=== PATIENT | male | born 1955 | race Caucasian/White ===

== ENCOUNTER 2018-09-20 00:06 | Observation (INO) | payer MEDICARE, OTHER ==
--- OUTSIDE RECORDS SUMMARY | 2018-09-20 00:10 | XMS REPORT | Clinical Summary ---
:1955 Author Organization [facility] [employer] Address [address] [place] [address] Care Team Providers Name Role Phone Lilian Jackson MD Primary Care Provider Unavailable Allergies Active Allergy Reactions Severity Noted Date Comments Morphine Sulfate 01/13/2016 Medications Medication Sig Dispensed Refills Start End Date Status Date allopurinol (ZYLOPRIM) 1 tab po daily 30 tablet 11 Active 100 MG tablet 8 pravastatin Take 1 tablet 30 tablet 11 08/02/20 Active (PRAVACHOL) 40 MG (40 mg total) 8 19 tablet by mouth daily. sodium bicarbonate 650 Take 1 tablet 180 tablet 3 08/22/20 Active mg tablet (648 mg total) 8 19 by mouth 2 (two) times a day. furosemide (LASIX) 20 Take 1 tablet 180 tablet 3 08/22/20 Active mg tablet (20 mg total) 8 19 by mouth 2 (two) times a day. blood pressure monitor Monitor Blood 1 each 0 Active kit pressure daily 8 as advised losartan (COZAAR) 50 Take 1 tablet 30 tablet 11 09/07/20 Active MG tablet (50 mg total) 8 19 by mouth daily. albuterol (PROAIR HFA) Inhale 2 puffs 18 g 11 09/07/20 Active 90 mcg/actuation every 6 (six) 8 19 inhaler hours as needed for wheezing. sildenafil (VIAGRA) 50 Take 50 mg by 0 08/02/20 Discontinued MG tablet mouth. 2 18 colchicine 0.6 mg Take 1 tablet 30 tablet 3 07/02/20 Discontinued tabletIndications: (0.6 mg total) 6 18 Acute idiopathic gout, by mouth unspecified site daily. lisinopril Take 1 tablet 30 tablet 11 08/02/20 Discontinued (PRINIVIL,ZESTRIL) 10 (10 mg total) 6 18 MG tablet by mouth daily. allopurinol (ZYLOPRIM) 1 tab po daily 30 tablet 11 08/02/20 Discontinued 100 MG tablet 6 18 febuxostat (ULORIC) 80 Take 1 tablet 0 08/02/20 Discontinued mg tablet by mouth. 18 methylPREDNISolone follow package 21 tablet 0 07/07/20 (MEDROL, GARIMA,) 4 mg directions 8 18 tablet predniSONE (DELTASONE) 2 tabs po 10 tablet 0 07/21/20 20 mg tablet daily x5 days 8 18 lisinopril Take 1 tablet 30 tablet 11 09/07/20 Discontinued (PRINIVIL,ZESTRIL) 10 (10 mg total) 8 18 mg tablet by mouth daily. melatonin 1 mg tablet Take 1 mg by 0 09/07/20 Discontinued mouth nightly 18 as needed for sleep. predniSONE (DELTASONE) Take 2 tablets 10 tablet 0 09/04/20 20 mg tablet (40 mg total) 8 18 by mouth daily for 5 days. predniSONE (DELTASONE) 2 tabs po 10 tablet 0 09/10/20 20 mg tablet daily x5 days 8 18 predniSONE (DELTASONE) 1 tab daily as 20 tablet 0 09/11/20 20 mg tablet directed for 8 18 gout flares Active Problems Problem Noted Date Acute pain of left knee 01/13/2016 Chronic kidney disease, stage I 11/14/2015 Cough 11/14/2015 Essential hypertension 11/14/2015 Gout 11/14/2015 HLD (hyperlipidemia) 11/14/2015 Throat pain 11/14/2015 Proteinuria 11/14/2015 Encounters Date Type Specialty Care Team Description 09/07/2018 Office Visit Internal Medicine Ren[facility], Gout, unspecified cause, unspecified chronicity, unspecified site (Primary Dx); MD Lilian Stage 4 chronic kidney disease (HCC); Allergic rhinitis, unspecified seasonality, unspecified trigger; Hyperlipidemia, unspecified hyperlipidemia type; Essential hypertension; Cough 09/06/2018 Telephone Internal Medicine [facility]etta Gout, unspecified cause, MD Lilian unspecified chronicity, unspecified site (Primary Dx) 09/06/2018 Orders Only Nephrology Alisha Vargas MA 09/03/2018 Hospital Radiology [facility], Proteinuria, unspecified Encounter Neri Rendon MD type 08/31/2018 Hospital Rad[facility], Positive for Encounter Neri Rendon MD macroalbuminuria 08/31/2018 Hospital Radiology [facility], Positive for Encounter Neri Rendon MD macroalbuminuria 08/30/2018 Telephone Internal Medicine Teresa Parekh MA 08/30/2018 Telephone Nephrology Alisha Vargas MA 08/28/2018 Orders Only Nephrology Sam, Proteinuria, unspecified CHARLEY Brito type (Primary Dx) 08/22/2018 Office Visit Nephrology Nicole, Albuminuria (Primary Dx); Neri Rendon MD CKD (chronic kidney disease) stage 3, GFR 30-59 ml/min ( HCC); Renovascular hypertension 08/22/2018 Orders Only Nephrology Sam, Positive for CHARLEY Brito macroalbuminuria (Primary Dx) 08/20/2018 Orders Only Nephrology Sam, Chronic kidney disease, CHARLEY Brito unspecified CKD stage (Primary Dx) 08/02/2018 Office Visit Internal Medicine [facility], Encounter for general adult medical examination with abnormal findings (Primary Dx); MD Lilian Pneumococcal vaccination indicated; Influenza vaccine administered; Screening for malignant neoplasm of prostate; Hyperlipidemia, unspecified hyperlipidemia type; Gout, unspecified cause, unspecified chronicity, unspecified site; Chronic kidney disease, stage I; Proteinuria, unspecified type; Screening for cardiovascular condition 07/16/2018 Telephone Internal Medicine [facility], MD Lilian 07/05/2018 Orders Only Internal Medicine Ren[facility] CKD (chronic kidney MD Lilian disease) stage 3, GFR 30-59 ml/min (HCC) (Primary Dx) 07/02/2018 Office Visit Internal Medicine [facility] Gout, unspecified cause, unspecified chronicity, unspecified site (Primary Dx); MD Lilian Essential hypertension; Chronic kidney disease, stage I; Hyperlipidemia, unspecified hyperlipidemia type; Acute gout, unspecified cause, unspecified site 07/02/2018 Telephone Internal Medicine Lilian Jackson MD 10/11/2017 Refill Internal Medicine Lilian Jackson MD after 09/19/2017 Immunizations Name Dates Previously Given Next Due INFLUENZA QUAD PF 08/02/2018 Pneumococcal Conjugate 13-Valent 08/02/2018 Tdap 03/25/2011 Zoster 01/09/2015 Family History Medical History Relation Name Comments Breast cancer Mother Relation Name Status Comments Mother Social History Tobacco Use Types Packs/Day Years Used Date Never Smoker Smokeless Tobacco: Never Used Alcohol Use Drinks/Week oz/Week Comments Yes rarely Sex Assigned at Date Recorded Not on file Job Start Date Occupation Industry Not on file Not on file Not on file Travel History Travel Start Travel End No recent travel history available. Last Filed Vital Signs Vital Sign Reading Time Taken Blood Pressure 130/70 09/07/2018 8:22 [employer] Pulse 63 09/07/2018 8:22 [employer] Temperature 36.9 C (98.4 F) 09/07/2018 8:22 [employer] Respiratory Rate 14 09/07/2018 8:22 [employer] Oxygen Saturation 98% 09/07/2018 8:22 [employer] Inhaled Oxygen Concentration - - Weight 104 kg (230 lb) 09/07/2018 8:22 [employer] Height 182.9 cm (6') 09/07/2018 8:22 [employer] Body Mass Index 31.19 09/07/2018 8:22 [employer] Plan of Treatment Health Maintenance Due Date Last Done Comments COLON CANCER SCREENING 2003 SHINGLES VACCINES (1 of 2) 2003 PNEUMOCOCCAL POLYSACCHARIDE VACCINE AGE 65 AND OVER 2018 INFLUENZA VACCINE Completed 08/02/2018 PNEUMOCOCCAL-13 Completed 08/02/2018 Procedures Procedure Name Priority Date/Time Associated Diagnosis Comments BASIC METABOLIC PANEL Routine 09/07/2018 9:23 Gout, unspecified Results for [employer] cause, unspecified this procedure chronicity, unspecified are in the site results section. URIC ACID LEVEL Routine 09/07/2018 9:20 Gout, unspecified Results for [employer] cause, unspecified this procedure chronicity, unspecified are in the site results section. SURGICAL PATHOLOGY Routine 09/03/2018 10:10 Results for REQUEST [employer] this procedure are in the results section. US NEEDLE BIOPSY Routine 09/03/2018 9:55 Proteinuria, Results for [employer] unspecified type this procedure are in the results section. US RENAL Routine 08/31/2018 4:31 Positive for Results for [employer] macroalbuminuria this procedure are in the results section. US RENAL DOPPLER Routine 08/31/2018 4:30 Positive for Results for [employer] macroalbuminuria this procedure are in the results section. PROTEIN Routine 08/23/2018 8:32 Positive for Results for ELECTROPHORESIS WITH [employer] macroalbuminuria this procedure INTERPRETATION, SERUM are in the results section. URIC ACID LEVEL Routine 08/23/2018 8:32 Positive for Results for [employer] macroalbuminuria this procedure are in the results section. MICROALBUMIN, URINE, Routine 08/23/2018 8:32 Positive for Results for RANDOM [employer] macroalbuminuria this procedure are in the results section. URINE PROTEIN Routine 08/23/2018 8:32 Positive for Results for ELECTROPHORESIS, [employer] macroalbuminuria this procedure RANDOM are in the results section. VITAMIN D 25 HYDROXY Routine 08/23/2018 8:32 Positive for Results for LEVEL [employer] macroalbuminuria this procedure are in the results section. PTH, INTACT AND Routine 08/23/2018 8:32 Positive for Results for CALCIUM [employer] macroalbuminuria this procedure are in the results section. PROTHROMBIN TIME WITH Routine 08/23/2018 8:32 Positive for Results for INR [employer] macroalbuminuria this procedure are in the results section. PARTIAL THROMBOPLASTIN Routine 08/23/2018 8:32 Positive for Results for TIME (PTT) [employer] macroalbuminuria this procedure are in the results section. CBC WITH PLATELET AND Routine 08/23/2018 8:32 Positive for Results for DIFFERENTIAL [employer] macroalbuminuria this procedure are in the results section. PHOSPHORUS LEVEL Routine 08/23/2018 8:32 Positive for Results for [employer] macroalbuminuria this procedure are in the results section. MAGNESIUM LEVEL Routine 08/23/2018 8:32 Positive for Results for [employer] macroalbuminuria this procedure are in the results section. BASIC METABOLIC PANEL Routine 08/23/2018 8:32 Positive for Results for [employer] macroalbuminuria this procedure are in the results section. ANUJ, PE AND FLC, SERUM Routine 08/23/2018 8:32 Positive for Results for [employer] macroalbuminuria this procedure are in the results section. MICROSCOPIC Routine 08/20/2018 11:32 Results for EXAMINATION [employer] this procedure are in the results section. MICROALBUMIN, URINE, Routine 08/20/2018 11:32 Chronic kidney disease, Results for RANDOM [employer] unspecified CKD stage this procedure are in the results section. URINALYSIS, COMPLETE, Routine 08/20/2018 11:32 Chronic kidney disease, Results for WITH REFLEX TO CULTURE [employer] unspecified CKD stage this procedure are in the results section. PHOSPHORUS LEVEL Routine 08/20/2018 11:32 Chronic kidney disease, Results for [employer] unspecified CKD stage this procedure are in the results section. MAGNESIUM LEVEL Routine 08/20/2018 11:32 Chronic kidney disease, Results for [employer] unspecified CKD stage this procedure are in the results section. BASIC METABOLIC PANEL Routine 08/20/2018 11:32 Chronic kidney disease, Results for [employer] unspecified CKD stage this procedure are in the results section. ECG 12-LEAD Routine 08/02/2018 12:39 Encounter for general Results for [employer] adult medical this procedure examination with are in the abnormal findings results section. PARATHYROID HORMONE Routine 08/02/2018 11:59 Chronic kidney disease, Results for [employer] stage I this procedure are in the results section. BASIC METABOLIC PANEL Routine 08/02/2018 11:59 Chronic kidney disease, Results for [employer] stage I this procedure are in the results section. PROSTATE SPECIFIC Routine 08/02/2018 11:59 Screening for malignant Results for ANTIGEN [employer] neoplasm of prostate this procedure are in the results section. MICROSCOPIC Routine 07/02/2018 2:56 Results for EXAMINATION PM CDT this procedure are in the results section. URIC ACID LEVEL Routine 07/02/2018 2:56 Essential hypertension Results for PM CDT Gout, unspecified this procedure cause, unspecified are in the chronicity, unspecified results site section. Chronic kidney disease, stage I Hyperlipidemia, unspecified hyperlipidemia type MICROALBUMIN / Routine 07/02/2018 2:56 Essential hypertension Results for CREATININE URINE RATIO PM CDT Gout, unspecified this procedure cause, unspecified are in the chronicity, unspecified results site section. Chronic kidney disease, stage I Hyperlipidemia, unspecified hyperlipidemia type URINALYSIS, COMPLETE, Routine 07/02/2018 2:56 Essential hypertension Results for WITH REFLEX TO CULTURE PM CDT Gout, unspecified this procedure cause, unspecified are in the chronicity, unspecified results site section. Chronic kidney disease, stage I Hyperlipidemia, unspecified hyperlipidemia type THYROID STIMULATING Routine 07/02/2018 2:56 Essential hypertension Results for HORMONE PM CDT Gout, unspecified this procedure cause, unspecified are in the chronicity, unspecified results site section. Chronic kidney disease, stage I Hyperlipidemia, unspecified hyperlipidemia type LIPID PANEL Routine 07/02/2018 2:56 Essential hypertension Results for PM CDT Gout, unspecified this procedure cause, unspecified are in the chronicity, unspecified results site section. Chronic kidney disease, stage I Hyperlipidemia, unspecified hyperlipidemia type HEMOGLOBIN A1C Routine 07/02/2018 2:56 Essential hypertension Results for PM CDT Gout, unspecified this procedure cause, unspecified are in the chronicity, unspecified results site section. Chronic kidney disease, stage I Hyperlipidemia, unspecified hyperlipidemia type COMPREHENSIVE Routine 07/02/2018 2:56 Essential hypertension Results for METABOLIC PANEL PM CDT Gout, unspecified this procedure cause, unspecified are in the chronicity, unspecified results site section. Chronic kidney disease, stage I Hyperlipidemia, unspecified hyperlipidemia type CBC WITH PLATELET AND Routine 07/02/2018 2:56 Essential hypertension Results for DIFFERENTIAL PM CDT Gout, unspecified this procedure cause, unspecified are in the chronicity, unspecified results site section. Chronic kidney disease, stage I Hyperlipidemia, unspecified hyperlipidemia type after 09/19/2017 Results Basic metabolic panel (09/07/2018 9:23 [employer])Only the most recent of4 resultswithin the time period is included. Glucose 110 (H) 65 - 99 mg/dL [facility] BUN, whole blood 43 (H) 8 - 27 mg/dL [facility] Creatinine 1.96 (H) 0.76 - 1.27 mg/dL [facility] EGFR Non-Afr. [place] 35 (L) >59 mL/min/1.73 [facility] EGFR 40 (L) >59 mL/min/1.73 [facility] BUN/creatinine ratio 22 10 - 24 [facility] Sodium 141 134 - 144 mmol/L [facility] Potassium 5.0 3.5 - 5.2 mmol/L [facility] Chloride 108 (H) 96 - 106 mmol/L [facility] CO2 19 (L) 20 - 29 mmol/L [facility] Calcium 9.5 8.6 - 10.2 mg/dL [facility] Specimen Blood Narrative Performed At Performed at:01 - [facility] [address], [id number] Milling Operator: Laurent Guillaume MD, Phone:[phone] Performing Organization Address City/State/Zipcode Phone Number [facility] Uric acid level (09/07/2018 9:20 AM [employer])Only the most recent of3 resultswithin the time period is included. Uric acid 8.5Comment: Therapeutic target for 3.7 - 8.6 mg/dL [facility] gout patients: <6.0 Specimen Blood Narrative Performed At Performed at: [facility] [address], [id number] Milling Operator: Laurent Guillaume MD, Phone:[phone] Performing Organization Address City/State/Zipcode Phone Number [facility] Surgical pathology request (09/03/2018 10:10 AM [employer]) [facility] DEPARTMENT OF PATHOLOGY AND GENOMIC MEDICINE Surgical pathology report See link below for PDF [facility] DEPARTMENT OF Lab Report PATHOLOGY AND GENOMIC MEDICINE Result status This is Final Report [facility] DEPARTMENT OF for [id number] PATHOLOGY AND GENOMIC MEDICINE Performing Organization Address City/[facility] Phone Number [facility] DEPARTMENT OF PATHOLOGY AND [address] [place] [address] GENOMIC MEDICINE US Needle Biopsy (09/03/2018 9:55 AM [employer]) Narrative Performed At EXAMINATION:US NEEDLE BIOPSY [facility] CLINICAL HISTORY:R80.9 Proteinuria CONSENT: Risks, benefits, and alternatives discussed. Written informed consent obtained. SEDATION: Versed and fentanyl were administered intravenously for moderate sedation under physician supervision. Pulse oximetry, heart rate, and blood pressure were continuously monitored by an independently trained observer. INTRASERVICE [id number] TIME: 25 minutes ANESTHESIA: Lidocaine local. TECHNIQUE: Patient was placed in prone position. Skin was sterilely prepped and draped. Lidocaine was infiltrated into the soft tissues for local anesthesia. Ultrasound-guided 18-gauge core biopsy of the [place] left kidney was performed. Intraprocedural consultation with pathology deemed specimen adequate for interpretation. Patient tolerated the procedure well without immediate complication, left the room in good condition, and was escorted to observation for further monitoring. EBL: Less than 5 cc COMPLICATIONS: No immediate. ASSISTANTS: None. IMPRESSION: Technically successful ultrasound-guided biopsy of the [place] left kidney. [facility]-[id number] Procedure Note Hm Interface, Radiology Results Incoming - 09/03/2018 10:31 AM [employer] EXAMINATION: US NEEDLE BIOPSY CLINICAL HISTORY: R80.9 Proteinuria CONSENT: Risks, benefits, and alternatives discussed. Written informed consent obtained. SEDATION: Versed and fentanyl were administered intravenously for moderate sedation under physician supervision. Pulse oximetry, heart rate, and blood pressure were continuously monitored by an independently trained observer. INTRASERVICE [id number] SEDATION TIME: 25 minutes ANESTHESIA: Lidocaine local. TECHNIQUE: Patient was placed in prone position. Skin was sterilely prepped and draped. Lidocaine was infiltrated into the soft tissues for local anesthesia. Ultrasound-guided 18-gauge core biopsy of the [place] left kidney was performed. Intraprocedural consultation with pathology deemed specimen adequate for interpretation. Patient tolerated the procedure well without immediate complication, left the room in good condition, and was escorted to observation for further monitoring. EBL: Less than 5 cc COMPLICATIONS: No immediate. ASSISTANTS: None. IMPRESSION: Technically successful ultrasound-guided biopsy of the [place] left kidney. [facility]-[id number] Performing Organization Address City/State/Zipcode Phone Number [facility] [address] [place] [address] US Renal (08/31/2018 4:31 PM [employer]) Narrative Performed At EXAMINATION:US RENAL [facility] CLINICAL HISTORY:R80.9 Proteinuriaunspecified, Elevated Creatinine COMPARISON:None. FINDINGS: The kidneys are normal in size and echogenicity. There is no evidence of any solid renal mass,or hydronephrosis. The right kidney [id number] cm. The left kidney ongpifzs88.3X6.3 X 5.0 cm. There is a 0.4 cm nonobstructing stone seen within the left kidney. The urinary bladder is unremarkable. IMPRESSION: 1. The kidneys do not have any solid renal mass or hydronephrosis. 2. There is a 0.4 cm nonobstructing stone seen within the left kidney. 3. The bladder is unremarkable. [facility]-[id number] Procedure Note Interface, Radiology Results Incoming - 08/31/2018 4:45 PM [employer] EXAMINATION: US RENAL CLINICAL HISTORY: R80.9 Proteinuria unspecified, Elevated Creatinine COMPARISON: None. FINDINGS: The kidneys are normal in size and echogenicity. There is no evidence of any solid renal mass, or hydronephrosis. The right kidney measures 11.5 X 5.7 X 6.0 cm. The left kidney measures 11.3 X 6.3 X 5.0 cm. There is a 0.4 cm nonobstructing stone seen within the left kidney. The urinary bladder is unremarkable. IMPRESSION: 1. The kidneys do not have any solid renal mass or hydronephrosis. 2. There is a 0.4 cm nonobstructing stone seen within the left kidney. 3. The bladder is unremarkable. [id number] Performing Organization Address City/State/Zipcode Phone Number [facility] [address] [place] [address] US Renal Doppler (08/31/2018 4:30 PM [employer]) Narrative Performed At EXAMINATION:US RENAL DOPPLER [facility] CLINICAL HISTORY:R80.9 Proteinuriaunspecified, HTN TECHNIQUE: Examination includes a full duplex Doppler scan of the renal vessels (real-time B mode grayscale, Doppler spectral analysis, and Doppler color flow imaging). COMPARISON:None. FINDINGS: Right renal arterial waveforms demonstrate normal systolic upstrokes and good enddiastolic flow. The right renal vein is patent.The resistive index measures 0.73 in the superior portion, 0.75 in the midportion 0.80 inferiorly.. Left renal arterial waveforms demonstrate normal systolic upstrokes and good end diastolic flow. The left renal vein is patent.The resistive index measures 0.63 in the superior portion, 0.57 inferiorly and 0.70 in the inferior portion. The RENAL PEAK SYSTOLIC VELOCITY/AORTIC PEAK SYSTOLIC VELOCITY RATIOis 0.57 on the right ,and 0.41 on the left. This finding is within normal limits.. IMPRESSION: Normal renal Doppler ultrasound examination. [facility]-[id number] Procedure Note Interface, Radiology Results Incoming - 08/31/2018 4:49 PM [employer] EXAMINATION: US RENAL DOPPLER CLINICAL HISTORY: R80.9 Proteinuria unspecified, HTN TECHNIQUE: Examination includes a full duplex Doppler scan of the renal vessels (real-time B mode grayscale, Doppler spectral analysis, and Doppler color flow imaging). COMPARISON: None. FINDINGS: Right renal arterial waveforms demonstrate normal systolic upstrokes and good end diastolic flow. The right renal vein is patent. The resistive index measures 0.73 in the superior portion, 0.75 in the midportion 0.80 inferiorly.. Left renal arterial waveforms demonstrate normal systolic upstrokes and good end diastolic flow. The left renal vein is patent. The resistive index measures 0.63 in the superior portion, 0.57 inferiorly and 0.70 in the inferior portion. The RENAL PEAK SYSTOLIC VELOCITY/AORTIC PEAK SYSTOLIC VELOCITY RATIO is 0.57 on the right ,and 0.41 on the left. This finding is within normal limits.. IMPRESSION: Normal renal Doppler ultrasound examination. [facility]-[id number] Performing Organization Address City/State/Zipcode Phone Number [facility] [address] [place] [address] ANUJ, PE and FLC, Serum (08/23/2018 8:32 AM [employer]) IgG 641 (L) 700 - 1,600 mg/dL [facility] IgA 363 61 - 437 mg/dL [facility] IgM 140 20 - 172 mg/dL [facility] Protein 6.6 6.0 - 8.5 g/dL [facility] Albumin 3.6 2.9 - 4.4 g/dL [facility] 02 Soawy-[id number] 0.2 0.0 - 0.4 g/dL [facility] 02 Evzry-7-qfrycmvj 0.9 0.4 - 1.0 g/dL [facility] 02 Beta globulin 1.3 0.7 - 1.3 g/dL [facility] 02 Gamma globulin 0.7 0.4 - 1.8 g/dL [facility] 02 M-SPIKE Not Observed Not Observed g/dL [facility] 02 Globulin, total 3.0 2.2 - 3.9 g/dL [facility] A/G ratio 1.3 0.7 - 1.7 [facility] 02 Immunofixation, serum CommentComment: An apparent [facility] 02 normal immunofixation pattern. Please note Comment [facility] 02 Comment: Protein electrophoresis scan will follow via computer, mail, or outreach assistant delivery. Ig [place] Free Light 31.0 (H) 3.3 - 19.4 mg/L [facility] 02 Chain Lambda light chain 36.7 (H) 5.7 - 26.3 mg/L [facility] 02 [place] lambda ratio 0.84 0.26 - 1.65 [facility] 02 Specimen Blood Narrative Performed At Performed at: - [facility] [address], [id number] Milling Operator: Laurent Guillaume MD, Phone:[phone] Performed at: - [address], [place], [id number] Milling Operator: MICHAEL Hernandez MD, Phone:[phone] Performing Organization Address [facility] Phone Number [facility] Protein Electrophoresis With Interpretation, Serum (08/23/2018 8:32 AM MANAGER [employer]) Albumin, S 3.5 2.9 - 4.4 g/dL [facility] Kbfyk-6-pqsmlejk 0.2 0.0 - 0.4 g/dL [facility] Kukul-8-aalixpik 1.0 0.4 - 1.0 g/dL [facility] Beta globulin 1.2 0.7 - 1.3 g/dL [facility] Gamma globulin 0.7 0.4 - 1.8 g/dL [facility] M-Ernst, % Not Observed Not Observed g/dL [facility] Globulin, total 3.1 2.2 - 3.9 g/dL [facility] 02 Albumin/globulin ratio 1.1 0.7 - 1.7 [facility] Please note Comment [facility] Comment: Protein electrophoresis scan will follow via computer, mail, or outreach assistant delivery. Interpretation Comment [facility] Comment: The SPE pattern appears essentially unremarkable. Evidence of monoclonal protein is not apparent. Specimen Blood Narrative Performed At Performed at:01 - [facility] [address], [place], [id number] Milling Operator: MICHAEL Hernandez MD, Phone:[phone] Performed at:02 - Lab[id number] Milling Operator: Laurent Guillaume MD, Phone:[phone] Performing Organization Address [facility] Phone Number [facility] 02 Urine protein electrophoresis, random (08/23/2018 8:32 AM MANAGER [employer]) Protein, urine 159.4 Not Estab. mg/dL [facility] Albumin, urine 81.5 % [facility] 02 Jvdvg-5-eapdnkbx, urine 2.0 % [facility] 02 Jslux-0-ganzarkp, urine 4.4 % [facility] 02 Beta globulin, urine 7.9 % [facility] 02 Gamma globulin, urine 4.3 % [facility] 02 M-Ernst, % Not Observed Not Observed % [facility] 02 Please note Comment [facility] 02 Comment: Protein electrophoresis scan will follow via computer, mail, or outreach assistant delivery. Specimen Urine Narrative Performed At Performed at: - [id number] Milling Operator: Laurent Guillaume MD, Phone:[phone] Performed at: Lab[address], [place], [id number] Milling Operator: MICHAEL Hernandez MD, Phone:[phone] Performing Organization Address [facility] Phone Number [facility] 02 Microalbumin, urine, random (08/23/2018 8:32 AM MANAGER TE[employer] SALES)Only the most recent of2 resultswithin the time period is included. Microalbumin, urine 1,163.7 Not Estab. ug/mL [facility] Comment: Results confirmed on dilution. Specimen Urine Narrative Performed At Performed at: [facility] [address] [place], [place] [id number] Milling Operator: Laurent Guillaume MD, Phone:[phone] Performing Organization Address [facility] Phone Number [facility] PTH, intact and calcium (08/23/2018 8:32 AM MANAGER [employer]) PTH 28 15 - 65 pg/mL [facility] PTH Comment [facility] 02 Comment: Interpretation Intact PTHCalcium (pg/mL) (mg/dL) Jekkbl48 - 65 8.6 - 10.2 Primary Hyperparathyroidism >65>10.2 Secondary Hyperparathyroidism >65<10.2 Non-Parathyroid Hypercalcemia <65>10.2 Hypoparathyroidism<15 < 8.6 Non-Parathyroid Rivrwwawxezk40 - 65< 8.6 Specimen Blood Narrative Performed At Performed at: - [facility] [address] [place], [place] [id number] Milling Operator: Laurent Guillaume MD, Phone:[phone] Performed at: [id number] Milling Operator: Karen Florez MD, Phone:[phone] Performing Organization Address [facility] Phone Number [facility] 02 Vitamin D 25 hydroxy level (08/23/2018 8:32 AM MANAGER [employer]) Vitamin D, 25-hydroxy 24.1 (L) 30.0 - 100.0 ng/mL [facility] Comment: Vitamin D deficiency has been defined by the [place] of [employer] and an Endocrine Society practice guideline as a level of serum 25-OH vitamin D less than 20 ng/mL (1,2). The Endocrine Society went on to further define vitamin D insufficiency as a level between 21 and 29 ng/mL (2). 1. IOM ([place] of [employer]). 2010. Dietary reference intakes for calcium and D. [place]: The National Academies Press. 2. Watson MF, Boby MELGAR, Vaughn DICKSON, et al. Evaluation, treatment, and prevention of vitamin D deficiency: an Endocrine Society clinical practice guideline. JCEM. 2010; 96(0):1911-30. Specimen Blood Narrative Performed At Performed at:[address] [place], [place] [id number] Milling Operator: Laurent Guillaume MD, Phone:[phone] Performing Organization Address [facility] Phone Number [facility] Partial thromboplastin time, activated (08/23/2018 8:32 AM MANAGER [employer]) aPTT 29 24 - [address] [facility] Comment: This test has not been validated for monitoring unfractionated heparin therapy. aPTT-based therapeutic ranges for unfractionated heparin therapy have not been established. For general guidelines on Heparin monitoring, refer to the [facility] of Services. Specimen Blood Narrative Performed At Performed at:[address] [place], [place] [id number] Milling Operator: Laurent Guillaume MD, Phone:[phone] Performing Organization Address [facility] Phone Number [facility] Prothrombin time with INR (08/23/2018 8:32 AM MANAGER TE[employer] SAL[employer]) INR 0.9 0.8 - 1.[address] Comment: Reference interval is for non-anticoagulated patients. Suggested INR therapeutic range for Vitamin K antagonist therapy: Standard Dose (moderate intensity therapeutic range): 2.0 - 3.0 Higher intensity therapeutic range 2.5 - 3.5 Prothrombin time 9.6 9.1 - 12.[address] [facility] Specimen Blood Narrative Performed At Performed at:[address] [place], [place] [address], [place], [id number] Milling Operator: Laurent Guillaume MD, Phone:[phone] Performing Organization Address [facility] Phone Number [facility] CBC with platelet and differential (08/23/2018 8:32 AM MANAGER TECH[employer] SALES)Only the most recent of2 resultswithin the time period is included. WBC 8.2 3.4 - 10.8 x10E3/uL [facility] RBC 4.68 4.14 - 5.80 x10E6/uL [facility] HGB 14.5 13.0 - 17.7 g/dL [facility] HCT 42.0 37.5 - 51.0 % [facility] MCV 90 79 - 97 fL [facility] MCH 31.0 26.6 - 33.0 pg [facility] MCHC 34.5 31.5 - 35.7 g/dL [facility] RDW 13.9 12.3 - 15.4 % [facility] Platelet count 193 150 - 379 x10E3/uL [facility] Neutrophils 55 Not Estab. % [facility] Lymphocytes 35 Not Estab. % [facility] Monocytes 8 Not Estab. % [facility] Eosinophils 2 Not Estab. % [facility] Basophils 0 Not Estab. % [facility] Neutrophils, absolute 4.5 1.4 - 7.0 x10E3/uL [facility] Lymphocytes, absolute 2.8 0.7 - 3.1 x10E3/uL [facility] Monocytes, absolute 0.7 0.1 - 0.9 x10E3/uL [facility] Eosinophils, absolute 0.2 0.0 - 0.4 x10E3/uL [facility] Basophils, absolute 0.0 0.0 - 0.2 x10E3/uL [facility] Immature granulocytes 0 Not Estab. % [facility] Immature grans (abs) 0.0 0.0 - 0.1 x10E3/uL [facility] Specimen Blood Narrative Performed At Performed at:01 - [facility] [address], [id number] Milling Operator: Laurent Guillaume MD, Phone:[phone] Performing Organization Address [facility] Phone Number [facility] Phosphorus level (08/23/2018 8:32 AM MANAGER [employer]ES)Only the most recent of2 resultswithin the time period is included. Phosphorus 3.0 2.5 - 4.5 mg/dL [facility] Specimen Blood Narrative Performed At Performed at: [id number] Milling Operator: Laurent Guillaume MD, Phone:[phone] Performing Organization Address [facility] Phone Number [facility] Magnesium level (08/23/2018 8:32 AM MANAGER [employer])Only the most recent of2 resultswithin the time period is included. Magnesium 2.1 1.6 - 2.3 mg/dL [facility] Specimen Blood Narrative Performed At Performed at: [id number] Milling Operator: Laurent Guillaume MD, Phone:[phone] Performing Organization Address [facility] Phone Number [facility] URINALYSIS, COMPLETE, WITH REFLEX TO CULTURE (08/20/2018 11:32 AM MANAGER [employer]ES)Only the most recent of2 resultswithin the time period is included. Specific gravity, urine 1.016 1.005 - 1.030 [facility] pH, urine 5.5 5.0 - 7.5 [facility] Color, UA Yellow Yellow [facility] Appearance Clear Clear [facility] WBC esterase, urine Negative Negative [facility] Protein, UA 3+ (A) Negative/Trace [facility] Glucose, urine Negative Negative [facility] Ketones, UA Negative Negative [facility] Occult blood, urine Negative Negative [facility] Bilirubin, UA Negative Negative [facility] Urobilinogen, UA 0.2 0.2 - 1.0 mg/dL [facility] Nitrite, UA Negative Negative [facility] Microscopic examination See below:Comment: Microscopic [facility] was indicated and was performed. Urinalysis reflex CommentComment: This specimen [facility] will not reflex to a Urine Culture. Narrative Performed At Performed at: [id number] Milling Operator: Laurent Guillaume MD, Phone:[phone] Performing Organization Address [facility] Phone Number [facility] Microscopic Examination (08/20/2018 11:32 AM MANAGER TE[employer]ES)Only the most recent of2 resultswithin the time period is included. WBC, UA 0-5 0 - 5 /hpf [facility] RBC, UA 0-2 0 - 2 /hpf [facility] Epithelial cells (non renal) None seen 0 - 10 /hpf [facility] Mucus, UA Present Not Estab. [facility] Bacteria, UA None seen None seen/Few [facility] Narrative Performed At Performed at: [facility], [id number] Milling Operator: Laurent Guillaume MD, Phone:[phone] Performing Organization Address [facility] Phone Number [facility] ECG 12 lead (08/02/2018 12:39 PM MANAGER TE[employer] SALES) Ventricular rate 63 [facility] Atrial rate 63 [facility] OK interval 176 [facility] QRSD interval 92 [facility] QT interval 414 [facility] QTC interval 423 [facility] QRS axis 1 12 [facility] T wave axis 10 [facility] EKG impression Normal sinus rhythm-Normal ECG-No previous [facility] ECGs available- Narrative Performed At Performing Organization Address [facility] Phone Number [facility] [address] [place] [address] Prostate specific antigen (08/02/2018 11:59 AM MANAGER TECH[employer] SALES) PSA 0.8 0.0 - 4.0 ng/mL [facility] Comment: Effie ECLIA methodology. According to the [place] [employer], Serum PSA should decrease and remain at undetectable levels after radical prostatectomy. The AUA defines biochemical recurrence as an initial PSA value 0.2 ng/mL or greater followed by a subsequent confirmatory PSA value 0.2 ng/mL or greater. Values obtained with different assay methods or kits cannot be used interchangeably. Results cannot be interpreted as absolute evidence of the presence or absence of malignant disease. Specimen Blood Narrative Performed At Performed at: - [facility], [id number] Milling Operator: Laurent Guillaume MD, Phone:[phone] Performing Organization Address [facility] Phone Number [facility] Parathyroid hormone (08/02/2018 11:59 AM MANAGER TE[employer] SAL[employer]) PTH 48 15 - 65 pg/mL [facility] Specimen Blood Narrative Performed At Performed at:[address] [place], [place] [id number] Milling Operator: Laurent Guillaume MD, Phone:[phone] Performing Organization Address [facility] Phone Number [facility] Microalbumin / creatinine urine ratio (07/02/2018 2:56 PM CDT) Creatinine, urine, random 82.5 Not Estab. mg/dL [facility] Microalbumin, urine 1,933.5 Not Estab. ug/mL [facility] Comment: Results confirmed on dilution. Microalbumin/creatinine 2,343.6 (H) 0.0 - 30.0 mg/g creat [facility] ratio Comment: Normal: 0.0 -30.0 Albuminuria: 31.0 - 300.0 Clinical albuminuria: > 300.0 Specimen Urine Narrative Performed At Performed at:[address] [place], [place] [id number] Milling Operator: Laurent Guillaume MD, Phone:[phone] Performing Organization Address [facility] Phone Number [facility] Thyroid stimulating hormone (07/02/2018 2:56 PM CDT) TSH 2.870 0.450 - 4.500 uIU/mL [facility] Specimen Blood Narrative Performed At Performed at:[address] [place], [place] [id number] Milling Operator: Laurent Guillaume MD, Phone:[phone] Performing Organization Address [facility] Phone Number [facility] Hemoglobin A1c (07/02/2018 2:56 PM CDT) Hemoglobin A1C 5.5 4.8 - 5.6 % [facility] Comment: Prediabetes: 5.7 - 6.4 Diabetes: >6.4 Glycemic control for adults with diabetes: <7.0 Specimen Blood Narrative Performed At Performed at:[address] [place], [place] [id number] Milling Operator: Laurent Guillaume MD, Phone:[phone] Performing Organization Address [facility] Phone Number [facility] Lipid panel (07/02/2018 2:56 PM CDT) Cholesterol 284 (H) 100 - 199 mg/dL [facility] Triglycerides 349 (H) 0 - 149 mg/dL [facility] HDL cholesterol 56 >39 mg/dL [facility] VLDL cholesterol vani 70 (H) 5 - 40 mg/dL [facility] LDL cholesterol calculated 158 (H) 0 - 99 mg/dL [facility] Non-HDL cholesterol 228 (H) 0 - 129 mg/dL [facility] Comment Comment [facility] Comment: Possible Familial Hypercholesterolemia. FH should be suspected when fasting LDL cholesterol is above 189 mg/dL or non-HDL cholesterol is above 219 mg/dL. A family history of high cholesterol and heart disease in 1st degree relatives should be collected. J Clin Lipidol 2011;5:133-140 Specimen Blood Narrative Performed At Performed at:01 - [id number] Milling Operator: Laurent Guillaume MD, Phone:[phone] Performing Organization Address [facility] Phone Number [facility] Comprehensive metabolic panel (07/02/2018 2:56 PM CDT) Glucose 86 65 - 99 mg/dL [facility] BUN, whole blood 36 (H) 8 - 27 mg/dL [facility] Creatinine 2.09 (H) 0.76 - 1.27 mg/dL [facility] EGFR Non-Afr. [place] 32 (L) >59 mL/min/1.73 [facility] EGFR 37 (L) >59 mL/min/1.73 [facility] BUN/creatinine ratio 17 10 - 24 [facility] Sodium 140 134 - 144 mmol/L [facility] Potassium 4.8 3.5 - 5.2 mmol/L [facility] Chloride 101 96 - 106 mmol/L [facility] CO2 22 20 - 29 mmol/L [facility] Calcium 9.4 8.6 - 10.2 mg/dL [facility] Protein 6.9 6.0 - 8.5 g/dL [facility] Albumin, S 4.4 3.6 - 4.8 g/dL [facility] Globulin, total 2.5 1.5 - 4.5 g/dL [facility] Albumin/globulin ratio 1.8 1.2 - 2.2 [facility] Total bilirubin 0.3 0.0 - 1.2 mg/dL [facility] Alkaline phosphatase 81 39 - 117 IU/L [facility] AST 18 0 - 40 IU/L [facility] ALT 14 0 - 44 IU/L [facility] Specimen Blood Narrative Performed At Performed at: - [facility] [address] [place], [id number] Milling Operator: Laurent Guillaume MD, Phone:[phone] Performing Organization Address City/State/Zipcode Phone Number [facility] after 09/19/2017 Insurance Payer Benefit Plan / Group Subscriber ID Type Phone Address [facility] MEDICARE AARP MEDICARE COMPLETE MCR xxxxxxxxx HMO ([place]) [place] [address] Advance Directives Patient has advance care planning documents on file. For more information, please contact:[address] [place] [place] [address]
[2018-09-20 00:40] LABS: Absolute Monocytes 1.3 K/uL (0.1-1.3); Absolute Neutrophil 11.7 K/uL (1.8-8.0); Basophils % 0.5 % (0-1.3); Eosinophils % 0.4 % (0-4.4); Hematocrit 41.6 % (39.6-49.0); Lymphocytes % 23.4 % (15.3-44.8); MPV 9.2 fL (7.6-11.3); Monocytes % 7.6 % (3.3-12.3); RBC Red Blood Cell Count 4.52 M/uL (4.33-5.43)
[2018-09-20 00:44] LABS: Protime INR 0.9
[2018-09-20] MEDS ORDERED: ASPIRIN 81 MG CHEWABLE TABLET ONE (00:44)
[2018-09-20 00:56] LABS: ALT/SGPT 22 U/L (12-78); AST/SGOT 10 U/L (15-37); Albumin 3.5 g/dL (3.4-5.0); Alkaline Phosphatase 74 U/L (45-117); BUN Blood Urea Nitrogen 43 mg/dL (7-18); Bicarbonate 24 mmol/L (21-32); Bilirubin Direct 0.1 mg/dL (0-0.2); Bilirubin Total 0.4 mg/dL (0.2-1.0); Glucose Level 101 mg/dL (74-106); Magnesium 2.2 mg/dL (1.8-2.4); NT PRO-BNP 182 pg/mL (<125); Protein, Total 7.2 g/dL (6.4-8.2); Sodium Level 141 mmol/L (136-145); Troponin (Emerg Dept Use Only) < 0.02 ng/mL (0.0-0.045)
[2018-09-20] MEDS ORDERED: ENOXAPARIN 100 MG/ML SYR SQ ONE (02:33)
[2018-09-20 04:09] LABS: Arterial Blood Carboxyhemoglob 0.9 % (0-1.5); Blood Gas Oxyhemoglobin 92.8 % (94-97); Blood O2 Saturation 94.5 % (92-98.5)
--- NOTE | 2018-09-20 04:41 | EDPHYS ---
Physician Documentation [facility] Name: Urbano Plaza Age: 63 yrs Sex: Male : 1955 Arrival Date: 09/20/2018 Time: 00:08 Bed 14 Private MD: ED Physician Timo Guan HPI: 09/20 01:01 This 63 yrs old Male presents to ER via Ambulatory with complaints of Chest tw4 Pain, Shortness Of Breath. 01:01 The patient or guardian reports chest pain that is located primarily in the anterior tw4 chest wall, right. Onset: just prior to arrival, today. The pain does not radiate. Associated signs and symptoms: The patient has no apparent associated signs or symptoms. The chest pain is described as a pressure, sharp. Duration: The patient or guardian reports a single episode. Severity of pain: At its worst the pain was moderate in the emergency department the pain is unchanged. The patient has not experienced similar symptoms in the past. Historical: - Allergies: 00:22 No Known Allergies; fc - Home Meds: 00:22 losartan oral oral [Active]; fc - PMHx: 00:22 Hypertension; High Cholesterol; kidney disease stage 3; fc - PSHx: 00:22 back surg; kidney biopsy - left; fc - Immunization history:: Last tetanus immunization: up to date Pneumococcal vaccine is up to date, Flu vaccine is up to date. - Social history:: Smoking status: Patient/guardian denies using tobacco, Patient/guardian denies using alcohol. - Ebola Screening: : Patient negative for fever greater than or equal to 101.5 degrees Fahrenheit, and additional compatible Ebola Virus Disease symptoms Patient denies exposure to infectious person Patient denies travel to an Ebola-affected area in the 21 days before illness onset. ROS: 01:01 Constitutional: Negative for fever, chills, and weight loss, Abdomen/GI: Negative for tw4 abdominal pain, nausea, vomiting, diarrhea, and constipation, Back: Negative for injury and pain, MS/Extremity: Negative for injury and deformity, Skin: Negative for injury, rash, and discoloration, Psych: Negative for depression, anxiety, suicide ideation, homicidal ideation, and hallucinations. 01:01 Cardiovascular: Positive for chest pain, Negative for edema, orthopnea, palpitations, paroxysmal nocturnal dyspnea. 01:01 Respiratory: Positive for dyspnea on exertion, pleurisy, shortness of breath, on exertion. Negative for cough, hemoptysis, orthopnea. Exam: 01:01 Constitutional: This is a well developed, well nourished patient who is awake, alert, tw4 and in no acute distress. Head/Face: Normocephalic, atraumatic. Cardiovascular: Regular rate and rhythm with a normal S1 and S2. No gallops, murmurs, or rubs. Normal PMI, no JVD. No pulse deficits. Respiratory: Lungs have equal breath sounds bilaterally, clear to auscultation and percussion. No rales, rhonchi or wheezes noted. No increased work of breathing, no retractions or nasal flaring. Abdomen/GI: Soft, non-tender, with normal bowel sounds. No distension or tympany. No guarding or rebound. No evidence of tenderness throughout. Back: No spinal tenderness. No costovertebral tenderness. Full range of motion. 01:01 MS/ Extremity: Pulses equal, no cyanosis. Neurovascular intact. Full, normal range of motion. Neuro: Awake and alert, GCS 15, oriented to person, place, time, and situation. Cranial nerves II-XII grossly intact. Motor strength 5/5 in all extremities. Sensory grossly intact. Cerebellar exam normal. Normal gait. 01:01 Chest/axilla: Inspection: normal, Palpation: tenderness, that is mild, of the right lateral anterior chest. Vital Signs: 00:06 BP 154 / 91; Pulse 85; Resp 22; Temp 97.7(O); Pulse Ox 96% on R/A; Weight 101.6 kg (R); fc Height 6 ft. 0 in. (182.88 cm) (R); Pain 10/10; 01:00 BP 144 / 77; Pulse 75; Resp 21; Pulse Ox 96% on R/A; lp1 01:20 BP 122 / 67; Pulse 77; Resp 22; Pulse Ox 96% on R/A; lp1 01:40 BP 132 / 73; Pulse 71; Resp 24; Pulse Ox 96% on R/A; lp1 02:00 BP 133 / 65; Pulse 72; Resp 21; Pulse Ox 96% on R/A; lp1 02:30 BP 148 / 77; Pulse 68; Resp 22; Pulse Ox 96% on R/A; lp1 03:00 BP 143 / 74; Pulse 64; Resp 20; Pulse Ox 95% on R/A; lp1 03:30 BP 126 / 61; Pulse 64; Resp 24; Pulse Ox 96% on R/A; lp1 04:30 BP 143 / 74; Pulse 64; Resp 20; Pulse Ox 96% on R/A; lp1 06:01 BP 110 / 77; Pulse 65; Resp 21; Temp 98.7(O); Pulse Ox 98% on R/A; lp1 00:06 Body Mass Index 30.38 (101.60 kg, 182.88 cm) fc MDM: 00:18 Patient medically screened. tw4 01:01 The patient's pulmonary embolism risk score was calculated as follows: suspected deep tw4 vein thrombosis (3 Pts) Total Score: 3-6 points. This patient was found to be at moderate risk for a pulmonary embolism by using the Well's assessment criteria. Data reviewed: vital signs, nurses notes. 05:36 Differential diagnosis: pancreatitis, pericarditis, pleurisy, pneumonia, pneumothorax, tw4 pulmonary embolus, stable angina, thoracic aortic disection. Counseling: I had a detailed discussion with the patient and/or guardian regarding: the historical points, exam findings, and any diagnostic results supporting the discharge/admit diagnosis, lab results, radiology results. Medication response: morphine markedly relieved the patient's pain. Symptoms have improved. Response to treatment: the patient's symptoms have markedly improved after treatment, and as a result, I will discharge patient. Physician consultation: Sheree Fraser MD regarding admission, to the telemetry unit. patient's condition, need to come to ED to see patient. 09/20 00:19 Order name: Basic Metabolic Panel; Complete Time: 04:00 09/20 04:00 Interpretation: Normal except: BUN 43; GFR 29; CRE 2.31. 09/20 00:19 Order name: CBC with Diff; Complete Time: 04:00 lp09/20 04:01 Interpretation: Normal except: WBC 17.1. 09/20 00:19 Order name: LFT's; Complete Time: 04:00 09/20 04:01 Interpretation: Normal except: AST 10; GLOB 3.7; A/G 0.9. 09/20 00:19 Order name: Magnesium; Complete Time: 04:00 lp1 09/20 04:01 Interpretation: Within normal limits: MG 2.2. tw4 09/20 00:19 Order name: NT PRO-BNP; Complete Time: 04:00 lp1 09/20 04:01 Interpretation: Normal except: NT PRO-BNP 182. tw4 09/20 00:19 Order name: PT-INR; Complete Time: 04:00 lp1 09/20 00:19 Order name: Troponin (emerg Dept Use Only); Complete Time: 04:00 lp1 09/20 00:39 Order name: D-Dimer; Complete Time: 04:00 EDMS 09/20 04:01 Interpretation: Normal except: D-DIMER 3874. tw4 09/20 04:00 Order name: ABG tw4 09/20 04:22 Order name: Flu tw4 09/20 04:22 Order name: Lactate tw4 09/20 04:22 Order name: Blood Culture* tw4 09/20 05:29 Order name: Lactate EDMS 09/20 00:19 Order name: XRAY Chest (1 view) lp1 09/20 00:19 Order name: EKG; Complete Time: 00:21 lp1 09/20 00:19 Order name: Cardiac monitoring; Complete Time: 00:19 lp1 09/20 00:19 Order name: EKG - Nurse/Tech; Complete Time: 00:19 lp1 09/20 00:19 Order name: IV Saline Lock; Complete Time: 00:30 lp1 09/20 00:19 Order name: Labs collected and sent; Complete Time: 00:30 lp1 09/20 00:19 Order name: O2 Per Protocol; Complete Time: 00:20 lp1 09/20 00:19 Order name: O2 Sat Monitoring; Complete Time: 00:19 lp1 09/20 01:28 Order name: Thorax Wo Con EDMS 09/20 05:29 Order name: Procalcitonin EDMS Administered Medications: 00:36 Drug: Aspirin Chewable Tablet 324 mg Route: PO; lp1 01:30 Follow up: Response: No adverse reaction lp1 05:00 Drug: Rocephin - (cefTRIAXone) 1 grams Route: IVPB; Infused Over: 30 mins; Site: left lp1 antecubital; 05:25 Follow up: Response: No adverse reaction; IV Status: Completed infusion; IV Intake: [id number] 05:04 Drug: LevaQUIN 500 mg Volume: 100 ml; Route: IVPB; Infused Over: 60 mins; Site: left lp1 antecubital; 06:00 Follow up: IV Status: Completed infusion; IV Intake: 100ml lp1 05:05 Not Given (Physician Discretion): Lovenox 100 mg Sub-Q once lp1 Disposition: 05:36 Critical Care:. tw4 Disposition: 09/20/18 04:40 Hospitalization ordered by Sheree Fraser for Inpatient Admission. Preliminary diagnosis are Pneumonia due to other specified infectious organisms, Hypoxemia. - Bed requested for Telemetry/MedSurg (Inpatient). - Status is Inpatient Admission. lp1 - Condition is Stable. - Problem is new. - Symptoms have improved. UTI on Admission? No Critical care time excluding procedures: 05:36 Critical care time: Bedside Care: 30 minutes, Consultation: 5 minutes. Total time: 35 tw4 minutes Signatures: Dispatcher [employer] [facility] Chelsea Degroot RN RN Shanti Crisostomo RN RN Chiqui Wick RN RN [facility] Timo Guan MD MD tw4 Corrections: (The following items were deleted from the chart) 00:39 00:37 D-DIMER+COAG.LAB.BRZ ordered. [facility] EDMS 01:28 00:40 Chest For PE Angio+CT.RAD.BRZ ordered. [facility] 05:20 04:40 Hospitalization Ordered by Sheree Fraser MD for Inpatient Admission. Preliminary diagnosis is Pneumonia due to other specified infectious organisms; Hypoxemia. Bed requested for Telemetry/MedSurg (Inpatient). Status is Inpatient Admission. Condition is Stable. Problem is new. Symptoms have improved. UTI on Admission? No. tw4 06:08 05:20 09/20/2018 04:40 Hospitalization Ordered by Sheree Fraser MD for Inpatient lp1 Admission. Preliminary diagnosis is Pneumonia due to other specified infectious organisms; Hypoxemia. Bed requested for Telemetry/MedSurg (Inpatient). Status is Inpatient Admission. Condition is Stable. Problem is new. Symptoms have improved. UTI on Admission? No. mw
--- NOTE | 2018-09-20 04:41 | ER ---
Nurse's Notes [facility] Name: Urbano Plaza Age: 63 yrs Sex: Male : 1955 Arrival Date: 09/20/2018 Time: 00:08 Bed 14 Private MD: Diagnosis: Pneumonia due to other specified infectious organisms;Hypoxemia Presentation: 09/20 00:06 Presenting complaint: Patient states: that he is having right sided chest pain that fc radiates up and down his right side. Also having shortness of breath but denies any nausea or vomiting. Pt has left kidney biopsy 10 days ago. Transition of care: patient was not received from another setting of care. Onset of symptoms was September 19, 2018 at 23:00. Risk Assessment: Do you want to hurt yourself or someone else? Patient reports no desire to harm self or others. Initial Sepsis Screen: Does the patient meet any 2 criteria? No. Patient's initial sepsis screen is negative. Does the patient have a suspected source of infection? No. Patient's initial sepsis screen is negative. Care prior to arrival: None. 00:06 Method Of Arrival: Ambulatory fc 00:06 Acuity: LOIS 3 fc Historical: - Allergies: 00:22 No Known Allergies; fc - Home Meds: 00:22 losartan oral oral [Active]; fc - PMHx: 00:22 Hypertension; High Cholesterol; kidney disease stage 3; fc - PSHx: 00:22 back surg; kidney biopsy - left; fc - Immunization history:: Last tetanus immunization: up to date Pneumococcal vaccine is up to date, Flu vaccine is up to date. - Social history:: Smoking status: Patient/guardian denies using tobacco, Patient/guardian denies using alcohol. - Ebola Screening: : Patient negative for fever greater than or equal to 101.5 degrees Fahrenheit, and additional compatible Ebola Virus Disease symptoms Patient denies exposure to infectious person Patient denies travel to an Ebola-affected area in the 21 days before illness onset. Screenin:06 Abuse screen: Denies threats or abuse. Nutritional screening: No deficits noted. fc Tuberculosis screening: No symptoms or risk factors identified. Fall Risk None identified. Assessment: 00:20 General: Appears uncomfortable, Behavior is anxious, restless. Pain: Complains of pain lp1 in chest Pain radiates to right lateral anterior chest and right lateral posterior chest Pain currently is 9 out of 10 on a pain scale. Quality of pain is described as sharp, Pain began suddenly, Also complains of shortness of breath. Neuro: Level of Consciousness is awake, alert, obeys commands, Oriented to person, place, time, situation. Cardiovascular: Patient's skin is warm and dry. Rhythm is sinus rhythm. Respiratory: Reports shortness of breath pain with respiration Respiratory effort is even, Respiratory pattern is regular, Breath sounds are clear bilaterally. GI: Abdomen is non-distended. : No signs and/or symptoms were reported regarding the genitourinary system. EENT: No signs and/or symptoms were reported regarding the EENT system. Derm: Skin is intact, Skin is dry, Skin is flushed. 01:45 Reassessment: Patient aware of waiting for CT results; at bedside; States pain lp1 comfortable when not moving. 02:45 Reassessment: Patient appears in no apparent distress at this time. No changes from lp1 previously documented assessment. 03:45 Reassessment: Patient appears in no apparent distress at this time. Patient and lp1 aware of waiting on CT results. 04:30 Reassessment: Patient appears in no apparent distress at this time. Patient and/or lp1 family updated on plan of care and expected duration. Pain level reassessed. Patient aware of pending admission; Dr. Guan at bedside to discuss results. 05:33 Reassessment: Dr. Bustos at bedside. lp1 Vital Signs: 00:06 BP 154 / 91; Pulse 85; Resp 22; Temp 97.7(O); Pulse Ox 96% on R/A; Weight 101.6 kg (R); fc Height 6 ft. 0 in. (182.88 cm) (R); Pain 10/10; 01:00 BP 144 / 77; Pulse 75; Resp 21; Pulse Ox 96% on R/A; lp1 01:20 BP 122 / 67; Pulse 77; Resp 22; Pulse Ox 96% on R/A; lp1 01:40 BP 132 / 73; Pulse 71; Resp 24; Pulse Ox 96% on R/A; lp1 02:00 BP 133 / 65; Pulse 72; Resp 21; Pulse Ox 96% on R/A; lp1 02:30 BP 148 / 77; Pulse 68; Resp 22; Pulse Ox 96% on R/A; lp1 03:00 BP 143 / 74; Pulse 64; Resp 20; Pulse Ox 95% on R/A; lp1 03:30 BP 126 / 61; Pulse 64; Resp 24; Pulse Ox 96% on R/A; lp1 04:30 BP 143 / 74; Pulse 64; Resp 20; Pulse Ox 96% on R/A; lp1 06:01 BP 110 / 77; Pulse 65; Resp 21; Temp 98.7(O); Pulse Ox 98% on R/A; lp1 00:06 Body Mass Index 30.38 (101.60 kg, 182.88 cm) fc ED Course: 00:06 Arm band placed on Patient placed in an exam room, on a stretcher. fc 00:06 Patient has correct armband on for positive identification. Placed in gown. Bed in low fc position. Call light in reach. mechanical drafter on. Pulse ox on. NIBP on. 00:08 Patient arrived in ED. tl2 00:10 EKG done, by ED staff, reviewed by Timo Guan MD. fc 00:18 Timo Guan MD is Attending Physician. tw4 00:18 Chiqui Wick, KALA is Primary Nurse. lp1 00:19 Triage completed. fc 00:23 Patient maintains SpO2 saturation greater than 95% on room air. lp1 00:29 Inserted saline lock: 20 gauge in left antecubital area, using aseptic technique. Blood lp1 collected. By leeann Roblero. 00:35 XRAY Chest (1 view) In Process Unspecified. EDMS 00:52 Notified ED physician of a critical lab result(s). d dimer of 3874. fc 01:25 CT completed. Patient tolerated procedure well. Patient moved to CT via stretcher. Patient moved back from CT. 01:28 Thorax Wo Con In Process Unspecified. EDMS 04:39 Sheree Fraser MD is Hospitalizing Provider. tw4 05:32 No provider procedures requiring assistance completed. Patient admitted, IV remains in lp1 place. Administered Medications: 00:36 Drug: Aspirin Chewable Tablet 324 mg Route: PO; lp1 01:30 Follow up: Response: No adverse reaction lp1 05:00 Drug: Rocephin - (cefTRIAXone) 1 grams Route: IVPB; Infused Over: 30 mins; Site: left lp1 antecubital; 05:25 Follow up: Response: No adverse reaction; IV Status: Completed infusion; IV Intake: [id number] 05:04 Drug: LevaQUIN 500 mg Volume: 100 ml; Route: IVPB; Infused Over: 60 mins; Site: left lp1 antecubital; 06:00 Follow up: IV Status: Completed infusion; IV Intake: 100ml lp1 05:05 Not Given (Physician Discretion): Lovenox 100 mg Sub-Q once lp1 Intake: 05:25 IV: 10ml; Total: 10ml. lp1 06:00 IV: 100ml; Total: 110ml. lp1 Outcome: 04:40 Decision to Hospitalize by Provider. tw4 05:32 Condition: stable lp1 05:32 Instructed on the need for admit. 06:01 Admitted to Med/surg room 230, with chart, Report called to KALA Thompson lp1 06:08 Patient left the ED. lp1 Signatures: Dispatcher [employer] EDMS Steffen Simon Felicia, KALA RN fc Chiqui Wick RN RN lp1 Lisa Rainey RN RN tl2 Timo Guan MD MD tw4 Corrections: (The following items were deleted from the chart) 00:22 00:06 Presenting complaint: Patient states: that he is having right sided chest pain fc that radiates up and down his right side. Also having shortness of breath but denies any nausea or vomiting. fc
[2018-09-20] MEDS ORDERED: Levofloxacin500mg IV 500 MG/100 ML BAG IV ONE (05:04)
[2018-09-20] MEDS ORDERED: CEFTRIAXONE/SWI 1gm 1 GM/10 ML SYR ONE (05:04)
--- NOTE | 2018-09-20 05:53 | P.HP ---
Certification for Inpatient Patient admitted to: Inpatient With expected LOS: >2 Midnights Practitioner: I am a practitioner with admitting privileges, knowledge of patient current condition, hospital course, and medical plan of care. Services: Services provided to patient in accordance with Admission requirements found in Title 42 Section 412.3 of the Code of Federal Regulations Patient History Date of Service: 09/20/18 Reason for admission: pneumonia History of Present Illness: Mr Plaza is a 63 yeras old male with history of HTN, CKD stage III, who had a left kidney biopsy about 10 days ago, came to ED complaining of right side chest pain. The pain started a couple of days ago, but last night was worse. Intensity was 10/10, worse with deep breath. He denied nausea, vomiting or diaphoresis episode, but has had SOB. No fever or chills. He states that since a couple of weeks he has had dry cough, no secretions, his PCP prescribed to him inhaler, but did not improve it. Lab work shows leukocytosis 17.1K, lactate and procalcitonin are pending. Creatinine is elevated, D-dimer elevated as well (biopsy recently). CT chest shows right base atelectasis and superimpose infiltrate concerning for atypical pneumonia. In ED he was afebrile, hemodynamically stable. Allergies No Known Allergies Allergy (Unverified 09/20/18 05:24) Home medications list reviewed: Yes - Past Medical/Surgical History -: HTN -: CKD -: kidney biopsy (10 days ago) - Family History Family History: Reviewed- Non-Contributory - Social History Smoking Status: Never smoker Alcohol use: Yes CD- Drugs: No Place of Residence: Home Review of Systems 10-point ROS is otherwise unremarkable Physical Examination - Physical Exam General: Alert, In no apparent distress HEENT: Atraumatic, PERRLA, Mucous membr. moist/pink, EOMI, Sclerae nonicteric Neck: Supple, 2+ carotid pulse no bruit, No LAD, Without JVD or thyroid abnormality Respiratory: Normal air movement, Crackles/rales (right base crackles) Cardiovascular: Regular rate/rhythm, Normal S1 S2 Gastrointestinal: Normal bowel sounds, No tenderness Musculoskeletal: No tenderness Integumentary: No rashes Neurological: Normal speech, Normal strength at 5/5 x4 extr, Normal tone, Normal affect Lymphatics: No axilla or inguinal lymphadenopathy - Studies Laboratory Data (last 24 hrs) 09/20/18 00:25: PT 10.6, INR 0.90 09/20/18 00:25: WBC 17.1 H, Hgb 13.8, Hct 41.6, Plt Count 206 09/20/18 00:25: Sodium 141, Potassium 4.0, BUN 43 H, Creatinine 2.31 H, Glucose 101, Magnesium 2.2, Total Bilirubin 0.4, AST 10 L, ALT 22, Alkaline Phosphatase 74 Microbiology Data (last 24 hrs): 09/20/18 04:30 Nasopharnyx Influenza Type A Antigen Screen - Final 09/20/18 04:30 Nasopharnyx Influenza Type B Antigen Screen - Final Assessment and Plan - Problems (Diagnosis) (1) Pneumonia Current Visit: Yes Status: Acute Qualifiers: Pneumonia type: due to unspecified organism Laterality: right Lung location: lower lobe of lung Qualified Code(s): J18.1 - Lobar pneumonia, unspecified organism (2) HTN (hypertension) Current Visit: Yes Status: Acute Qualifiers: Hypertension type: essential hypertension Qualified Code(s): I10 - Essential (primary) hypertension (3) CKD (chronic kidney disease) stage 3, GFR 30-59 ml/min Current Visit: Yes Status: Acute - Plan The patient will be admitted to the hospital due to right base pneumonia, radiology report of CT chest reflex concern for atypical pneumonia. Will order empiric treatment with Rocephin and Azithromycin. Will consult Dr Valdes for evaluation and recommendations. D-dimer is elevated, likely due to recent biopsy , however will order lower extremity doppler US, and eventually VQ scan. - Advance Directives Does patient have a Living Will: No Does patient have a Durable POA for Healthcare: No - Code Status/Comfort Care Code Status Assessed: Yes Code Status: Full Code
[2018-09-20] MEDS ORDERED: IPRATROPIUM BROM 0.5MG/2.5ML NEB PRN (06:03)
[2018-09-20] MEDS ORDERED: NA CHLORIDE 0.9% 1,000 ML IV SCH (06:03)
[2018-09-20] MEDS ORDERED: ACETAMINOPHEN 500 MG TAB PO PRN (06:03)
[2018-09-20] MEDS ORDERED: MORPHINE 2 MG/ML SYR IV PRN (06:03)
[2018-09-20] MEDS ORDERED: ONDANSETRON 4 MG/2 ML VIAL IV PRN (06:03)
[2018-09-20] MEDS ORDERED: ALBUTEROL 2.5 MG/3 ML NEB SOL NEB PRN (06:03)
--- NOTE | 2018-09-20 07:35 | EKG ---
Test Date: 2018-09-20 Test Time: 00:10:33 Basic Sciences Professor: MANUEL MEASUREMENT RESULTS: Intervals: Rate: 81 MN: 190 QRSD: 94 QT: 384 QTc: 446 [place]: P: 35 MN: 190 QRS: -14 T: 37 INTERPRETIVE STATEMENTS: Normal sinus rhythm Nonspecific T wave abnormality Abnormal ECG No previous ECG available for comparison Electronically Signed On 09-20-18 07:34:23 MANAGER REPORT by Mychal Morris
--- NOTE | 2018-09-20 07:48 | RAD REPORT ---
EXAM DESCRIPTION: CT - Thorax Wo Con - 09/20/2018 6:03 am CLINICAL HISTORY: Chest pain, stage III renal disease/ renal failure, renal biopsy of the left kidne y 10 days earlier A preliminary report was provided at the time of the study and reviewed prior to final report. COMPARISON: Chest films same date TECHNIQUE: Axial 5 mm thick images of the chest were obtained without IV contrast. All CT scans are performed using dose optimization technique as appropriate and may include automated exposure control or mA/KV adjustment according to patient size. FINDINGS: No suspicious mass and no dense area of consolidation identified. There is a minimal amoun t of atelectasis in the posterior gutter on the right. There is additional interstitial and patchy al veolar opacification in the inferior aspect right lower lobe. Findings are accentuated by motion. Mid and upper lung chisholm show no acute findings. No pleural thickening or pleural effusion. No pneumoth orax. No abnormal mediastinal or hilar masses or lymphadenopathy seen. No gross aortic or pulmonary artery finding suspected. Assessment is limited in the absence of IV contrast. No chest wall mass or abnormal axillary lymphadenopathy. IMPRESSION: Mild or early right lower lobe pneumonia.
--- NOTE | 2018-09-20 08:05 | P.CNS ---
Date of Consult: 09/20/18 Chief Complaint: pneumonia History of Present Illness: Patient is 63 years of age history of chronic renal disease admitted with sudden onset of right-sided chest pain this started abruptly at 10:00 p.m. last night pain became progressively worse denies any fever or chills. 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 patient had a kidney biopsy done 10 days ago Allergies No Known Allergies Allergy (Verified 09/20/18 06:23) - Past Medical/Surgical History Diabetic: No -: HTN -: CKD -: high cholesterol -: kidney biopsy (10 days ago) -: back surgery - Family History Mother Medical History: Cancer - Social History Alcohol use: No CD- Drugs: No Caffeine use: No Place of Residence: Home Review of Systems 10-point ROS is otherwise unremarkable Physical Examination Temp Pulse Resp BP Pulse Ox 98.7 F 65 21 H 110/77 09/20/18 06:01 09/20/18 06:01 09/20/18 06:01 09/20/18 06:01 General: Alert, Oriented x3, Acute distress HEENT: Atraumatic Neck: Supple Respiratory: Other (Bronchial breathing on the right side) Cardiovascular: No edema, Normal pulses, Regular rate/rhythm Gastrointestinal: Normal bowel sounds, Soft and benign Musculoskeletal: No clubbing, No swelling Laboratory Data (last 24 hrs) 09/20/18 00:25: PT 10.6, INR 0.90 09/20/18 00:25: WBC 17.1 H, Hgb 13.8, Hct 41.6, Plt Count 206 09/20/18 00:25: Sodium 141, Potassium 4.0, BUN 43 H, Creatinine 2.31 H, Glucose 101, Magnesium 2.2, Total Bilirubin 0.4, AST 10 L, ALT 22, Alkaline Phosphatase 74 - Problems (1) Pneumonia Current Visit: Yes Status: Acute Plan: Patient is 63 years of age admitted with sudden onset of right-sided chest pain elevated white count CT scan chest x-ray possible early pneumonia on the right side still having some discomfort patient has chronic renal disease doubt thromboembolism continue with Rocephin had change to p.o. Zithromax Dc IV fluid to prevent volume overload vital signs stable room-air oxygenation satisfactory continue to monitor possible discharge home on cefuroxime and Zithromax tomorrow Qualifiers: Pneumonia type: due to unspecified organism Laterality: right Lung location: lower lobe of lung Qualified Code(s): J18.1 - Lobar pneumonia, unspecified organism
[2018-09-20] MEDS: ENOXAPARIN 30 MG/0.3 ML SQ SCH (08:17)
[2018-09-20] MEDS: MORPHINE 4 MG/ML SYR IV PRN ×3 (08:20→17:07)
[2018-09-20] MEDS: AZITHROMYCIN 250 MG TAB PO SCH (08:21)
[2018-09-20] MEDS ORDERED: CEFTRIAXONE 1 GM/NS 50 ML 1 GM/50 ML BAG IV SCH (09:00)
[2018-09-20] MEDS ORDERED: CEFTRIAXONE/SWI 1gm 1 GM/10 ML SYR IV SCH (09:00)
[2018-09-20] MEDS ORDERED: ENOXAPARIN 40 MG/0.4 ML SQ SCH (09:00)
[2018-09-20] MEDS ORDERED: AZITHROMYCIN IV 500 MG in NA CHLORIDE 0.9% 250 ML IVPB SCH (09:00)
--- NOTE | 2018-09-20 09:19 | RAD REPORT ---
EXAM DESCRIPTION: RAD - Chest Single View - 09/20/2018 12:35 am CLINICAL HISTORY: Chest pain, shortness of breath COMPARISON: None. TECHNIQUE: AP portable chest image was obtained 0031 hours . FINDINGS: Lung volumes are low. Bilateral lung base opacification present and could be infiltrate, a telectasis or a combination. Heart size and vascular are accentuated by shallow inspiration portable technique. Significant failure or volume overload are doubtful. No measurable pleural effusion and no pneumothorax. No acute bony abnormality seen. No acute aortic findings suspected. IMPRESSION: Shallow inspiration film without acute cardiopulmonary finding. Due to shallow inspiration, minimal lung base infiltrate or atelectasis could be obscured.
--- NOTE | 2018-09-20 09:35 | RAD REPORT ---
EXAM DESCRIPTION: US - Extrem Venous W Compress Gagan - 09/20/2018 9:24 am CLINICAL HISTORY: Leg pain and swelling, elevated D-dimer COMPARISON: None. TECHNIQUE: Real-time sonographic evaluation of the bilateral lower extremity common femoral, superfi cial femoral, popliteal and posterior tibial veins was performed. FINDINGS: Normal compressibility, flow augmentation, phasic flow and spontaneous flow are identified in the left and right lower extremity common femoral, superficial femoral, popliteal and posterior t ibial veins. No intraluminal filling defects seen. IMPRESSION: No DVT in either lower extremity.
[2018-09-20 14:03] LABS: Absolute Monocytes 1.1 K/uL (0.1-1.3); Basophils % 0.6 % (0-1.3); Eosinophils % 0.8 % (0-4.4); Hematocrit 36.9 % (39.6-49.0); Lymphocytes % 17.9 % (15.3-44.8); MPV 8.9 fL (7.6-11.3); Monocytes % 9.8 % (3.3-12.3); RBC Red Blood Cell Count 4.03 M/uL (4.33-5.43)
--- NOTE | 2018-09-20 19:46 | RAD REPORT ---
EXAM DESCRIPTION: CT - Abdomen Pelvis Wo Contrast - 09/20/2018 6:47 pm CLINICAL HISTORY: Abdominal pain right-sided abdominal pain TECHNIQUE: Computed axial tomography of the abdomen and pelvis was obtained. IV was not requested. O ral contrast was given. Coronal reconstructions performed. All CT scans are performed using dose optimization technique as appropriate and may include automated exposure control or mA/KV adjustment according to patient size. FINDINGS: The evaluation of solid organs and vessels is limited secondary to the lack of contrast a dministration. The liver, spleen, pancreas, adrenals and kidneys appear grossly normal. There is no evidence of diverticulitis. Bilateral inguinal hernias contain fat Right lower lobe consolidation with minimal pleural effusion IMPRESSION: Right lower lobe consolidation consistent with pneumonia.
--- NOTE | 2018-09-20 19:48 | RAD REPORT ---
EXAM DESCRIPTION: Kj Crow (2 Views)09/20/2018 6:44 pm CLINICAL HISTORY: Cough COMPARISON: September 20 2017 FINDINGS: Right lower lobe consolidation. Left lung appears clear. The heart is borderline enlarged IMPRESSION: Right lower lobe pneumonia. This should be followed until it has cleared to help exclud e a post obstructive process/underlying mass
[2018-09-20] MEDS: HYDROMORPHONE HCL 1 MG/ML INJ IV PRN (20:56)
[2018-09-21] MEDS: HYDROMORPHONE HCL 1 MG/ML INJ IV PRN ×2 (02:33→06:28)
[2018-09-21 05:16] LABS: Absolute Lymphocytes (CBC) 1.8 K/uL (0.7-4.9); Absolute Monocytes 1.3 K/uL (0.1-1.3); Absolute Neutrophil 9.5 K/uL (1.8-8.0); Basophils % 0.4 % (0-1.3); Hematocrit 36.1 % (39.6-49.0); MPV 9.2 fL (7.6-11.3); Monocytes % 10.4 % (3.3-12.3); RBC Red Blood Cell Count 3.96 M/uL (4.33-5.43)
[2018-09-21 05:35] LABS: Potassium 4.2 mmol/L (3.5-5.1)
[2018-09-21] MEDS ORDERED: CEFTRIAXONE/SWI 1gm 1 GM/10 ML SYR IV SCH (06:00)
[2018-09-21] MEDS: ENOXAPARIN 30 MG/0.3 ML SQ SCH (07:54)
[2018-09-21] MEDS: AZITHROMYCIN 250 MG TAB PO SCH (07:55)
[2018-09-21] MEDS ORDERED: TRAMADOL HCL 50 MG TAB PO PRN (08:55)
[2018-09-21] MEDS ORDERED: CEFUROXIME 250 MG TAB PO SCH (09:00)
--- NOTE | 2018-09-21 09:14 | P.PN ---
Subjective Date of Service: 09/21/18 Chief Complaint: pneumonia Subjective: Improving (Patient is doing better he still has some discomfort on the right side hemodynamically stable) Review of Systems General: Weakness Cardiovascular: Chest Pain Physical Examination - Vital Signs Temperature: 99.0 F Blood Pressure: 127/60 Pulse: 80 Respirations: 20 Pulse Ox (%): 91 - Physical Exam General: Alert, Oriented x3 HEENT: Atraumatic Neck: Supple Respiratory: Crackles/rales (Minimal crackles on the right side) Cardiovascular: No edema, Normal S1 S2 - Studies Microbiology Data (last 24 hrs): 09/20/18 05:00 Blood - Blood Anaerobic Blood Culture - Final 09/20/18 04:54 Blood - Blood Anaerobic Blood Culture - Final 09/20/18 04:30 Nasopharnyx Influenza Type A Antigen Screen - Final 09/20/18 04:30 Nasopharnyx Influenza Type B Antigen Screen - Final Assessment & Plan - Problems (Diagnosis) (1) Pneumonia Current Visit: Yes Status: Acute Plan: Patient is 63 years of age with a history of renal failure admitted with right- sided discomfort lateral x-ray shows a possible pneumonia on the right side cultures are so far all negative white count has declined kidney function as also improved patient can be discharged home on cefuroxime and Zithromax follow up with me in 2 weeks Qualifiers: Pneumonia type: due to unspecified organism Laterality: right Lung location: lower lobe of lung Qualified Code(s): J18.1 - Lobar pneumonia, unspecified organism
[2018-09-21] MEDS ORDERED: predniSONE 20 MG TAB PO PRN (09:57)
--- NOTE | 2018-09-21 10:58 | P.DS ---
Admission Date: 09/20/18 Discharge Date: 09/21/18 Disposition: ROUTINE DISCHARGE Discharge Condition: GOOD Reason for Admission: pneumonia Consultations: Pulmonology - Problems (1) Pneumonia Current Visit: Yes Status: Acute Qualifiers: Pneumonia type: due to unspecified organism Laterality: right Lung location: lower lobe of lung Qualified Code(s): J18.1 - Lobar pneumonia, unspecified organism (2) CKD (chronic kidney disease) stage 3, GFR 30-59 ml/min Current Visit: Yes Status: Acute (3) HTN (hypertension) Current Visit: Yes Status: Acute Qualifiers: Hypertension type: essential hypertension Qualified Code(s): I10 - Essential (primary) hypertension Brief History of Present Illness: Mr Plaza is a 63 yeras old male with history of HTN, CKD stage III, who had a left kidney biopsy about 10 days ago, came to ED complaining of right side chest pain. The pain started a couple of days ago, but last night was worse. Intensity was 10/10, worse with deep breath. He denied nausea, vomiting or diaphoresis episode, but has had SOB. No fever or chills. He states that since a couple of weeks he has had dry cough, no secretions, his PCP prescribed to him inhaler, but did not improve it. Lab work shows leukocytosis 17.1K, lactate and procalcitonin are pending. Creatinine is elevated, D-dimer elevated as well (biopsy recently). CT chest shows right base atelectasis and superimpose infiltrate concerning for atypical pneumonia. In ED he was afebrile, hemodynamically stable. Hospital Course: Overall during the hospital stay patient remained stable Patient was initially admitted to the hospital for shortness of breath and tachypnea and was admitted to the hospital for pneumonia. For patient's shortness of breath and tachypnea patient had extensive workup done in the ER with CT a to rule out PE. CT was negative for PE however is consistent with a right lower lobe pneumonia. Patient was started initially on IV ceftriaxone along with Zithromax. Pulmonology was consulted who agreed with the antibiotics and place patient on neb treatments. Patient had marked improvement in his symptoms and was switched over to oral cefuroxime being and Zithromax. Patient continued to recover well while here in the hospital. On the chest x-ray repeat on the day of discharge patient had improvement in his right lower lobe pneumonia and also had some improvement in his purulent effusion that was noted initially on the CT scan of the abdomen. Patient was asked to continue taking the antibiotics and use incentive spirometer at least 4 to 5 times a day for 10 times in an hr. 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 While here in the hospital patient also was found to have acute kidney injury on chronic kidney disease. Patient had a kidney biopsy done with his design studio consultant about 2 weeks ago with the results currently pending. Patient remained stable from the acute kidney injury aspect no complications were noted as well. Vital Signs/Physical Exam: Temp Pulse Resp BP Pulse Ox 99.0 F 80 20 127/60 91 09/21/18 09:14 09/21/18 09:14 09/21/18 09:14 09/21/18 09:14 09/21/18 09:14 General: Alert, In no apparent distress HEENT: Atraumatic, PERRLA, EOMI Neck: Supple, JVD not distended Respiratory: Clear to auscultation bilaterally, Normal air movement Cardiovascular: Regular rate/rhythm, Normal S1 S2 Gastrointestinal: Normal bowel sounds, No tenderness Musculoskeletal: No tenderness Integumentary: No rashes Neurological: Normal speech, Normal tone, Normal affect Lymphatics: No axilla or inguinal lymphadenopathy Laboratory Data at Discharge: WBC 12.8 K/uL (4.3-10.9) H 09/21/18 04:38 Hgb 12.3 g/dL (13.6-17.9) L 09/21/18 04:38 Hct 36.1 % (39.6-49.0) L 09/21/18 04:38 Plt Count 182 K/uL (152-406) 09/21/18 04:38 PT 10.6 SECONDS (9.5-12.5) 09/20/18 00:25 INR 0.90 09/20/18 00:25 Sodium 140 mmol/L (136-145) 09/21/18 04:38 Potassium 4.2 mmol/L (3.5-5.1) 09/21/18 04:38 BUN 35 mg/dL (7-18) H 09/21/18 04:38 Creatinine 2.18 mg/dL (0.55-1.3) H 09/21/18 04:38 Glucose 122 mg/dL (74-106) H 09/21/18 04:38 Magnesium 2.2 mg/dL (1.8-2.4) 09/20/18 00:25 Total Bilirubin 0.4 mg/dL (0.2-1.0) 09/20/18 00:25 AST 10 U/L (15-37) L 09/20/18 00:25 ALT 22 U/L (12-78) 09/20/18 00:25 Alkaline Phosphatase 74 U/L (45-117) 09/20/18 00:25 Home Medications: Albuterol Sulfate [Proair Hfa] 1 puff IH Q6H 09/21/18 Allopurinol 100 mg PO DAILY 09/21/18 Azithromycin Tab [Zithromax*] 500 mg PO DAILY #14 tab 09/21/18 Cefuroxime [Ceftin*] 500 mg PO BID #56 tab 09/21/18 Furosemide 20 mg PO DAILY 09/21/18 Losartan Potassium [Cozaar*] 50 mg PO DAILY 09/21/18 Na Bicarb Tab [Sodium Bicarb 325 MG Tab*] 650 mg PO BID 09/21/18 Pravastatin Sodium 40 mg PO DAILY 09/21/18 predniSONE [Prednisone] 20 mg PO DAILY PRN 09/21/18 traMADol HCL [Ultram*] 50 mg PO Q6H PRN #30 tab 09/21/18 New Medications: Azithromycin Tab [Zithromax*] 500 mg PO DAILY #14 tab Cefuroxime [Ceftin*] 500 mg PO BID #56 tab traMADol HCL [Ultram*] 50 mg PO Q6H PRN #30 tab PRN Reason: Pain Patient Discharge Instructions: Please f.u with PCP and Pulmonology in 1 to 2 week post discharge. New medication. Zithromax 500mg Daily for 14 days. Ceftin 500mg BID for 14 days Diet: Regular Activity: Ad jill Followup: Ron Valdes MD [ACTIVE - CAN ADMIT] - 1-2 Weeks
--- NOTE | 2018-09-21 11:13 | RAD REPORT ---
EXAM DESCRIPTION: RAD - Chest Pa And Lat (2 Views) - 09/21/2018 10:18 am CLINICAL HISTORY: f/u pneumonia Chest pain. COMPARISON: Chest Pa And Lat (2 Views) dated 09/20/2018; Chest Single View dated 09/20/2018 FINDINGS: Bibasilar lung opacities are again noted, mildly improved since the comparative study. The lungs are otherwise clear the heart is mildly prominent size. No displaced fractures. Cervical hardw are plate is identified. IMPRESSION: Mild improvement in bibasilar lung opacities since comparative study.
[2018-09-21] MEDS ORDERED: ATORVASTATIN 10 MG TAB PO SCH (21:00)
[2018-09-21] MEDS ORDERED: SODIUM BICARB 325 MG TAB PO SCH (21:00)
[2018-09-22] MEDS ORDERED: FUROSEMIDE 20 MG/ 2ML VIAL IV SCH (09:00)
[2018-09-22] MEDS ORDERED: ALLOPURINOL 100 MG TAB PO SCH (09:00)
== END 2018-09-21 17:05 | disposition home or self-care (01) ==
LOC: ER 00:06 → ERHOLD 05:37 → INTOOBSV 05:37 → 2ND 06:01
PROVIDERS: ADMIT Internal Medicine; ATTEND Internal Medicine
DX: J18.9 Pneumonia, unspecified organism (principal); I12.9 Hypertensive chronic kidney disease with stage 1 through stage 4 chronic kidney disease, or unspecified chronic kidney disease; N18.3 Chronic kidney disease, stage 3 (moderate); N17.9 Acute kidney failure, unspecified
CPT/HCPCS: 36415 ×2; 71045; 71046 ×2; 71250; 74176; 80048 ×2; 80076; 82805; 83605 ×2; 83735; 83880; 84145; 84484; 85025 ×3; 85379; 85610; 87040 ×2; 87804 ×2; 93005; 93970; 94640; 94760 ×3; 96365; 99285; G0378 ×2; J0696 ×2; J1170 ×3; J1650 ×2; J7030; J0456

== ENCOUNTER 2018-11-08 11:10 | Emergency (ER) | payer MEDICARE, OTHER ==
--- OUTSIDE RECORDS SUMMARY | 2018-11-08 11:13 | XMS REPORT | Clinical Summary ---
:1955 Author Organization [employer] Address [address] [place] [address] Care Team Providers Name Role Phone Lilian Jackson MD Primary Care Provider Unavailable Allergies Active Allergy Reactions Severity Noted Date Comments Morphine Sulfate 01/13/2016 Medications Medication Sig Dispensed Refills Start End Status Date Date allopurinol (ZYLOPRIM) 1 tab po daily 30 tablet 11 08/02/20 Active 100 MG tablet 18 pravastatin Take 1 tablet 30 tablet 11 08/02/20 Active (PRAVACHOL) 40 MG (40 mg total) by 18 019 tablet mouth daily. sodium bicarbonate 650 Take 1 tablet 180 tablet 3 08/22/20 Active mg tablet (648 mg total) 18 019 by mouth 2 (two) times a day. losartan (COZAAR) 50 Take 1 tablet 30 tablet 11 09/07/20 Active MG tablet (50 mg total) by 18 019 mouth daily. traMADol (ULTRAM) 50 Take 50 mg by 0 Active mg tablet mouth every 6 (six) hours as needed for moderate pain. sildenafil (VIAGRA) 50 Take 50 mg by 0 10/21/19 Discontinued MG tablet mouth. 12 018 colchicine 0.6 mg Take 1 tablet 30 tablet 3 01/13/20 Discontinued tabletIndications: (0.6 mg total) 16 018 Acute idiopathic gout, by mouth daily. unspecified site lisinopril Take 1 tablet 30 tablet 11 01/13/20 Discontinued (PRINIVIL,ZESTRIL) 10 (10 mg total) by 16 018 MG tablet mouth daily. allopurinol (ZYLOPRIM) 1 tab po daily 30 tablet 11 08/29/20 Discontinued 100 MG tablet 16 018 febuxostat (ULORIC) 80 Take 1 tablet by 0 Discontinued mg tablet mouth. 018 methylPREDNISolone follow package 21 tablet 0 07/02/20 (MEDROL, GARIMA,) 4 mg directions tablet predniSONE (DELTASONE) 2 tabs po daily 10 tablet 0 07/17/20 20 mg tablet x5 days 18 lisinopril Take 1 tablet 30 tablet 11 08/02/20 Discontinued (PRINIVIL,ZESTRIL) 10 (10 mg total) by 18 018 mg tablet mouth daily. melatonin 1 mg tablet Take 1 mg by 0 Discontinued mouth nightly as 018 needed for sleep. furosemide (LASIX) 20 Take 1 tablet 180 tablet 3 08/22/20 Discontinued mg tablet (20 mg total) by 019 mouth 2 (two) times a day. predniSONE (DELTASONE) Take 2 tablets 10 tablet 0 08/30/20 20 mg tablet (40 mg total) by 18 018 mouth daily for 5 days. blood pressure monitor Monitor Blood 1 each 0 09/06/20 Discontinued kit pressure daily as advised predniSONE (DELTASONE) 2 tabs po daily 10 tablet 0 09/06/20 20 mg tablet x5 days predniSONE (DELTASONE) 1 tab daily as 20 tablet 0 09/07/20 20 mg tablet directed for gout flares albuterol (PROAIR HFA) Inhale 2 puffs 18 g 11 09/07/20 Discontinued 90 mcg/actuation every 6 (six) 019 inhaler hours as needed for wheezing. azithromycin Take 500 mg by 0 Discontinued (ZITHROMAX) 500 MG mouth daily. 019 tablet cefuroxime (CEFTIN) Take 500 mg by 0 Discontinued 500 MG tablet mouth 2 (two) 019 times a day. albuterol (ACCUNEB) Take 3 mL (2.5 75 mL 12 09/27/19 Discontinued 2.5 mg /3 mL (0.083 %) mg total) by nebulizer solution nebulization every 4 (four) hours as needed for wheezing. nebulizer and Pl dispense 1 each 0 09/27/19 Discontinued compressor device 19 019 nebulizer accessories Use albuterol 1 kit 1 09/27/19 Discontinued kit nebulizer q 4-6 19 019 hrs prn for cough/wheezing Hospital, Clinic, or Other Ordered Dose Route Frequency Start Date End Date Status Facility Administered Medication albuterol (ACCUNEB) 2.5 mg nebu once 09/27/2018 09/27/2018 Ended nebulizer solution 2.5 mgIndications: Cough Active Problems Problem Noted Date Acute pain of left knee 01/13/2016 Chronic kidney disease, stage I 11/14/2015 Cough 11/14/2015 Essential hypertension 11/14/2015 Gout 11/14/2015 HLD (hyperlipidemia) 11/14/2015 Throat pain 11/14/2015 Proteinuria 11/14/2015 Encounters Date Type Specialty Care Team Description 11/02/2018 Orders Only Nephrology Sam Chronic kidney diseaseAlisha MA stage III (moderate) (HCC) 10/26/2018 Orders Only Nephrology Sam Chronic kidney diseaseAlisha MA stage III (moderate) (HCC) 10/25/2018 Office Visit Internal Medicine Renetta Essential hypertension (Primary Dx); MD Lilian Community acquired pneumonia of right lower lobe of lung ( HCC); Gout, unspecified cause, unspecified chronicity, unspecified site 10/19/2018 Orders Only Nephrology Sam Chronic kidney diseaseAlisha MA stage III (moderate) (HCC) 10/12/2018 Orders Only Nephrology Sam Chronic kidney diseaseAlisha MA stage III (moderate) (HCC) 10/10/2018 Orders Only Internal Medicine Gracie Chronic kidney diseaseWin MA stage III (moderate) (HCC) (Primary Dx) 10/04/2018 Orders Only Nephrology Sam Chronic kidney diseaseAlisha MA stage III (moderate) (HCC) (Primary Dx) 10/03/2018 Orders Only Nephrology Sam Chronic kidney diseaseAlisha MA stage III (moderate) (HCC) (Primary Dx) 10/01/2018 Telephone Internal Medicine Lilian Jackson MD 09/27/2018 Office Visit Nephrology [place]rog[place], CKD (chronic kidney disease) stage 3, GFR 30-59 ml/min (HCC) (Primary Dx); Neri Rendon MD Essential hypertension 09/27/2018 Office Visit Internal Medicine Renetta, Community acquired pneumonia of right lower lobe of lung (HCC) (Primary Dx); MD Lilian Hospital discharge follow-up; Cough; Gout, unspecified cause, unspecified chronicity, unspecified site 09/27/2018 Orders Only Nephrology Sam, Stage 3 chronic kidney CHARLEY Brito disease (HCC) (Primary Dx) 09/24/2018 Telephone Internal Medicine Lilian Jackson MD 09/24/2018 Orders Only Nephrology Sam, Stage 3 chronic kidney Alisha, CHARLEY disease (HCC) (Primary Dx) 09/21/2018 Telephone Internal Medicine Lilian Jackson MD 09/07/2018 Office Visit Internal Medicine Renetta, Gout, unspecified cause, unspecified chronicity, unspecified site (Primary Dx); MD Lilian Stage 4 chronic kidney disease (HCC); Allergic rhinitis, unspecified seasonality, unspecified trigger; Hyperlipidemia, unspecified hyperlipidemia type; Essential hypertension; Cough 09/06/2018 Telephone Internal Medicine Renetta, Gout, unspecified cause, MD Lilian unspecified chronicity, unspecified site (Primary Dx) 09/06/2018 Orders Only Nephrology Alisha Vargas MA 09/03/2018 Hospital Radiology [place], Proteinuria, unspecified Encounter Neri Rendon MD type 08/31/2018 Hospital Radiology [place], Positive for Encounter Neri Rendon MD macroalbuminuria 08/31/2018 Hospital Radiology [place], Positive for Encounter Neri Rendon MD macroalbuminuria 08/30/2018 Telephone Internal Medicine Teresa Parekh MA 08/30/2018 Telephone NephAlisha Zeng MA 08/28/2018 Orders Only Nephrology Sam, Proteinuria, unspecified CHARLEY Brito type (Primary Dx) 08/22/2018 Office Visit Nephrology Adrogolga, Albuminuria (Primary Dx); Neri Rendon MD CKD (chronic kidney disease) stage 3, GFR 30-59 ml/min ( HCC); Renovascular hypertension 08/22/2018 Orders Only Nephhui Vargas, Positive for CHARLEY Brito macroalbuminuria (Primary Dx) [...] for cardiovascular condition 07/16/2018 Telephone Internal Medicine Lilian Jackson MD 07/05/2018 Orders Only Internal Medicine Renetta, CKD (chronic kidney MD Lilian disease) stage 3, GFR 30-59 ml/min (HCC) (Primary Dx) 07/02/2018 Office Visit Internal Medicine Renetta Gout, unspecified cause, unspecified chronicity, unspecified site (Primary Dx); MD Lilian Essential hypertension; Chronic kidney disease, stage I; Hyperlipidemia, unspecified hyperlipidemia type; Acute gout, unspecified cause, unspecified site 07/02/2018 Telephone Internal Medicine Lilina Jackson MD after 11/07/2017 Immunizations Name Dates Previously Given Next Due [...] Vital Sign Reading Time Taken Blood Pressure 122/76 10/25/2018 10:42 AM CRISIS NURSE Pulse 54 10/25/2018 10:24 AM CRISIS NURSE Temperature 36.4 C (97.5 F) 10/25/2018 10:24 AM CRISIS NURSE Respiratory Rate 14 10/25/2018 10:24 AM CRISIS NURSE Oxygen Saturation 100% 10/25/2018 10:24 AM CRISIS NURSE Inhaled Oxygen Concentration - - Weight 98.4 kg (217 lb) 10/25/2018 10:24 AM CRISIS NURSE Height 182.9 cm (6') 10/25/2018 10:24 AM CRISIS NURSE Body Mass Index 29.43 10/25/2018 10:24 AM CRISIS NURSE Plan of Treatment Date Type Specialty Care Team Description 12/19/2018 [place] [address] [address] [place] [address] [phone] Health Maintenance Due Date Last Done Comments COLON CANCER SCREENING 2003 SHINGLES VACCINES (#1) 2003 PNEUMOCOCCAL POLYSACCHARIDE VACCINE AGE 65 AND OVER 2018 65+ PNEUMOCOCCAL VACCINE (2 of 2 - PPSV23) 08/02/2019 08/02/2018 INFLUENZA VACCINE Completed 08/02/2018 Procedures Procedure Name Priority Date/Time Associated Diagnosis Comments PHOSPHORUS LEVEL Routine 10/03/2018 2:46 Chronic kidney disease, Results for PM CRISIS NURSE stage III (moderate) this procedure (HCC) are in the results section. CBC WITH PLATELET AND Routine 10/03/2018 2:46 Chronic kidney disease, Results for DIFFERENTIAL PM CRISIS NURSE stage III (moderate) this procedure ([facility]) are in the results section. COMPREHENSIVE Routine 10/03/2018 2:46 Chronic kidney disease, Results for METABOLIC PANEL PM CRISIS NURSE stage III (moderate) this procedure (HCC) are in the results section. CBC WITH PLATELET AND Routine 09/27/2018 11:40 Community acquired Results for DIFFERENTIAL AM CRISIS NURSE pneumonia of right this procedure lower lobe of lung are in the ([facility]) results Cough section. MICROSCOPIC Routine 09/26/2018 8:19 Results for EXAMINATION AM CRISIS NURSE this procedure are in the results section. URINALYSIS, COMPLETE, Routine 09/26/2018 8:19 Stage 3 chronic kidney Results for WITH REFLEX TO CULTURE AM CRISIS NURSE disease (HCC) this procedure are in the results section. MICROALBUMIN, URINE, Routine 09/26/2018 8:19 Stage 3 chronic kidney Results for RANDOM AM CRISIS NURSE disease (HCC) this procedure are in the results section. PHOSPHORUS LEVEL Routine 09/26/2018 8:19 Stage 3 chronic kidney Results for AM CRISIS NURSE disease (HCC) this procedure are in the results section. MAGNESIUM LEVEL Routine 09/26/2018 8:19 Stage 3 chronic kidney Results for AM CRISIS NURSE disease (HCC) this procedure are in the results section. BASIC METABOLIC PANEL Routine 09/26/2018 8:19 Stage 3 chronic kidney Results for AM CRISIS NURSE disease (HCC) this procedure are in the results section. BASIC METABOLIC PANEL Routine 09/07/2018 9:23 Gout, unspecified Results for AM CRISIS NURSE cause, unspecified this procedure chronicity, unspecified are in the site results section. URIC ACID LEVEL Routine 09/07/2018 9:20 Gout, unspecified Results for AM CRISIS NURSE cause, unspecified this procedure chronicity, unspecified are in the site results section. SURGICAL PATHOLOGY Routine 09/03/2018 10:10 Results for REQUEST AM CRISIS NURSE this procedure are in the results section. US NEEDLE BIOPSY Routine 09/03/2018 9:55 Proteinuria, Results for AM CRISIS NURSE unspecified type this procedure are in the results section. US RENAL Routine 08/31/2018 4:31 Positive for Results for PM CRISIS NURSE macroalbuminuria this procedure are in the results section. US RENAL DOPPLER Routine 08/31/2018 4:30 Positive for Results for PM CRISIS NURSE macroalbuminuria this procedure are in the results section. PROTEIN Routine 08/23/2018 8:32 Positive for Results for ELECTROPHORESIS WITH AM CRISIS NURSE macroalbuminuria this procedure INTERPRETATION, SERUM are in the results section. URIC ACID LEVEL Routine 08/23/2018 8:32 Positive for Results for AM CRISIS NURSE macroalbuminuria this procedure are in the results section. MICROALBUMIN, URINE, Routine 08/23/2018 8:32 Positive for Results for RANDOM AM CRISIS NURSE macroalbuminuria this procedure are in the results section. URINE PROTEIN Routine 08/23/2018 8:32 Positive for Results for ELECTROPHORESIS, AM CRISIS NURSE macroalbuminuria this procedure RANDOM are in the results section. VITAMIN D 25 HYDROXY Routine 08/23/2018 8:32 Positive for Results for LEVEL AM CRISIS NURSE macroalbuminuria this procedure are in the results section. PTH, INTACT AND Routine 08/23/2018 8:32 Positive for Results for CALCIUM AM CRISIS NURSE macroalbuminuria this procedure are in the results section. PROTHROMBIN TIME WITH Routine 08/23/2018 8:32 Positive for Results for INR AM CRISIS NURSE macroalbuminuria this procedure are in the results section. PARTIAL THROMBOPLASTIN Routine 08/23/2018 8:32 Positive for Results for TIME (PTT) AM CRISIS NURSE macroalbuminuria this procedure are in the results section. CBC WITH PLATELET AND Routine 08/23/2018 8:32 Positive for Results for DIFFERENTIAL AM CRISIS NURSE macroalbuminuria this procedure are in the results section. PHOSPHORUS LEVEL Routine 08/23/2018 8:32 Positive for Results for AM CRISIS NURSE macroalbuminuria this procedure are in the results section. MAGNESIUM LEVEL Routine 08/23/2018 8:32 Positive for Results for AM CRISIS NURSE macroalbuminuria this procedure are in the results section. BASIC METABOLIC PANEL Routine 08/23/2018 8:32 Positive for Results for AM CRISIS NURSE macroalbuminuria this procedure are in the results section. ANUJ, PE AND FLC, SERUM Routine 08/23/2018 8:32 Positive for Results for AM CRISIS NURSE macroalbuminuria this procedure are in the results section. MICROSCOPIC Routine 08/20/2018 11:32 Results for EXAMINATION AM CRISIS NURSE this procedure are in the results section. MICROALBUMIN, URINE, Routine 08/20/2018 11:32 Chronic kidney disease, Results for RANDOM AM CRISIS NURSE unspecified CKD stage this procedure are in the results section. URINALYSIS, COMPLETE, Routine 08/20/2018 11:32 Chronic kidney disease, Results for WITH REFLEX TO CULTURE AM CRISIS NURSE unspecified CKD stage this procedure are in the results section. PHOSPHORUS LEVEL Routine 08/20/2018 11:32 Chronic kidney disease, Results for AM CRISIS NURSE unspecified CKD stage this procedure are in the results section. MAGNESIUM LEVEL Routine 08/20/2018 11:32 Chronic kidney disease, Results for AM CRISIS NURSE unspecified CKD stage this procedure are in the results section. BASIC METABOLIC PANEL Routine 08/20/2018 11:32 Chronic kidney disease, Results for AM CRISIS NURSE unspecified CKD stage this procedure are in the results section. ECG 12-LEAD Routine 08/02/2018 12:39 Encounter for general Results for PM CRISIS NURSE adult medical this procedure examination with are in the abnormal findings results section. PARATHYROID HORMONE Routine 08/02/2018 11:59 Chronic kidney disease, Results for AM CRISIS NURSE stage I this procedure are in the results section. BASIC METABOLIC PANEL Routine 08/02/2018 11:59 Chronic kidney disease, Results for AM CRISIS NURSE stage I this procedure are in the results section. PROSTATE SPECIFIC Routine 08/02/2018 11:59 Screening for malignant Results for ANTIGEN AM CRISIS NURSE neoplasm of prostate this procedure are in [...] stage I Hyperlipidemia, unspecified hyperlipidemia type after 11/07/2017 Results CBC with platelet and differential (10/03/2018 2:46 PM CRISIS NURSE)Only the most recent of4 resultswithin the time period is included. WBC 8.9 3.4 - 10.8 x10E3/uL [facility] RBC 4.42 4.14 - 5.80 x10E6/uL [facility] HGB 13.0 13.0 - 17.7 g/dL [facility] HCT 39.0 37.5 - 51.0 % [facility] MCV 88 79 - 97 fL [facility] MCH 29.4 26.6 - 33.0 pg [facility] MCHC 33.3 31.5 - 35.7 g/dL [facility] RDW 13.4 12.3 - 15.4 % [facility] Platelet count 372 150 - 379 x10E3/uL [facility] Neutrophils 58 Not Estab. % [facility] Lymphocytes 33 Not Estab. % [facility] Monocytes 6 Not Estab. % [facility] Eosinophils 2 Not Estab. % [facility] Basophils 0 Not Estab. % [facility] Neutrophils, absolute 5.2 1.4 - 7.0 x10E3/uL [facility] Lymphocytes, absolute 2.9 0.7 - 3.1 x10E3/uL [facility] Monocytes, absolute 0.5 0.1 - 0.9 x10E3/uL [facility] Eosinophils, absolute 0.2 0.0 - 0.4 x10E3/uL [facility] Basophils, absolute 0.0 0.0 - 0.2 x10E3/uL [facility] Immature granulocytes 1 Not Estab. % [facility] Immature grans (abs) 0.1 0.0 - 0.1 x10E3/uL [facility] Specimen Blood Narrative Performed At Performed at:[address] [place], [place] [id number] Cdl Instructor: Laurent Guillaume MD, Phone:[phone] Performing Organization Address [facility] Phone Number [facility] Phosphorus level (10/03/2018 2:46 PM CRISIS NURSE)Only the most recent of4 resultswithin the time period is included. Phosphorus 3.0 2.5 - 4.5 mg/dL [facility] Specimen Blood Narrative Performed At Performed at:[address] [place] [address] [facility] [address] [place], [place] [id number] Cdl Instructor: Laurent Guillaume MD, Phone:[phone] Performing Organization Address [facility] Phone Number [facility] Comprehensive metabolic panel (10/03/2018 2:46 PM CRISIS NURSE)Only the most recent of2 resultswithin the time period is included. Glucose 127 (H) 65 - 99 mg/dL [facility] BUN, whole blood 29 (H) 8 - 27 mg/dL [facility] Creatinine 2.30 (H) 0.76 - 1.27 mg/dL [facility] EGFR Non-Afr. Ethiopian 29 (L) >59 mL/min/1.73 [facility] EGFR 33 (L) >59 mL/min/1.73 [facility] BUN/creatinine ratio 13 10 - 24 [facility] Sodium 142 134 - 144 mmol/L [facility] Potassium 4.4 3.5 - 5.2 mmol/L [facility] Chloride 100 96 - 106 mmol/L [facility] CO2 24 20 - 29 mmol/L [facility] Calcium 9.0 8.6 - 10.2 mg/dL [facility] Protein 6.4 6.0 - 8.5 g/dL [facility] Albumin, S 3.8 3.6 - 4.8 g/dL [facility] Globulin, total 2.6 1.5 - 4.5 g/dL [facility] Albumin/globulin ratio 1.5 1.2 - 2.2 [facility] Total bilirubin <0.2 0.0 - 1.2 mg/dL [facility] Alkaline phosphatase 84 39 - 117 IU/L [facility] AST 18 0 - 40 IU/L [facility] ALT 21 0 - 44 IU/L [facility] Specimen Blood Narrative Performed At Performed at: - [facility] [address] [place], [place] [id number] Cdl Instructor: Laurent Guillaume MD, Phone:[phone] Performing Organization Address City/State/[facility] Phone Number [facility] URINALYSIS, COMPLETE, WITH REFLEX TO CULTURE (09/26/2018 8:19 AM CRISIS NURSE)Only the most recent of3 resultswithin the time period is included. Specific gravity, urine 1.018 1.005 - 1.030 [facility] pH, urine 5.5 5.0 - 7.5 [facility] Color, UA Yellow Yellow [facility] Appearance Clear Clear [facility] WBC esterase, urine Negative Negative [facility] Protein, UA 2+ (A) Negative/Trace [facility] Glucose, urine Negative Negative [...] a Urine Culture. Narrative Performed At Performed at:[address] [place], [place] [id number] Cdl Instructor: Laurent Guillaume MD, Phone:[phone] Performing Organization Address [facility] Phone Number [facility] Microscopic Examination (09/26/2018 8:19 AM CRISIS NURSE)Only the most recent of3 resultswithin the time period is included. WBC, UA 0-5 0 - 5 /hpf [facility] RBC, UA 0-2 0 - 2 /hpf [facility] Epithelial cells (non renal) 0-10 0 - 10 /hpf [facility] Mucus, UA Present Not Estab. [facility] Bacteria, UA None seen None seen/Few [facility] Narrative Performed At Performed at:[address] [place], [place] [id number] Cdl Instructor: Laurent Guillaume MD, Phone:[phone] Performing Organization [facility] Phone Number [facility] Microalbumin, urine, random (09/26/2018 8:19 AM CRISIS NURSE)Only the most recent of3 resultswithin the time period is included. Microalbumin, urine 1,095.3 Not Estab. ug/mL [facility] Comment: Results confirmed on dilution. Specimen Urine Narrative Performed At Performed at:[address] [place], [place] [id number] Cdl Instructor: Laurent Guillauem MD, Phone:[phone] Performing Organization Address [facility] Phone Number [facility] Magnesium level (09/26/2018 8:19 AM CRISIS NURSE)Only the most recent of3 resultswithin the time period is included. Magnesium 2.2 1.6 - 2.3 mg/dL [facility] Specimen Blood Narrative Performed At Performed at:[address] [place], [place] [id number] Cdl Instructor: Laurent Guillaume MD, Phone:[phone] Performing Organization Address [facility] Phone Number [facility] Basic metabolic panel (09/26/2018 8:19 AM CRISIS NURSE)Only the most recent of5 resultswithin the time period is included. Glucose 99 65 - 99 mg/dL [facility] BUN, whole blood 34 (H) 8 - 27 mg/dL [facility] Creatinine 2.14 (H) 0.76 - 1.27 mg/dL [facility] EGFR Non-Afr. Ethiopian 31 (L) >59 mL/min/1.73 [facility] EGFR 36 (L) >59 mL/min/1.73 [facility] BUN/creatinine ratio 16 10 - 24 [facility] Sodium 138 134 - 144 mmol/L [facility] Potassium 4.1 3.5 - 5.2 mmol/L [facility] Chloride 98 96 - 106 mmol/L [facility] CO2 21 20 - 29 mmol/L [facility] Calcium 9.1 8.6 - 10.2 mg/dL [facility] Specimen Blood Narrative Performed At Performed at: [id number] Cdl Instructor: Laurent Guillaume MD, Phone:[phone] Performing Organization Address City/[facility] Phone Number [facility] Uric acid level (09/07/2018 9:20 AM CRISIS NURSE)Only the most recent of3 resultswithin the time period is included. Uric acid 8.5Comment: Therapeutic target for 3.7 - 8.6 mg/dL [facility] gout patients: <6.0 Specimen Blood Narrative Performed At Performed at: [facility] [place], [id number] Cdl Instructor: Laurent Guillaume MD, Phone:[phone] Performing Organization Address City/[facility] Phone Number [facility] Surgical pathology request (09/03/2018 10:10 AM CRISIS NURSE) [facility] DEPARTMENT OF PATHOLOGY AND GENOMIC MEDICINE Surgical pathology report See link below for PDF [facility] DEPARTMENT OF Lab Report PATHOLOGY AND GENOMIC MEDICINE Result status This is Final Report [facility] DEPARTMENT OF for [id number] PATHOLOGY AND GENOMIC MEDICINE Performing Organization Address City/State/Zipcode Phone Number [facility] DEPARTMENT OF PATHOLOGY AND [address] [place] [id number] GENOMIC MEDICINE US Needle Biopsy (09/03/2018 9:55 AM CRISIS NURSE) Narrative Performed At EXAMIN[facility]:R80.9 Proteinuria CONSENT: Risks, benefits, and alternatives discussed. Written informed consent obtained. SEDATION: Versed and fentanyl were administered intravenously for moderate sedation under physician supervision. Pulse oximetry, heart rate, and blood pressure were continuously monitored by an independently trained observer. INTRASERVICE [id number] TIME: 25 minutes ANESTHESIA: Lidocaine local. TECHNIQUE: Patient was placed in prone position. Skin was sterilely prepped and draped. Lidocaine was infiltrated into the soft tissues for local anesthesia. Ultrasound-guided 18-gauge core biopsy of the [place] left kidney was performed. Intraprocedural consultation with pathology deemed specimen adequate for interpretation. Patient tolerated the procedure well without immediate complication, left the room in good condition, and was escorted to observation for further monitoring. EBL: Less than 5 cc COMPLICATIONS: No immediate. ASSISTANTS: None. IMPRESSION: Technically successful ultrasound-guided biopsy of the [place] left kidney. [facility]-[id number] Procedure Note Interface, Radiology Results Incoming - 09/03/2018 10:31 AM CRISIS NURSE EXAMINATION: US NEEDLE BIOPSY CLINICAL HISTORY: R80.9 Proteinuria CONSENT: Risks, benefits, and alternatives discussed. Written informed consent obtained. SEDATION: Versed and fentanyl were administered intravenously for moderate sedation under physician supervision. Pulse oximetry, heart rate, and blood pressure were continuously monitored by an independently trained observer. INTRASERVICE [id number] SEDATION TIME: 25 minutes ANESTHESIA: Lidocaine local. TECHNIQUE: Patient was placed in prone position. Skin was sterilely prepped and draped. Lidocaine was infiltrated into the soft tissues for local anesthesia. Ultrasound-guided 18-gauge core biopsy of the [place] left kidney was performed. Intraprocedural consultation with pathology deemed specimen adequate for interpretation. Patient tolerated the procedure well without immediate complication, left the room in good condition, and was escorted to observation for further monitoring. EBL: Less than 5 cc COMPLICATIONS: No immediate. ASSISTANTS: None. IMPRESSION: Technically successful ultrasound-guided biopsy of the [place] left kidney. [facility]-[id number] Performing Organization Address City/State/Zipcode Phone Number [facility] [address] [place] [address] US Renal (08/31/2018 4:31 PM CRISIS NURSE) Narrative Performed At EXAMINATION:[facility] CLINICAL HISTORY:R80.9 Proteinuriaunspecified, Elevated Creatinine COMPARISON:None. FINDINGS: The kidneys are normal in size and echogenicity. There is no evidence of any solid renal mass,or hydronephrosis. The right kidney pxqzptav33.5X5.7X6.0 cm. The left kidney .3X6.3 X 5.0 cm. There is a 0.4 cm nonobstructing stone seen within the left kidney. The urinary bladder is unremarkable. IMPRESSION: 1. The kidneys do not have any solid renal mass or hydronephrosis. 2. There is a 0.4 cm nonobstructing stone seen within the left kidney. 3. The bladder is unremarkable. [facility]-[id number] Procedure Note Hm Interface, Radiology Results Incoming - 08/31/2018 4:45 PM CRISIS NURSE EXAMINATION: US RENAL CLINICAL HISTORY: R80.9 Proteinuria [...] left kidney. 3. The bladder is unremarkable. [facility]-[id number] Performing Organization Address City/State/Zipcode Phone Number [facility] [address] [place] [address] US Renal Doppler (08/31/2018 4:30 PM CRISIS NURSE) Narrative Performed At EXAMINATION:US RENAL DOPPLER [facility] CLINICAL HISTORY:R80.9 Proteinuriaunspecified, HTN TECHNIQUE: Examination [...] limits.. IMPRESSION: Normal renal Doppler ultrasound examination. [facility]-[id number] Procedure Note Hm Interface, Radiology Results Incoming - 08/31/2018 4:49 PM CRISIS NURSE EXAMINATION: US RENAL DOPPLER CLINICAL HISTORY: R80.9 [...] limits.. IMPRESSION: Normal renal Doppler ultrasound examination. [facility]-[id number] Performing Organization Address City/State/Zipcode Phone Number [facility] [address] [place] [address] ANUJ, PE and FLC, Serum (08/23/2018 8:32 AM CRISIS NURSE) IgG 641 (L) 700 - 1,600 mg/dL [facility] IgA 363 61 - 437 mg/dL [facility] IgM 140 20 - 172 mg/dL [facility] Protein 6.6 6.0 - 8.5 g/dL [facility] Albumin 3.6 2.9 - 4.4 g/dL [facility] 02 Peoce-7-qrwfexpp 0.2 0.0 - 0.4 g/dL [facility] 02 Dwssy-5-whcepypp 0.9 0.4 - 1.0 g/dL [facility] 02 [...] scan will follow via computer, mail, or incident engineer delivery. Ig [place] Free Light 31.0 (H) 3.3 - 19.4 mg/L [facility] 02 Chain Lambda light chain 36.7 (H) 5.7 - 26.3 mg/L [facility] 02 [place] lambda ratio 0.84 0.26 - 1.65 [facility] 02 Specimen Blood Narrative Performed At Performed at:01 - [id number] Cdl Instructor: Laurent Guillaume MD, Phone:[phone] Performed at:02 - Lab[address], [place], [id number] Cdl Instructor: MICHAEL Hernandez MD, Phone:[phone] Performing Organization Address City/State/[facility] Phone Number [facility] 02 Protein Electrophoresis With Interpretation, Serum (08/23/2018 8:32 AM CRISIS NURSE) Albumin, S 3.5 2.9 - 4.4 g/dL [facility] Nfbpu-1-twkhqumk 0.2 0.0 - 0.4 g/dL [facility] Irawg-6-akhzjrst 1.0 0.4 - 1.0 g/dL [facility] Beta globulin 1.2 0.7 - 1.3 g/dL [facility] Gamma globulin 0.7 0.4 - 1.8 g/dL [facility] M-[place], % Not Observed Not Observed g/dL [facility] Globulin, total 3.1 2.2 - 3.9 g/dL [facility] 02 Albumin/globulin ratio 1.1 0.7 - 1.7 [facility] Please note Comment [facility] Comment: Protein electrophoresis scan will follow via computer, mail, or incident engineer delivery. Interpretation Comment [facility] Comment: The SPE pattern appears essentially unremarkable. Evidence of monoclonal protein is not apparent. Specimen Blood Narrative Performed At Performed at: - [address], [id number] Cdl Instructor: MICHAEL Hernandez MD, Phone:[phone] Performed at: [id number] Cdl Instructor: Laurent Guillaume MD, Phone:[phone] Performing Organization Address [facility] Phone Number [facility] 02 Urine protein electrophoresis, random (08/23/2018 8:32 AM CRISIS NURSE) Protein, urine 159.4 Not Estab. mg/dL [facility] Albumin, urine 81.5 % [facility] 02 Ofjvs-0-xkwvmlik, urine 2.0 % [facility] 02 Rscjd-7-eqtnndlc, urine 4.4 % [facility] 02 Beta globulin, urine 7.9 % [facility] 02 Gamma globulin, urine 4.3 % [facility] 02 M-[place], % Not Observed Not Observed % [facility] 02 Please note Comment [facility] 02 Comment: Protein electrophoresis scan will follow via computer, mail, or incident engineer delivery. Specimen Urine Narrative Performed At Performed at: [id number] Cdl Instructor: Laurent Guillaume MD, Phone:[phone] Performed at: [address], [id number] Cdl Instructor: MICHAEL Hernandez MD, Phone:[phone] Performing Organization Address [facility] Phone Number [facility] 02 PTH, intact and calcium (08/23/2018 8:32 AM CRISIS NURSE) PTH 28 15 - 65 pg/mL [facility] PTH Comment [facility] 02 Comment: Interpretation Intact PTHCalcium (pg/mL) (mg/dL) Vybqgt84 - 65 8.6 - 10.2 Primary Hyperparathyroidism >65>10.2 Secondary Hyperparathyroidism >65<10.2 Non-Parathyroid Hypercalcemia <65>10.2 Hypoparathyroidism<15 < 8.6 Non-Parathyroid Zkfjixpmniwd42 - 65< 8.6 Specimen Blood Narrative Performed At Performed at: [place] [address] [place], [id number] Cdl Instructor: Laurent Guillaume MD, Phone:[phone] Performed at: [id number] Cdl Instructor: Karen Florez MD, Phone:[phone] Performing Organization Address [facility] Phone Number [facility] 02 Vitamin D 25 hydroxy level (08/23/2018 8:32 AM CRISIS NURSE) Vitamin D, 25-hydroxy 24.1 (L) 30.0 - 100.0 ng/mL [facility] Comment: Vitamin D deficiency has been defined by the [place] of Medicine and an Endocrine Society practice guideline as a level of serum 25-OH vitamin D less than 20 ng/mL (1,2). The Endocrine Society went on to further define vitamin D insufficiency as a level between 21 and 29 ng/mL (2). 1. IOM ([place] of Medicine). 2010. Dietary reference intakes for calcium and D. [place]: The National Academies Press. 2. Watson MF, Boby MELGAR, Vaughn DICKSON, et al. Evaluation, treatment, and prevention of vitamin D deficiency: an Endocrine Society clinical practice guideline. JCEM. 2010; 96(7):1911-30. Specimen Blood Narrative Performed At Performed at: [id number] Cdl Instructor: Laurent Guillaume MD, Phone:[phone] Performing Organization Address [facility] Phone Number [facility] Partial thromboplastin time, activated (08/23/2018 8:32 AM CRISIS NURSE) aPTT 29 24 - 33 sec [facility] Comment: This test has not been validated for monitoring unfractionated heparin therapy. aPTT-based therapeutic ranges for unfractionated heparin therapy have not been established. For general guidelines on Heparin monitoring, refer to the [facility] Directory of Services. Specimen Blood Narrative Performed At Performed at: [id number] [place], [id number] Cdl Instructor: Laurent Guillaume MD, Phone:[phone] Performing Organization Address [facility] Phone Number [facility] Prothrombin time with INR (08/23/2018 8:32 AM CRISIS NURSE) INR 0.9 0.8 - 1.2 [facility] Comment: Reference interval is for non-anticoagulated patients. Suggested INR therapeutic range for Vitamin K antagonist therapy: Standard Dose (moderate intensity therapeutic range): 2.0 - 3.0 Higher intensity therapeutic range 2.5 - 3.5 Prothrombin time 9.6 9.1 - 12.0 sec [facility] Specimen Blood Narrative Performed At Performed at: - [facility] [place], [id number] Cdl Instructor: Laurent Guillaume MD, Phone:[phone] Performing Organization Address [facility] Phone Number [facility] ECG 12 lead (08/02/2018 12:39 PM CRISIS NURSE) Ventricular rate 63 [facility] Atrial rate 63 [facility] WI interval 176 [facility] QRSD interval 92 [facility] QT interval 414 [facility] QTC interval 423 [facility] QRS axis 1 12 [facility] T wave axis 10 [facility] EKG impression Normal sinus rhythm-Normal ECG-No previous [facility] MUSE ECGs available- Narrative Performed At Performing Organization Address [facility] Phone Number [facility] MUSE [address] [place] [address] Prostate specific antigen (08/02/2018 11:59 AM CRISIS NURSE) PSA 0.8 0.0 - 4.0 ng/mL [facility] Comment: Effie ECLIA methodology. According to the [place] [employer], Serum PSA should decrease and [...] Blood Narrative Performed At Performed at: - [facility] [place], [id number] Cdl Instructor: Laurent Guillaume MD, Phone:[phone] Performing Organization Address [facility] Phone Number [facility] Parathyroid hormone (08/02/2018 11:59 AM CRISIS NURSE) PTH 48 15 - 65 pg/mL [facility] Specimen Blood Narrative Performed At Performed at: [id number] Cdl Instructor: Laurent Guillaume MD, Phone:[phone] Performing Organization Address [facility] Phone Number [facility] Microalbumin / creatinine urine ratio (07/02/2018 2:56 PM CDT) Creatinine, urine, random 82.5 Not Estab. mg/dL [facility] Microalbumin, urine 1,933.5 Not Estab. ug/mL [facility] Comment: Results confirmed on dilution. Microalbumin/creatinine 2,343.6 (H) 0.0 - 30.0 mg/g creat [facility] ratio Comment: Normal: 0.0 -30.0 Albuminuria: 31.0 - 300.0 Clinical albuminuria: > 300.0 Specimen Urine Narrative Performed At Performed at: [id number] Cdl Instructor: Laurent Guillaume MD, Phone:[phone] Performing Organization Address [facility] Phone Number [facility] Thyroid stimulating hormone (07/02/2018 2:56 PM CDT) TSH 2.870 0.450 - 4.500 uIU/mL [facility] Specimen Blood Narrative Performed At [facility]: [id number] Cdl Instructor: Laurent Guillaume MD, Phone:[phone] Performing Organization Address [facility] Phone Number [facility] Hemoglobin A1c (07/02/2018 2:56 PM CDT) Hemoglobin A1C 5.5 4.8 - 5.6 % [facility] Comment: Prediabetes: 5.7 - 6.4 Diabetes: >6.4 Glycemic control for adults with diabetes: <7.0 Specimen Blood Narrative Performed At Performed at:[address] [place], [place] [id number] Cdl Instructor: Lauretn Guillaume MD, Phone:[phone] Performing Organization Address [facility] Phone Number [facility] Lipid panel (07/02/2018 2:56 PM CDT) Cholesterol [...] Narrative Performed At Performed at:01 - [facility] [address] [place], [id number] Cdl Instructor: Laurent Guillaume MD, Phone:[phone] Performing Organization Address [facility] Phone Number [facility] after 11/07/2017 Insurance Payer Benefit Plan / Group Subscriber ID Type Phone Address [facility] MEDICARE AARP MEDICARE COMPLETE [facility] xxxxxxxxx HMO ([place]) [place] [address] Advance Directives Patient has advance care planning documents on file. For more information, please contact:[address] [place] [address]
--- NOTE | 2018-11-08 12:30 | RAD REPORT ---
EXAM DESCRIPTION: CT - CTHCSPWOC - 11/08/2018 12:16 pm CLINICAL HISTORY: Trauma, head and neck injury. fall, hit head COMPARISON: No comparisons TECHNIQUE: Axial 5 mm thick images of the head were obtained. Axial 2 mm thick images of the cervical spine were obtained with sagittal and coronal reconstruction images generated and reviewed. All CT scans are performed using dose optimization technique as appropriate and may include automated exposure control or mA/KV adjustment according to patient size. FINDINGS: CT HEAD WITHOUT CONTRAST: No acute hemorrhage, hydrocephalus or extra-axial collection is identified.Mild generalized brain atr ophy is present with mild periventricular and deep white matter chronic microvascular ischemic change s.No areas of brain edema or midline shift. The paranasal sinuses and mastoids are clear.The calvarium is intact. CT CERVICAL SPINE WITHOUT CONTRAST: No fracture or subluxation.Fusion with hardware in place noted at C6-7. Mild cervical spondylosis is present.No prevertebral soft tissues swelling is identified. IMPRESSION: No acute intracranial or cervical spine findings.
--- NOTE | 2018-11-08 12:35 | RAD REPORT ---
EXAM DESCRIPTION: CT - Chest Abd Pelvis Wo Con - 11/08/2018 12:16 pm CLINICAL HISTORY: Chest and abdomen pain. left rib and LUQ pain s/p fall CKD. COMPARISON: Thorax Wo Con dated 09/20/2018 TECHNIQUE: A limited noncontrast study was performed. All CT scans are performed using dose optimization technique as appropriate and may include automated exposure control or mA/KV adjustment according to patient size. FINDINGS: Mild linear subsegmental atelectasis is present in both lung bases. The lungs otherwise cl ear.Trace bilateral pleural effusions are present.No intrathoracic adenopathy. Noncontrast assessment of liver, spleen, pancreas, adrenal glands and kidneys show no acute process. No bowel obstruction, free air, free fluid or abscess. Small bilateral fat containing inguinal hernia s, larger on the right. No pathologic lymphadenopathy in the abdomen or pelvis. Minimally displaced fracture left seventh and eighth lateral ribs. IMPRESSION: Minimally displaced left lateral seventh and eighth rib fractures. Trace bilateral pleural fluid.
--- NOTE | 2018-11-08 13:58 | ER ---
Nurse's Notes [facility] Name: [address] Age: 63 yrs Sex: Male : 1955 Arrival Date: 11/08/2018 Time: 11:11 Bed 11 Private MD: Unknown, Unknown Diagnosis: Multiple fractures of ribs, left side Presentation: 11/08 11:16 Presenting complaint: Patient states: "I fell on Monday and I broke my fall with my aa5 left arm but I landed on a step". Pt c/o pain to anterior left lower rib cage. Pt denies LOC. Transition of care: patient was not received from another setting of care. Onset of symptoms was October 2018. Risk Assessment: Do you want to hurt yourself or someone else? Patient reports no desire to harm self or others. Initial Sepsis Screen: Does the patient meet any 2 criteria? No. Patient's initial sepsis screen is negative. Does the patient have a suspected source of infection? No. Patient's initial sepsis screen is negative. Care prior to arrival: None. 11:16 Method Of Arrival: Ambulatory aa5 11:16 Acuity: LOIS 4 aa5 11:16 Mechanism of Injury: Fall from standing position. Trauma event details: Injury occurred aa5 in the [facility], Injury occurred: at home. Trauma Activation: Not Applicable Physician: ED Physician; Name: ; Notified At: ; Arrived At: Physician: General Surgeon; Name: ; Notified At: ; Arrived At: Physician: Radiology; Name: ; Notified At: ; Arrived At: Physician: Respiratory; Name: ; Notified At: ; Arrived At: Physician: Lab; Name: ; Notified At: ; Arrived At: Historical: - Allergies: 11:18 No Known Allergies; aa5 - PMHx: 11:18 High Cholesterol; Hypertension; KIDNEY DISEASE STAGE 3; aa5 - PSHx: 11:18 back surg; kidney biopsy - left; aa5 - Immunization history:: Flu vaccine is up to date. - Social history:: Smoking status: Patient/guardian denies using tobacco. - Ebola Screening: : No symptoms or risks identified at this time. Screenin:20 Abuse screen: Denies threats or abuse. Nutritional screening: No deficits noted. aa5 Tuberculosis screening: No symptoms or risk factors identified. Fall Risk Fall in past 12 months (25 points). Total [place] Fall Scale indicates Low Risk Score (25-44 pts). Fall prevention measures have been instituted. Primary Survey: 11:16 NO uncontrolled hemorrhage observed. A: The patient is alert. Airway: patent. aa5 Breathing/Chest: Chest inspection: symmetrical rise and fall of the chest. Circulation: Skin color: pink. Disability Alert. Exposure/Environment: There is no evidence of uncontrolled external bleeding. 11:30 Reassessment Airway Airway Patent Breathing/Chest Respiratory pattern Regular aa5 Respiratory effort Spontaneous Unlabored Chest inspection Symmetrical Circulation Color [place] Disability Alert. Assessment: 11:20 General: Appears uncomfortable, Behavior is calm, cooperative. Pain: Complains of pain aa5 in left lateral anterior chest Pain does not radiate. Quality of pain is described as sharp, Is continuous, Aggravated by increased activity, repositioning, Noted to be resistant to movement. Neuro: Level of Consciousness is awake, alert, obeys commands, Oriented to person, place, time, situation. EENT: No signs and/or symptoms were reported regarding the EENT system. Cardiovascular: Heart tones S1 S2 present Rhythm is regular. Respiratory: Airway is patent Respiratory effort is even, unlabored, Respiratory pattern is regular, symmetrical. GI: No signs and/or symptoms were reported involving the gastrointestinal system. : No signs and/or symptoms were reported regarding the genitourinary system. Derm: No signs and/or symptoms reported regarding the dermatologic system. Musculoskeletal: Range of motion: intact in all extremities. Injury Description: fall. Dark purple bruise noted to top of left hand. 14:05 Reassessment: Patient is alert, oriented x 3, equal unlabored respirations, skin aa5 warm/dry/pink. Vital Signs: 11:18 BP 134 / 78; Pulse 60; Resp 16 S; Temp 98.4(TE); Pulse Ox 97% on R/A; Weight 97.07 kg aa5 (R); Height 6 ft. 0 in. (182.88 cm) (R); Pain 10/10; 11:18 Body Mass Index 29.02 (97.07 kg, 182.88 cm) aa5 Jack Coma Score: 11:18 Eye Response: spontaneous(4). Verbal Response: oriented(5). Motor Response: obeys aa5 commands(6). Total: 15. Trauma Score (Adult): 11:18 Eye Response: spontaneous(1); Verbal Response: oriented(1); Motor Response: obeys aa5 commands(2); Systolic BP: > 89 mm Hg(4); Respiratory Rate: 10 to 29 per min(4); [place] Score: 15; Trauma Score: 12 ED Course: 11:11 Patient arrived in ED. ag5 11:12 Dominic Bowden MD is Attending Physician. ps1 11:12 Unknown, Unknown is Private Physician. ag5 11:16 Arm band placed on. aa5 11:16 Patient has correct armband on for positive identification. aa5 11:17 Triage completed. aa5 11:30 Patient maintains SpO2 saturation greater than 95% on room air. aa5 11:30 Thermoregulation: Pt refused warm blanket. aa5 11:36 Lorrie Alexander, RN is Primary Nurse. aa5 12:28 CT Chest Abdomen Pelvis W/O Contrast In Process Unspecified. EDMS 12:28 CT Head C Spine In Process Unspecified. EDMS 14:05 No provider procedures requiring assistance completed. Patient did not have IV access aa5 during this emergency room visit. Administered Medications: 11:21 CANCELLED (Physician Discretion): fentaNYL (PF) 50 mcg IVP once iw Intake: 14:05 PO: 0ml; Total: 0ml. aa5 Outcome: 13:57 Discharge ordered by . ps1 14:05 Discharged to home ambulatory. aa5 14:05 Condition: stable 14:05 Discharge instructions given to patient, Instructed on discharge instructions, follow up and referral plans. medication usage, Demonstrated understanding of instructions, follow-up care, medications, Prescriptions given X 2, Pt also instructed to use incentive spirometer at home to prevent Pneumonia (pt reported he has an incentive spirometer at home). 14:05 Patient's length of stay in the Emergency Department was greater than 2 hours. Due to aa5 MD busy with critical patient. Patient's length of stay extended due to 14:06 Patient left the ED. aa5 Signatures: Dispatcher [employer] EDLorrie Dennis, RN RN aa5 Dominic Bowden MD MD ps1 Deepak Menjivar ag5 Emmy Clemente RN iw
--- NOTE | 2018-11-08 13:58 | EDPHYS ---
Physician Documentation [facility] Name: Urbano Plaza Age: 63 yrs Sex: Male : 1955 Arrival Date: 11/08/2018 Time: 11:11 Bed 11 Private MD: Unknown, Unknown ED Physician Dominic Bowden HPI: 11/08 13:51 This 63 yrs old Male presents to ER via Ambulatory with complaints of Fall ps1 Injury. 13:51 pain localized to left rib, fell, hit head while going up stairs. No LOC. Hard to take ps1 deep breaths. Pain rated as moderate. Worse with inspiration. Thinks he broke a rib. Hx of CKD. . Historical: - Allergies: 11:18 No Known Allergies; aa5 - PMHx: 11:18 High Cholesterol; Hypertension; KIDNEY DISEASE STAGE 3; aa5 - PSHx: 11:18 back surg; kidney biopsy - left; aa5 - Immunization history:: Flu vaccine is up to date. - Social history:: Smoking status: Patient/guardian denies using tobacco. - Ebola Screening: : No symptoms or risks identified at this time. ROS: 13:51 Constitutional: Negative for fever, chills, and weight loss, Eyes: Negative for injury, ps1 pain, redness, and discharge, Cardiovascular: Negative for chest pain, palpitations, and edema, Respiratory: Negative for shortness of breath, cough, wheezing, and pleuritic chest pain, Abdomen/GI: Negative for abdominal pain, nausea, vomiting, diarrhea, and constipation, Skin: Negative for injury, rash, and discoloration, Neuro: Negative for headache, weakness, numbness, tingling, and seizure, Psych: Negative for depression, anxiety, suicide ideation, homicidal ideation, and hallucinations. 13:51 MS/extremity: Positive for pain, tenderness, of the left lateral anterior chest. Exam: 13:51 Constitutional: This is a well developed, well nourished patient who is awake, alert, ps1 and in no acute distress. Head/Face: Normocephalic, atraumatic. Eyes: Pupils equal round and reactive to light, extra-ocular motions intact. Lids and lashes normal. Conjunctiva and sclera are non-icteric and not injected. Cardiovascular: Regular rate and rhythm. No gallops, murmurs, or rubs. Normal PMI, no JVD. No pulse deficits. Respiratory: Lungs have equal breath sounds bilaterally, clear to auscultation and percussion. No rales, rhonchi or wheezes noted. No increased work of breathing, no retractions or nasal flaring. Abdomen/GI: Soft, non-tender, with normal bowel sounds. No distension or tympany. No guarding or rebound. No evidence of tenderness throughout. Skin: Warm, dry with normal turgor. Normal color with no rashes, no lesions, and no evidence of cellulitis. MS/ Extremity: Pulses equal, no cyanosis. Neurovascular intact. Full, normal range of motion. Neuro: Awake and alert, GCS 15, oriented to person, place, time, and situation. Cranial nerves II-XII grossly intact. Sensory grossly intact. Psych: Awake, alert, with orientation to person, place and time. Behavior, mood, and affect are within normal limits. 13:51 Chest/axilla: Inspection: normal, Palpation: tenderness, that is moderate, of the left lateral anterior chest, that totally reproduces the patient's complaints. Vital Signs: 11:18 BP 134 / 78; Pulse 60; Resp 16 S; Temp 98.4(TE); Pulse Ox 97% on R/A; Weight 97.07 kg aa5 (R); Height 6 ft. 0 in. (182.88 cm) (R); Pain 10/10; 11:18 Body Mass Index 29.02 (97.07 kg, 182.88 cm) aa5 Jack Coma Score: 11:18 Eye Response: spontaneous(4). Verbal Response: oriented(5). Motor Response: obeys aa5 commands(6). Total: 15. Trauma Score (Adult): 11:18 Eye Response: spontaneous(1); Verbal Response: oriented(1); Motor Response: obeys aa5 commands(2); Systolic BP: > 89 mm Hg(4); Respiratory Rate: 10 to 29 per min(4); [place] Score: 15; Trauma Score: 12 MDM: 11:59 Patient medically screened. ps1 13:51 Data reviewed: vital signs, nurses notes, radiologic studies, and as a result, I will ps1 discharge patient. ED course: has multiple rib fx on left. Has IS at home. Instructed to use. Home with T3. . 11/08 11:59 Order name: CT Chest Abdomen Pelvis W/O Contrast; Complete Time: 12:49 ps1 11/08 11:59 Order name: CT Head C Spine; Complete Time: 12:49 ps1 Administered Medications: 11:21 CANCELLED (Physician Discretion): fentaNYL (PF) 50 mcg IVP once iw Disposition: 11/08/18 13:57 Discharged to Home. Impression: Multiple fractures of ribs, left side. - Condition is Stable. - Discharge Instructions: Rib Fracture. - Prescriptions for Tylenol- Codeine #3 300-30 mg Oral Tablet - take 2 tablet by ORAL route every 6 hours As needed; 30 tablet. Zofran 4 mg Oral Tablet - take 1 tablet by ORAL route every 12 hours As needed; 20 tablet. - Medication Reconciliation Form, Thank You Letter, Antibiotic Education, Prescription Opioid Use form. - Follow up: Private Physician; When: As needed; Reason: Recheck today's complaints, Continuance of care, Re-evaluation by your physician. Follow up: Emergency Department; When: As needed; Reason: Trouble breathing, Worsening of condition. - Problem is new. - Symptoms are unchanged. Signatures: Dispatcher [employer] EDNJ Lorrie Alexander RN RN aa5 Dominic Bowden MD MD ps1 Emmy Clemente RN iw Corrections: (The following items were deleted from the chart) 11:18 Labs collected and sent ordered. [facility] 11 11:18 fentaNYL (PF) 50 mcg IVP once ordered. [facility] 11 11:18 Urine Dipstick-Ancillary ordered. [facility] 11:19 Head C Spine CAP W Con+CT.RAD.BRZ ordered. EDNJ EDNJ 11:19 BASIC METABOLIC PANEL+C.LAB.BRZ ordered. EDNJ EDNJ 11:19 CBC+H.LAB.BRZ ordered. EDNJ EDNJ : 11:19 Creatinine for Radiology+C.LAB.BRZ ordered. EDNJ EDNJ 11:20 TYPE AND SCREEN+BB.LAB.BRZ ordered. EDNJ EDNJ 11: 11:20 Tib Fib Right+RAD.RAD.BRZ ordered. [facility] EDNJ 14:06 13:57 11/08/2018 13:57 Discharged to Home. Impression: Multiple fractures of ribs, left aa5 side. Condition is Stable. Forms are Medication Reconciliation Form, Thank You Letter, Antibiotic Education, Prescription Opioid Use. Follow up: Private Physician; When: As needed; Reason: Recheck today's complaints, Continuance of care, Re-evaluation by your physician. Follow up: Emergency Department; When: As needed; Reason: Trouble breathing, Worsening of condition. Problem is new. Symptoms are unchanged. ps1
== END 2018-11-08 14:06 | disposition home or self-care (01) ==
LOC: ER 11:10
DX: S22.42XA Multiple fractures of ribs, left side, initial encounter for closed fracture (principal); W10.9XXA Fall (on) (from) unspecified stairs and steps, initial encounter; Y93.01 Activity, walking, marching and hiking; Y92.9 Unspecified place or not applicable; I12.9 Hypertensive chronic kidney disease with stage 1 through stage 4 chronic kidney disease, or unspecified chronic kidney disease; N18.3 Chronic kidney disease, stage 3 (moderate)
CPT/HCPCS: 70450; 71250; 72125; 74176; 99284

== ENCOUNTER 2019-03-07 16:55 | Inpatient (IN) | payer MEDICARE, OTHER ==
--- NOTE | 2019-03-08 09:24 | R.PREADM ---
SCREENING DATE AND TIME 03/07/2019 17:01 (CDT) ANTICIPATED REHAB ADMISSION DATE 03/09/2019 REFERRING FACILITY [facility] REFERRAL DATE AND TIME 03/07/2019 17:01 (CDT) ACUTE ADMIT DATE 02/25/2019 Previous Rehabilitation(s): No. 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 Reji Kraus M.D. [id number] [id number] NAME URBANO KASPER AD[address]ESS [id number] [place] [address] DATE OF 1955 AGE 63 SSN# [id number] GENDER male MARITAL STATUS RACE white ADMIT FROM 02 - [facility] PRE-HOSPITAL LIVING SETTING 01 - Home (private home/apt. board/care, assisted living, senior living, transitional living) HOME TYPE AND DETAILS Type of home: two rhea # of steps within the residence:12 # of levels in the residence: 2 # of steps to enter the residence: 0 PRE-HOSPITAL LIVING WITH Family/Relatives FAMILY SUPPORT Yes PRIMARY FAMILY CONTACT NAME Deena Clement PRIMARY FAMILY CONTACT PHONE PRIMARY FAMILY CONTACT RELATIONSHIP PHONE PRIMARY FAMILY CONTACT ON ADM.? no IS PRIMARY FAMILY CONTACT AUTH. REP.? no 1ST EMERGENCY CONTACT Deena Clement 1ST CONTACT PHONE 1ST CONTACT RELATIONSHIP PHONE 1ST CONTACT ON ADM. no IS 1ST CONTACT AUTH. REP.? no PHONE 2ND CONTACT ON ADM.? no PATIENT EMPLOYMENT STATUS Retired (for age) PATIENT EMPLOYER No Employer PAYOR INFORMATION: 1ST PAYOR NAME [facility] 1ST PAYOR INJURY/ILLNESS DUE TO ACCIDENT? No ANOTHER CONSTITUTION PARTY RESPONSIBLE? Yes PRIMARY REHAB/ACUTE DIAGNOSIS: Closed Burst Fracture of T 11 ONSET DATE 02/25/2019 REHAB IMPAIRMENT CATEGORY (SILVINA): 04 Traumatic spinal cord injury (TSCI) MEETS 60% rule PRIMARY DIAGNOSIS-RELATED SURGERIES: Posterior Lumbar Interbody Spinal Fusion - by Dr. Pacheco Dickerson on 02/26/2019 COMORBID REHAB/ACUTE DIAGNOSES: - N/A CKD HTN Hypercholesterolemia SUMMARY OF ACUTE HOSPITALIZATION: Pt. is a 63 yo Right-handed white male. On 02/25/2019 he was admitted to [facility] with diagnosis Closed Burst Fracture of T 11. 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 230). Pre-morbidly, Pt. was independent/mod-I in Self-Care, Sphincter Control, Transfers Control, Locomotio n, Communication, and Social Cognition; and he had good Sphincter Control. Currently, he has deficits of Self-Care, Transfers Control, Locomotion, Endurance, Balance, and Safet y Awareness. Pt. is now referred to [facility] for acute in-patient rehabilitation in order to maximize patient's functional independence in activities of daily living, strength, ROM, and mobi lity. Patient has realistic goal of being discharged at assistance level 6-Juan Manuel to reside at Home with Fam rene/Relatives. Urbano Kasper is a 63 old male that lives in a two rhea home. He was independent with ADLs without assistive device. On 02/25/2019, he had an accidental fall into a 14 ft hole containing sewage and was admitted to [facility] and treated. He is now medically stable but in need of 24-hour nursing, doctor supervision and oversite while receiving active and The patient is reasonably expected to participate in 3hours of therapy a day/15 hours per week and receive care with an intensive interdisciplinary approach. PAST MEDICAL HISTORY CKD HTN Hypercholesterolemia PAST SURGICAL HISTORY: BACK SURGERY MEDICATION ALLERGIES: No Known Drug Allergies (NKDA) ENVIRONMENTAL ALLERGIES: None Known - Substance Allergies None Known - Other Allergies None Known CODE STATUS: Full code WEIGHT/HEIGHT/BMI: WEIGHT 214 lbs HEIGHT 6' 0" BMI 29 DIET: - Diet Type Regular - Diet - Solid Texture Regular - Diet - Liquid Texture Regular - Tube Feed N/A SKIN DIAGRAM: Incision on Back; extent - small; stage - NS(Not Stageable). Treatment - Per Physician's Orders. REVIEW OF SYSTEMS: - Gen Alert and awake Lying in bed No apparent distress Oriented to: person, time, and place - Vital Signs Temperature: 97.2 F SBP/DBP: 149/82 Pulse: 64 Resp: 18 Vital signs stable, afebrile - CVS RRR VITAL SIGNS Temperature: 97.2 F SBP/DBP: 149/82 Pulse: 64 Resp: 18 Vital signs stable, afebrile MEDICATIONS/TREATMENT: Other- See attached MAR (Medication Administration Record) Urbano Kasper.pdf. CURRENT SPHINCTER CONTROL: Pre-hospital bladder status: continent # of bladder accidents in the last 7 days prior to screenin Pre-hospital bowel status: continent # of bowel accidents in the last 7 days prior to screenin Last Bowel Movement Date: DETAILED CURRENT FUNCTIONAL STATUS: - Bladder accident frequency: Ind - No accidents in the past 7 days - Bowel accident frequency: Ind - No accidents in the past 7 days - Walking score based on distance walked: 3(>=150ft) - Wheelchair score based on distance traveled: 0(N/A) FUNCTIONAL STATUS: - Self-Care A. Eating Ind sup B. Grooming Ind sup C. Bathing Ind ADNO D. Dressing - Upper Ind maxA E. Dressing - Lower Ind maxA F. Toileting Ind maxA - Sphincter Control G: Bladder control Ind Ind H: Bowel control Ind Ind - Transfers Control I. Bed/Chair/Wheelchair Ind [place]ck[place]ley J. Toilet Ind [place] K. Tub/Shower Ind ADNO - Locomotion L. Walk/Wheelchair (C) Ind [place]ck[place]ley L. Walk/Wheelchair (W) Ind Mckinley M. Stairs Ind ADNO - Communication N. Comprehension (B) Ind Ind O. Expression (B) Ind Ind - Social Cognition P. Social Interaction Ind Ind Q. Problem Solving Ind Ind R. Memory Ind Ind - Endurance Fair - Balance Fair - Safety Awareness Fair CURRENT FUNC. DEFICITS: Self-Care, Transfers Control, Locomotion, Endurance, Balance, and Safety Awareness THERAPY NOTES FROM ACUTE CARE: Attached. SPECIAL NEEDS: - Safety Concerns Skin breakdown precautions needed due to skin breakdown risk PATIENT NEEDS ACTIVE AND ONGOING THERAPEUTIC INTERVENTION OF MULTIPLE THERAPY DISCIPLINES, INCLUDING: - Orthotics/Prosthetics Orthotic Evaluation. Splinting/Casting. - Dietary and Nutrition Adequate Nutrition. Nutritional Education. Nutritional Supplements. PATIENT NEEDS CLOSE MEDICAL SUPERVISION BY A REHABILITATION PHYSICIAN FOR: Bowel and Bladder Management Coordination of Treatment Team Medical and Co-Morbidity Management Wound Care DVT Management Pain Management PATIENT REQUIRES 24X7 REHAB NURSING FOR MEDICAL AND FUNCTIONAL MGT. OF THE FOLLOWING DEFICITS: ADL's Ambulation Bowel and Bladder Management Communication Disease Management Medication Management Patient/Family Education Providing Safe Environment Skin Integrity Transfers DVT Management Pain Management PATIENT REQUIRES INTENSIVE, COORDINATED INTERDISCIPLINARY APPROACH TO REHAB: Arranging Home Equipment/Services Discharge Planning Family Intervention/Training Tub Wash Operator/Case Management PATIENT REHAB POTENTIAL: Expected level of measurable improvement will be of a practical value to patient's functional capacit y or adaptations to impairments Has a viable Discharge Plan Medically appropriate; condition is sufficiently stable to participate in intensive rehab program Patient is able and expected to receive 3 hours of individualized therapy daily on at least 5 of ever y 7 days Patient's prognosis for significant practical improvement within a reasonable period of time appears Good DISCHARGE PLAN: - Estimated Length of Stay (days) 27. - Consensus on plan Discharge plan has been discussed with primary caregiver. Patient/Family is in agreement with the javan n. Primary caregiver is in agreement with the plan. - Patient/Family Goals Return home with assistance. - Planned Living Setting Upon Discharge Home, to live with Family/Relatives. Transitional Living. RECOMMENDED CARE LEVEL: IRF RECOMMENDATION DETAILS: Recommended Admission to Comprehensive Rehabilitation Program to Increase Functional [place] SCREENER'S COMPLETENESS CONFIRMATION: - Screening Confirmation The patient data collection on this preadmission screening form is finished PHYSICIANS REVIEW AND ADMISSION DETERMINATION Admit - Based on my review of the Pre-Admission Screening results, in my medical judgment and experie nce, I concur with the findings and recommend admission to [facility], as this patient requires an IRF level of care. SIGNATURE PANEL: Clinical Liaison - [electronically] signed by Pat Cardenas on 03/07/2019 at 17:39 (CDT) Physician Reviewer - [electronically] signed by Dr. Reji Kraus M.D. on 03/08/2019 at 09:23 (CDT )
--- OUTSIDE RECORDS SUMMARY | 2019-03-08 14:04 | XMS REPORT | Clinical Summary ---
:1955 Author Organization [facility] Address [address] [place] [address] Care Team Providers Name Role Phone Lilian Jackson MD Primary Care Provider Allergies Active Allergy Reactions Severity Noted Date [...] by mouth 2 (two) times a day. traMADol (ULTRAM) 50 Take 50 mg by 0 Active mg tablet mouth every 6 (six) hours as needed for moderate pain. candesartan (ATACAND) Take 1 tablet (8 30 tablet 3 12/20/19 Active 8 MG tablet mg total) by 19 020 mouth daily. sildenafil (VIAGRA) 50 Take 50 mg by [...] 0 07/02/20 (MEDROL, GARIMA,) 4 mg directions 18 018 tablet predniSONE (DELTASONE) 2 tabs po daily 10 tablet 0 07/17/20 20 mg tablet x5 days 018 lisinopril Take 1 tablet 30 tablet 11 08/02/20 Discontinued (PRINIVIL,ZESTRIL) 10 (10 mg total) by 18 018 mg tablet mouth daily. melatonin 1 mg tablet Take 1 mg by 0 Discontinued mouth nightly as 018 needed for sleep. furosemide (LASIX) 20 Take 1 tablet 180 tablet 3 08/22/20 Discontinued mg tablet (20 mg total) by 18 019 mouth 2 (two) times a day. predniSONE (DELTASONE) Take 2 tablets 10 tablet 0 08/30/20 20 mg tablet (40 mg total) by 18 018 mouth daily for 5 days. blood pressure monitor Monitor Blood 1 each 0 09/06/20 Discontinued kit pressure daily 019 as advised predniSONE (DELTASONE) 2 tabs po daily 10 tablet 0 09/06/20 20 mg tablet x5 days losartan (COZAAR) 50 Take 1 tablet 30 tablet 11 09/07/20 Discontinued MG tablet (50 mg total) by 18 019 mouth daily. predniSONE (DELTASONE) 1 tab daily as 20 tablet 0 09/07/20 Discontinued 20 mg tablet directed for 019 gout flares albuterol (PROAIR HFA) Inhale 2 puffs 18 g 11 09/07/20 Discontinued 90 mcg/actuation every 6 (six) 18 019 inhaler hours as needed for wheezing. azithromycin Take 500 mg by 0 Discontinued (ZITHROMAX) 500 MG mouth daily. 019 tablet cefuroxime (CEFTIN) Take 500 mg by 0 Discontinued 500 MG tablet mouth 2 (two) 019 times a day. albuterol (ACCUNEB) Take 3 mL (2.5 75 mL 12 09/27/19 Discontinued 2.5 mg /3 mL (0.083 %) mg total) by 019 nebulizer solution nebulization every 4 (four) hours as needed for wheezing. nebulizer and Pl dispense 1 each 0 09/27/19 Discontinued compressor device 019 nebulizer accessories Use albuterol 1 kit 1 09/27/19 Discontinued kit nebulizer q 4-6 019 hrs prn for cough/wheezing predniSONE (DELTASONE) TAKE 1 TABLET BY 20 tablet 0 11/17/19 Discontinued 20 mg tablet MOUTH DAILY DIRECTED FOR GOUT FLARES predniSONE (DELTASONE) TAKE 1 TABLET BY 20 tablet 0 01/02/20 20 mg tablet MOUTH DAILY DIRECTED FOR GOUT FLARES Hospital, Clinic, or Other Ordered Dose Route [...] Encounters Date Type Specialty Care Team Description 02/25/2019 Intake Access N/A 02/25/2019 Intake Access N/A 02/25/2019 Telephone Family Medicine Lilian Jackson MD 12/31/2018 Refill Internal Medicine Lliian Jackson MD 12/19/2018 Orders Only Internal Medicine Win Bowman MA 12/05/2018 Orders Only Internal Medicine Gracie, Gout, unspecified cause, CHARLEY Walden unspecified chronicity, unspecified site (Primary Dx) 12/05/2018 Telephone Internal Medicine Lilian Jackson MD 12/03/2018 Telephone Internal Medicine Lilian Jackson MD 11/16/2018 Refill Internal Medicine Lilian Jackson MD 11/16/2018 Orders Only Nephrology Sam, Chronic kidney disease, Alisha, MA stage III (moderate) (HCC) 11/09/2018 Orders Only Nephrology Sam, Chronic kidney disease, Alisha, MA stage III (moderate) (HCC) 11/02/2018 Orders Only Nephrology Sam, Chronic kidney disease, Alisha, MA stage III (moderate) (HCC) 10/26/2018 Orders Only Nephrology Sam, Chronic kidney disease, Alisha, MA stage III (moderate) (HCC) 10/25/2018 Office Visit Internal Medicine Renetta, Essential hypertension (Primary Dx); MD Lilian Community acquired pneumonia of right lower lobe of lung ( HCC); Gout, unspecified cause, unspecified chronicity, unspecified site 10/19/2018 Orders Only Nephrology Sam, Chronic kidney disease, Alisha, MA stage III (moderate) (HCC) 10/12/2018 Orders Only Nephrology Sam, Chronic kidney disease, Alisha, MA stage III (moderate) (HCC) 10/10/2018 Orders Only Internal Medicine Gracie, Chronic kidney disease, [place], [place] stage III (moderate) (HCC) (Primary Dx) 10/04/2018 Orders Only Nephrology Sam, Chronic kidney disease, Alisha, MA stage III (moderate) (HCC) (Primary Dx) 10/03/2018 Orders Only Nephrology Sam, Chronic kidney disease, Alisha, MA stage III (moderate) (HCC) (Primary Dx) 10/01/2018 Telephone Internal Medicine Lilian Jackson MD 09/27/2018 Office Visit Nephrology Nicole, CKD (chronic kidney disease) stage 3, GFR 30-59 ml/min (HCC) (Primary Dx); Neri Rendon MD Essential hypertension 09/27/2018 Office Visit Internal Medicine Renetta, Community acquired pneumonia of right lower lobe of lung (HCC) (Primary Dx); MD Lilian Hospital discharge follow-up; Cough; Gout, unspecified cause, unspecified chronicity, unspecified site 09/27/2018 Orders Only Nephrology Sam, Stage 3 chronic kidney Alisha, MA disease (HCC) (Primary Dx) 09/24/2018 Telephone Internal Medicine Lilian Jackson MD 09/24/2018 Orders Only Nephrology Sam, Stage 3 chronic kidney Alisha, MA disease (HCC) (Primary Dx) 09/21/2018 Telephone Internal [...] unspecified Encounter Neri Rendon MD type 08/31/2018 [facility] Radiology [place]rog[place], Positive for Encounter eNri Rendon MD macroalbuminuria 08/31/2018 [facility] Radiology [place], Positive for Encounter Neri Rendon MD macroalbuminuria 08/30/2018 Telephone Internal Medicine Teresa Parekh MA 08/30/2018 Telephone Nephrology Alisha Vargas MA 08/28/2018 Orders Only Nephrology Sam, Proteinuria, unspecified CHARLEY Brito type (Primary Dx) 08/22/2018 Office Visit Nephrology Genesisogolga, Albuminuria (Primary Dx); Neri Rendon MD CKD [...] 07/02/2018 Telephone Internal Medicine Lilian Jackson MD after 03/07/2018 Immunizations Name Dates Previously Given Next Due [...] Taken Blood Pressure 122/76 10/25/2018 10:42 AM CLIENT SOLUTIONS MANAGER Pulse 54 10/25/2018 10:24 AM CLIENT SOLUTIONS MANAGER Temperature 36.4 C (97.5 F) 10/25/2018 10:24 AM CLIENT SOLUTIONS MANAGER Respiratory Rate 14 10/25/2018 10:24 AM CLIENT SOLUTIONS MANAGER Oxygen Saturation 100% 10/25/2018 10:24 AM CLIENT SOLUTIONS MANAGER Inhaled Oxygen Concentration - - Weight 98.4 kg (217 lb) 10/25/2018 10:24 AM CLIENT SOLUTIONS MANAGER Height 182.9 cm (6') 10/25/2018 10:24 AM CLIENT SOLUTIONS MANAGER Body Mass Index 29.43 10/25/2018 10:24 AM CLIENT SOLUTIONS MANAGER Plan of Treatment Health Maintenance Due Date Last Done Comments COLONOSCOPY SCREENING 2003 SHINGLES VACCINES (#1) 2003 INFLUENZA VACCINE 04/18/2019 08/02/2018 65+ PNEUMOCOCCAL VACCINE (2 of 2 - PPSV23) 08/02/2019 08/02/2018 Procedures Procedure Name Priority Date/Time Associated Diagnosis Comments PHOSPHORUS LEVEL Routine 10/03/2018 2:46 Chronic kidney disease, Results for PM CLIENT SOLUTIONS MANAGER stage III (moderate) this procedure (HCC) are in the results section. CBC WITH PLATELET AND Routine 10/03/2018 2:46 Chronic kidney disease, Results for DIFFERENTIAL PM CLIENT SOLUTIONS MANAGER stage III (moderate) this procedure (HCC) are in the results section. COMPREHENSIVE Routine 10/03/2018 2:46 Chronic kidney disease, Results for METABOLIC PANEL PM CLIENT SOLUTIONS MANAGER stage III (moderate) this procedure (HCC) are in the results section. CBC WITH PLATELET AND Routine 09/27/2018 11:40 Community acquired Results for DIFFERENTIAL AM CLIENT SOLUTIONS MANAGER pneumonia of right this procedure lower lobe of lung are in the (HCC) results Cough section. MICROSCOPIC Routine 09/26/2018 8:19 Results for EXAMINATION AM CLIENT SOLUTIONS MANAGER this procedure are in the results section. URINALYSIS, COMPLETE, Routine 09/26/2018 8:19 Stage 3 chronic kidney Results for WITH REFLEX TO CULTURE AM CLIENT SOLUTIONS MANAGER disease (HCC) this procedure are in the results section. MICROALBUMIN, URINE, Routine 09/26/2018 8:19 Stage 3 chronic kidney Results for RANDOM AM CLIENT SOLUTIONS MANAGER disease (HCC) this procedure are in the results section. PHOSPHORUS LEVEL Routine 09/26/2018 8:19 Stage 3 chronic kidney Results for AM CLIENT SOLUTIONS MANAGER disease (HCC) this procedure are in the results section. MAGNESIUM LEVEL Routine 09/26/2018 8:19 Stage 3 chronic kidney Results for AM CLIENT SOLUTIONS MANAGER disease (HCC) this procedure are in the results section. BASIC METABOLIC PANEL Routine 09/26/2018 8:19 Stage 3 chronic kidney Results for AM CLIENT SOLUTIONS MANAGER disease (HCC) this procedure are in the results section. BASIC METABOLIC PANEL Routine 09/07/2018 9:23 Gout, unspecified Results for AM CLIENT SOLUTIONS MANAGER cause, unspecified this procedure chronicity, unspecified are in the site results section. URIC ACID LEVEL Routine 09/07/2018 9:20 Gout, unspecified Results for AM CLIENT SOLUTIONS MANAGER cause, unspecified this procedure chronicity, unspecified are in the site results section. SURGICAL PATHOLOGY Routine 09/03/2018 10:10 Results for REQUEST AM CLIENT SOLUTIONS MANAGER this procedure are in the results section. US NEEDLE BIOPSY Routine 09/03/2018 9:55 Proteinuria, Results for AM CLIENT SOLUTIONS MANAGER unspecified type this procedure are in the results section. US RENAL Routine 08/31/2018 4:31 Positive for Results for PM CLIENT SOLUTIONS MANAGER macroalbuminuria this procedure are in the results section. US RENAL DOPPLER Routine 08/31/2018 4:30 Positive for Results for PM CLIENT SOLUTIONS MANAGER macroalbuminuria this procedure are in the results section. PROTEIN Routine 08/23/2018 8:32 Positive for Results for ELECTROPHORESIS WITH AM CLIENT SOLUTIONS MANAGER macroalbuminuria this procedure INTERPRETATION, SERUM are in the results section. URIC ACID LEVEL Routine 08/23/2018 8:32 Positive for Results for AM CLIENT SOLUTIONS MANAGER macroalbuminuria this procedure are in the results section. MICROALBUMIN, URINE, Routine 08/23/2018 8:32 Positive for Results for RANDOM AM CLIENT SOLUTIONS MANAGER macroalbuminuria this procedure are in the results section. URINE PROTEIN Routine 08/23/2018 8:32 Positive for Results for ELECTROPHORESIS, AM CLIENT SOLUTIONS MANAGER macroalbuminuria this procedure RANDOM are in the results section. VITAMIN D 25 HYDROXY Routine 08/23/2018 8:32 Positive for Results for LEVEL AM CLIENT SOLUTIONS MANAGER macroalbuminuria this procedure are in the results section. PTH, INTACT AND Routine 08/23/2018 8:32 Positive for Results for CALCIUM AM CLIENT SOLUTIONS MANAGER macroalbuminuria this procedure are in the results section. PROTHROMBIN TIME WITH Routine 08/23/2018 8:32 Positive for Results for INR AM CLIENT SOLUTIONS MANAGER macroalbuminuria this procedure are in the results section. PARTIAL THROMBOPLASTIN Routine 08/23/2018 8:32 Positive for Results for TIME (PTT) AM CLIENT SOLUTIONS MANAGER macroalbuminuria this procedure are in the results section. CBC WITH PLATELET AND Routine 08/23/2018 8:32 Positive for Results for DIFFERENTIAL AM CLIENT SOLUTIONS MANAGER macroalbuminuria this procedure are in the results section. PHOSPHORUS LEVEL Routine 08/23/2018 8:32 Positive for Results for AM CLIENT SOLUTIONS MANAGER macroalbuminuria this procedure are in the results section. MAGNESIUM LEVEL Routine 08/23/2018 8:32 Positive for Results for AM CLIENT SOLUTIONS MANAGER macroalbuminuria this procedure are in the results section. BASIC METABOLIC PANEL Routine 08/23/2018 8:32 Positive for Results for AM CLIENT SOLUTIONS MANAGER macroalbuminuria this procedure are in the results section. ANUJ, PE AND FLC, SERUM Routine 08/23/2018 8:32 Positive for Results for AM CLIENT SOLUTIONS MANAGER macroalbuminuria this procedure are in the results section. MICROSCOPIC Routine 08/20/2018 11:32 Results for EXAMINATION AM CLIENT SOLUTIONS MANAGER this procedure are in the results section. MICROALBUMIN, URINE, Routine 08/20/2018 11:32 Chronic kidney disease, Results for RANDOM AM CLIENT SOLUTIONS MANAGER unspecified CKD stage this procedure are in the results section. URINALYSIS, COMPLETE, Routine 08/20/2018 11:32 Chronic kidney disease, Results for WITH REFLEX TO CULTURE AM CLIENT SOLUTIONS MANAGER unspecified CKD stage this procedure are in the results section. PHOSPHORUS LEVEL Routine 08/20/2018 11:32 Chronic kidney disease, Results for AM CLIENT SOLUTIONS MANAGER unspecified CKD stage this procedure are in the results section. MAGNESIUM LEVEL Routine 08/20/2018 11:32 Chronic kidney disease, Results for AM CLIENT SOLUTIONS MANAGER unspecified CKD stage this procedure are in the results section. BASIC METABOLIC PANEL Routine 08/20/2018 11:32 Chronic kidney disease, Results for AM CLIENT SOLUTIONS MANAGER unspecified CKD stage this procedure are in the results section. ECG 12-LEAD Routine 08/02/2018 12:39 Encounter for general Results for PM CLIENT SOLUTIONS MANAGER adult medical this procedure examination with are in the abnormal findings results section. PARATHYROID HORMONE Routine 08/02/2018 11:59 Chronic kidney disease, Results for AM CLIENT SOLUTIONS MANAGER stage I this procedure are in the results section. BASIC METABOLIC PANEL Routine 08/02/2018 11:59 Chronic kidney disease, Results for AM CLIENT SOLUTIONS MANAGER stage I this procedure are in the results section. PROSTATE SPECIFIC Routine 08/02/2018 11:59 Screening for malignant Results for ANTIGEN AM CLIENT SOLUTIONS MANAGER neoplasm of prostate this procedure are in [...] stage I Hyperlipidemia, unspecified hyperlipidemia type after 03/07/2018 Results CBC with platelet and differential (10/03/2018 2:46 PM CLIENT SOLUTIONS MANAGER)Only the most recent of4 resultswithin the time [...] Specimen Blood Narrative Performed At Performed at: [facility] [address] [place], [id number] Can Vacuum Tester: Laurent Guillaume MD, Phone:[phone] Performing Organization Address [facility] Phone Number [facility] Phosphorus level (10/03/2018 2:46 PM CLIENT SOLUTIONS MANAGER)Only the most recent of4 resultswithin the time period is included. Phosphorus 3.0 2.5 - 4.5 mg/dL [facility] Specimen Blood Narrative Performed At Performed at: - [facility] [address] [place], [place] [id number] Can Vacuum Tester: Laurent Guillaume MD, Phone:[phone] Performing Organization Address [facility] Phone Number [facility] Comprehensive metabolic panel (10/03/2018 2:46 PM CLIENT SOLUTIONS MANAGER)Only the most recent of2 resultswithin the time period is included. Glucose 127 (H) 65 - 99 mg/dL [facility] BUN, whole blood 29 (H) 8 - 27 mg/dL [facility] Creatinine 2.30 (H) 0.76 - 1.27 mg/dL [facility] EGFR Non-Afr. [place] 29 (L) >59 mL/min/1.73 [facility] EGFR 33 [...] [facility] Specimen Blood Narrative Performed At Performed at:[address] [place], [place] [id number] Can Vacuum Tester: Laurent Guillaume MD, Phone:[phone] Performing Organization Address [facility] Phone Number [facility] URINALYSIS, COMPLETE, WITH REFLEX TO CULTURE (09/26/2018 8:19 AM CLIENT SOLUTIONS MANAGER)Only the most recent of3 resultswithin the time period is included. Specific gravity, 1.018 1.005 - 1.030 [facility] urine pH, urine 5.5 5.0 - 7.5 [facility] Color, UA Yellow Yellow [facility] Appearance Clear Clear [facility] WBC esterase, urine Negative Negative [facility] Protein, UA 2+ (A) Negative/Trace [facility] Glucose, urine Negative Negative [facility] Ketones, UA Negative Negative [facility] Occult blood, urine Negative Negative [facility] Bilirubin, UA Negative Negative [facility] Urobilinogen, UA 0.2 0.2 - 1.0 mg/dL [facility] Nitrite, UA Negative Negative [facility] Microscopic See below:Comment: [facility] examination Microscopic was indicated and was performed. Urinalysis reflex CommentComment: [facility] This specimen will not reflex to a Urine Culture. Specimen Narrative Performed At Performed at:[address] [place], [place] [id number] Can Vacuum Tester: Laurent Guillaume MD, Phone:[phone] Performing Organization Address [facility] Phone Number [facility] Microscopic Examination (09/26/2018 8:19 AM CLIENT SOLUTIONS MANAGER)Only the most recent of3 resultswithin the time period is included. WBC, UA 0-5 0 - 5 /hpf [facility] RBC, UA 0-2 0 - 2 /hpf [facility] Epithelial cells (non 0-10 0 - 10 /hpf [facility] renal) Mucus, UA Present Not Estab. [facility] Bacteria, UA None seen None seen/Few [facility] Specimen Narrative Performed At Performed at:[address] [place], [place] [id number] Can Vacuum Tester: Laurent Guillaume MD, Phone:[phone] Performing Organization Address [facility] Phone Number [facility] Microalbumin, urine, random (09/26/2018 8:19 AM CLIENT SOLUTIONS MANAGER)Only the most recent of3 resultswithin the time period is included. Microalbumin, urine 1,095.3 Not Estab. [facility] Comment: ug/mL Results confirmed on dilution. Specimen Urine Narrative Performed At Performed at: [id number] Can Vacuum Tester: Laurent Guillaume MD, Phone:[phone] Performing Organization Address [facility] Phone Number [facility] Magnesium level (09/26/2018 8:19 AM CLIENT SOLUTIONS MANAGER)Only the most recent of3 resultswithin the time period is included. Magnesium 2.2 1.6 - 2.3 mg/dL [facility] Specimen Blood Narrative Performed At Performed at: [id number] Can Vacuum Tester: Laurent Guillaume MD, Phone:[phone] Performing Organization Address [facility] Phone Number [facility] Basic metabolic panel (09/26/2018 8:19 AM CLIENT SOLUTIONS MANAGER)Only the most recent of5 resultswithin the time period is included. Glucose 99 65 - 99 mg/dL [facility] BUN, whole blood 34 (H) 8 - 27 mg/dL [facility] Creatinine 2.14 (H) 0.76 - 1.27 mg/dL [facility] EGFR Non-Afr. [place] 31 (L) >59 mL/min/1.73 [facility] EGFR 36 (L) >59 mL/min/1.73 [facility] BUN/creatinine ratio 16 10 - 24 [facility] Sodium 138 134 - 144 mmol/L [facility] Potassium 4.1 3.5 - 5.2 mmol/L [facility] Chloride 98 96 - 106 mmol/L [facility] CO2 21 20 - 29 mmol/L [facility] Calcium 9.1 8.6 - 10.2 mg/dL [facility] Specimen Blood Narrative Performed At Performed at: [id number] Can Vacuum Tester: Laurent Guillaume MD, Phone:[phone] Performing Organization Address City/State/Zipcode Phone Number [facility] Uric acid level (09/07/2018 9:20 AM CLIENT SOLUTIONS MANAGER)Only the most recent of3 resultswithin the time period is included. Uric acid 8.5Comment: 3.7 - 8.6 mg/dL [facility] Therapeutic target for gout patients: <6.0 Specimen Blood Narrative Performed At [facility]formed at: [facility] [address], [id number] Can Vacuum Tester: Laurent Guillaume MD, Phone:[phone] Performing Organization Address [facility]/Zipcode Phone Number [facility] Surgical pathology request (09/03/2018 10:10 AM CLIENT SOLUTIONS MANAGER) [facility] DEPARTMENT OF PATHOLOGY AND GENOMIC MEDICINE Surgical pathology See link below [facility] DEPARTMENT OF report for PDF Lab PATHOLOGY AND Report GENOMIC MEDICINE Result status This is Final [facility] DEPARTMENT OF Report for PATHOLOGY AND [id number] GENOMIC MEDICINE Specimen Performing Organization Address City/[facility] Phone Number [facility] DEPARTMENT OF PATHOLOGY AND [address] [place] [address] GENOMIC MEDICINE US Needle Biopsy (09/03/2018 9:55 AM CLIENT SOLUTIONS MANAGER) Specimen Narrative Performed At EXAMINATION:US NEEDLE BIOPSY [facility] CLINICAL HISTORY:R80.9 Proteinuria CONSENT: Risks, benefits, and alternatives discussed. Written informed consent obtained. SEDATION: Versed and fentanyl were administered intravenously for moderate sedation under physician supervision. Pulse oximetry, heart rate, and blood pressure were continuously monitored by an independently trained observer. INTRASERVICE [id number] TIME: 25 minutes ANESTHESIA: Lidocaine local. TECHNIQUE: Patient was placed in prone position. Skin was sterilely prepped and draped. Lidocaine was infiltrated into the soft tissues for local anesthesia. Ultrasound-guided 18-gauge core biopsy of the [place] left kidney was performed. Intraprocedural consultation with pathology deemed specimen adequate for interpretation. Patient tolerated the procedure well without immediate complication, left the room in good condition, and was escorted to observation for further monitoring. EBL: Less than 5 cc COMPLICATIONS: No immediate. ASSISTANTS: None. IMPRESSION: Technically successful ultrasound-guided biopsy of the [place] left kidney. [facility]-[id number] Procedure Note Interface, Radiology Results Incoming - 09/03/2018 10:31 AM CLIENT SOLUTIONS MANAGER EXAMINATION: US NEEDLE BIOPSY CLINICAL HISTORY: R80.9 Proteinuria CONSENT: Risks, benefits, and alternatives discussed. Written informed consent obtained. SEDATION: Versed and fentanyl were administered intravenously for moderate sedation under physician supervision. Pulse oximetry, heart rate, and blood pressure were continuously monitored by an independently trained observer. INTRASERVICE [id number] SEDATION TIME: 25 minutes ANESTHESIA: Lidocaine local. TECHNIQUE: Patient was placed in prone position. Skin was sterilely prepped and draped. Lidocaine was infiltrated into the soft tissues for local anesthesia. Ultrasound-guided 18-gauge core biopsy of the [place] left kidney was performed. Intraprocedural consultation with pathology deemed specimen adequate for interpretation. Patient tolerated the procedure well without immediate complication, left the room in good condition, and was escorted to observation for further monitoring. EBL: Less than 5 cc COMPLICATIONS: No immediate. ASSISTANTS: None. IMPRESSION: Technically successful ultrasound-guided biopsy of the [place] left kidney. [facility]-[id number] Performing Organization Address City/State/[facility] Phone Number [facility] [address] [place] [address] US Renal (08/31/2018 4:31 PM CLIENT SOLUTIONS MANAGER) Specimen Narrative Performed At EXAMINATION:US RENAL [facility] CLINICAL HISTORY:R80.9 Proteinuriaunspecified, Elevated Creatinine COMPARISON:None. FINDINGS: The kidneys are normal in size and echogenicity. There is no evidence of any solid renal mass,or hydronephrosis. The right kidney .5X5.7X6.0 cm. The left kidney qchnaoir76.3X6.3 X 5.0 cm. There is a 0.4 cm nonobstructing stone seen within the left kidney. The urinary bladder is unremarkable. IMPRESSION: 1. The kidneys do not have any solid renal mass or hydronephrosis. 2. There is a 0.4 cm nonobstructing stone seen within the left kidney. 3. The bladder is unremarkable. [id number] Procedure Note Interface, Radiology Results Incoming - 08/31/2018 4:45 PM CLIENT SOLUTIONS MANAGER EXAMINATION: US RENAL CLINICAL HISTORY: R80.9 Proteinuria [...] left kidney. 3. The bladder is unremarkable. [id number] Performing Organization Address City/State/Zipcode Phone Number [facility] [address] [place] [address] US Renal Doppler (08/31/2018 4:30 PM CLIENT SOLUTIONS MANAGER) Specimen Narrative Performed At EXAMINATION:US RENAL DOPPLER [facility] CLINICAL HISTORY:R80.9 Proteinuriaunspecified, HTN TECHNIQUE: Examination [...] limits.. IMPRESSION: Normal renal Doppler ultrasound examination. [id number] Procedure Note Interface, Radiology Results Incoming - 08/31/2018 4:49 PM CLIENT SOLUTIONS MANAGER EXAMINATION: US RENAL DOPPLER CLINICAL HISTORY: R80.9 [...] limits.. IMPRESSION: Normal renal Doppler ultrasound examination. [facility]-[id number] Performing Organization Address City/State/Zipcode Phone Number ROBERT [address] [place] [address] ANUJ, PE and FLC, Serum (08/23/2018 8:32 AM CLIENT SOLUTIONS MANAGER) IgG 641 (L) 700 - 1,600 [facility] mg/dL IgA 363 61 - 437 mg/dL [facility] IgM 140 20 - 172 mg/dL [facility] Protein 6.6 6.0 - 8.5 g/dL [facility] Albumin 3.6 2.9 - 4.4 g/dL [facility] 02 Ydsqf-1-kxcvvmlr 0.2 0.0 - 0.4 g/dL [facility] 02 Xmssq-5-kztfbjvm 0.9 0.4 - 1.0 g/dL [facility] 02 Beta globulin 1.3 0.7 - 1.3 g/dL [facility] 02 Gamma globulin 0.7 0.4 - 1.8 g/dL [facility] 02 M-SPIKE Not Observed Not Observed [facility] 02 g/dL Globulin, total 3.0 2.2 - 3.9 g/dL [facility] A/G ratio 1.3 0.7 - 1.7 [facility] 02 Immunofixation, CommentComment: An [facility] 02 serum apparent normal immunofixation pattern. Please note Comment [facility] 02 Comment: Protein electrophoresis scan will follow via computer, mail, or peoples[employer] financials delivery. Ig [place] Free 31.0 (H) 3.3 - 19.4 mg/L [facility] 02 Light Chain Lambda light 36.7 (H) 5.7 - 26.3 mg/L [facility] 02 chain [place] lambda 0.84 0.26 - 1.65 [facility] 02 ratio Specimen Blood Narrative Performed At Performed at:01 - [facility] [place], [id number] Can Vacuum Tester: Laurent Guillaume MD, Phone:[phone] Performed at: - [address] [place], [place] [id number] Can Vacuum Tester: MICHAEL Hernandez MD, Phone:[phone] Performing Organization Address [facility] Phone Number [facility] 02 Protein Electrophoresis With Interpretation, Serum (08/23/2018 8:32 AM CLIENT SOLUTIONS MANAGER) Albumin, S 3.5 2.9 - 4.4 g/dL [facility] Ncecp-1-rzgsprmo 0.2 0.0 - 0.4 g/dL [facility] Eprbz-7-sbrdrbgf 1.0 0.4 - 1.0 g/dL [facility] Beta globulin 1.2 0.7 - 1.3 g/dL [facility] Gamma globulin 0.7 0.4 - 1.8 g/dL [facility] [place], % Not Observed Not Observed [facility] g/dL Globulin, total 3.1 2.2 - 3.9 g/dL [facility] 02 Albumin/globulin 1.1 0.7 - 1.7 [facility] ratio Please note Comment [facility] Comment: Protein electrophoresis scan will follow via computer, mail, or [employer] financial[employer] delivery. Interpretation Comment [facility] Comment: The SPE pattern appears essentially unremarkable. Evidence of monoclonal protein is not apparent. Specimen Blood Narrative Performed At Performed at: - [address], [place] Can Vacuum Tester: MICHAEL Hernandez MD, Phone:[phone] Performed at: - Lab[id number] Can Vacuum Tester: Laurent Guillaume MD, Phone:[phone] Performing Organization Address [facility] Phone Number [facility] 02 Urine protein electrophoresis, random (08/23/2018 8:32 AM CLIENT SOLUTIONS MANAGER) Protein, urine 159.4 Not Estab. [facility] mg/dL Albumin, urine 81.5 % [facility] 02 Kzdjm-6-fwaopbrm, 2.0 % [facility] 02 urine Oumsb-7-tiiugyaz, 4.4 % [facility] 02 urine Beta globulin, 7.9 % [facility] 02 urine Gamma globulin, 4.3 % [facility] 02 urine [place], % Not Observed Not Observed % [facility] 02 Please note Comment [facility] 02 Comment: Protein electrophoresis scan will follow via computer, mail, or peoples[employer] financial[employer] delivery. Specimen Urine Narrative Performed At Performed at: [id number] Can Vacuum Tester: Laurent Guillaume MD, Phone:[phone] Performed at: [address], [place], [id number] Can Vacuum Tester: MICHAEL Hernandez MD, Phone:[phone] Performing Organization Address [facility] Phone Number [facility] 02 PTH, intact and calcium (08/23/2018 8:32 AM CLIENT SOLUTIONS MANAGER) PTH 28 15 - 65 pg/mL [facility] PTH Comment [facility] 02 Comment: Interpretation Intact PTHCalcium (pg/mL) (mg/dL) Sbvujk38 - 65 8.6 - 10.2 Primary Hyperparathyroidism >65>10.2 Secondary Hyperparathyroidism >65<10.2 Non-Parathyroid Hypercalcemia <65>10.2 Hypoparathyroidism<15 < 8.6 Non-Parathyroid Dwjdztyiueqz64 - 65< 8.6 Specimen Blood Narrative Performed At Performed at: [id number] Can Vacuum Tester: Laurent Guillaume MD, Phone:[phone] Performed at: [id number] Can Vacuum Tester: Karen Florez MD, Phone:[phone] Performing Organization Address [facility] Phone Number [facility] 02 Vitamin D 25 hydroxy level (08/23/2018 8:32 AM CLIENT SOLUTIONS MANAGER) Vitamin D, 24.1 (L) 30.0 - 100.0 [facility] 25-hydroxy Comment: ng/mL Vitamin D deficiency has been defined by the [place] of Medicine and an Endocrine Society practice guideline as a level of serum 25-OH vitamin D less than 20 ng/mL (1,2). The Endocrine Society went on to further define vitamin D insufficiency as a level between 21 and 29 ng/mL (2). 1. IOM ([place] of Medicine). 2010. Dietary reference intakes for calcium and D. [place]: The National Academies Press. 2. Watson MF, Boby MELGAR, Vaughn DICKSON, et al. Evaluation, treatment, and prevention of vitamin D deficiency: an Endocrine Society clinical practice guideline. JCEM. 2010; 96(7):1911-30. Specimen Blood Narrative Performed At Performed at:[facility] [address] [place], [place] [id number] Can Vacuum Tester: Laurent Guillaume MD, Phone:[phone] Performing Organization Address [facility] Phone Number [facility] Partial thromboplastin time, activated (08/23/2018 8:32 AM CLIENT SOLUTIONS MANAGER) aPTT 29 24 - 33 sec [facility] Comment: This test has not been validated for monitoring unfractionated heparin therapy. aPTT-based therapeutic ranges for unfractionated heparin therapy have not been established. For general guidelines on Heparin monitoring, refer to the [facility] Directory of Services. Specimen Blood Narrative Performed At Performed at:[facility] [address] [place], [place] [id number] Can Vacuum Tester: Laurent Guillaume MD, Phone:[phone] Performing Organization Address [facility] Phone Number [facility] Prothrombin time with INR (08/23/2018 8:32 AM CLIENT SOLUTIONS MANAGER) INR 0.9 0.8 - 1.2 [facility] Comment: Reference interval is for non-anticoagulated patients. Suggested INR therapeutic range for Vitamin K antagonist therapy: Standard Dose (moderate intensity therapeutic range): 2.0 - 3.0 Higher intensity therapeutic range 2.5 - 3.5 Prothrombin time 9.6 9.1 - 12.0 sec [facility] Specimen Blood Narrative Performed At Performed at:[facility] [address] [place], [place] [id number] Can Vacuum Tester: Laurent Guillaume MD, Phone:[phone] Performing Organization Address [facility] Phone Number [facility] ECG 12 lead (08/02/2018 12:39 PM CLIENT SOLUTIONS MANAGER) Ventricular rate 63 [facility] Atrial rate 63 [facility] DE interval 176 [facility] QRSD interval 92 [facility] QT interval 414 [facility] QTC interval 423 [facility] QRS axis 1 12 [facility] T wave axis 10 [facility] EKG impression Normal sinus [facility] rhythm-Normal ECG-No previous ECGs available-Electronicall y Signed By Lilian Jackson MD ([id number]) on 08/03/2018 8:55:56 AM Specimen Narrative Performed At Performing Organization Address City/[facility] Phone Number [facility] M[address] [place] [address] Prostate specific antigen (08/02/2018 11:59 AM CLIENT SOLUTIONS MANAGER) Pathologist [facility] PSA 0.8 0.0 - 4.0 ng/mL [facility] Comment: Effie ECLIA methodology. According to the [place] [employer], Serum PSA should decrease and [...] Specimen Blood Narrative Performed At Performed at: [facility] [place], [id number] Can Vacuum Tester: Laurent Guillaume MD, Phone:[phone] Performing Organization Address [facility] Phone Number [facility] Parathyroid hormone (08/02/2018 11:59 AM CLIENT SOLUTIONS MANAGER) Pathologist [facility] PTH 48 15 - 65 pg/mL [facility] Specimen Blood Narrative Performed At Performed at:[facility] [place], [id number] Can Vacuum Tester: Laurent Guillaume MD, Phone:[phone] Performing Organization Address [facility] Phone Number [facility] Microalbumin / creatinine urine ratio (07/02/2018 2:56 PM CDT) Pathologist [facility] Creatinine, urine, 82.5 Not Estab. [facility] random mg/dL Microalbumin, urine 1,933.5 Not Estab. [facility] Comment: ug/mL Results confirmed on dilution. Microalbumin/creati 2,343.6 (H) 0.0 - 30.0 [facility] nine ratio Comment: mg/g creat Normal: 0.0 -30.0 Albuminuria: 31.0 - 300.0 Clinical albuminuria: > 300.0 Specimen Urine Narrative Performed At Performed at:[address] [place] [id number] Can Vacuum Tester: Laurent Guillaume MD, Phone:[phone] Performing Organization Address [facility] Phone Number [facility] Thyroid stimulating hormone (07/02/2018 2:56 PM CDT) TSH 2.870 0.450 - 4.500 uIU/mL [facility] Specimen Blood Narrative Performed At Performed at:[address] [place], [place] [id number] Can Vacuum Tester: Laurent Guillaume MD, Phone:[phone] Performing Organization Address [facility] Phone Number [facility] Hemoglobin A1c (07/02/2018 2:56 PM CDT) Hemoglobin A1C 5.5 4.8 - 5.6 % [facility] Comment: Prediabetes: 5.7 - 6.4 Diabetes: >6.4 Glycemic control for adults with diabetes: <7.0 Specimen Blood Narrative Performed At Performed at:[address] [place], [place] [id number] Can Vacuum Tester: Laurent Guillaume MD, Phone:[phone] Performing Organization Address [facility] Phone Number [facility] Lipid panel (07/02/2018 2:56 PM CDT) Cholesterol 284 (H) 100 - 199 [facility] mg/dL Triglycerides 349 (H) 0 - 149 mg/dL [facility] HDL cholesterol 56 >39 mg/dL [facility] VLDL cholesterol vani 70 (H) 5 - 40 mg/dL [facility] LDL cholesterol 158 (H) 0 - 99 mg/dL [facility] calculated Non-HDL cholesterol 228 (H) 0 - 129 [...] Narrative Performed At Performed at:01 - [facility] [address] [place], [id number] Can Vacuum Tester: Laurent Guillaume MD, Phone:[phone] Performing Organization Address City/State/Zipcode Phone Number [facility] after 03/07/2018 (Home) [place] [address] Advance Directives Patient has advance care planning documents on file. For more information, please contact:To[address]ito [place] [place] [address]
--- OUTSIDE RECORDS SUMMARY | 2019-03-08 14:04 | XMS REPORT ---
:1955 Author Organization [facility] Address [address] Wagner [address] [place] [address] Care Team Providers Name Role Phone Unavailable Unavailable Unavailable Problems This patient has no known problems. Allergies, Adverse Reactions, Alerts This patient has no known allergies or adverse reactions. Medications This patient has no known medications.
[2019-03-08] MEDS: HYDROCODONE/APAP 5/325 MG TAB PO PRN ×2 (14:13→20:52)
[2019-03-08] MEDS ORDERED: DOCUSATE NA/SENNA CONC 1 TAB PO PRN (15:15)
[2019-03-08 16:19] LABS: Urine Appearance CLEAR; Urine Bilirubin NEGATIVE (NEG); Urine Blood NEGATIVE (NEG); Urine Color YELLOW; Urine Glucose NEGATIVE (NEG); Urine Protein 2+ (NEG); Urine Specific Gravity 1.015 (1.005-1.030); Urine Urobilinogen 0.2 mg/dL (0.2-1.0)
[2019-03-08 16:29] LABS: Urine Bacteria <20 /HPF (NONE SEEN); Urine Culture Reflex Order NOT NEEDED; Urine Mucus 1+ /HPF (NONE SEEN); Urine RBC <5 /HPF (NONE SEEN); Urine Sperm PRESENT (NONE SEEN)
[2019-03-08] MEDS: MOXIFLOXACIN HCL 0.5% 3ML OPTH OPTH SCH ×2 (17:00→20:50)
[2019-03-08] MEDS: POLYVINYL ALCOHOL 1.4% 15 ML OPTH SCH ×2 (17:00→20:49)
[2019-03-08] MEDS ORDERED: OPTH EACH EYE SCH (17:00)
[2019-03-08] MEDS ORDERED: HYPROMELLOSE 2.5% EACH EYE SCH (17:00)
--- NOTE | 2019-03-08 17:53 | R.HP ---
FACILITY: [facility] ENCOUNTER DATE AND TIME: 03/08/2019 17:44 (CDT) MR#: [id number] NAME URBANO KASPER ADDRESS: [address] CITY: [place]IP [address] PHONE: DATE OF : 1955 AGE: 63 SSN# [id number] GENDER: Male DEXTERITY Right-handed MARITAL STATUS RACE White PRE-HOSPITAL LIVING SETTING 01 - Home (private home/apt. board/care, assisted living, [facility]p, transitional living) PRE-HOSPITAL LIVING WITH Family/Relatives ENCOUNTER PHYSICIAN: Dr. Reji Kraus M.D. REFERRING DOCTOR: tata Cordova DATE OF ADMISSION: 03/08/2019 17:45 (Central Daylight Time) REFERRING FACILITY [facility] HOME TYPE AND DETAILS: Type of home: two rhea # of steps within the residence:12 # of levels in the residence: 2 # of steps to enter the residence: 0 ADMISSION DIAGNOSIS: Closed Burst Fracture of T 11 ONSET DATE: 02/25/2019 PRIMARY DIAGNOSIS-RELATED SURGERIES: Posterior Lumbar Interbody Spinal Fusion - by Dr. Pacheco Dickerson on 02/26/2019 SECONDARY/COMORBID DIAGNOSES (TIERED): - N/A CKD HTN Hypercholesterolemia Wear back brace when out of bed. HISTORY OF PRESENT ILLNESS (HPI): Pt. is a 63 yo Right-handed white male. On 02/25/2019 he was admitted to [facility] with diagnosis Closed Burst Fracture of T 11. 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 230). Pre-morbidly, Pt. was independent/mod-I in Self-Care, Sphincter Control, Transfers Control, Locomotio n, Communication, and Social Cognition; and he had good Sphincter Control. Currently, he has deficits of Self-Care, Transfers Control, Locomotion, Endurance, Balance, and Safet y Awareness. Pt. is now referred to [facility] for acute in-patient rehabilitation in order to maximize patient's functional independence in activities of daily living, strength, ROM, and mobi lity. Patient has realistic goal of being discharged at assistance level 6-Juan Manuel to reside at Home with Fam rene/Relatives. Urbano Kasper is a 63 old male that lives in a two rhea home. He was independent with ADLs without assistive device. On 02/25/2019, he had an accidental fall into a 14 ft hole containing sewage and was admitted to [facility] and treated. He is now medically stable but in need of 24-hour nursing, doctor supervision and oversite while receiving active and The patient is reasonably expected to participate in 3hours of therapy a day/15 hours per week and receive care with an intensive interdisciplinary approach. MEDICATION ALLERGIES: No Known Drug Allergies (NKDA) ENVIRONMENTAL ALLERGIES: None Known - Substance Allergies None Known - Other Allergies None Known PAST MEDICAL HISTORY: CKD HTN Hypercholesterolemia PAST SURGICAL HISTORY: BACK SURGERY FAMILY HISTORY: Family history is not contributory. SOCIAL HISTORY: - Home Living Family/Relatives REVIEW OF SYSTEMS: - Gen No Chills Fatigue No Fever - Eyes No Double Vision No itchiness - ENMT No Difficulty Swallowing - CVS No Chest Discomfort No Chest Pain Fatigue No Weight Gain - Resp No Cough No Shortness of Breath - GI Continent No Abdominal Pain No Constipation No Diarrhea - Continent No Kidney Pain No Painful Urination No Urinary Urgency - MSK No Joint Pain Muscle Cramps Stiffness - Skin No Itching No Rash No Suspicious Lesions - Neuro Coordination Difficulty No Difficulty with Concentration No Memory Loss No Seizures Weakness - Psych No Anxiety No Depression No HIV Exposure No Persistent Infections No Seasonal Allergies - Endo No Cold/Heat Intolerance No Excessive Hunger No Excessive Thirst No Excessive Urination PHYSICAL EXAM - Gen Alert and awake Lying in bed No apparent distress Oriented to: person, time, and place - Skin No breakdown No numbness - Eyes No abnormalities - ENMT No abnormalities - Neck No abnormalities - CVS RRR - Chest Clear - Abd + bowel sounds - GI + bowel sound No abnormalities - No abnormalities - Ext No significant edema - MSK 5-/5 weakness in both lower extremities. - Neuro No focal deficits - Psych No abnormalities VITAL SIGNS Temperature: 97.2 F SBP/DBP: 149/82 Pulse: 64 Resp: 18 NURSING: - Shower allowing shower - Bladder care per protocol - Skin care per protocol ACTIVITIES OOB only with supervision FUNCTIONAL STATUS: - Self-Care A. Eating Ind sup B. Grooming Ind sup C. Bathing Ind ADNO D. Dressing - Upper Ind maxA E. Dressing - Lower Ind maxA F. Toileting Ind maxA - Sphincter Control G: Bladder control Ind Ind H: Bowel control Ind Ind - Transfers Control I. Bed/Chair/Wheelchair Ind [place] J. Toilet Ind [place] K. Tub/Shower Ind ADNO - Locomotion L. Walk/Wheelchair (C) Ind [place] L. Walk/Wheelchair (W) Ind [place] M. Stairs Ind ADNO - Communication N. Comprehension (B) Ind Ind O. Expression (B) Ind Ind - Social Cognition P. Social Interaction Ind Ind Q. Problem Solving Ind Ind R. Memory Ind Ind - Endurance Fair - Balance Fair - Safety Awareness Fair CURRENT FUNC. DEFICITS: Self-Care, Transfers Control, Locomotion, Endurance, Balance, and Safety Awareness MEDICATIONS: - Other See attached MAR (Medication Administration Record) Urbano Kasper.pdf ASSESSMENT: Pt. is a 63 yo Right-handed white male.On 02/25/2019 he was admitted to [facility] with diagnosis Closed Burst Fracture of T 11.His impairment category is Spinal Cord Dysfunction 04 - Other Traumat ic Spinal Cord Dysfunction (04.230).Pre-morbidly, Pt. was independent/mod-I in Self-Care, Sphincter C ontrol, Transfers Control, Locomotion, Communication, and Social Cognition; and he had good Sphincter Control.Currently, he has deficits of Self-Care, Transfers Control, Locomotion, Endurance, Balance, and Safety Awareness.Pt. is now referred to [facility] for acute in-patient re habilitation in order to maximize patient's functional independence in activities of daily living, st rength, ROM, and mobility.- Rehab Goal Patient has realistic goal of being discharged at assistance level 6-Juan Manuel to reside at Home with Fam rene/Relatives. Urbano Kasper is a 63 old male that lives in a two rhea home. He was independent with ADLs without assistive device. On 02/25/2019, he had an accidental fall into a 14 ft hole containing sewage and was admitted to [facility] and treated. He is now medically stable but in need of 24-hour nursing, doctor supervision and oversite while receiving active and The patient is reasonably expected to participate in 3hours of therapy a day/15 hours per week and receive care with an intensive interdisciplinary approach.REHAB PLAN: - Physical Therapy Gait dysfunction - to improve, our physical therapists will perform initial evaluation of pt's status upon admission and devise an individualized program for Gait Training, and Wheel Chair mobility Inability to transfer - to improve, our physical therapists will perform initial evaluation of pt's s tatus upon admission and devise an individualized program for Bed mobility Need for home safety evaluation - to improve, our physical therapists will perform initial evaluation of pt's status upon admission and devise an individualized program for Home Evaluation Need in caregiver upon discharge - to improve, our physical therapists will perform initial evaluatio n of pt's status upon admission and devise an individualized program for Caregiver Training New precaution - to improve, our physical therapists will perform initial evaluation of pt's status u gonzales admission and devise an individualized program for Patient precaution education Edema - to improve, our physical therapists will perform initial evaluation of pt's status upon admi ssion and devise an individualized program for Elevation Training, and Lymphedema Therapy Poor balance - to improve, our physical therapists will perform initial evaluation of pt's status upo n admission and devise an individualized program for Balance Training Poor endurance - to improve, our physical therapists will perform initial evaluation of pt's status u gonzales admission and devise an individualized program for Endurance Training Weakness - to improve, our physical therapists will perform initial evaluation of pt's status upon ad mission and devise an individualized program for Aquatic Therapy, Neuromuscular Reeducation, and Stre ngthening Achieving independence - to improve, our physical therapists will perform initial evaluation of pt's status upon admission and devise an individualized program for Community Reintegration Activities - Occupational Therapy ADL deficits - to improve, our occupation therapists will perform initial evaluation of pt's status u gonzales admission and devise an individualized program for Bathing, Bed mobility, Community Reintegration , Cooking, Dressing, Eating, Fine Motor Skills, Grooming, Homemaking, Kitchen Mobility, Laundry, Velia ent Education, Safety Awareness, Splinting - Positioning, Transfers(Toilet, Tub, Shower), and Wheel C hair Management Need for housekeeper caregiver - to improve, our occupation therapists will perform initial evaluation of pt's s tatus upon admission and devise an individualized program for Caregiver Training Weakness - to improve, our occupation therapists will perform initial evaluation of pt's status upon admission and devise an individualized program for Aquatic Therapy, Balance, Endurance, UE ROM, and U E strengthening MEDICAL PLAN: - Diet Type Start Regular - Diet - Liquid Texture Start Regular - Tube Feed Start N/A - Bladder care per protocol - Other See attached MAR (Medication Administration Record) Urbano Kasper.pdf - Skin care per protocol - Diet - Solid Texture Regular - Shower shower DISCHARGE PLAN: - Estimated Length of Stay (days) 27. - Consensus on plan Discharge plan has been discussed with primary caregiver. Patient/Family is in agreement with the javan n. Primary caregiver is in agreement with the plan. - Patient/Family Goals Return home with assistance. - Planned Living Setting Upon Discharge Home, to live with Family/Relatives. Transitional Living. SIGNATURE PANEL: (CDT)
--- NOTE | 2019-03-08 17:54 | PAPE ---
PATIENT: [facility] MR# [id number] REFERRING DOCTOR tata Cordova EVALUATION DATE AND TIME 03/08/2019 17:52 (CDT) NAME ALEXUS KASPER DATE OF 1955 AGE 63 PHONE SSN# [id number] GENDER male EVALUATING PHYSICIAN Dr. Reji Kraus M.D. ADMISSION DIAGNOSIS: Closed Burst Fracture of T 11 ONSET DATE 02/25/2019 SECONDARY/COMORBID DIAGNOSES TIERED: - N/A CKD HTN Hypercholesterolemia Wear back brace when out of bed. POST-ADMISSION FUNCTIONAL/MEDICAL STATUS: - Bladder Same accident frequency: Ind - No accidents in the past 7 days - Bowel Same accident frequency: Ind - No accidents in the past 7 days - Walking Same score based on distance walked: 3(>=150ft) - Wheelchair Same score based on distance traveled: 0(N/A) STATUS CHANGE EVALUATION: No change in Functional or Medical Status is identified compared with Pre-Admission screening. PATIENT NEEDS CLOSE MEDICAL SUPERVISION BY A REHABILITATION PHYSICIAN FOR: Bowel and Bladder Management Coordination of Treatment Team Medical and Co-Morbidity Management Wound Care DVT Management with Eliquis 2.5 mg twice daily. Pain Management PATIENT REQUIRES 24X7 REHAB NURSING FOR MEDICAL AND FUNCTIONAL MGT. OF THE FOLLOWING DEFICITS: ADL's Ambulation Bowel and Bladder Management Communication Disease Management Medication Management Patient/Family Education Providing Safe Environment Skin Integrity Transfers DVT Management Pain Management PATIENT REQUIRES INTENSIVE, COORDINATED INTERDISCIPLINARY APPROACH TO REHAB: Arranging Home Equipment/Services Discharge Planning Family Intervention/Training Diamond Driller Helper/Case Management LIST OF IDENTIFIED AND POTENTIAL PROBLEMS: Alteration in leisure activities Bladder, Incontinence Bowel, Incontinence Infection, Actual or Potential Mobility Impaired Pain, Alteration in Comfort Self Care Deficit Skin Integrity, Actual or Potential Urinary Tract Infection (UTI), Actual or Potential PATIENT COULD BE AT RISK FOR COMPLICATIONS FROM ADVERSE MEDICAL CONDITIONS DUE TO HIS/HER COMORBIDITI ES AND THE RIGORS OF THE INTENSIVE REHABILLITATION PROGRAM. METHODS OR INTERVENTIONS TO AVOID COMPLIC ATIONS INCLUDE: - Deep Vein Thrombosis (DVT) Prophylaxis therapy for prevention . Sequential Compression Device (SCD). TE D Hose. - Bleeding Assess lab values and manage abnormalities. Nursing to teach precautions for anti-coagulation therapy . Wound to be assessed every shift. - Infection Clinical staff to assess and manage the signs and symptoms of infection including fever, redness, war mth, etc. - Urinary Tract Infection - Falls Patient will be evaluated for Fall Precautions and will be placed on Fall Precautions as indicated pe r protocol. - Skin Breakdown Nursing will assess skin daily using assessment tool and will place on Skin Breakdown Precautions as indicated per protocol. - Pain Clinical staff may employ non-medication methods such as massage, distraction, decrease stimulus, etc . as needed. Clinical staff will assess patient's pain level every shift per protocol to assess and e nsure pain management effectiveness. Medications will be given and the pain level re-assessed. PRELIMINARY PLAN OF CARE: - Physical Therapy Patient needs Physical Therapy for a daily minimum of 1.5 hours at least 5 out of 7 days, to improve: Mobility, Strengthening, Transfers, Stretching, ROM, Endurance, Ability to manage stairs, Gait, and Balance. - Rehabilitation Nursing Patient requires 24x7 Rehabilitation Nursing for: Pain Issues, Identifying and preventing risk factor s, Monitoring and reporting current medical conditions, Assisting with ambulation and transfer, Francisca ting with all ADL-s, Teaching patients about disease process and medications, Family teaching, Provid ing safe environment, Bowel and Bladder Issues, Skin Integrity, and Medication Management. Patient needs Diamond Driller Helper and/or Case Management for: Discharge Planning, Arranging Home Equipmen t or Services, and Family Interventions. - Dietary and Nutrition Services Patient needs Dietary and Nutrition Services for: Adequate Nutrition, Nutritional Supplements, and Nu tritional Education. - Occupational Therapy Patient needs Occupational Therapy for a daily minimum of 1.5 hours at least 5 out of 7 days, to impr ove Activities of Daily Living, including: Eating, Grooming, Bathing, Dressing, Toileting, Toilet Tra nsfers, Community Reintegration, Higher functional activities, Adaptive Equipment, Splinting, Househo ld Tasks, and Other activities as determined. POTENTIAL FUNCTIONAL GOALS FOR PATIENT TO ACHIEVE BY DISCHARGE: - Safety Precaution Patient will remain free from falls or injury at time of discharge. - Bed Mobility Patient will perform bed mobility at 4-Mckinley level of assistance. - Transfers Patient will complete transfers from bed to chair at 4-Mckinley level of assistance. - Mobility Patient will ambulate 150 ft with 4-Mckinley level of assistance with RW. PATIENT REHAB POTENTIAL Expected level of measurable improvement will be of a practical value to patient's functional capacit y or adaptations to impairments Has a viable Discharge Plan Medically appropriate; condition is sufficiently stable to participate in intensive rehab program Patient is able and expected to receive 3 hours of individualized therapy daily on at least 5 of ever y 7 days Patient's prognosis for significant practical improvement within a reasonable period of time appears Good DISCHARGE PLAN: - Estimated Length of Stay (days) 27. - Consensus on plan Discharge plan has been discussed with primary caregiver. Patient/Family is in agreement with the javan n. Primary caregiver is in agreement with the plan. - Patient/Family Goals Return home with assistance. - Planned Living Setting Upon Discharge Home, to live with Family/Relatives. Transitional Living. CONCLUSION ON REHABILITATION NECESSITY: I have evaluated patient's pre-admission functional status and, comparing it to the patient's post-ad mission functional status now, I conclude that the pre-admission assessment was accurate. Patient's c ondition on admission supports the medical necessity of admission to IRF. It is safe to proceed with patient's therapy program. SIGNATURE PANEL: (CDT)
[2019-03-08] MEDS: CIPROFLOXACIN/DEXAMETH OTIC 7.5 ML BTL OTIC SCH (20:00)
[2019-03-08] MEDS: MELATONIN 3 MG TABLET PO PRN (20:49)
[2019-03-08] MEDS: GABAPENTIN 100 MG CAP PO SCH (20:49)
[2019-03-08] MEDS: ATORVASTATIN 10 MG TAB PO SCH (20:49)
--- NOTE | 2019-03-09 02:02 | FAST ---
SHIFT START DATE/TIME: 03/08/2019 19:00 (CDT) SHIFT END DATE/TIME: 03/09/2019 07:00 (CDT) NAME ALEXUS KASPER DATE OF : 1955 DATE OF ADMISSION: 03/08/2019 17:45 (CDT) PHONE: AGE: 63 N# [id number] GENDER: Male ENCOUNTER PHYSICIAN: Dr. Reji Kraus M.D. 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 EATING: Activity did not occur on this shift EATING - SCORE: 0-UNK GROOMING: Activity did not occur on this shift GROOMING - SCORE: 0-UNK BATHING: Activity did not occur on this shift BATHING - SCORE: 0-UNK DRESSING - UPPER BODY: Patient is not dressing in public clothing ARTICLES SCORE Total number of steps: 0 DRESSING - UPPER BODY - SCORE: 0-UNK DRESSING - LOWER BODY: Patient is not dressing in public clothing ARTICLES SCORE Total number of steps: 0 DRESSING - LOWER BODY - SCORE: 0-UNK TOILETING: TOILETING - STEP 1: Does the patient require the assistance of a person or device, or need extra time with toileting? Yes . TOILETING - STEP 2: Does the patient require the assistance of a helper? Yes. TOILETING - STEP 3: How much assistance does the patient require from the helper? Hands-on assistance from the helper TOILETING - STEP 4: Of the 3 tasks: 1) Adjusting clothing prior to use, 2) Cleansing of perineal area, 3) Adjusting clot german after use; How many tasks does the patient perform WITHOUT assistance of the helper? Three tasks with steadying assistance from the helper TOILETING - SCORE: 4-MIN BLADDER MANAGEMENT: BLADDER MANAGEMENT - STEP 1: Does the patient control the bladder completely and intentionally without equipment or devices or med ications, and is always continent? No. BLADDER MANAGEMENT - STEP 2: Does the patient require the assistance of a helper? Yes. BLADDER MANAGEMENT - STEP 3: How much assistance does the patient require from the helper? Only set-up of equipment - such as plac ing it within reach of the patient or emptying a device - to maintain either satisfactory voiding pat tern or managing an external device, such as an absorbent pad, ileal device, or catheter BLADDER MANAGEMENT - SCORE: 5-SUP BOWEL MANAGEMENT: Activity did not occur on this shift BOWEL MANAGEMENT - SCORE: 7-IND TRANSFERS: BED, CHAIR, WHEELCHAIR: Activity did not occur on this shift TRANSFERS: BED, CHAIR, WHEELCHAIR - SCORE: 0-UNK TRANSFERS: TOILET: Activity did not occur on this shift TRANSFERS: TOILET - SCORE: 0-UNK TRANSFERS: SHOWER: Activity did not occur on this shift TRANSFERS: SHOWER - SCORE: 0-UNK TRANSFERS: TUB: Activity did not occur on this shift TRANSFERS: TUB - SCORE: 0-UNK LOCOMOTION: WALK: Activity did not occur on this shift LOCOMOTION: WALK - SCORE: 0-UNK LOCOMOTION: WHEELCHAIR: Activity did not occur on this shift LOCOMOTION: WHEELCHAIR - SCORE: 0-UNK COMPREHENSION: COMPREHENSION: TYPE: Both COMPREHENSION - STEP 1: Does the patient require help from a person or device, or need extra time to understand complex and a bstract ideas (such as current events, finances, discharge planning, medical issues, relationships, e tc)? No. COMPREHENSION - STEP 2: Does the patient need extra time, require an assistive device (such as glasses for visual comprehensi on or a hearing aid for auditory comprehension) or does s/he have mild difficulty understanding compl ex and abstract information? Yes. COMPREHENSION - SCORE: 6-SILVANO EXPRESSION EXPRESSION: TYPE: Both EXPRESSION - STEP 1: Does the patient require help from a person or device, or need extra time expressing complex and abst ract ideas (such as current events, finances, discharge planning, medical issues, relationships, etc) ? No. EXPRESSION - STEP 2: Does the patient need extra time, require an assistive device (such as augmentive communication syste m or a communication board), OR does s/he have mild difficulty expressing complex and abstract ideas (including mild dysarthria or mild word-find problems)? Yes. EXPRESSION - SCORE: 6-SILVANO SOCIAL INTERACTION: SOCIAL INTERACTION - STEP 1: Does the patient require a helper to interact with others in social and therapeutic situations? No. SOCIAL INTERACTION - STEP 2: Does the patient need extra time in social situations, OR does s/he interact with staff, other patien ts, and family members ONLY in structured environments, OR does s/he require medication for social in teraction? Yes, patient needs extra time SOCIAL INTERACTION - SCORE: 6-SILVANO PROBLEM SOLVING: PROBLEM SOLVING - STEP 1: Does the patient need help from a person or device, or need extra time to solve complex problems such as managing a checking account or confronting interpersonal problems? No. PROBLEM SOLVING - STEP 2: Does the patient require extra time to make decisions or solve problems, OR does s/he have slight dif ficulty reading, initiating, or self-correcting in unfamiliar situations? Yes, patient needs extra ti me. PROBLEM SOLVING - SCORE: 6-SILVANO MEMORY: MEMORY - STEP 1: Does the patient need help from a person or device, or need extra time to remember frequently encount ered people, daily routines, and executing requests? No. MEMORY - STEP 2: Does the patient have slight difficulty recognizing frequently encountered people, daily routines, or executing requests without the need for repetition or using self-initiated or environmental cues to remember? Yes. MEMORY - SCORE: 6-SILVANO
[2019-03-09 06:25] LABS: Absolute Lymphocytes (CBC) 2.9 K/uL (0.7-4.9); Basophils % 0.6 % (0-1.3); Lymphocytes % 26.5 % (15.3-44.8); Monocytes % 9.1 % (3.3-12.3); RBC Red Blood Cell Count 3.99 M/uL (4.33-5.43)
[2019-03-09 07:10] LABS: Albumin 2.8 g/dL (3.4-5.0); Magnesium 2.4 mg/dL (1.8-2.4); Potassium 3.8 mmol/L (3.5-5.1)
[2019-03-09] MEDS ORDERED: predniSONE 20 MG TAB PO SCH (08:00)
[2019-03-09] MEDS: CIPROFLOXACIN/DEXAMETH OTIC 7.5 ML BTL OTIC SCH (08:00)
[2019-03-09] MEDS: MOXIFLOXACIN HCL 0.5% 3ML OPTH OPTH SCH ×4 (08:40→21:28)
[2019-03-09] MEDS: POLYVINYL ALCOHOL 1.4% 15 ML OPTH SCH ×4 (08:40→21:28)
[2019-03-09] MEDS: GABAPENTIN 100 MG CAP PO SCH ×2 (08:41→21:32)
[2019-03-09] MEDS: LOSARTAN POTASSIUM 50 MG TABLET PO SCH (08:41)
[2019-03-09] MEDS: ALLOPURINOL 100 MG TAB PO SCH (08:41)
[2019-03-09] MEDS: HYDROCODONE/APAP 5/325 MG TAB PO PRN ×4 (08:42→20:25)
[2019-03-09 08:57] LABS: Blood Morphology Comment NOT SEEN (NOT SEEN); Platelet Estimate ADEQ
--- NOTE | 2019-03-09 12:28 | CON ---
Date of Consultation: 03/09/2019 Reason For Consultation: Medical management. History Of Present Illness: This is a 63-year-old pleasant male patient, who was seen primary care provider in [place] so far from [facility] , was admitted to rehab floor yesterday when he was brought to our hospital from [facility] and he requested a consultation for medical management as he is requesting to change his primary care provider from [facility] to utilize me as his primary care provider. So, Dr. Kraus consulted me. I saw him this morning, found him sitting in the wheelchair. I have reviewed available records from [place] as well as I have reviewed our hospital record. The patient has a history of chronic kidney disease stage 3 and upon further questioning, it appears that this chronic kidney disease stage 3 to stage 4 that he has post result of use of nonsteroidal anti-inflammatory medications in the past. He has not used any such medication in last 10-15 years or so, but in the past he took Vioxx and some other anti-inflammatory medications. He was diagnosed as having chronic kidney disease in 2004 and has been under care of [facility] in [place]. He had a kidney biopsy in 2018 and that did not show any other problem. The patient fell down at work and he fell down 14 feet into a hole containing sewage and he was able to climb back up, but was having back pain and was taken to [facility] where further testing done revealing presence of T11 burst fracture and he was sent to [place] where he had surgery done in form of T10-L2 posterolateral fusion done on 02/26/2019. Allergies: NO KNOWN ALLERGIES. Medications: Current medications list reviewed. At home prior to this hospitalization he was taking losartan, pravastatin, and allopurinol. Review of Systems: Musculoskeletal: Back pain. All other systems reviewed and negative. Social History: Negative for smoking. Use of alcohol maybe every other day or so in the past, but he quit using alcohol completely as of July 2018. Family History: Mother with ovarian cancer. Father of pneumonia. Past Surgical History: The patient had kidney biopsy in 2018, and in the past he had surgery done on the C5 and L5. Recent surgery for T11 burst fracture and surgery was done on 02/26/2019 at [facility]. Past Medical History: Significant for hypertension, hyperlipidemia, gout, chronic kidney disease stage 3 to stage 4, mostly stage 3 as I have seen. His last colonoscopy, he reports about 2-3 years ago. For gout flare-up he uses prednisone from [id number]. Last flare-up he says was 6 months ago and as of 1 week ago he was started on prednisone while he was in the hospital for gout flare-up. Physical Examination: Vital Signs: This morning temperature 97, pulse 55, respiratory rate 16, blood pressure 139/64. General: Awake, alert, oriented, not in distress. HEENT: Head atraumatic, normocephalic. Conjunctivae nonerythematous. Sclerae white. Mouth, no thrush or edema noted. Ears/Nose, no mass, lesion, discharge noted. Neck: Supple. No JVD, lymph nodes, bruit, thyromegaly noted. Lungs: Bilateral good equal air entry. Clear to auscultation. No rhonchi. No rales. Heart: Normal heart sounds, no murmur or gallop. Abdomen: The patient has a brace present all around his back that is covering his abdominal area, which was not removed for abdominal examination. Extremities: Both anterior knee has a scab. No evidence of any redness, swelling, discharge. Skin: No rash, ulcer, cellulitis. Lymphatics: No lymph node enlargement in neck, supraclavicular, infraclavicular region. Neuro: No focal neurological deficit. Chest: Unremarkable. External Genitalia: Deferred. Rectal: Deferred. Laboratory Data: White count 11.1, hemoglobin 12.4, platelets 325. Sodium 143 , potassium 3.8, chloride 109, bicarb 25, BUN 38, creatinine 2.19, glucose 94. Urinalysis was unremarkable except 2+ protein. Impression: 1. Hypertension. 2. Hyperlipidemia. 3. Chronic kidney disease, stage 3 to stage 4. 4. Anemia due to chronic kidney disease. 5. T11 burst fracture, status post surgery. 6. Gout. Plan: We will go ahead and continue his current antihypertensive medication and cholesterol medication, monitor blood pressure if necessary and make any adjustment on medication. We will continue stool softener per order, pain medication for DVT prophylaxis, heparin 5000 units subcutaneous injection every 12 hours will be started. He was getting this injection at another hospital, last dose was yesterday as I have reviewed his records, so we will start that at our hospital as well. He has been on prednisone 20 mg daily for last 1 week , as he tells me we will reduce the dose to 10 mg daily starting tomorrow and over next few days we will just wean off the prednisone. Gout problem is stable at this time. We did talk about importance of drinking 60-70 ounce of water a day, avoiding medications like nonsteroidal anti-inflammatory medication and also to avoid PPI and sulfa group of antibiotics. I will see him tomorrow for followup. Thanks for allowing me to participate in his care. SISI/GINO Voice ID: [id number] Report ID: [id number] JESSE
--- NOTE | 2019-03-09 17:40 | FAST ---
ENCOUNTER DATE AND TIME: 03/09/2019 08:00 (CDT) NAME ALEXUS KASPER DATE OF : 1955 DATE OF ADMISSION: 03/08/2019 17:45 (CDT) PHONE: AGE: 63 SSN# [id number] GENDER: Male ENCOUNTER PHYSICIAN: Dr. Reji Kraus M.D. 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 EATING: EATING - STEP 1: Does the patient require the assistance of a person or device, or need extra time when eating? No. EATING - SCORE: 7-IND GROOMING: Comb/brush hair Oral care Wash, rinse, and dry face Wash, rinse, and dry hands GROOMING - STEP 1: Does the patient require the assistance of a person or device, or need extra time when grooming? No. GROOMING - SCORE: 7-IND BATHING: Abdomen Buttocks Chest Left arm Left lower leg and foot Left upper leg Perineal area Right arm Right lower leg and foot Right upper leg BATHING - STEP 1: Does the patient require the assistance of a person or device, or need extra time when bathing? Yes. BATHING - STEP 2: Does the patient require the assistance of a helper? Yes. BATHING - STEP 3: How much assistance does the patient require from the helper? More than just incidental help BATHING - STEP 4: What percent of the body parts did the patient bathe WITHOUT the helper? Half or more of the body par ts BATHING - SCORE: 3-MOD DRESSING - UPPER BODY: Button down shirt or blouse - NOT tucked in (four steps) ARTICLES SCORE Total number of steps: 4 DRESSING - UPPER BODY - STEP 1: Does the patient require help from a person or device, or need extra time when dressing above the [address]? Yes. DRESSING - UPPER BODY - STEP 2: Does the patient require the assistance of a helper? Yes. DRESSING - UPPER BODY - STEP 3: Does the helper touch the patient while dressing? Yes. DRESSING - UPPER BODY - STEP 4: How many of the total steps does the patient complete on his/her own? 3 DRESSING - UPPER BODY - SCORE: 4-MIN DRESSING - UPPER BODY - COMMENTS: Pt requires min assist to don TLSO, set up assist to don/doff shirt. DRESSING - LOWER BODY: Elastic waist pants (three steps) Sock - Left foot (one step) Sock - Right foot (one step) Underwear (three steps) ARTICLES SCORE Total number of steps: 8 DRESSING - LOWER BODY - STEP 1: Does the patient require help from a person or device, or need extra time when dressing below the [address]? Yes. DRESSING - LOWER BODY - STEP 2: Does the patient require the assistance of a helper? Yes. DRESSING - LOWER BODY - STEP 3: Does the helper touch the patient while dressing? Yes. DRESSING - LOWER BODY - STEP 4: How many of the total steps does the patient complete on his/her own? 2 DRESSING - LOWER BODY - STEP 5: Does patient require total assistance for dressing below the waist such as the helper holding clothin g and performing basically all the activities? No. DRESSING - LOWER BODY - SCORE: 2-MAX TOILETING: TOILETING - STEP 1: Does the patient require the assistance of a person or device, or need extra time with toileting? Yes . TOILETING - STEP 2: Does the patient require the assistance of a helper? Yes. TOILETING - STEP 3: How much assistance does the patient require from the helper? Hands-on assistance from the helper TOILETING - STEP 4: Of the 3 tasks: 1) Adjusting clothing prior to use, 2) Cleansing of perineal area, 3) Adjusting clot german after use; How many tasks does the patient perform WITHOUT assistance of the helper? Two tasks TOILETING - SCORE: 3-MOD BLADDER MANAGEMENT: Activity did not occur on this shift BLADDER MANAGEMENT - SCORE: 7-IND BOWEL MANAGEMENT: Activity did not occur on this shift BOWEL MANAGEMENT - SCORE: 7-IND TRANSFERS: BED, CHAIR, WHEELCHAIR: Activity did not occur on this shift TRANSFERS: BED, CHAIR, WHEELCHAIR - SCORE: 0-UNK TRANSFERS: TOILET: TRANSFERS: TOILET - STEP 1: Does the patient require the assistance of a person or device, or need extra time with toilet transfe rs? Yes. TRANSFERS: TOILET - STEP 2: Does the patient require the assistance of a helper? Yes. TRANSFERS: TOILET - STEP 3: How much assistance does the patient require from the helper? Patient performs half or more of the tr ansferring tasks TRANSFERS: TOILET - STEP 4: Does the patient need only incidental help such as contact guard or steadying during toilet transfer? No. Patient needs more than incidental help TRANSFERS: TOILET - SCORE: 3-MOD TRANSFERS: SHOWER: TRANSFERS: SHOWER - STEP 1: Does the patient require the assistance of a person or device, or need extra time with shower transfe rs? Yes. TRANSFERS: SHOWER - STEP 2: Does the patient require the assistance of a helper? Yes. TRANSFERS: SHOWER - STEP 3: How much assistance does the patient require from the helper? More than incidental help TRANSFERS: SHOWER - STEP 4: How much more help does the patient require from the helper? Lifting the patient either up OR down fr om the wheelchair onto the shower chair TRANSFERS: SHOWER - SCORE: 3-MOD TRANSFERS: TUB: Activity did not occur on this shift TRANSFERS: TUB - SCORE: 0-UNK LOCOMOTION: WALK: Activity did not occur on this shift LOCOMOTION: WALK - SCORE: 0-UNK LOCOMOTION: WHEELCHAIR: Activity did not occur on this shift LOCOMOTION: WHEELCHAIR - SCORE: 0-UNK LOCOMOTION: STAIRS: Activity did not occur on this shift LOCOMOTION: STAIRS - SCORE: 0-UNK COMPREHENSION: COMPREHENSION: TYPE: Both COMPREHENSION - STEP 1: Does the patient require help from a person or device, or need extra time to understand complex and a bstract ideas (such as current events, finances, discharge planning, medical issues, relationships, e tc)? No. COMPREHENSION - STEP 2: Does the patient need extra time, require an assistive device (such as glasses for visual comprehensi on or a hearing aid for auditory comprehension) or does s/he have mild difficulty understanding compl ex and abstract information? No. COMPREHENSION - SCORE: 7-IND EXPRESSION EXPRESSION: TYPE: Vocal EXPRESSION - STEP 1: Does the patient require help from a person or device, or need extra time expressing complex and abst ract ideas (such as current events, finances, discharge planning, medical issues, relationships, etc) ? No. EXPRESSION - STEP 2: Does the patient need extra time, require an assistive device (such as augmentive communication syste m or a communication board), OR does s/he have mild difficulty expressing complex and abstract ideas (including mild dysarthria or mild word-find problems)? No. EXPRESSION - SCORE: 7-IND SOCIAL INTERACTION: SOCIAL INTERACTION - STEP 1: Does the patient require a helper to interact with others in social and therapeutic situations? No. SOCIAL INTERACTION - STEP 2: Does the patient need extra time in social situations, OR does s/he interact with staff, other patien ts, and family members ONLY in structured environments, OR does s/he require medication for social in teraction? No. SOCIAL INTERACTION - SCORE: 7-IND PROBLEM SOLVING: PROBLEM SOLVING - STEP 1: Does the patient need help from a person or device, or need extra time to solve complex problems such as managing a checking account or confronting interpersonal problems? No. PROBLEM SOLVING - STEP 2: Does the patient require extra time to make decisions or solve problems, OR does s/he have slight dif ficulty reading, initiating, or self-correcting in unfamiliar situations? No. PROBLEM SOLVING - SCORE: 7-IND MEMORY: MEMORY - STEP 1: Does the patient need help from a person or device, or need extra time to remember frequently encount ered people, daily routines, and executing requests? No. MEMORY - STEP 2: Does the patient have slight difficulty recognizing frequently encountered people, daily routines, or executing requests without the need for repetition or using self-initiated or environmental cues to remember? No. MEMORY - SCORE: 7-IND SIGNATURE PANEL: The following modified sections: Eating - Score, Grooming - Score, Bathing - Score, Dressing - Upper Body - Score, Dressing - Upper Body - Comments:, Dressing - Lower Body - Score, Toileting - Score, Tr ansfers: Bed, Chair, Wheelchair - Score, Transfers: Toilet - Score, Transfers: Shower - Score, Transf ers: Tub - Score, Comprehension - Score, Expression - Score, Social Interaction - Score, Problem Solv ing - Score, Memory - Score were [electronically] signed by Saira Ahn OT on Sat Mar 09 2019 17: 40:24 GMT-0500 (Central Daylight Time)
[2019-03-09] MEDS: HEPARIN 5000 UNIT/ML 1 ML VIAL SQ SCH (20:25)
[2019-03-09] MEDS: ATORVASTATIN 10 MG TAB PO SCH (20:25)
[2019-03-09] MEDS: MELATONIN 3 MG TABLET PO PRN (20:25)
--- NOTE | 2019-03-10 02:07 | FAST ---
SHIFT START DATE/TIME: 03/09/2019 19:00 (CDT) SHIFT END DATE/TIME: 03/10/2019 07:00 (CDT) NAME ALEXUS KASPER DATE OF : 1955 DATE OF ADMISSION: 03/08/2019 17:45 (CDT) PHONE: AGE: 63 N# [id number] GENDER: Male ENCOUNTER PHYSICIAN: Dr. Reji Kraus M.D. 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 EATING: Activity did not occur on this shift EATING - SCORE: 0-UNK GROOMING: Activity did not occur on this shift GROOMING - SCORE: 0-UNK BATHING: Activity did not occur on this shift BATHING - SCORE: 0-UNK DRESSING - UPPER BODY: Activity did not occur on this shift ARTICLES SCORE Total number of steps: 0 DRESSING - UPPER BODY - SCORE: 0-UNK DRESSING - LOWER BODY: Activity did not occur on this shift ARTICLES SCORE Total number of steps: 0 DRESSING - LOWER BODY - SCORE: 0-UNK TOILETING: TOILETING - SCORE: 0-UNK BLADDER MANAGEMENT: BLADDER MANAGEMENT - STEP 1: Does the patient control the bladder completely and intentionally without equipment or devices or med ications, and is always continent? No. BLADDER MANAGEMENT - STEP 2: Does the patient require the assistance of a helper? Yes. BLADDER MANAGEMENT - STEP 3: How much assistance does the patient require from the helper? Patient requires contact assistance fro m the helper BLADDER MANAGEMENT - STEP 4: How much contact assistance does the patient require from the helper? Patient requires minimal assist ance to maintain an external device - by positioning, and the patient performs 75% or more of bladder management tasks, while the helper provides less than 25% of the assistance to position patient on / off bedpan BLADDER MANAGEMENT - SCORE: 4-MIN BLADDER MANAGEMENT - FREQUENCY OF ACCIDENTS: BLADDER MANAGEMENT(FA) - STEP 1: How many accidents has the patient had during the current shift? 0 BOWEL MANAGEMENT: Activity did not occur on this shift BOWEL MANAGEMENT - SCORE: 7-IND BOWEL MANAGEMENT - FREQUENCY OF ACCIDENTS: BOWEL MANAGEMENT(FA) - STEP 1: How many accidents has the patient had during the current shift? 0 TRANSFERS: BED, CHAIR, WHEELCHAIR: Activity did not occur on this shift TRANSFERS: BED, CHAIR, WHEELCHAIR - SCORE: 0-UNK TRANSFERS: TOILET: Activity did not occur on this shift TRANSFERS: TOILET - SCORE: 0-UNK TRANSFERS: SHOWER: Activity did not occur on this shift TRANSFERS: SHOWER - SCORE: 0-UNK TRANSFERS: TUB: Activity did not occur on this shift TRANSFERS: TUB - SCORE: 0-UNK LOCOMOTION: WALK: Activity did not occur on this shift LOCOMOTION: WALK - SCORE: 0-UNK LOCOMOTION: WHEELCHAIR: Activity did not occur on this shift LOCOMOTION: WHEELCHAIR - SCORE: 0-UNK COMPREHENSION: COMPREHENSION: TYPE: Both COMPREHENSION - STEP 1: Does the patient require help from a person or device, or need extra time to understand complex and a bstract ideas (such as current events, finances, discharge planning, medical issues, relationships, e tc)? No. COMPREHENSION - STEP 2: Does the patient need extra time, require an assistive device (such as glasses for visual comprehensi on or a hearing aid for auditory comprehension) or does s/he have mild difficulty understanding compl ex and abstract information? Yes. COMPREHENSION - SCORE: 6-SILVANO EXPRESSION EXPRESSION: TYPE: Both EXPRESSION - STEP 1: Does the patient require help from a person or device, or need extra time expressing complex and abst ract ideas (such as current events, finances, discharge planning, medical issues, relationships, etc) ? No. EXPRESSION - STEP 2: Does the patient need extra time, require an assistive device (such as augmentive communication syste m or a communication board), OR does s/he have mild difficulty expressing complex and abstract ideas (including mild dysarthria or mild word-find problems)? Yes. EXPRESSION - SCORE: 6-SILVANO SOCIAL INTERACTION: SOCIAL INTERACTION - STEP 1: Does the patient require a helper to interact with others in social and therapeutic situations? No. SOCIAL INTERACTION - STEP 2: Does the patient need extra time in social situations, OR does s/he interact with staff, other patien ts, and family members ONLY in structured environments, OR does s/he require medication for social in teraction? Yes, patient needs extra time SOCIAL INTERACTION - SCORE: 6-SILVANO PROBLEM SOLVING: PROBLEM SOLVING - STEP 1: Does the patient need help from a person or device, or need extra time to solve complex problems such as managing a checking account or confronting interpersonal problems? No. PROBLEM SOLVING - STEP 2: Does the patient require extra time to make decisions or solve problems, OR does s/he have slight dif ficulty reading, initiating, or self-correcting in unfamiliar situations? Yes, patient needs extra ti me. PROBLEM SOLVING - SCORE: 6-SILVANO MEMORY: MEMORY - STEP 1: Does the patient need help from a person or device, or need extra time to remember frequently encount ered people, daily routines, and executing requests? No. MEMORY - STEP 2: Does the patient have slight difficulty recognizing frequently encountered people, daily routines, or executing requests without the need for repetition or using self-initiated or environmental cues to remember? Yes. MEMORY - SCORE: 6-SILVANO SIGNATURE PANEL: The following modified sections: Eating - Score, Grooming - Score, Bathing - Score, Dressing - Upper Body - Score, Dressing - Lower Body - Score, Bladder Management - Score, Bowel Management - Score, Tr ansfers: Bed, Chair, Wheelchair - Score, Transfers: Toilet - Score, Transfers: Shower - Score, Transf ers: Tub - Score, Locomotion: Walk - Score, Locomotion: Wheelchair - Score, Comprehension - Score, Ex pression - Score, Social Interaction - Score, Problem Solving - Score, Memory - Score were [roque orta] signed by Keeley Vincent RN on MonMar 10 2019 02:06:11 GMT-0500 (Central Daylight Time)
[2019-03-10] MEDS: HEPARIN 5000 UNIT/ML 1 ML VIAL SQ SCH ×2 (07:30→18:09)
[2019-03-10] MEDS: ALLOPURINOL 100 MG TAB PO SCH (08:43)
[2019-03-10] MEDS: LOSARTAN POTASSIUM 50 MG TABLET PO SCH (08:43)
[2019-03-10] MEDS: HYDROCODONE/APAP 5/325 MG TAB PO PRN ×3 (08:43→20:17)
[2019-03-10] MEDS: GABAPENTIN 100 MG CAP PO SCH ×2 (08:43→20:17)
[2019-03-10] MEDS: predniSONE 10 MG TAB PO SCH (08:45)
[2019-03-10] MEDS: MOXIFLOXACIN HCL 0.5% 3ML OPTH OPTH SCH ×4 (08:46→20:18)
[2019-03-10] MEDS: POLYVINYL ALCOHOL 1.4% 15 ML OPTH SCH ×4 (08:46→20:18)
--- NOTE | 2019-03-10 11:40 | PN ---
Date of Progress Note: 03/10/2019 Subjective: The patient was seen this morning for followup. No new complaints or problems reported by him except he has some itching on his back from time to time. He slept last night, but woke up 2 to 3 times and would request to see if possible to increase the dose of sleeping pill and stool softe ner dose as well. No abdominal pain. No nausea or vomiting. Physical Examination: Vital Signs: Reviewed. HEENT: Unremarkable. Lungs: Clear to auscultation. Heart: Heart sounds normal. Abdomen: Soft. Bowel sounds normal. No guarding, rigidity, tenderness, or distention. Extremities: No leg edema. His right foot has very minimum swelling since he fell and had an injury 2 weeks ago, but there was no fracture detected on x-rays, but besides just a soft tissue swelling, I do not see any abnormality on the right foot. No tenderness. Skin color is normal. There is no j oint swelling involving the toes or ankle. Back: Shows a long surgical scar in the midline with multiple [place] present. No evidence of any i nfection, discharge, bleeding, gapping, etc. His skin over his upper 2/3 of the back shows evidence of skin irritation likely from lying in bed and probably may be due to some contact dermatitis type o f picture. Impression: 1.Constipation. 2.Insomnia. 3.Contact dermatitis. 4.Chronic kidney disease, stage 3. 5.Hypertension. Plan: We will continue current medications except we will go ahead and increase the dose of stool so ftener per order. We will order triamcinolone cream b.i.d. to skin on the back, and currently he andrew es melatonin 3 mg. We will increase it to 5 mg at bedtime and will increase the dose of Senokot from 2 tablets at bedtime to 2 tablets twice a day. Continue heparin for DVT prophylaxis and I will see him tomorrow for followup. SISI/MODL Voice ID: [id number] Report ID: [id number]
[2019-03-10] MEDS: DOCUSATE NA/SENNA CONC 1 TAB PO SCH ×2 (12:04→20:00)
[2019-03-10] MEDS: TRIAMCINOLONE ACET 0.1% CREAM 80 GM TOP PRN (16:34)
[2019-03-10] MEDS: MELATONIN 5 MG TABLET PO SCH (20:17)
[2019-03-10] MEDS: ATORVASTATIN 10 MG TAB PO SCH (20:18)
[2019-03-11] MEDS: HEPARIN 5000 UNIT/ML 1 ML VIAL SQ SCH ×2 (06:16→20:45)
[2019-03-11] MEDS: ALLOPURINOL 100 MG TAB PO SCH (07:18)
[2019-03-11] MEDS: LOSARTAN POTASSIUM 50 MG TABLET PO SCH (07:19)
[2019-03-11] MEDS: predniSONE 10 MG TAB PO SCH (07:19)
[2019-03-11] MEDS: DOCUSATE NA/SENNA CONC 1 TAB PO SCH ×2 (07:19→20:46)
[2019-03-11] MEDS: GABAPENTIN 100 MG CAP PO SCH ×2 (07:19→20:46)
[2019-03-11] MEDS: POLYVINYL ALCOHOL 1.4% 15 ML OPTH SCH ×4 (07:20→20:47)
[2019-03-11] MEDS: MOXIFLOXACIN HCL 0.5% 3ML OPTH OPTH SCH ×3 (07:20→16:41)
[2019-03-11] MEDS: HYDROCODONE/APAP 5/325 MG TAB PO PRN ×3 (07:27→17:41)
--- NOTE | 2019-03-11 12:04 | PN ---
Date of Progress Note: 03/11/2019 Subjective: The patient was seen this morning for followup. He was lying in bed, not in any distres s. He did sleep better last night and his itching from the back is better also with application of t opical cream as ordered yesterday. Objective: Vital Signs: Reviewed. HEENT: Examination unremarkable. Lungs: Clear to auscultation. Heart: Sounds normal. Abdomen: Soft. Bowel sounds normal. No guarding, rigidity, tenderness, or distention. Extremities: No leg edema. Impression: 1.Hypertension. 2.Chronic kidney disease, stage 3. 3.Gout. 4.Contact dermatitis. 5.Insomnia. Plan: We will go ahead and continue current medical management. Physical therapy to be provided und er guidance of Dr. Kraus. I will see him tomorrow for followup. SISI/MODL Voice ID: [id number] Report ID: [id number]
[2019-03-11] MEDS: TRIAMCINOLONE ACET 0.1% CREAM 80 GM TOP PRN (12:50)
--- NOTE | 2019-03-11 15:28 | FAST ---
ENCOUNTER DATE AND TIME: 03/11/2019 08:00 (CDT) NAME ALEXUS KASPER DATE OF : 1955 DATE OF ADMISSION: 03/08/2019 17:45 (CDT) PHONE: AGE: 63 SSN# [id number] GENDER: Male ENCOUNTER PHYSICIAN: Dr. Reji Kraus M.D. 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 EATING: Activity did not occur on this shift EATING - SCORE: 0-UNK GROOMING: Activity did not occur on this shift GROOMING - SCORE: 0-UNK BATHING: Activity did not occur on this shift BATHING - SCORE: 0-UNK DRESSING - UPPER BODY: Activity did not occur on this shift Patient is not dressing in public clothing ARTICLES SCORE Total number of steps: 0 DRESSING - UPPER BODY - SCORE: 0-UNK DRESSING - LOWER BODY: Activity did not occur on this shift Patient is not dressing in public clothing ARTICLES SCORE Total number of steps: 0 DRESSING - LOWER BODY - SCORE: 0-UNK TOILETING: Activity did not occur on this shift TOILETING - SCORE: 0-UNK BLADDER MANAGEMENT: Activity did not occur on this shift BLADDER MANAGEMENT - SCORE: 7-IND BOWEL MANAGEMENT: Activity did not occur on this shift BOWEL MANAGEMENT - SCORE: 7-IND TRANSFERS: BED, CHAIR, WHEELCHAIR: TRANSFERS: BED, CHAIR, WHEELCHAIR - STEP 1: Does the patient require assistance of a person or device, or need extra time with bed, chair, or whe elchair transfers? Yes. TRANSFERS: BED, CHAIR, WHEELCHAIR - STEP 2: Does the patient require the assistance of a helper? Yes. TRANSFERS: BED, CHAIR, WHEELCHAIR - STEP 3: How much assistance does the patient require from the helper? Only supervision TRANSFERS: BED, CHAIR, WHEELCHAIR - SCORE: 5-SUP TRANSFERS: TOILET: TRANSFERS: TOILET - STEP 1: Does the patient require the assistance of a person or device, or need extra time with toilet transfe rs? Yes. TRANSFERS: TOILET - STEP 2: Does the patient require the assistance of a helper? Yes. TRANSFERS: TOILET - STEP 3: How much assistance does the patient require from the helper? Only supervision, cuing, coaxing, OR he lp to set out transfer equipment or to lock brakes and/or lift foot rests TRANSFERS: TOILET - SCORE: 5-SUP TRANSFERS: SHOWER: Activity did not occur on this shift TRANSFERS: SHOWER - SCORE: 0-UNK TRANSFERS: TUB: Activity did not occur on this shift TRANSFERS: TUB - SCORE: 0-UNK LOCOMOTION: WALK: LOCOMOTION: WALK - STEP 1: Does the patient need help from a person or device, or need extra time to walk 150 feet? Yes. LOCOMOTION: WALK - STEP 2: How much assistance does the patient require to walk a minimum of 150 feet? Only supervision, cuing, or coaxing LOCOMOTION: WALK - SCORE: 5-SUP LOCOMOTION: WHEELCHAIR: LOCOMOTION: WHEELCHAIR - STEP 1: Does the patient need help to go 150 feet in a wheelchair? Yes. LOCOMOTION: WHEELCHAIR - STEP 2: How much assistance does the patient need from the helper? Only supervision, cuing, or coaxing LOCOMOTION: WHEELCHAIR - SCORE: 5-SUP LOCOMOTION: STAIRS: LOCOMOTION: STAIRS - STEP 1: Does the patient need help to go up and down 12 to 14 stairs? Yes. LOCOMOTION: STAIRS - STEP 2: How much assistance does the patient need from the helper to go a minimum of 12 to 14 stairs? Only cote pervision, cuing, or coaxing LOCOMOTION: STAIRS - SCORE: 5-SUP COMPREHENSION: COMPREHENSION - SCORE: 0-UNK EXPRESSION EXPRESSION - SCORE: 0-UNK SOCIAL INTERACTION: SOCIAL INTERACTION - SCORE: 0-UNK PROBLEM SOLVING: PROBLEM SOLVING - SCORE: 0-UNK MEMORY: MEMORY - SCORE: 0-UNK SIGNATURE PANEL: The following modified sections: Transfers: Bed, Chair, Wheelchair - Score, Transfers: Toilet - Score , Locomotion: Walk - Score, Locomotion: Wheelchair - Score, Locomotion: Stairs - Score were [electron tamara] signed by Chacho Rowe PTA on MonMar 11 2019 15:27:30 GMT-0500 (Central Daylight Time)
--- NOTE | 2019-03-11 17:23 | FAST ---
ENCOUNTER DATE AND TIME: 03/11/2019 08:00 (CDT) NAME ALEXUS KASPER DATE OF : 1955 DATE OF ADMISSION: 03/08/2019 17:45 (CDT) PHONE: AGE: 63 N# [id number] GENDER: Male ENCOUNTER PHYSICIAN: Dr. Reji Kraus M.D. 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 EATING: EATING - STEP 1: Does the patient require the assistance of a person or device, or need extra time when eating? No. EATING - SCORE: 7-IND GROOMING: Comb/brush hair Oral care Patient shaved Wash, rinse, and dry face Wash, rinse, and dry hands GROOMING - STEP 1: Does the patient require the assistance of a person or device, or need extra time when grooming? No. GROOMING - SCORE: 7-IND BATHING: Abdomen Buttocks Chest Left arm Left lower leg and foot Left upper leg Perineal area Right arm Right lower leg and foot Right upper leg BATHING - STEP 1: Does the patient require the assistance of a person or device, or need extra time when bathing? Yes. BATHING - STEP 2: Does the patient require the assistance of a helper? Yes. BATHING - STEP 3: How much assistance does the patient require from the helper? Only supervision, cuing, coaxing, instr uctions, encouragement BATHING - SCORE: 5-SUP DRESSING - UPPER BODY: T-shirt/pullover shirt (four steps) ARTICLES SCORE Total number of steps: 4 DRESSING - UPPER BODY - STEP 1: Does the patient require help from a person or device, or need extra time when dressing above the mike [address]? Yes. DRESSING - UPPER BODY - STEP 2: Does the patient require the assistance of a helper? Yes. DRESSING - UPPER BODY - STEP 3: Does the helper touch the patient while dressing? No. DRESSING - UPPER BODY - SCORE: 5-SUP DRESSING - UPPER BODY - COMMENTS: Assistance to alan TLSO DRESSING - LOWER BODY: Elastic waist pants (three steps) Slip-on shoe - Left foot (one step) Slip-on shoe - Right foot (one step) Sock - Left foot (one step) Sock - Right foot (one step) Underwear (three steps) ARTICLES SCORE Total number of steps: 10 DRESSING - LOWER BODY - STEP 1: Does the patient require help from a person or device, or need extra time when dressing below the mike st? Yes. DRESSING - LOWER BODY - STEP 2: Does the patient require the assistance of a helper? Yes. DRESSING - LOWER BODY - STEP 3: Does the helper touch the patient while dressing? No. DRESSING - LOWER BODY - SCORE: 5-SUP TOILETING: Activity did not occur on this shift TOILETING - SCORE: 0-UNK BLADDER MANAGEMENT: Activity did not occur on this shift BLADDER MANAGEMENT - SCORE: 7-IND BOWEL MANAGEMENT: Activity did not occur on this shift BOWEL MANAGEMENT - SCORE: 7-IND TRANSFERS: BED, CHAIR, WHEELCHAIR: Activity did not occur on this shift TRANSFERS: BED, CHAIR, WHEELCHAIR - SCORE: 0-UNK TRANSFERS: TOILET: Activity did not occur on this shift TRANSFERS: TOILET - SCORE: 0-UNK TRANSFERS: SHOWER: TRANSFERS: SHOWER - STEP 1: Does the patient require the assistance of a person or device, or need extra time with shower transfe rs? Yes. TRANSFERS: SHOWER - STEP 2: Does the patient require the assistance of a helper? Yes. TRANSFERS: SHOWER - STEP 3: How much assistance does the patient require from the helper? Only supervision, cuing, coaxing, or he lp to set out transfer equipment or to lock brakes and/or lift foot rests TRANSFERS: SHOWER - SCORE: 5-SUP TRANSFERS: TUB: Activity did not occur on this shift TRANSFERS: TUB - SCORE: 0-UNK LOCOMOTION: WALK: Activity did not occur on this shift LOCOMOTION: WALK - SCORE: 0-UNK LOCOMOTION: WHEELCHAIR: Activity did not occur on this shift LOCOMOTION: WHEELCHAIR - SCORE: 0-UNK LOCOMOTION: STAIRS: Activity did not occur on this shift LOCOMOTION: STAIRS - SCORE: 0-UNK COMPREHENSION: COMPREHENSION: TYPE: Both COMPREHENSION - STEP 1: Does the patient require help from a person or device, or need extra time to understand complex and a bstract ideas (such as current events, finances, discharge planning, medical issues, relationships, e tc)? No. COMPREHENSION - STEP 2: Does the patient need extra time, require an assistive device (such as glasses for visual comprehensi on or a hearing aid for auditory comprehension) or does s/he have mild difficulty understanding compl ex and abstract information? Yes. COMPREHENSION - SCORE: 6-SILVANO EXPRESSION EXPRESSION: TYPE: Both EXPRESSION - STEP 1: Does the patient require help from a person or device, or need extra time expressing complex and abst ract ideas (such as current events, finances, discharge planning, medical issues, relationships, etc) ? No. EXPRESSION - STEP 2: Does the patient need extra time, require an assistive device (such as augmentive communication syste m or a communication board), OR does s/he have mild difficulty expressing complex and abstract ideas (including mild dysarthria or mild word-find problems)? Yes. EXPRESSION - SCORE: 6-SILVANO SOCIAL INTERACTION: SOCIAL INTERACTION - STEP 1: Does the patient require a helper to interact with others in social and therapeutic situations? No. SOCIAL INTERACTION - STEP 2: Does the patient need extra time in social situations, OR does s/he interact with staff, other patien ts, and family members ONLY in structured environments, OR does s/he require medication for social in teraction? Yes, patient needs extra time SOCIAL INTERACTION - SCORE: 6-SILVANO PROBLEM SOLVING: PROBLEM SOLVING - STEP 1: Does the patient need help from a person or device, or need extra time to solve complex problems such as managing a checking account or confronting interpersonal problems? Yes. PROBLEM SOLVING - STEP 2: Does the patient solve basic routine problems half or more of the time? Yes. PROBLEM SOLVING - STEP 3: How often does the patient need help to solve basic routine problems? Less than 10% of the time PROBLEM SOLVING - SCORE: 5-SUP MEMORY: MEMORY - STEP 1: Does the patient need help from a person or device, or need extra time to remember frequently encount ered people, daily routines, and executing requests? Yes. MEMORY - STEP 2: How often does the patient need help to remember frequently encountered people, daily routines, and e xecuting requests? Less than 10% of the time MEMORY - SCORE: 5-SUP SIGNATURE PANEL: The following modified sections: Eating - Score, Grooming - Score, Bathing - Score, Dressing - Upper Body - Score, Dressing - Upper Body - Comments:, Dressing - Lower Body - Score, Toileting - Score, Tr ansfers: Bed, Chair, Wheelchair - Score, Transfers: Toilet - Score, Transfers: Tub - Score, Transfers : Shower - Score, Comprehension - Score, Expression - Score, Social Interaction - Score, Problem Solv ing - Score, Memory - Score were [electronically] signed by Yomaira Estevez OT on MonMar 11 2019 17 :22:52 GMT-0500 (Central Daylight Time)
--- NOTE | 2019-03-11 17:27 | FAST ---
SHIFT START DATE/TIME: 03/11/2019 07:00 (CDT) SHIFT END DATE/TIME: 03/11/2019 19:00 (CDT) NAME ALEXUS KASPER DATE OF : 1955 DATE OF ADMISSION: 03/08/2019 17:45 (CDT) PHONE: AGE: 63 N# [id number] GENDER: Male ENCOUNTER PHYSICIAN: Dr. Reji Kraus M.D. 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 EATING: EATING - STEP 1: Does the patient require the assistance of a person or device, or need extra time when eating? No. EATING - SCORE: 7-IND GROOMING: Oral care GROOMING - STEP 1: Does the patient require the assistance of a person or device, or need extra time when grooming? No. GROOMING - SCORE: 7-IND BATHING: Activity did not occur on this shift BATHING - SCORE: 0-UNK DRESSING - UPPER BODY: Activity did not occur on this shift ARTICLES SCORE Total number of steps: 0 DRESSING - UPPER BODY - SCORE: 0-UNK DRESSING - LOWER BODY: Activity did not occur on this shift ARTICLES SCORE Total number of steps: 0 DRESSING - LOWER BODY - SCORE: 0-UNK TOILETING: TOILETING - STEP 1: Does the patient require the assistance of a person or device, or need extra time with toileting? Yes . TOILETING - STEP 2: Does the patient require the assistance of a helper? No. TOILETING - SCORE: 6-SILVANO BLADDER MANAGEMENT: BLADDER MANAGEMENT - STEP 1: Does the patient control the bladder completely and intentionally without equipment or devices or med ications, and is always continent? Yes. BLADDER MANAGEMENT - SCORE: 7-IND BLADDER MANAGEMENT - FREQUENCY OF ACCIDENTS: BLADDER MANAGEMENT(FA) - STEP 1: How many accidents has the patient had during the current shift? 0 BOWEL MANAGEMENT: BOWEL MANAGEMENT - STEP 1: Does the patient control bowels completely and intentionally without equipment devices or medications AND is always continent? Yes. BOWEL MANAGEMENT - SCORE: 7-IND BOWEL MANAGEMENT - FREQUENCY OF ACCIDENTS: BOWEL MANAGEMENT(FA) - STEP 1: How many accidents has the patient had during the current shift? 0 TRANSFERS: BED, CHAIR, WHEELCHAIR: TRANSFERS: BED, CHAIR, WHEELCHAIR - STEP 1: Does the patient require assistance of a person or device, or need extra time with bed, chair, or whe elchair transfers? Yes. TRANSFERS: BED, CHAIR, WHEELCHAIR - STEP 2: Does the patient require the assistance of a helper? Yes. TRANSFERS: BED, CHAIR, WHEELCHAIR - STEP 3: How much assistance does the patient require from the helper? Only supervision TRANSFERS: BED, CHAIR, WHEELCHAIR - SCORE: 5-SUP TRANSFERS: TOILET: TRANSFERS: TOILET - STEP 1: Does the patient require the assistance of a person or device, or need extra time with toilet transfe rs? Yes. TRANSFERS: TOILET - STEP 2: Does the patient require the assistance of a helper? Yes. TRANSFERS: TOILET - STEP 3: How much assistance does the patient require from the helper? Only supervision, cuing, coaxing, OR he lp to set out transfer equipment or to lock brakes and/or lift foot rests TRANSFERS: TOILET - SCORE: 5-SUP TRANSFERS: SHOWER: Activity did not occur on this shift TRANSFERS: SHOWER - SCORE: 0-UNK TRANSFERS: TUB: Activity did not occur on this shift TRANSFERS: TUB - SCORE: 0-UNK LOCOMOTION: WALK: Activity did not occur on this shift LOCOMOTION: WALK - SCORE: 0-UNK LOCOMOTION: WHEELCHAIR: Activity did not occur on this shift LOCOMOTION: WHEELCHAIR - SCORE: 0-UNK COMPREHENSION: COMPREHENSION - SCORE: 0-UNK EXPRESSION EXPRESSION - SCORE: 0-UNK SOCIAL INTERACTION: SOCIAL INTERACTION - SCORE: 0-UNK PROBLEM SOLVING: PROBLEM SOLVING - SCORE: 0-UNK MEMORY: MEMORY - SCORE: 0-UNK SIGNATURE PANEL: The following modified sections: Eating - Score, Grooming - Score, Bathing - Score, Dressing - Upper Body - Score, Dressing - Lower Body - Score, Toileting - Score, Bladder Management - Score, Bowel Man agement - Score, Transfers: Bed, Chair, Wheelchair - Score, Transfers: Toilet - Score, Transfers: Erlinda wer - Score, Transfers: Tub - Score, Locomotion: Walk - Score, Locomotion: Wheelchair - Score, Compre hension - Score, Expression - Score, Social Interaction - Score, Problem Solving - Score, Memory - Sc ore were [electronically] signed by Nevin Meyers CNA on MonMar 11 2019 17:26:16 T-0500 (Centra l Daylight Time)
--- NOTE | 2019-03-11 19:19 | R.PN ---
ENCOUNTER DATE AND TIME: 03/11/2019 19:15 (CDT) NAME URBANO KASPER DATE OF : 1955 DATE OF ADMISSION: 03/08/2019 17:45 (CDT) Closed Burst Fracture of T 11SUBJECTIVE: Pt denied any depression. Pt denied any Shortness of Breath. Ambulated 1000' with standby assistance using a rolling walker. Ambulated 260' with contact guard assistance using a rolling walker. Propelled wheelchair 250' with s tandby assistance. Speech expression and comprehension is at modified independence. Toilet and tub tr ansfer with modified independence. Ambulated 750 feet and 500 feet with standby assistance and a single prong cane. Ascended 15 steps, b ilateral handrails with modified independence VITAL SIGNS Temperature: 97.2 F SBP/DBP: 146/70 Pulse: 50 Resp: 16 MEDICATION ALLERGIES: No Known Drug Allergies (NKDA) ENVIRONMENTAL ALLERGIES: None Known - Substance Allergies None Known - Other Allergies None Known NURSING: - Shower allowing shower - Bladder care per protocol - Skin care per protocol ACTIVITIES OOB only with supervision THERAPIES: - Orthotics/Prosthetics Orthotic Evaluation. Splinting/Casting. - Dietary and Nutrition Adequate Nutrition. Nutritional Education. Nutritional Supplements. PHYSICAL EXAM - Gen Alert and awake Lying in bed No apparent distress Oriented to: person, time, and place - Skin No breakdown No numbness - Eyes No abnormalities - ENMT No abnormalities - Neck No abnormalities - CVS RRR - Chest Clear - Abd + bowel sounds - GI + bowel sound No abnormalities - No abnormalities - Ext No significant edema - MSK 5-/5 weakness in both lower extremities. - Neuro No focal deficits - Psych No abnormalities ASSESSMENT: Pt. is a 63 yo Right-handed white male.On 02/25/2019 he was admitted to [facility] with diagnosis Closed Burst Fracture of T 11.His impairment category is Spinal Cord Dysfunction 04 - Other Traumat ic Spinal Cord Dysfunction (04.230).Pre-morbidly, Pt. was independent/mod-I in Self-Care, Sphincter C ontrol, Transfers Control, Locomotion, Communication, and Social Cognition; and he had good Sphincter Control.Currently, he has deficits of Self-Care, Transfers Control, Locomotion, Endurance, Balance, and Safety Awareness.Pt. is now referred to [facility] for acute in-patient re habilitation in order to maximize patient's functional independence in activities of daily living, st rength, ROM, and mobility.- Rehab Goal Patient has realistic goal of being discharged at assistance level 6-Juan Manuel to reside at Home with Fam rene/Relatives. MDM/PLAN: - Physical Therapy Gait dysfunction - to improve, our physical therapists will perform initial evaluation of pt's statu s upon admission and devise an individualized program for Gait Training, and Wheel Chair mobility Inability to transfer - to improve, our physical therapists will perform initial evaluation of pt's status upon admission and devise an individualized program for Bed mobility Need for home safety evaluation - to improve, our physical therapists will perform initial evaluatio n of pt's status upon admission and devise an individualized program for Home Evaluation Need in caregiver upon discharge - to improve, our physical therapists will perform initial evaluati on of pt's status upon admission and devise an individualized program for Caregiver Training New precaution - to improve, our physical therapists will perform initial evaluation of pt's status upon admission and devise an individualized program for Patient precaution education Edema - to improve, our physical therapists will perform initial evaluation of pt's status upon admis yojana and devise an individualized program for Elevation Training, and Lymphedema Therapy Poor balance - to improve, our physical therapists will perform initial evaluation of pt's status up on admission and devise an individualized program for Balance Training Poor endurance - to improve, our physical therapists will perform initial evaluation of pt's status upon admission and devise an individualized program for Endurance Training Weakness - to improve, our physical therapists will perform initial evaluation of pt's status upon a dmission and devise an individualized program for Aquatic Therapy, Neuromuscular Reeducation, and Str engthening Achieving independence - to improve, our physical therapists will perform initial evaluation of pt's status upon admission and devise an individualized program for Community Reintegration Activities - Occupational Therapy ADL deficits - to improve, our occupation therapists will perform initial evaluation of pt's status upon admission and devise an individualized program for Bathing, Bed mobility, Community Reintegratio n, Cooking, Dressing, Eating, Fine Motor Skills, Grooming, Homemaking, Kitchen Mobility, Laundry, Pat ient Education, Safety Awareness, Splinting - Positioning, Transfers(Toilet, Tub, Shower), and Wheel Chair Management Need for acute care nurse - to improve, our occupation therapists will perform initial evaluation of pt's status upon admission and devise an individualized program for Caregiver Training Weakness - to improve, our occupation therapists will perform initial evaluation of pt's status upon admission and devise an individualized program for Aquatic Therapy, Balance, Endurance, UE ROM, and UE strengthening - Other See attached MAR (Medication Administration Record) Hurt, [email or web address].pdf See attached MAR (Medication Administration Record) Hurt, [email or web address].pdf - Diet Type Continue Regular - Diet - Liquid Texture Continue Regular - Tube Feed Continue N/A - Bladder care per protocol - Skin care per protocol - Diet - Solid Texture Continue Regular - Shower allowing shower FUNCTIONAL STATUS: UPDATED AT WEEKLY TEAM CONFERENCE - Bladder Same accident frequency: 7-Ind - No accidents in the past 7 days - Bowel Same accident frequency: 7-Ind - No accidents in the past 7 days - Walking Same score based on distance walked: 3(>=150ft) - Wheelchair Same score based on distance traveled: 0(N/A) FUNCTIONAL STATUS: - Self-Care A. Eating sup B. Grooming sup C. Bathing ADNO D. Dressing - Upper maxA E. Dressing - Lower maxA F. Toileting maxA - Sphincter Control G: Bladder control Ind H: Bowel control Ind - Transfers Control I. Bed/Chair/Wheelchair Mckinley J. Toilet Mckinley K. Tub/Shower ADNO - Locomotion L. Walk/Wheelchair (C) Mckinley L. Walk/Wheelchair (W) Mckinley M. Stairs ADNO - Communication N. Comprehension (B) Ind O. Expression (B) Ind - Social Cognition P. Social Interaction Ind Q. Problem Solving Ind R. Memory Ind - Endurance Fair - Balance Fair - Safety Awareness Fair CURRENT FUNC. DEFICITS: Self-Care, Transfers Control, Locomotion, Endurance, Balance, and Safety Awareness SIGNATURE PANEL: (CDT)
[2019-03-11] MEDS: MELATONIN 5 MG TABLET PO SCH (20:47)
[2019-03-11] MEDS: ATORVASTATIN 10 MG TAB PO SCH (20:47)
--- NOTE | 2019-03-12 01:52 | FAST ---
SHIFT START DATE/TIME: 03/11/2019 19:00 (CDT) SHIFT END DATE/TIME: 03/12/2019 07:00 (CDT) NAME ALEXUS KASPER DATE OF : 1955 DATE OF ADMISSION: 03/08/2019 17:45 (CDT) PHONE: AGE: 63 N# [id number] GENDER: Male ENCOUNTER PHYSICIAN: Dr. Reji Kraus M.D. 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 EATING: Activity did not occur on this shift EATING - SCORE: 0-UNK GROOMING: Activity did not occur on this shift GROOMING - SCORE: 0-UNK BATHING: Activity did not occur on this shift BATHING - SCORE: 0-UNK DRESSING - UPPER BODY: Activity did not occur on this shift ARTICLES SCORE Total number of steps: 0 DRESSING - UPPER BODY - SCORE: 0-UNK DRESSING - LOWER BODY: Activity did not occur on this shift ARTICLES SCORE Total number of steps: 0 DRESSING - LOWER BODY - SCORE: 0-UNK TOILETING: TOILETING - STEP 1: Does the patient require the assistance of a person or device, or need extra time with toileting? Yes . TOILETING - STEP 2: Does the patient require the assistance of a helper? Yes. TOILETING - STEP 3: How much assistance does the patient require from the helper? Only supervision TOILETING - SCORE: 5-SUP BLADDER MANAGEMENT: BLADDER MANAGEMENT - STEP 1: Does the patient control the bladder completely and intentionally without equipment or devices or med ications, and is always continent? No. BLADDER MANAGEMENT - STEP 2: Does the patient require the assistance of a helper? Yes. BLADDER MANAGEMENT - STEP 3: How much assistance does the patient require from the helper? Only set-up of equipment - such as plac ing it within reach of the patient or emptying a device - to maintain either satisfactory voiding pat tern or managing an external device, such as an absorbent pad, ileal device, or catheter BLADDER MANAGEMENT - SCORE: 5-SUP BOWEL MANAGEMENT: Activity did not occur on this shift BOWEL MANAGEMENT - SCORE: 7-IND TRANSFERS: BED, CHAIR, WHEELCHAIR: Activity did not occur on this shift TRANSFERS: BED, CHAIR, WHEELCHAIR - SCORE: 0-UNK TRANSFERS: TOILET: Activity did not occur on this shift TRANSFERS: TOILET - SCORE: 0-UNK TRANSFERS: SHOWER: Activity did not occur on this shift TRANSFERS: SHOWER - SCORE: 0-UNK TRANSFERS: TUB: Activity did not occur on this shift TRANSFERS: TUB - SCORE: 0-UNK LOCOMOTION: WALK: Activity did not occur on this shift LOCOMOTION: WALK - SCORE: 0-UNK LOCOMOTION: WHEELCHAIR: Activity did not occur on this shift LOCOMOTION: WHEELCHAIR - SCORE: 0-UNK COMPREHENSION: COMPREHENSION: TYPE: Both COMPREHENSION - STEP 1: Does the patient require help from a person or device, or need extra time to understand complex and a bstract ideas (such as current events, finances, discharge planning, medical issues, relationships, e tc)? No. COMPREHENSION - STEP 2: Does the patient need extra time, require an assistive device (such as glasses for visual comprehensi on or a hearing aid for auditory comprehension) or does s/he have mild difficulty understanding compl ex and abstract information? Yes. COMPREHENSION - SCORE: 6-SILVANO EXPRESSION EXPRESSION: TYPE: Both EXPRESSION - STEP 1: Does the patient require help from a person or device, or need extra time expressing complex and abst ract ideas (such as current events, finances, discharge planning, medical issues, relationships, etc) ? No. EXPRESSION - STEP 2: Does the patient need extra time, require an assistive device (such as augmentive communication syste m or a communication board), OR does s/he have mild difficulty expressing complex and abstract ideas (including mild dysarthria or mild word-find problems)? No. EXPRESSION - SCORE: 7-IND SOCIAL INTERACTION: SOCIAL INTERACTION - STEP 1: Does the patient require a helper to interact with others in social and therapeutic situations? No. SOCIAL INTERACTION - STEP 2: Does the patient need extra time in social situations, OR does s/he interact with staff, other patien ts, and family members ONLY in structured environments, OR does s/he require medication for social in teraction? No. SOCIAL INTERACTION - SCORE: 7-IND PROBLEM SOLVING: PROBLEM SOLVING - STEP 1: Does the patient need help from a person or device, or need extra time to solve complex problems such as managing a checking account or confronting interpersonal problems? No. PROBLEM SOLVING - STEP 2: Does the patient require extra time to make decisions or solve problems, OR does s/he have slight dif ficulty reading, initiating, or self-correcting in unfamiliar situations? No. PROBLEM SOLVING - SCORE: 7-IND MEMORY: MEMORY - STEP 1: Does the patient need help from a person or device, or need extra time to remember frequently encount ered people, daily routines, and executing requests? No. MEMORY - STEP 2: Does the patient have slight difficulty recognizing frequently encountered people, daily routines, or executing requests without the need for repetition or using self-initiated or environmental cues to remember? No. MEMORY - SCORE: 7-IND SIGNATURE PANEL: The following modified sections: Eating - Score, Grooming - Score, Bathing - Score, Dressing - Upper Body - Score, Dressing - Lower Body - Score, Toileting - Score, Bladder Management - Score, Bowel Man agement - Score, Transfers: Bed, Chair, Wheelchair - Score, Transfers: Toilet - Score, Transfers: Erlinda wer - Score, Transfers: Tub - Score, Locomotion: Walk - Score, Locomotion: Wheelchair - Score, Compre hension - Score, Expression - Score, Social Interaction - Score, Problem Solving - Score, Memory - Sc ore were [electronically] signed by Concepcion Bonilla RN on MonMar 12 2019 01:50:36 T-0500 (Critical access hospital Time)
[2019-03-12] MEDS: HYDROCODONE/APAP 5/325 MG TAB PO PRN ×4 (07:17→21:59)
[2019-03-12] MEDS: DOCUSATE NA/SENNA CONC 1 TAB PO SCH ×2 (08:00→20:29)
[2019-03-12] MEDS: ALLOPURINOL 100 MG TAB PO SCH (08:32)
[2019-03-12] MEDS: GABAPENTIN 100 MG CAP PO SCH ×2 (08:32→20:30)
[2019-03-12] MEDS: LOSARTAN POTASSIUM 50 MG TABLET PO SCH (08:33)
[2019-03-12] MEDS: predniSONE 5 MG TAB PO SCH (08:35)
[2019-03-12] MEDS: HEPARIN 5000 UNIT/ML 1 ML VIAL SQ SCH ×2 (09:00→20:30)
[2019-03-12] MEDS: POLYVINYL ALCOHOL 1.4% 15 ML OPTH SCH ×4 (09:28→20:30)
--- NOTE | 2019-03-12 14:32 | FAST ---
SHIFT START DATE/TIME: 03/12/2019 07:00 (CDT) SHIFT END DATE/TIME: 03/12/2019 19:00 (CDT) NAME ALEXUS KASPER DATE OF : 1955 DATE OF ADMISSION: 03/08/2019 17:45 (CDT) PHONE: AGE: 63 N# [id number] GENDER: Male ENCOUNTER PHYSICIAN: Dr. Reji Kraus M.D. 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 EATING: EATING - STEP 1: Does the patient require the assistance of a person or device, or need extra time when eating? No. EATING - SCORE: 7-IND GROOMING: GROOMING - STEP 1: Does the patient require the assistance of a person or device, or need extra time when grooming? No. GROOMING - SCORE: 7-IND BATHING: Activity did not occur on this shift BATHING - SCORE: 0-UNK DRESSING - UPPER BODY: T-shirt/pullover shirt (four steps) ARTICLES SCORE Total number of steps: 4 DRESSING - UPPER BODY - STEP 1: Does the patient require help from a person or device, or need extra time when dressing above the mike [address]? Yes. DRESSING - UPPER BODY - STEP 2: Does the patient require the assistance of a helper? Yes. DRESSING - UPPER BODY - STEP 3: Does the helper touch the patient while dressing? No. DRESSING - UPPER BODY - SCORE: 5-SUP DRESSING - LOWER BODY: Elastic waist pants (three steps) Slip-on shoe - Left foot (one step) Slip-on shoe - Right foot (one step) Sock - Left foot (one step) Sock - Right foot (one step) Underwear (three steps) ARTICLES SCORE Total number of steps: 10 DRESSING - LOWER BODY - STEP 1: Does the patient require help from a person or device, or need extra time when dressing below the mike st? Yes. DRESSING - LOWER BODY - STEP 2: Does the patient require the assistance of a helper? Yes. DRESSING - LOWER BODY - STEP 3: Does the helper touch the patient while dressing? No. DRESSING - LOWER BODY - SCORE: 5-SUP TOILETING: TOILETING - STEP 1: Does the patient require the assistance of a person or device, or need extra time with toileting? No. TOILETING - SCORE: 7-IND BLADDER MANAGEMENT: BLADDER MANAGEMENT - STEP 1: Does the patient control the bladder completely and intentionally without equipment or devices or med ications, and is always continent? No. BLADDER MANAGEMENT - STEP 2: Does the patient require the assistance of a helper? No, patient requires and independently uses an a ssistive device, such as a urinal, bedpan, bedside commode, catheter, absorbent pad, or collecting de vice BLADDER MANAGEMENT - SCORE: 6-SILVANO BLADDER MANAGEMENT - FREQUENCY OF ACCIDENTS: BLADDER MANAGEMENT(FA) - STEP 1: How many accidents has the patient had during the current shift? 0 BOWEL MANAGEMENT: Activity did not occur on this shift BOWEL MANAGEMENT - SCORE: 7-IND TRANSFERS: BED, CHAIR, WHEELCHAIR: TRANSFERS: BED, CHAIR, WHEELCHAIR - STEP 1: Does the patient require assistance of a person or device, or need extra time with bed, chair, or whe elchair transfers? Yes. TRANSFERS: BED, CHAIR, WHEELCHAIR - STEP 2: Does the patient require the assistance of a helper? Yes. TRANSFERS: BED, CHAIR, WHEELCHAIR - STEP 3: How much assistance does the patient require from the helper? Only supervision TRANSFERS: BED, CHAIR, WHEELCHAIR - SCORE: 5-SUP TRANSFERS: TOILET: TRANSFERS: TOILET - STEP 1: Does the patient require the assistance of a person or device, or need extra time with toilet transfe rs? Yes. TRANSFERS: TOILET - STEP 2: Does the patient require the assistance of a helper? Yes. TRANSFERS: TOILET - STEP 3: How much assistance does the patient require from the helper? Patient performs half or more of the tr ansferring tasks TRANSFERS: TOILET - STEP 4: Does the patient need only incidental help such as contact guard or steadying during toilet transfer? Yes. TRANSFERS: TOILET - SCORE: 4-MIN TRANSFERS: SHOWER: Activity did not occur on this shift TRANSFERS: SHOWER - SCORE: 0-UNK TRANSFERS: TUB: Activity did not occur on this shift TRANSFERS: TUB - SCORE: 0-UNK LOCOMOTION: WALK: Activity did not occur on this shift LOCOMOTION: WALK - SCORE: 0-UNK LOCOMOTION: WHEELCHAIR: Activity did not occur on this shift LOCOMOTION: WHEELCHAIR - SCORE: 0-UNK COMPREHENSION: COMPREHENSION: TYPE: Both COMPREHENSION - STEP 1: Does the patient require help from a person or device, or need extra time to understand complex and a bstract ideas (such as current events, finances, discharge planning, medical issues, relationships, e tc)? No. COMPREHENSION - STEP 2: Does the patient need extra time, require an assistive device (such as glasses for visual comprehensi on or a hearing aid for auditory comprehension) or does s/he have mild difficulty understanding compl ex and abstract information? Yes. COMPREHENSION - SCORE: 6-SILVANO EXPRESSION EXPRESSION: TYPE: Both EXPRESSION - STEP 1: Does the patient require help from a person or device, or need extra time expressing complex and abst ract ideas (such as current events, finances, discharge planning, medical issues, relationships, etc) ? No. EXPRESSION - STEP 2: Does the patient need extra time, require an assistive device (such as augmentive communication syste m or a communication board), OR does s/he have mild difficulty expressing complex and abstract ideas (including mild dysarthria or mild word-find problems)? Yes. EXPRESSION - SCORE: 6-SILVANO SOCIAL INTERACTION: SOCIAL INTERACTION - STEP 1: Does the patient require a helper to interact with others in social and therapeutic situations? No. SOCIAL INTERACTION - STEP 2: Does the patient need extra time in social situations, OR does s/he interact with staff, other patien ts, and family members ONLY in structured environments, OR does s/he require medication for social in teraction? Yes, patient needs extra time SOCIAL INTERACTION - SCORE: 6-SILVANO PROBLEM SOLVING: PROBLEM SOLVING - STEP 1: Does the patient need help from a person or device, or need extra time to solve complex problems such as managing a checking account or confronting interpersonal problems? Yes. PROBLEM SOLVING - STEP 2: Does the patient solve basic routine problems half or more of the time? Yes. PROBLEM SOLVING - STEP 3: How often does the patient need help to solve basic routine problems? Less than 10% of the time PROBLEM SOLVING - SCORE: 5-SUP MEMORY: MEMORY - STEP 1: Does the patient need help from a person or device, or need extra time to remember frequently encount ered people, daily routines, and executing requests? Yes. MEMORY - STEP 2: How often does the patient need help to remember frequently encountered people, daily routines, and e xecuting requests? Less than 10% of the time MEMORY - SCORE: 5-SUP SIGNATURE PANEL: The following modified sections: Eating - Score, Grooming - Score, Bathing - Score, Dressing - Upper Body - Score, Dressing - Lower Body - Score, Toileting - Score, Bladder Management - Score, Bowel Man agement - Score, Transfers: Bed, Chair, Wheelchair - Score, Transfers: Toilet - Score, Transfers: Erlinda wer - Score, Transfers: Tub - Score, Locomotion: Walk - Score, Locomotion: Wheelchair - Score, Compre hension - Score, Expression - Score, Social Interaction - Score, Memory - Score, Problem Solving - Sc ore were [electronically] signed by Lam RickNTamica on MonMar 12 2019 14:31:51 T-0500 ([facility] Time)
[2019-03-12] MEDS: ATORVASTATIN 10 MG TAB PO SCH (20:30)
[2019-03-12] MEDS: MELATONIN 5 MG TABLET PO SCH (20:30)
--- NOTE | 2019-03-13 02:14 | PN ---
Date of Progress Note: 03/12/2019 Subjective: The patient was seen this morning for followup. No new complaints or problems reported by the patient. He was in the Therapy Department this morning, doing his physical therapy when I saw him. Objective: Vital Signs: Reviewed. HEENT: Unremarkable. Lungs: Clear to auscultation. Heart: Sounds normal. Abdomen: Soft. Bowel sounds normal. No guarding, rigidity, tenderness, or distention. Extremities: No leg edema. Impression: 1.T11 burst fracture, status post surgery. 2.Hypertension. 3.Chronic kidney disease stage 3. 4.Gout. 5.Contact dermatitis. Plan: We will continue current medications. Continue current topical cream for contact dermatitis. Continue current antihypertensive medication, losartan and gout prevention medication, allopurinol. The patient's j[place] will be probably removed today. I have discussed with the nurse on the rehab to make sure to contact the patient's physician at [facility] to find out and confirm about stapl e removal today and also to find out if they want us to remove all the j[place] or alternate j[place] a nd follow that order. I will see him tomorrow for followup. SISI/MODL Voice ID: [id number] Report ID: [id number]
--- NOTE | 2019-03-13 02:31 | FAST ---
SHIFT START DATE/TIME: 03/12/2019 19:00 (CDT) SHIFT END DATE/TIME: 03/13/2019 07:00 (CDT) NAME ALEXUS KASPER DATE OF : 1955 DATE OF ADMISSION: 03/08/2019 17:45 (CDT) PHONE: AGE: 63 N# [id number] GENDER: Male ENCOUNTER PHYSICIAN: Dr. Reji Kraus M.D. 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 EATING: Activity did not occur on this shift EATING - SCORE: 0-UNK GROOMING: Wash, rinse, and dry hands GROOMING - STEP 1: Does the patient require the assistance of a person or device, or need extra time when grooming? Yes. GROOMING - STEP 2: Does the patient require the assistance of a helper? Yes. GROOMING - STEP 3: How much assistance does the patient require from the helper? Only prior equipment preparation/set up from the helper GROOMING - SCORE: 5-SUP BATHING: Activity did not occur on this shift BATHING - SCORE: 0-UNK DRESSING - UPPER BODY: Activity did not occur on this shift ARTICLES SCORE Total number of steps: 0 DRESSING - UPPER BODY - SCORE: 0-UNK DRESSING - LOWER BODY: Activity did not occur on this shift ARTICLES SCORE Total number of steps: 0 DRESSING - LOWER BODY - SCORE: 0-UNK TOILETING: TOILETING - STEP 1: Does the patient require the assistance of a person or device, or need extra time with toileting? Yes . TOILETING - STEP 2: Does the patient require the assistance of a helper? Yes. TOILETING - STEP 3: How much assistance does the patient require from the helper? Only supervision TOILETING - SCORE: 5-SUP BLADDER MANAGEMENT: BLADDER MANAGEMENT - STEP 1: Does the patient control the bladder completely and intentionally without equipment or devices or med ications, and is always continent? No. BLADDER MANAGEMENT - STEP 2: Does the patient require the assistance of a helper? Yes. BLADDER MANAGEMENT - STEP 3: How much assistance does the patient require from the helper? Only set-up of equipment - such as plac ing it within reach of the patient or emptying a device - to maintain either satisfactory voiding pat tern or managing an external device, such as an absorbent pad, ileal device, or catheter BLADDER MANAGEMENT - SCORE: 5-SUP BOWEL MANAGEMENT: BOWEL MANAGEMENT - STEP 1: Does the patient control bowels completely and intentionally without equipment devices or medications AND is always continent? No. BOWEL MANAGEMENT - STEP 2: Does the patient require the assistance of a helper? Yes. BOWEL MANAGEMENT - STEP 3: How much assistance does the patient require from the helper? Patient requires supervision, stand by, cueing, coaxing, or setup of equipment - placing within reach of patient and emptying device / bedpa nd or BSC bucket - to maintain either satisfactory bowel pattern or managing an external device such as an absorbent pad, colostomy bag / ileostomy bag BOWEL MANAGEMENT - SCORE: 5-SUP TRANSFERS: BED, CHAIR, WHEELCHAIR: TRANSFERS: BED, CHAIR, WHEELCHAIR - STEP 1: Does the patient require assistance of a person or device, or need extra time with bed, chair, or whe elchair transfers? Yes. TRANSFERS: BED, CHAIR, WHEELCHAIR - STEP 2: Does the patient require the assistance of a helper? Yes. TRANSFERS: BED, CHAIR, WHEELCHAIR - STEP 3: How much assistance does the patient require from the helper? Lifting of the legs TRANSFERS: BED, CHAIR, WHEELCHAIR - STEP 4: How many legs does the patient require the helper to lift? both legs TRANSFERS: BED, CHAIR, WHEELCHAIR - SCORE: 3-MOD TRANSFERS: TOILET: TRANSFERS: TOILET - STEP 1: Does the patient require the assistance of a person or device, or need extra time with toilet transfe rs? Yes. TRANSFERS: TOILET - STEP 2: Does the patient require the assistance of a helper? Yes. TRANSFERS: TOILET - STEP 3: How much assistance does the patient require from the helper? Only supervision, cuing, coaxing, OR he lp to set out transfer equipment or to lock brakes and/or lift foot rests TRANSFERS: TOILET - SCORE: 5-SUP TRANSFERS: SHOWER: Activity did not occur on this shift TRANSFERS: SHOWER - SCORE: 0-UNK TRANSFERS: TUB: Activity did not occur on this shift TRANSFERS: TUB - SCORE: 0-UNK LOCOMOTION: WALK: Activity did not occur on this shift LOCOMOTION: WALK - SCORE: 0-UNK LOCOMOTION: WHEELCHAIR: Activity did not occur on this shift LOCOMOTION: WHEELCHAIR - SCORE: 0-UNK COMPREHENSION: COMPREHENSION: TYPE: Both COMPREHENSION - STEP 1: Does the patient require help from a person or device, or need extra time to understand complex and a bstract ideas (such as current events, finances, discharge planning, medical issues, relationships, e tc)? No. COMPREHENSION - STEP 2: Does the patient need extra time, require an assistive device (such as glasses for visual comprehensi on or a hearing aid for auditory comprehension) or does s/he have mild difficulty understanding compl ex and abstract information? Yes. COMPREHENSION - SCORE: 6-SILVANO EXPRESSION EXPRESSION: TYPE: Both EXPRESSION - STEP 1: Does the patient require help from a person or device, or need extra time expressing complex and abst ract ideas (such as current events, finances, discharge planning, medical issues, relationships, etc) ? No. EXPRESSION - STEP 2: Does the patient need extra time, require an assistive device (such as augmentive communication syste m or a communication board), OR does s/he have mild difficulty expressing complex and abstract ideas (including mild dysarthria or mild word-find problems)? No. EXPRESSION - SCORE: 7-IND SOCIAL INTERACTION: SOCIAL INTERACTION - STEP 1: Does the patient require a helper to interact with others in social and therapeutic situations? No. SOCIAL INTERACTION - STEP 2: Does the patient need extra time in social situations, OR does s/he interact with staff, other patien ts, and family members ONLY in structured environments, OR does s/he require medication for social in teraction? No. SOCIAL INTERACTION - SCORE: 7-IND PROBLEM SOLVING: PROBLEM SOLVING - STEP 1: Does the patient need help from a person or device, or need extra time to solve complex problems such as managing a checking account or confronting interpersonal problems? No. PROBLEM SOLVING - STEP 2: Does the patient require extra time to make decisions or solve problems, OR does s/he have slight dif ficulty reading, initiating, or self-correcting in unfamiliar situations? No. PROBLEM SOLVING - SCORE: 7-IND MEMORY: MEMORY - STEP 1: Does the patient need help from a person or device, or need extra time to remember frequently encount ered people, daily routines, and executing requests? No. MEMORY - STEP 2: Does the patient have slight difficulty recognizing frequently encountered people, daily routines, or executing requests without the need for repetition or using self-initiated or environmental cues to remember? No. MEMORY - SCORE: 7-IND SIGNATURE PANEL: The following modified sections: Eating - Score, Grooming - Score, Bathing - Score, Dressing - Upper Body - Score, Dressing - Lower Body - Score, Toileting - Score, Bladder Management - Score, Bowel Man agement - Score, Transfers: Bed, Chair, Wheelchair - Score, Transfers: Toilet - Score, Transfers: Erlinda wer - Score, Transfers: Tub - Score, Locomotion: Walk - Score, Locomotion: Wheelchair - Score, Compre hension - Score, Expression - Score, Social Interaction - Score, Problem Solving - Score, Memory - Sc ore were [electronically] signed by Concepcion Bonilla RN on MonMar 13 2019 02:31:16 [facility]-0500 ([facility] Time)
[2019-03-13] MEDS: HYDROCODONE/APAP 5/325 MG TAB PO PRN ×3 (07:09→20:23)
[2019-03-13] MEDS: HEPARIN 5000 UNIT/ML 1 ML VIAL SQ SCH ×2 (07:47→18:34)
[2019-03-13] MEDS: predniSONE 5 MG TAB PO SCH (08:18)
[2019-03-13] MEDS: GABAPENTIN 100 MG CAP PO SCH ×2 (08:19→20:23)
[2019-03-13] MEDS: ALLOPURINOL 100 MG TAB PO SCH (08:19)
[2019-03-13] MEDS: DOCUSATE NA/SENNA CONC 1 TAB PO SCH ×2 (08:19→20:24)
[2019-03-13] MEDS: LOSARTAN POTASSIUM 50 MG TABLET PO SCH (08:19)
[2019-03-13] MEDS: POLYVINYL ALCOHOL 1.4% 15 ML OPTH SCH ×2 (08:19→12:17)
--- NOTE | 2019-03-13 08:54 | FAST ---
ENCOUNTER DATE AND TIME: 03/13/2019 08:00 (CDT) NAME ALEXUS KASPER DATE OF : 1955 DATE OF ADMISSION: 03/08/2019 17:45 (CDT) PHONE: AGE: 63 SSN# [id number] GENDER: Male ENCOUNTER PHYSICIAN: Dr. Reji Kraus M.D. 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 EATING: Activity did not occur on this shift EATING - SCORE: 0-UNK GROOMING: Comb/brush hair Patient shaved Wash, rinse, and dry face Wash, rinse, and dry hands GROOMING - STEP 1: Does the patient require the assistance of a person or device, or need extra time when grooming? No. GROOMING - SCORE: 7-IND BATHING: Abdomen Buttocks Chest Left arm Left lower leg and foot Left upper leg Perineal area Right arm Right lower leg and foot Right upper leg BATHING - STEP 1: Does the patient require the assistance of a person or device, or need extra time when bathing? Yes. BATHING - STEP 2: Does the patient require the assistance of a helper? Yes. BATHING - STEP 3: How much assistance does the patient require from the helper? Only supervision, cuing, coaxing, instr uctions, encouragement BATHING - SCORE: 5-SUP DRESSING - UPPER BODY: T-shirt/pullover shirt (four steps) ARTICLES SCORE Total number of steps: 4 DRESSING - UPPER BODY - STEP 1: Does the patient require help from a person or device, or need extra time when dressing above the m[address]? Yes. DRESSING - UPPER BODY - STEP 2: Does the patient require the assistance of a helper? Yes. DRESSING - UPPER BODY - STEP 3: Does the helper touch the patient while dressing? No. DRESSING - UPPER BODY - SCORE: 5-SUP DRESSING - LOWER BODY: Elastic waist pants (three steps) Slip-on shoe - Left foot (one step) Slip-on shoe - Right foot (one step) Sock - Left foot (one step) Sock - Right foot (one step) Underwear (three steps) ARTICLES SCORE Total number of steps: 10 DRESSING - LOWER BODY - STEP 1: Does the patient require help from a person or device, or need extra time when dressing below the mike st? Yes. DRESSING - LOWER BODY - STEP 2: Does the patient require the assistance of a helper? Yes. DRESSING - LOWER BODY - STEP 3: Does the helper touch the patient while dressing? No. DRESSING - LOWER BODY - SCORE: 5-SUP TOILETING: TOILETING - STEP 1: Does the patient require the assistance of a person or device, or need extra time with toileting? Yes . TOILETING - STEP 2: Does the patient require the assistance of a helper? Yes. TOILETING - STEP 3: How much assistance does the patient require from the helper? Only supervision TOILETING - SCORE: 5-SUP BLADDER MANAGEMENT: Activity did not occur on this shift BLADDER MANAGEMENT - SCORE: 7-IND BOWEL MANAGEMENT: Activity did not occur on this shift BOWEL MANAGEMENT - SCORE: 7-IND TRANSFERS: BED, CHAIR, WHEELCHAIR: Activity did not occur on this shift TRANSFERS: BED, CHAIR, WHEELCHAIR - SCORE: 0-UNK TRANSFERS: TOILET: TRANSFERS: TOILET - STEP 1: Does the patient require the assistance of a person or device, or need extra time with toilet transfe rs? Yes. TRANSFERS: TOILET - STEP 2: Does the patient require the assistance of a helper? Yes. TRANSFERS: TOILET - STEP 3: How much assistance does the patient require from the helper? Only supervision, cuing, coaxing, OR he lp to set out transfer equipment or to lock brakes and/or lift foot rests TRANSFERS: TOILET - SCORE: 5-SUP TRANSFERS: SHOWER: TRANSFERS: SHOWER - STEP 1: Does the patient require the assistance of a person or device, or need extra time with shower transfe rs? Yes. TRANSFERS: SHOWER - STEP 2: Does the patient require the assistance of a helper? Yes. TRANSFERS: SHOWER - STEP 3: How much assistance does the patient require from the helper? Only supervision, cuing, coaxing, or he lp to set out transfer equipment or to lock brakes and/or lift foot rests TRANSFERS: SHOWER - SCORE: 5-SUP TRANSFERS: TUB: Activity did not occur on this shift TRANSFERS: TUB - SCORE: 0-UNK LOCOMOTION: WALK: Activity did not occur on this shift LOCOMOTION: WALK - SCORE: 0-UNK LOCOMOTION: WHEELCHAIR: Activity did not occur on this shift LOCOMOTION: WHEELCHAIR - SCORE: 0-UNK LOCOMOTION: STAIRS: Activity did not occur on this shift LOCOMOTION: STAIRS - SCORE: 0-UNK COMPREHENSION: COMPREHENSION: TYPE: Visual COMPREHENSION - STEP 1: Does the patient require help from a person or device, or need extra time to understand complex and a bstract ideas (such as current events, finances, discharge planning, medical issues, relationships, e tc)? No. COMPREHENSION - STEP 2: Does the patient need extra time, require an assistive device (such as glasses for visual comprehensi on or a hearing aid for auditory comprehension) or does s/he have mild difficulty understanding compl ex and abstract information? Yes. COMPREHENSION - SCORE: 6-SILVANO EXPRESSION EXPRESSION: TYPE: Non-Vocal EXPRESSION - STEP 1: Does the patient require help from a person or device, or need extra time expressing complex and abst ract ideas (such as current events, finances, discharge planning, medical issues, relationships, etc) ? No. EXPRESSION - STEP 2: Does the patient need extra time, require an assistive device (such as augmentive communication syste m or a communication board), OR does s/he have mild difficulty expressing complex and abstract ideas (including mild dysarthria or mild word-find problems)? No. EXPRESSION - SCORE: 7-IND SOCIAL INTERACTION: SOCIAL INTERACTION - STEP 1: Does the patient require a helper to interact with others in social and therapeutic situations? No. SOCIAL INTERACTION - STEP 2: Does the patient need extra time in social situations, OR does s/he interact with staff, other patien ts, and family members ONLY in structured environments, OR does s/he require medication for social in teraction? No. SOCIAL INTERACTION - SCORE: 7-IND PROBLEM SOLVING: PROBLEM SOLVING - STEP 1: Does the patient need help from a person or device, or need extra time to solve complex problems such as managing a checking account or confronting interpersonal problems? No. PROBLEM SOLVING - STEP 2: Does the patient require extra time to make decisions or solve problems, OR does s/he have slight dif ficulty reading, initiating, or self-correcting in unfamiliar situations? No. PROBLEM SOLVING - SCORE: 7-IND MEMORY: MEMORY - STEP 1: Does the patient need help from a person or device, or need extra time to remember frequently encount ered people, daily routines, and executing requests? No. MEMORY - STEP 2: Does the patient have slight difficulty recognizing frequently encountered people, daily routines, or executing requests without the need for repetition or using self-initiated or environmental cues to remember? No. MEMORY - SCORE: 7-IND SIGNATURE PANEL: The following modified sections: Eating - Score, Grooming - Score, Bathing - Score, Dressing - Upper Body - Score, Dressing - Lower Body - Score, Toileting - Score, Transfers: Bed, Chair, Wheelchair - S core, Transfers: Toilet - Score, Transfers: Shower - Score, Transfers: Tub - Score, Comprehension - S core, Expression - Score, Social Interaction - Score, Problem Solving - Score, Memory - Score were [e lectronically] signed by NAREN Camejo on MonMar 13 2019 08:53:39 T-0500 (Formerly [facility], 1928–1983 Time)
[2019-03-13] MEDS ORDERED: POLYVINYL ALCOHOL 1.4% 15 ML OPTH PRN (12:20)
--- NOTE | 2019-03-13 15:28 | FAST ---
SHIFT START DATE/TIME: 03/13/2019 07:00 (CDT) SHIFT END DATE/TIME: 03/13/2019 19:00 (CDT) NAME ALEXUS KASPER DATE OF : 1955 DATE OF ADMISSION: 03/08/2019 17:45 (CDT) PHONE: AGE: 63 N# [id number] GENDER: Male ENCOUNTER PHYSICIAN: Dr. Reji Kraus M.D. 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 EATING: EATING - STEP 1: Does the patient require the assistance of a person or device, or need extra time when eating? No. EATING - SCORE: 7-IND GROOMING: Oral care GROOMING - STEP 1: Does the patient require the assistance of a person or device, or need extra time when grooming? No. GROOMING - SCORE: 7-IND BATHING: Activity did not occur on this shift BATHING - SCORE: 0-UNK DRESSING - UPPER BODY: T-shirt/pullover shirt (four steps) ARTICLES SCORE Total number of steps: 4 DRESSING - UPPER BODY - STEP 1: Does the patient require help from a person or device, or need extra time when dressing above the [address]? Yes. DRESSING - UPPER BODY - STEP 2: Does the patient require the assistance of a helper? Yes. DRESSING - UPPER BODY - STEP 3: Does the helper touch the patient while dressing? No. DRESSING - UPPER BODY - SCORE: 5-SUP DRESSING - LOWER BODY: Elastic waist pants (three steps) Slip-on shoe - Left foot (one step) Slip-on shoe - Right foot (one step) Sock - Left foot (one step) ARTICLES SCORE Total number of steps: 6 DRESSING - LOWER BODY - STEP 1: Does the patient require help from a person or device, or need extra time when dressing below the [address]? Yes. DRESSING - LOWER BODY - STEP 2: Does the patient require the assistance of a helper? Yes. DRESSING - LOWER BODY - STEP 3: Does the helper touch the patient while dressing? No. DRESSING - LOWER BODY - SCORE: 5-SUP TOILETING: TOILETING - STEP 1: Does the patient require the assistance of a person or device, or need extra time with toileting? Yes . TOILETING - STEP 2: Does the patient require the assistance of a helper? No. TOILETING - SCORE: 6-SILVANO BLADDER MANAGEMENT: BLADDER MANAGEMENT - STEP 1: Does the patient control the bladder completely and intentionally without equipment or devices or med ications, and is always continent? Yes. BLADDER MANAGEMENT - SCORE: 7-IND BLADDER MANAGEMENT - FREQUENCY OF ACCIDENTS: BLADDER MANAGEMENT(FA) - STEP 1: How many accidents has the patient had during the current shift? 0 BOWEL MANAGEMENT: BOWEL MANAGEMENT - STEP 1: Does the patient control bowels completely and intentionally without equipment devices or medications AND is always continent? Yes. BOWEL MANAGEMENT - SCORE: 7-IND BOWEL MANAGEMENT - FREQUENCY OF ACCIDENTS: BOWEL MANAGEMENT(FA) - STEP 1: How many accidents has the patient had during the current shift? 0 TRANSFERS: BED, CHAIR, WHEELCHAIR: TRANSFERS: BED, CHAIR, WHEELCHAIR - STEP 1: Does the patient require assistance of a person or device, or need extra time with bed, chair, or whe elchair transfers? Yes. TRANSFERS: BED, CHAIR, WHEELCHAIR - STEP 2: Does the patient require the assistance of a helper? Yes. TRANSFERS: BED, CHAIR, WHEELCHAIR - STEP 3: How much assistance does the patient require from the helper? Only supervision TRANSFERS: BED, CHAIR, WHEELCHAIR - SCORE: 5-SUP TRANSFERS: TOILET: TRANSFERS: TOILET - STEP 1: Does the patient require the assistance of a person or device, or need extra time with toilet transfe rs? Yes. TRANSFERS: TOILET - STEP 2: Does the patient require the assistance of a helper? Yes. TRANSFERS: TOILET - STEP 3: How much assistance does the patient require from the helper? Only supervision, cuing, coaxing, OR he lp to set out transfer equipment or to lock brakes and/or lift foot rests TRANSFERS: TOILET - SCORE: 5-SUP TRANSFERS: SHOWER: Activity did not occur on this shift TRANSFERS: SHOWER - SCORE: 0-UNK TRANSFERS: TUB: Activity did not occur on this shift TRANSFERS: TUB - SCORE: 0-UNK LOCOMOTION: WALK: Activity did not occur on this shift LOCOMOTION: WALK - SCORE: 0-UNK LOCOMOTION: WHEELCHAIR: Activity did not occur on this shift LOCOMOTION: WHEELCHAIR - SCORE: 0-UNK COMPREHENSION: COMPREHENSION: TYPE: Both COMPREHENSION - STEP 1: Does the patient require help from a person or device, or need extra time to understand complex and a bstract ideas (such as current events, finances, discharge planning, medical issues, relationships, e tc)? No. COMPREHENSION - STEP 2: Does the patient need extra time, require an assistive device (such as glasses for visual comprehensi on or a hearing aid for auditory comprehension) or does s/he have mild difficulty understanding compl ex and abstract information? Yes. COMPREHENSION - SCORE: 6-SILVANO EXPRESSION EXPRESSION: TYPE: Both EXPRESSION - STEP 1: Does the patient require help from a person or device, or need extra time expressing complex and abst ract ideas (such as current events, finances, discharge planning, medical issues, relationships, etc) ? No. EXPRESSION - STEP 2: Does the patient need extra time, require an assistive device (such as augmentive communication syste m or a communication board), OR does s/he have mild difficulty expressing complex and abstract ideas (including mild dysarthria or mild word-find problems)? Yes. EXPRESSION - SCORE: 6-SILVANO SOCIAL INTERACTION: SOCIAL INTERACTION - STEP 1: Does the patient require a helper to interact with others in social and therapeutic situations? No. SOCIAL INTERACTION - STEP 2: Does the patient need extra time in social situations, OR does s/he interact with staff, other patien ts, and family members ONLY in structured environments, OR does s/he require medication for social in teraction? Yes, patient needs extra time SOCIAL INTERACTION - SCORE: 6-SILVANO PROBLEM SOLVING: PROBLEM SOLVING - STEP 1: Does the patient need help from a person or device, or need extra time to solve complex problems such as managing a checking account or confronting interpersonal problems? Yes. PROBLEM SOLVING - STEP 2: Does the patient solve basic routine problems half or more of the time? Yes. PROBLEM SOLVING - STEP 3: How often does the patient need help to solve basic routine problems? Less than 10% of the time PROBLEM SOLVING - SCORE: 5-SUP MEMORY: MEMORY - STEP 1: Does the patient need help from a person or device, or need extra time to remember frequently encount ered people, daily routines, and executing requests? Yes. MEMORY - STEP 2: How often does the patient need help to remember frequently encountered people, daily routines, and e xecuting requests? Less than 10% of the time MEMORY - SCORE: 5-SUP SIGNATURE PANEL: The following modified sections: Eating - Score, Grooming - Score, Bathing - Score, Dressing - Upper Body - Score, Dressing - Lower Body - Score, Toileting - Score, Bladder Management - Score, Bowel Man agement - Score, Transfers: Bed, Chair, Wheelchair - Score, Transfers: Toilet - Score, Transfers: Erlinda wer - Score, Transfers: Tub - Score, Locomotion: Walk - Score, Locomotion: Wheelchair - Score, Compre hension - Score, Expression - Score, Social Interaction - Score, Problem Solving - Score, Memory - Sc ore were [electronically] signed by Urmila Jefferson C.N.A. on MonMar 13 2019 15:27:32 T-0500 (Centra l Daylight Time)
--- NOTE | 2019-03-13 15:55 | FAST ---
ENCOUNTER DATE AND TIME: 03/12/2019 08:00 (CDT) NAME ALEXUS KASPER DATE OF : 1955 DATE OF ADMISSION: 03/08/2019 17:45 (CDT) PHONE: AGE: 63 SSN# [id number] GENDER: Male ENCOUNTER PHYSICIAN: Dr. Reji Kraus M.D. 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 EATING: Activity did not occur on this shift EATING - SCORE: 0-UNK GROOMING: Activity did not occur on this shift GROOMING - SCORE: 0-UNK BATHING: Activity did not occur on this shift BATHING - SCORE: 0-UNK DRESSING - UPPER BODY: Activity did not occur on this shift Patient is not dressing in public clothing ARTICLES SCORE Total number of steps: 0 DRESSING - UPPER BODY - SCORE: 0-UNK DRESSING - LOWER BODY: Activity did not occur on this shift Patient is not dressing in public clothing ARTICLES SCORE Total number of steps: 0 DRESSING - LOWER BODY - SCORE: 0-UNK TOILETING: Activity did not occur on this shift TOILETING - SCORE: 0-UNK BLADDER MANAGEMENT: Activity did not occur on this shift BLADDER MANAGEMENT - SCORE: 7-IND BOWEL MANAGEMENT: Activity did not occur on this shift BOWEL MANAGEMENT - SCORE: 7-IND TRANSFERS: BED, CHAIR, WHEELCHAIR: TRANSFERS: BED, CHAIR, WHEELCHAIR - STEP 1: Does the patient require assistance of a person or device, or need extra time with bed, chair, or whe elchair transfers? Yes. TRANSFERS: BED, CHAIR, WHEELCHAIR - STEP 2: Does the patient require the assistance of a helper? No. Patient only requires an assistive device fo r bed, chair, wheelchair transfers such as a sliding board, grab bar, or brace, OR s/he takes more th an reasonable time, OR there is a safety concern when s/he performs the transfers TRANSFERS: BED, CHAIR, WHEELCHAIR - SCORE: 6-SILVANO TRANSFERS: TOILET: Activity did not occur on this shift TRANSFERS: TOILET - SCORE: 0-UNK TRANSFERS: SHOWER: Activity did not occur on this shift TRANSFERS: SHOWER - SCORE: 0-UNK TRANSFERS: TUB: Activity did not occur on this shift TRANSFERS: TUB - SCORE: 0-UNK LOCOMOTION: WALK: LOCOMOTION: WALK - STEP 1: Does the patient need help from a person or device, or need extra time to walk 150 feet? No. LOCOMOTION: WALK - STEP 2: Does the patient need an assistive device (such as an orthosis, prosthesis, crutches, or walker) to g o 150 feet, OR does s/he take more than reasonable time, OR is there a concern for safety? Yes, the p atient needs an assistive device LOCOMOTION: WALK - SCORE: 6-SILVANO LOCOMOTION: WHEELCHAIR: LOCOMOTION: WHEELCHAIR - STEP 1: Does the patient need help to go 150 feet in a wheelchair? No. LOCOMOTION: WHEELCHAIR - SCORE: 6-SILVANO LOCOMOTION: STAIRS: LOCOMOTION: STAIRS - STEP 1: Does the patient need help to go up and down 12 to 14 stairs? No. LOCOMOTION: STAIRS - STEP 2: Does the patient require an assistive device - such as handrails or cane - to go up and down one flig ht of stairs, OR does s/he take more than reasonable time, OR is there a concern for safety? Yes, the patient requires an assistive device LOCOMOTION: STAIRS - SCORE: 6-SILVANO COMPREHENSION: COMPREHENSION - SCORE: 0-UNK EXPRESSION EXPRESSION - SCORE: 0-UNK SOCIAL INTERACTION: SOCIAL INTERACTION - SCORE: 0-UNK PROBLEM SOLVING: PROBLEM SOLVING - SCORE: 0-UNK MEMORY: MEMORY - SCORE: 0-UNK SIGNATURE PANEL: The following modified sections: Transfers: Bed, Chair, Wheelchair - Score, Transfers: Toilet - Score , Locomotion: Walk - Score, Locomotion: Wheelchair - Score, Locomotion: Stairs - Score were [sammie mcdonald] signed by Chacho Rowe PTA on MonMar 13 2019 15:54:29 GMT-0500 (Central Daylight Time)
--- NOTE | 2019-03-13 15:56 | FAST ---
ENCOUNTER DATE AND TIME: 03/13/2019 08:00 (CDT) NAME ALEXUS KASPER DATE OF : 1955 DATE OF ADMISSION: 03/08/2019 17:45 (CDT) PHONE: AGE: 63 SSN# [id number] GENDER: Male ENCOUNTER PHYSICIAN: Dr. Reji Kraus M.D. 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 EATING: Activity did not occur on this shift EATING - SCORE: 0-UNK GROOMING: Activity did not occur on this shift GROOMING - SCORE: 0-UNK BATHING: Activity did not occur on this shift BATHING - SCORE: 0-UNK DRESSING - UPPER BODY: Activity did not occur on this shift Patient is not dressing in public clothing ARTICLES SCORE Total number of steps: 0 DRESSING - UPPER BODY - SCORE: 0-UNK DRESSING - LOWER BODY: Activity did not occur on this shift Patient is not dressing in public clothing ARTICLES SCORE Total number of steps: 0 DRESSING - LOWER BODY - SCORE: 0-UNK TOILETING: Activity did not occur on this shift TOILETING - SCORE: 0-UNK BLADDER MANAGEMENT: Activity did not occur on this shift BLADDER MANAGEMENT - SCORE: 7-IND BOWEL MANAGEMENT: Activity did not occur on this shift BOWEL MANAGEMENT - SCORE: 7-IND TRANSFERS: BED, CHAIR, WHEELCHAIR: TRANSFERS: BED, CHAIR, WHEELCHAIR - STEP 1: Does the patient require assistance of a person or device, or need extra time with bed, chair, or whe elchair transfers? Yes. TRANSFERS: BED, CHAIR, WHEELCHAIR - STEP 2: Does the patient require the assistance of a helper? No. Patient only requires an assistive device fo r bed, chair, wheelchair transfers such as a sliding board, grab bar, or brace, OR s/he takes more th an reasonable time, OR there is a safety concern when s/he performs the transfers TRANSFERS: BED, CHAIR, WHEELCHAIR - SCORE: 6-SILVANO TRANSFERS: TOILET: Activity did not occur on this shift TRANSFERS: TOILET - SCORE: 0-UNK TRANSFERS: SHOWER: Activity did not occur on this shift TRANSFERS: SHOWER - SCORE: 0-UNK TRANSFERS: TUB: Activity did not occur on this shift TRANSFERS: TUB - SCORE: 0-UNK LOCOMOTION: WALK: LOCOMOTION: WALK - STEP 1: Does the patient need help from a person or device, or need extra time to walk 150 feet? No. LOCOMOTION: WALK - STEP 2: Does the patient need an assistive device (such as an orthosis, prosthesis, crutches, or walker) to g o 150 feet, OR does s/he take more than reasonable time, OR is there a concern for safety? Yes, the p atient needs an assistive device LOCOMOTION: WALK - SCORE: 6-SILVANO LOCOMOTION: WHEELCHAIR: Activity did not occur on this shift LOCOMOTION: WHEELCHAIR - SCORE: 0-UNK LOCOMOTION: STAIRS: LOCOMOTION: STAIRS - STEP 1: Does the patient need help to go up and down 12 to 14 stairs? No. LOCOMOTION: STAIRS - STEP 2: Does the patient require an assistive device - such as handrails or cane - to go up and down one flig ht of stairs, OR does s/he take more than reasonable time, OR is there a concern for safety? Yes, the patient requires an assistive device LOCOMOTION: STAIRS - SCORE: 6-SILVANO COMPREHENSION: COMPREHENSION - SCORE: 0-UNK EXPRESSION EXPRESSION - SCORE: 0-UNK SOCIAL INTERACTION: SOCIAL INTERACTION - SCORE: 0-UNK PROBLEM SOLVING: PROBLEM SOLVING - SCORE: 0-UNK MEMORY: MEMORY - SCORE: 0-UNK SIGNATURE PANEL: The following modified sections: Transfers: Bed, Chair, Wheelchair - Score, Transfers: Toilet - Score , Locomotion: Walk - Score, Locomotion: Wheelchair - Score, Locomotion: Stairs - Score were [electron tamara] signed by Chacho Rowe PTA on MonMar 13 2019 15:55:36 T-0500 (Central Daylight Time)
[2019-03-13] MEDS: TAMSULOSIN 0.4 MG SR CAP PO SCH (20:23)
[2019-03-13] MEDS: ATORVASTATIN 10 MG TAB PO SCH (20:23)
[2019-03-13] MEDS: MELATONIN 5 MG TABLET PO SCH (20:24)
--- NOTE | 2019-03-14 02:22 | PN ---
Date of Progress Note: 03/13/2019 Subjective: The patient was seen this morning for followup. Denied any specific complaints. He rep orted that he actually has appointment to see Dr. Griffin for his eye examination today and needed a referral which was given to him. His j[place] were removed yesterday. All of the j[place] removed. D enies any constipation problem. No other complaints and itching from the back has improved with topi vani cream application. Objective: Vital signs: Reviewed. Back: Has long midline scar. All the [place] were removed yesterday. Very well-healed surgical sca r. No evidence of any gaping, discharge, bleeding, redness or swelling. Skin: Irritation from the back skin from contact dermatitis has almost completely resolved. Abdomen: Not distended. Extremities: No leg edema. Impression: 1.T11 burst fracture. 2.Anemia due to chronic kidney disease. 3.Chronic kidney disease stage 3. 4.Hypertension. 5.Contact dermatitis. Plan: We will continue current medication. Physical therapy to be provided under guidance of Dr. Norberto topete. Continue current stool softener and we will see him tomorrow for followup. SISI/MODL Voice ID: [id number] Report ID: [id number]
--- NOTE | 2019-03-14 02:31 | FAST ---
SHIFT START DATE/TIME: 03/13/2019 19:00 (CDT) SHIFT END DATE/TIME: 03/14/2019 07:00 (CDT) NAME ALEXUS KASPER DATE OF : 1955 DATE OF ADMISSION: 03/08/2019 17:45 (CDT) PHONE: AGE: 63 N# [id number] GENDER: Male ENCOUNTER PHYSICIAN: Dr. Reji Kraus M.D. 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 EATING: Activity did not occur on this shift EATING - SCORE: 0-UNK GROOMING: Oral care Wash, rinse, and dry hands GROOMING - STEP 1: Does the patient require the assistance of a person or device, or need extra time when grooming? Yes. GROOMING - STEP 2: Does the patient require the assistance of a helper? No. The patient only requires an assistive devic e, OR takes more than reasonable time to groom, OR there is a concern for safety as the patient groom s GROOMING - SCORE: 6-SILVANO BATHING: Activity did not occur on this shift BATHING - SCORE: 0-UNK DRESSING - UPPER BODY: Patient is not dressing in public clothing ARTICLES SCORE Total number of steps: 0 DRESSING - UPPER BODY - SCORE: 0-UNK DRESSING - LOWER BODY: Patient is not dressing in public clothing ARTICLES SCORE Total number of steps: 0 DRESSING - LOWER BODY - SCORE: 0-UNK TOILETING: TOILETING - STEP 1: Does the patient require the assistance of a person or device, or need extra time with toileting? Yes . TOILETING - STEP 2: Does the patient require the assistance of a helper? Yes. TOILETING - STEP 3: How much assistance does the patient require from the helper? Only supervision TOILETING - SCORE: 5-SUP BLADDER MANAGEMENT: BLADDER MANAGEMENT - STEP 1: Does the patient control the bladder completely and intentionally without equipment or devices or med ications, and is always continent? Yes. BLADDER MANAGEMENT - SCORE: 7-IND BOWEL MANAGEMENT: BOWEL MANAGEMENT - STEP 1: Does the patient control bowels completely and intentionally without equipment devices or medications AND is always continent? No. BOWEL MANAGEMENT - STEP 2: Does the patient require the assistance of a helper? No, patient requires medication for control such as stool softeners, suppositories, laxatives, enemas, or OTC medications BOWEL MANAGEMENT - SCORE: 6-SILVANO TRANSFERS: BED, CHAIR, WHEELCHAIR: TRANSFERS: BED, CHAIR, WHEELCHAIR - STEP 1: Does the patient require assistance of a person or device, or need extra time with bed, chair, or whe elchair transfers? Yes. TRANSFERS: BED, CHAIR, WHEELCHAIR - STEP 2: Does the patient require the assistance of a helper? Yes. TRANSFERS: BED, CHAIR, WHEELCHAIR - STEP 3: How much assistance does the patient require from the helper? Only supervision TRANSFERS: BED, CHAIR, WHEELCHAIR - SCORE: 5-SUP TRANSFERS: TOILET: TRANSFERS: TOILET - STEP 1: Does the patient require the assistance of a person or device, or need extra time with toilet transfe rs? Yes. TRANSFERS: TOILET - STEP 2: Does the patient require the assistance of a helper? No. Patient only requires an assistive device cote ch as a grab bar or special seat, OR s/he takes more than reasonable time to perform toilet transfers , OR there is a safety concern when s/he performs toilet transfers. TRANSFERS: TOILET - SCORE: 6-SILVANO TRANSFERS: SHOWER: Activity did not occur on this shift TRANSFERS: SHOWER - SCORE: 0-UNK TRANSFERS: TUB: Activity did not occur on this shift TRANSFERS: TUB - SCORE: 0-UNK LOCOMOTION: WALK: Activity did not occur on this shift LOCOMOTION: WALK - SCORE: 0-UNK LOCOMOTION: WHEELCHAIR: Activity did not occur on this shift LOCOMOTION: WHEELCHAIR - SCORE: 0-UNK COMPREHENSION: COMPREHENSION: TYPE: Both COMPREHENSION - STEP 1: Does the patient require help from a person or device, or need extra time to understand complex and a bstract ideas (such as current events, finances, discharge planning, medical issues, relationships, e tc)? No. COMPREHENSION - STEP 2: Does the patient need extra time, require an assistive device (such as glasses for visual comprehensi on or a hearing aid for auditory comprehension) or does s/he have mild difficulty understanding compl ex and abstract information? Yes. COMPREHENSION - SCORE: 6-SILVANO EXPRESSION EXPRESSION: TYPE: Both EXPRESSION - STEP 1: Does the patient require help from a person or device, or need extra time expressing complex and abst ract ideas (such as current events, finances, discharge planning, medical issues, relationships, etc) ? No. EXPRESSION - STEP 2: Does the patient need extra time, require an assistive device (such as augmentive communication syste m or a communication board), OR does s/he have mild difficulty expressing complex and abstract ideas (including mild dysarthria or mild word-find problems)? No. EXPRESSION - SCORE: 7-IND SOCIAL INTERACTION: SOCIAL INTERACTION - STEP 1: Does the patient require a helper to interact with others in social and therapeutic situations? No. SOCIAL INTERACTION - STEP 2: Does the patient need extra time in social situations, OR does s/he interact with staff, other patien ts, and family members ONLY in structured environments, OR does s/he require medication for social in teraction? Yes, patient needs extra time SOCIAL INTERACTION - SCORE: 6-SILVANO PROBLEM SOLVING: PROBLEM SOLVING - STEP 1: Does the patient need help from a person or device, or need extra time to solve complex problems such as managing a checking account or confronting interpersonal problems? No. PROBLEM SOLVING - STEP 2: Does the patient require extra time to make decisions or solve problems, OR does s/he have slight dif ficulty reading, initiating, or self-correcting in unfamiliar situations? Yes, patient needs extra ti me. PROBLEM SOLVING - SCORE: 6-SILVANO MEMORY: MEMORY - STEP 1: Does the patient need help from a person or device, or need extra time to remember frequently encount ered people, daily routines, and executing requests? No. MEMORY - STEP 2: Does the patient have slight difficulty recognizing frequently encountered people, daily routines, or executing requests without the need for repetition or using self-initiated or environmental cues to remember? Yes. MEMORY - SCORE: 6-SILVANO SIGNATURE PANEL: The following modified sections: Eating - Score, Grooming - Score, Dressing - Upper Body - Score, Arya ssing - Lower Body - Score, Toileting - Score, Bladder Management - Score, Bowel Management - Score, Transfers: Bed, Chair, Wheelchair - Score, Transfers: Toilet - Score, Transfers: Shower - Score, Brown sfers: Tub - Score, Locomotion: Walk - Score, Locomotion: Wheelchair - Score, Comprehension - Score, Expression - Score, Social Interaction - Score, Problem Solving - Score, Memory - Score were [electro nically] signed by Lillie Lara CNA on MonMar 14 2019 02:30:34 GMT-0500 (Central Daylight Time)
[2019-03-14 06:12] LABS: Absolute Lymphocytes (CBC) 3.3 K/uL (0.7-4.9); Basophils % 1.1 % (0-1.3); Eosinophils % 2.9 % (0-4.4); Hematocrit 36.5 % (39.6-49.0); Lymphocytes % 32.9 % (15.3-44.8); MPV 8.8 fL (7.6-11.3); Monocytes % 7.1 % (3.3-12.3); RBC Red Blood Cell Count 4.04 M/uL (4.33-5.43)
[2019-03-14 06:31] LABS: Bilirubin Total 0.5 mg/dL (0.2-1.0); Prealbumin 35.1 mg/dL (20-40); Protein, Total 6.6 g/dL (6.4-8.2)
[2019-03-14] MEDS: HYDROCODONE/APAP 5/325 MG TAB PO PRN ×4 (06:34→22:02)
[2019-03-14] MEDS: ALLOPURINOL 100 MG TAB PO SCH (08:25)
[2019-03-14] MEDS: DOCUSATE NA/SENNA CONC 1 TAB PO SCH ×2 (08:25→20:42)
[2019-03-14] MEDS: LOSARTAN POTASSIUM 50 MG TABLET PO SCH (08:25)
[2019-03-14] MEDS: predniSONE 5 MG TAB PO SCH (08:25)
[2019-03-14] MEDS: GABAPENTIN 100 MG CAP PO SCH ×2 (08:25→20:43)
[2019-03-14 09:06] LABS: Urine White Blood Cell Casts OK
[2019-03-14 09:07] LABS: Blood Morphology Comment NOT SEEN (NOT SEEN); Platelet Estimate ADEQ
--- NOTE | 2019-03-14 14:29 | FAST ---
SHIFT START DATE/TIME: 03/14/2019 07:00 (CDT) SHIFT END DATE/TIME: 03/14/2019 19:00 (CDT) NAME ALEXUS KASPER DATE OF : 1955 DATE OF ADMISSION: 03/08/2019 17:45 (CDT) PHONE: AGE: 63 N# [id number] GENDER: Male ENCOUNTER PHYSICIAN: Dr. Reji Kraus M.D. 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 EATING: EATING - STEP 1: Does the patient require the assistance of a person or device, or need extra time when eating? No. EATING - SCORE: 7-IND GROOMING: Comb/brush hair Oral care Wash, rinse, and dry face Wash, rinse, and dry hands GROOMING - STEP 1: Does the patient require the assistance of a person or device, or need extra time when grooming? No. GROOMING - SCORE: 7-IND BATHING: Activity did not occur on this shift BATHING - SCORE: 0-UNK DRESSING - UPPER BODY: Activity did not occur on this shift ARTICLES SCORE Total number of steps: 0 DRESSING - UPPER BODY - SCORE: 0-UNK DRESSING - LOWER BODY: Activity did not occur on this shift ARTICLES SCORE Total number of steps: 0 DRESSING - LOWER BODY - SCORE: 0-UNK TOILETING: TOILETING - STEP 1: Does the patient require the assistance of a person or device, or need extra time with toileting? Yes . TOILETING - STEP 2: Does the patient require the assistance of a helper? Yes. TOILETING - STEP 3: How much assistance does the patient require from the helper? Only supervision TOILETING - SCORE: 5-SUP BLADDER MANAGEMENT: BLADDER MANAGEMENT - STEP 1: Does the patient control the bladder completely and intentionally without equipment or devices or med ications, and is always continent? No. BLADDER MANAGEMENT - STEP 2: Does the patient require the assistance of a helper? No, patient requires and independently uses an a ssistive device, such as a urinal, bedpan, bedside commode, catheter, absorbent pad, or collecting de vice BLADDER MANAGEMENT - SCORE: 6-SILVANO BLADDER MANAGEMENT - FREQUENCY OF ACCIDENTS: BLADDER MANAGEMENT(FA) - STEP 1: How many accidents has the patient had during the current shift? 0 BOWEL MANAGEMENT: BOWEL MANAGEMENT - STEP 1: Does the patient control bowels completely and intentionally without equipment devices or medications AND is always continent? Yes. BOWEL MANAGEMENT - SCORE: 7-IND BOWEL MANAGEMENT - FREQUENCY OF ACCIDENTS: BOWEL MANAGEMENT(FA) - STEP 1: How many accidents has the patient had during the current shift? 0 TRANSFERS: BED, CHAIR, WHEELCHAIR: TRANSFERS: BED, CHAIR, WHEELCHAIR - STEP 1: Does the patient require assistance of a person or device, or need extra time with bed, chair, or whe elchair transfers? Yes. TRANSFERS: BED, CHAIR, WHEELCHAIR - STEP 2: Does the patient require the assistance of a helper? No. Patient only requires an assistive device fo r bed, chair, wheelchair transfers such as a sliding board, grab bar, or brace, OR s/he takes more th an reasonable time, OR there is a safety concern when s/he performs the transfers TRANSFERS: BED, CHAIR, WHEELCHAIR - SCORE: 6-SILVANO TRANSFERS: TOILET: TRANSFERS: TOILET - STEP 1: Does the patient require the assistance of a person or device, or need extra time with toilet transfe rs? Yes. TRANSFERS: TOILET - STEP 2: Does the patient require the assistance of a helper? No. Patient only requires an assistive device cote ch as a grab bar or special seat, OR s/he takes more than reasonable time to perform toilet transfers , OR there is a safety concern when s/he performs toilet transfers. TRANSFERS: TOILET - SCORE: 6-SILVANO TRANSFERS: SHOWER: Activity did not occur on this shift TRANSFERS: SHOWER - SCORE: 0-UNK TRANSFERS: TUB: Activity did not occur on this shift TRANSFERS: TUB - SCORE: 0-UNK LOCOMOTION: WALK: Activity did not occur on this shift LOCOMOTION: WALK - SCORE: 0-UNK LOCOMOTION: WHEELCHAIR: LOCOMOTION: WHEELCHAIR - STEP 1: Does the patient need help to go 150 feet in a wheelchair? Yes. LOCOMOTION: WHEELCHAIR - STEP 2: How much assistance does the patient need from the helper? Only supervision, cuing, or coaxing LOCOMOTION: WHEELCHAIR - SCORE: 5-SUP COMPREHENSION: COMPREHENSION: TYPE: Both COMPREHENSION - STEP 1: Does the patient require help from a person or device, or need extra time to understand complex and a bstract ideas (such as current events, finances, discharge planning, medical issues, relationships, e tc)? No. COMPREHENSION - STEP 2: Does the patient need extra time, require an assistive device (such as glasses for visual comprehensi on or a hearing aid for auditory comprehension) or does s/he have mild difficulty understanding compl ex and abstract information? Yes. COMPREHENSION - SCORE: 6-SILVANO EXPRESSION EXPRESSION: TYPE: Both EXPRESSION - STEP 1: Does the patient require help from a person or device, or need extra time expressing complex and abst ract ideas (such as current events, finances, discharge planning, medical issues, relationships, etc) ? No. EXPRESSION - STEP 2: Does the patient need extra time, require an assistive device (such as augmentive communication syste m or a communication board), OR does s/he have mild difficulty expressing complex and abstract ideas (including mild dysarthria or mild word-find problems)? Yes. EXPRESSION - SCORE: 6-SILVANO SOCIAL INTERACTION: SOCIAL INTERACTION - STEP 1: Does the patient require a helper to interact with others in social and therapeutic situations? No. SOCIAL INTERACTION - STEP 2: Does the patient need extra time in social situations, OR does s/he interact with staff, other patien ts, and family members ONLY in structured environments, OR does s/he require medication for social in teraction? Yes, patient needs extra time SOCIAL INTERACTION - SCORE: 6-SILVANO PROBLEM SOLVING: PROBLEM SOLVING - STEP 1: Does the patient need help from a person or device, or need extra time to solve complex problems such as managing a checking account or confronting interpersonal problems? Yes. PROBLEM SOLVING - STEP 2: Does the patient solve basic routine problems half or more of the time? Yes. PROBLEM SOLVING - STEP 3: How often does the patient need help to solve basic routine problems? Less than 10% of the time PROBLEM SOLVING - SCORE: 5-SUP MEMORY: MEMORY - STEP 1: Does the patient need help from a person or device, or need extra time to remember frequently encount ered people, daily routines, and executing requests? Yes. MEMORY - STEP 2: How often does the patient need help to remember frequently encountered people, daily routines, and e xecuting requests? Less than 10% of the time MEMORY - SCORE: 5-SUP SIGNATURE PANEL: The following modified sections: Eating - Score, Grooming - Score, Bathing - Score, Dressing - Upper Body - Score, Dressing - Lower Body - Score, Toileting - Score, Bladder Management - Score, Bowel Man agement - Score, Transfers: Bed, Chair, Wheelchair - Score, Transfers: Toilet - Score, Transfers: Erlinda wer - Score, Transfers: Tub - Score, Locomotion: Walk - Score, Locomotion: Wheelchair - Score, Compre hension - Score, Expression - Score, Social Interaction - Score, Problem Solving - Score, Memory - Sc ore were [electronically] signed by Lam RickN.Clarence on MonMar 14 2019 14:28:53 T-0500 (Centra l Daylight Time)
[2019-03-14] MEDS: TRAMADOL HCL 50 MG TAB PO PRN (15:27)
[2019-03-14] MEDS: TRIAMCINOLONE ACET 0.1% CREAM 80 GM TOP PRN (17:22)
--- NOTE | 2019-03-14 18:23 | R.PN ---
ENCOUNTER DATE AND TIME: 03/14/2019 18:17 (CDT) NAME URBANO KASPER DATE OF : 1955 DATE OF ADMISSION: 03/08/2019 17:45 (CDT) Closed Burst Fracture of T 11CHIEF COMPLAINT: T11 burst fracture SUBJECTIVE: Pt denied any depression. Pt denied any Shortness of Breath. Ambulated 750 feet with modified independence using a rolling walker. WBC 10.0, Hgbj 12.2, Social Media Senior Associate 2.04 with chronic renal insufficiency, uric acid 8.6, PSA 0.96 VITAL SIGNS Temperature: 97.4 F SBP/DBP: 134/70 Pulse: 64 Resp: 16 MEDICATION ALLERGIES: No Known Drug Allergies (NKDA) ENVIRONMENTAL ALLERGIES: None Known - Substance Allergies None Known - Other Allergies None Known NURSING: - Shower allowing shower - Bladder care per protocol - Skin care per protocol ACTIVITIES OOB only with supervision THERAPIES: - Orthotics/Prosthetics Orthotic Evaluation. Splinting/Casting. - Dietary and Nutrition Adequate Nutrition. Nutritional Education. Nutritional Supplements. PHYSICAL EXAM - Gen Alert and awake Lying in bed No apparent distress Oriented to: person, time, and place - Skin No breakdown No numbness - Eyes No abnormalities - ENMT No abnormalities - Neck No abnormalities - CVS RRR - Chest Clear - Abd + bowel sounds - GI + bowel sound No abnormalities - No abnormalities - Ext No significant edema - MSK 5-/5 weakness in both lower extremities. - Neuro No focal deficits - Psych No abnormalities ASSESSMENT: Pt. is a 63 yo Right-handed white male.On 02/25/2019 he was admitted to [facility] with diagnosis Closed Burst Fracture of T 11.His impairment category is Spinal Cord Dysfunction 04 - Other Traumat ic Spinal Cord Dysfunction (04.230).Pre-morbidly, Pt. was independent/mod-I in Self-Care, Sphincter C ontrol, Transfers Control, Locomotion, Communication, and Social Cognition; and he had good Sphincter Control.Currently, he has deficits of Self-Care, Transfers Control, Locomotion, Endurance, Balance, and Safety Awareness.Pt. is now referred to [facility] for acute in-patient re habilitation in order to maximize patient's functional independence in activities of daily living, st rength, ROM, and mobility.- Rehab Goal Patient has realistic goal of being discharged at assistance level 6-Juan Manuel to reside at Home with Fam rene/Relatives. MDM/PLAN: - Physical Therapy Gait dysfunction - to improve, our physical therapists will perform initial evaluation of pt's statu s upon admission and devise an individualized program for Gait Training, and Wheel Chair mobility Inability to transfer - to improve, our physical therapists will perform initial evaluation of pt's status upon admission and devise an individualized program for Bed mobility Need for home safety evaluation - to improve, our physical therapists will perform initial evaluatio n of pt's status upon admission and devise an individualized program for Home Evaluation Need in caregiver upon discharge - to improve, our physical therapists will perform initial evaluati on of pt's status upon admission and devise an individualized program for Caregiver Training New precaution - to improve, our physical therapists will perform initial evaluation of pt's status upon admission and devise an individualized program for Patient precaution education Edema - to improve, our physical therapists will perform initial evaluation of pt's status upon admi ssion and devise an individualized program for Elevation Training, and Lymphedema Therapy Poor balance - to improve, our physical therapists will perform initial evaluation of pt's status up on admission and devise an individualized program for Balance Training Poor endurance - to improve, our physical therapists will perform initial evaluation of pt's status upon admission and devise an individualized program for Endurance Training Weakness - to improve, our physical therapists will perform initial evaluation of pt's status upon a dmission and devise an individualized program for Aquatic Therapy, Neuromuscular Reeducation, and Str engthening Achieving independence - to improve, our physical therapists will perform initial evaluation of pt's status upon admission and devise an individualized program for Community Reintegration Activities - Occupational Therapy ADL deficits - to improve, our occupation therapists will perform initial evaluation of pt's status upon admission and devise an individualized program for Bathing, Bed mobility, Community Reintegratio n, Cooking, Dressing, Eating, Fine Motor Skills, Grooming, Homemaking, Kitchen Mobility, Laundry, Pat ient Education, Safety Awareness, Splinting - Positioning, Transfers(Toilet, Tub, Shower), and Wheel Chair Management Need for healthcare or medical - to improve, our occupation therapists will perform initial evaluation of pt's status upon admission and devise an individualized program for Caregiver Training Weakness - to improve, our occupation therapists will perform initial evaluation of pt's status upon admission and devise an individualized program for Aquatic Therapy, Balance, Endurance, UE ROM, and UE strengthening - Other See attached MAR (Medication Administration Record) Urbano Kasper.pdf - Diet Type Continue Regular - Diet - Liquid Texture Continue Regular - Tube Feed Continue N/A - Bladder care per protocol - Skin care per protocol - Diet - Solid Texture Continue Regular - Shower allowing shower FUNCTIONAL STATUS: UPDATED AT WEEKLY TEAM CONFERENCE - Bladder Same accident frequency: 7-Ind - No accidents in the past 7 days - Bowel Same accident frequency: 7-Ind - No accidents in the past 7 days - Walking Same score based on distance walked: 3(>=150ft) - Wheelchair Same score based on distance traveled: 0(N/A) FUNCTIONAL STATUS: - Self-Care A. Eating sup B. Grooming sup C. Bathing ADNO D. Dressing - Upper maxA E. Dressing - Lower maxA F. Toileting maxA - Sphincter Control G: Bladder control Ind H: Bowel control Ind - Transfers Control I. Bed/Chair/Wheelchair Mckinley J. Toilet Mckinley K. Tub/Shower ADNO - Locomotion L. Walk/Wheelchair (C) Mckinley L. Walk/Wheelchair (W) Mckinley M. Stairs ADNO - Communication N. Comprehension (B) Ind O. Expression (B) Ind - Social Cognition P. Social Interaction Ind Q. Problem Solving Ind R. Memory Ind - Endurance Fair - Balance Fair - Safety Awareness Fair CURRENT FUNC. DEFICITS: Self-Care, Transfers Control, Locomotion, Endurance, Balance, and Safety Awareness SIGNATURE PANEL: (CDT)
[2019-03-14] MEDS: ATORVASTATIN 10 MG TAB PO SCH (20:42)
[2019-03-14] MEDS: TAMSULOSIN 0.4 MG SR CAP PO SCH (20:42)
[2019-03-14] MEDS: HEPARIN 5000 UNIT/ML 1 ML VIAL SQ SCH (21:14)
[2019-03-14] MEDS: MELATONIN 5 MG TABLET PO SCH (22:02)
--- NOTE | 2019-03-14 23:56 | PN ---
Date of Progress Note: 03/14/2019 Subjective: The patient was seen this morning for followup. No new complaints or problems reported by the patient. He was in the Therapy Department this morning when I saw him. He sleeps well. Mati es any constipation problem. Objective: Vital Signs: Reviewed. HEENT: Unremarkable. Lungs: Clear to auscultation. Heart: Sounds normal. Abdomen: Soft. Extremities: No leg edema. Laboratory Data: Reviewed. White count 10, hemoglobin 12.2, platelets 343. Sodium 141, potassium 4 , chloride 111, bicarb 25, BUN 37, creatinine 2.04, glucose 90. Liver function tests unremarkable. PSA 0.96. Impression: 1.T11 burst fracture. 2.Constipation. 3.Chronic kidney disease stage 3. 4.Gout. 5.Hypertension. Plan: Continue current medication. Physical therapy under guidance of Dr. Kraus will be provided . I will see him tomorrow for followup. Continue current DVT prophylaxis with heparin. SISI/MODL Voice ID: [id number] Report ID: [id number]
[2019-03-15] MEDS: HYDROCODONE/APAP 5/325 MG TAB PO PRN ×2 (08:50→20:35)
[2019-03-15] MEDS: LOSARTAN POTASSIUM 50 MG TABLET PO SCH (08:51)
[2019-03-15] MEDS: GABAPENTIN 100 MG CAP PO SCH ×2 (08:51→20:35)
[2019-03-15] MEDS: DOCUSATE NA/SENNA CONC 1 TAB PO SCH ×2 (08:52→20:35)
[2019-03-15] MEDS: predniSONE 5 MG TAB PO SCH (08:52)
[2019-03-15] MEDS: HEPARIN 5000 UNIT/ML 1 ML VIAL SQ SCH (08:53)
[2019-03-15] MEDS: ALLOPURINOL 300 MG TAB PO SCH (08:57)
--- NOTE | 2019-03-15 09:45 | P.RH.PN ---
Estimated Length of Stay: 11 Expected Discharge Date: 03/18/19 Discharge Disposition Plan: Home Family Support: Yes Prison Goal: Mobility, Transfers, Self Care Vital Signs: Last Vital Signs Temp 97.3 F 03/15/19 06:50 Pulse 56 03/15/19 06:50 Resp 18 03/15/19 06:50 BP 126/76 03/15/19 06:50 Pulse Ox 99 03/15/19 06:50 Laboratory: Laboratory Last Values WBC 10.0 K/uL (4.3-10.9) 03/14/19 05:40 RBC 4.04 M/uL (4.33-5.43) L 03/14/19 05:40 Hgb 12.2 g/dL (13.6-17.9) L 03/14/19 05:40 Hct 36.5 % (39.6-49.0) L 03/14/19 05:40 MCV 90.4 fL (80-100) 03/14/19 05:40 MCH 30.3 pg (27.0-35.0) 03/14/19 05:40 MCHC 33.5 g/dL (32.0-36.0) 03/14/19 05:40 RDW 14.7 % (12.1-15.2) 03/14/19 05:40 Plt Count 343 K/uL (152-406) 03/14/19 05:40 MPV 8.8 fL (7.6-11.3) 03/14/19 05:40 Neutrophils % 56.0 % (41.7-73.7) 03/14/19 05:40 Lymphocytes % 32.9 % (15.3-44.8) 03/14/19 05:40 Monocytes % 7.1 % (3.3-12.3) 03/14/19 05:40 Eosinophils % 2.9 % (0-4.4) 03/14/19 05:40 Basophils % 1.1 % (0-1.3) 03/14/19 05:40 Absolute Neutrophils 5.6 K/uL (1.8-8.0) 03/14/19 05:40 Segmented Neutrophils 64 % (40-80) 03/14/19 05:40 Band Neutrophils 1 % (0-1) 03/14/19 05:40 Absolute Lymphocytes 3.3 K/uL (0.7-4.9) 03/14/19 05:40 Lymphocytes 16 % (15-42) 03/14/19 05:40 Monocytes 7 % (0-10) 03/14/19 05:40 Absolute Monocytes 0.7 K/uL (0.1-1.3) 03/14/19 05:40 Eosinophils 3 % (0-3) 03/14/19 05:40 Absolute Eosinophils 0.3 K/uL (0-0.5) 03/14/19 05:40 Absolute Basophils 0.1 K/uL (0-0.5) 03/14/19 05:40 Metamyelocytes 2 % (0-0) H 03/09/19 06:03 Atypical Lymphocytes 9 03/14/19 05:40 Morphology Comment Not seen (NOT SEEN) 03/14/19 05:40 Sodium 141 mmol/L (136-145) 03/14/19 05:40 Potassium 4.0 mmol/L (3.5-5.1) 03/14/19 05:40 Chloride 111 mmol/L (98-107) H 03/14/19 05:40 Carbon Dioxide 25 mmol/L (21-32) 03/14/19 05:40 BUN 37 mg/dL (7-18) H 03/14/19 05:40 Creatinine 2.04 mg/dL (0.55-1.3) H 03/14/19 05:40 Estimated GFR 33 mL/min (=/>90) L 03/14/19 05:40 Glucose 90 mg/dL (74-106) 03/14/19 05:40 Uric Acid 8.6 mg/dL (3.5-7.2) H 03/14/19 05:40 Calcium 8.9 mg/dL (8.5-10.1) 03/14/19 05:40 Magnesium 2.4 mg/dL (1.8-2.4) 03/09/19 06:03 Total Bilirubin 0.5 mg/dL (0.2-1.0) 03/14/19 05:40 AST 14 U/L (15-37) L 03/14/19 05:40 ALT 22 U/L (12-78) 03/14/19 05:40 Alkaline Phosphatase 103 U/L (45-117) 03/14/19 05:40 Serum Total Protein 6.6 g/dL (6.4-8.2) 03/14/19 05:40 Albumin 3.0 g/dL (3.4-5.0) L 03/14/19 05:40 Globulin 3.6 g/dL (2.3-3.5) H 03/14/19 05:40 Albumin/Globulin Ratio 0.8 (1.1-1.8) L 03/14/19 05:40 Prealbumin 35.1 mg/dL (20-40) 03/14/19 05:40 PSA Screen 0.96 ng/mL (0-4.00) 03/14/19 05:40 Urine Color Yellow 03/08/19 15:54 Urine Appearance Clear 03/08/19 15:54 Urine pH 5.0 (5.0-7.0) 03/08/19 15:54 Ur Specific [place] 1.015 (1.005-1.030) 03/08/19 15:54 Urine Ketones Negative (NEG) 03/08/19 15:54 Urine Blood Negative (NEG) 03/08/19 15:54 Urine Nitrite Negative (NEG) 03/08/19 15:54 Urine Bilirubin Negative (NEG) 03/08/19 15:54 Urine Urobilinogen 0.2 mg/dL (0.2-1.0) 03/08/19 15:54 Ur Leukocyte Esterase Negative (NEG) 03/08/19 15:54 Urine RBC <5 /HPF (NONE SEEN) 03/08/19 15:54 Urine WBC <5 /HPF (<5) 03/08/19 15:54 Ur Squamous Epith Cells 5-10 /HPF (NONE SEEN) H 03/08/19 15:54 Urine Bacteria <20 /HPF (NONE SEEN) 03/08/19 15:54 Urine Mucus 1+ /HPF (NONE SEEN) 03/08/19 15:54 Urine Sperm Present (NONE SEEN) H 03/08/19 15:54 Urine Culture Reflexed Not needed 03/08/19 15:54 Urine Glucose Negative (NEG) 03/08/19 15:54 Urine Total Protein 2+ (NEG) H 03/08/19 15:54 Weight: 206 lb 1.6 oz Wound Present: No Closed Surgical Incision Present: No Negative Pressure Wound Therapy Present: No Physician Update: Labs have been reviewed and are stable. He is doing very well and is at modified independence with physical and occupational therapy. He will be discharged home today. Functional Improvement: Patient has met all goals at this time, w/ the exception of a Mod I car transfer; due to limited access to patient's car being available. Functional Improvement Occupational Therapy: pt can benifit with further therapy to address pt's overall weakness, pt can benifit with increasing pt's UB strength, endurance and static/dynamic standing balance for safety and energy conservation techniques. Cont with the POC and the goals by the supervising OTR. Summary: Patient's care plan and mcc goals have been reviewed and revised as necessary. Please see the Rehabilitation Signature page for all necessary signatures.
--- NOTE | 2019-03-15 12:15 | PN ---
Date of Progress Note: 03/15/2019 Subjective: The patient was seen this morning for followup. No new complaints or problems reported. Has his back pain, which is controlled with pain medications. Denies any constipation. Sleeps wel l at night time with current medications. Objective: Vital Signs: Reviewed. HEENT: Examination unremarkable. Lungs: Clear to auscultation. Heart: Sounds normal. Abdomen: Soft. Bowel sounds normal. No guarding, rigidity, tenderness, or distention. Extremities: No leg edema. Laboratory Data: Reviewed from yesterday. Uric acid level was still higher than normal. Impression: 1.Gout. 2.Chronic kidney disease, stage 3. 3.Hypertension. 4.Hyperlipidemia. 5.Burst fracture, T11, status post surgery. Plan: We will go ahead and continue current medications except increase dose of allopurinol from 100 mg up to 300 mg p.o. daily. Continue current heparin for DVT prophylaxis and physical therapy to be continued under guidance of Dr. Kraus. I will see him tomorrow for followup. SISI/MODL Voice ID: [id number] Report ID: [id number]
--- NOTE | 2019-03-15 14:02 | FAST ---
SHIFT START DATE/TIME: 03/15/2019 07:00 (CDT) SHIFT END DATE/TIME: 03/15/2019 19:00 (CDT) NAME ALEXUS KASPER DATE OF : 1955 DATE OF ADMISSION: 03/08/2019 17:45 (CDT) PHONE: AGE: 63 N# [id number] GENDER: Male ENCOUNTER PHYSICIAN: Dr. Reji Kraus M.D. 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 EATING: EATING - STEP 1: Does the patient require the assistance of a person or device, or need extra time when eating? No. EATING - SCORE: 7-IND GROOMING: Activity did not occur on this shift GROOMING - SCORE: 0-UNK BATHING: Activity did not occur on this shift BATHING - SCORE: 0-UNK DRESSING - UPPER BODY: T-shirt/pullover shirt (four steps) ARTICLES SCORE Total number of steps: 4 DRESSING - UPPER BODY - STEP 1: Does the patient require help from a person or device, or need extra time when dressing above the [address]? Yes. DRESSING - UPPER BODY - STEP 2: Does the patient require the assistance of a helper? No. Patient only requires an assistive device, s uch as a button hook, velcro, or goodwill representative. OR s/he takes more than reasonable time as s/he dresses the upper body. OR there is a concern for safety when s/he dresses the upper body DRESSING - UPPER BODY - SCORE: 6-SILVANO DRESSING - LOWER BODY: Activity did not occur on this shift ARTICLES SCORE Total number of steps: 0 DRESSING - LOWER BODY - SCORE: 0-UNK TOILETING: TOILETING - STEP 1: Does the patient require the assistance of a person or device, or need extra time with toileting? Yes . TOILETING - STEP 2: Does the patient require the assistance of a helper? No. TOILETING - SCORE: 6-SILVANO BLADDER MANAGEMENT: BLADDER MANAGEMENT - STEP 1: Does the patient control the bladder completely and intentionally without equipment or devices or med ications, and is always continent? Yes. BLADDER MANAGEMENT - SCORE: 7-IND BLADDER MANAGEMENT - FREQUENCY OF ACCIDENTS: BLADDER MANAGEMENT(FA) - STEP 1: How many accidents has the patient had during the current shift? 0 BOWEL MANAGEMENT: BOWEL MANAGEMENT - STEP 1: Does the patient control bowels completely and intentionally without equipment devices or medications AND is always continent? Yes. BOWEL MANAGEMENT - SCORE: 7-IND BOWEL MANAGEMENT - FREQUENCY OF ACCIDENTS: BOWEL MANAGEMENT(FA) - STEP 1: How many accidents has the patient had during the current shift? 0 TRANSFERS: BED, CHAIR, WHEELCHAIR: TRANSFERS: BED, CHAIR, WHEELCHAIR - STEP 1: Does the patient require assistance of a person or device, or need extra time with bed, chair, or whe elchair transfers? Yes. TRANSFERS: BED, CHAIR, WHEELCHAIR - STEP 2: Does the patient require the assistance of a helper? Yes. TRANSFERS: BED, CHAIR, WHEELCHAIR - STEP 3: How much assistance does the patient require from the helper? Only supervision TRANSFERS: BED, CHAIR, WHEELCHAIR - SCORE: 5-SUP TRANSFERS: TOILET: TRANSFERS: TOILET - STEP 1: Does the patient require the assistance of a person or device, or need extra time with toilet transfe rs? Yes. TRANSFERS: TOILET - STEP 2: Does the patient require the assistance of a helper? Yes. TRANSFERS: TOILET - STEP 3: How much assistance does the patient require from the helper? Only supervision, cuing, coaxing, OR he lp to set out transfer equipment or to lock brakes and/or lift foot rests TRANSFERS: TOILET - SCORE: 5-SUP TRANSFERS: SHOWER: Activity did not occur on this shift TRANSFERS: SHOWER - SCORE: 0-UNK TRANSFERS: TUB: Activity did not occur on this shift TRANSFERS: TUB - SCORE: 0-UNK LOCOMOTION: WALK: Activity did not occur on this shift LOCOMOTION: WALK - SCORE: 0-UNK LOCOMOTION: WHEELCHAIR: Activity did not occur on this shift LOCOMOTION: WHEELCHAIR - SCORE: 0-UNK COMPREHENSION: COMPREHENSION - SCORE: 0-UNK EXPRESSION EXPRESSION - SCORE: 0-UNK SOCIAL INTERACTION: SOCIAL INTERACTION - SCORE: 0-UNK PROBLEM SOLVING: PROBLEM SOLVING - SCORE: 0-UNK MEMORY: MEMORY - SCORE: 0-UNK SIGNATURE PANEL: The following modified sections: Eating - Score, Grooming - Score, Bathing - Score, Dressing - Upper Body - Score, Dressing - Lower Body - Score, Toileting - Score, Bladder Management - Score, Bowel Man agement - Score, Transfers: Bed, Chair, Wheelchair - Score, Transfers: Toilet - Score, Transfers: Erlinda wer - Score, Transfers: Tub - Score, Locomotion: Walk - Score, Locomotion: Wheelchair - Score, Compre hension - Score, Expression - Score, Social Interaction - Score, Problem Solving - Score, Memory - Sc ore were [electronically] signed by Nevin Meyers CNA on MonMar 15 2019 14:01:23 T-0500 ([facility] Day[facility] Time)
[2019-03-15] MEDS: TRAMADOL HCL 50 MG TAB PO PRN (15:18)
--- NOTE | 2019-03-15 15:19 | FAST ---
ENCOUNTER DATE AND TIME: 03/15/2019 08:00 (CDT) NAME ALEXUS KASPER DATE OF : 1955 DATE OF ADMISSION: 03/08/2019 17:45 (CDT) PHONE: AGE: 63 SSN# [id number] GENDER: Male ENCOUNTER PHYSICIAN: Dr. Reji Kraus M.D. 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 EATING: Activity did not occur on this shift EATING - SCORE: 0-UNK GROOMING: Comb/brush hair Oral care Patient shaved Wash, rinse, and dry face Wash, rinse, and dry hands GROOMING - STEP 1: Does the patient require the assistance of a person or device, or need extra time when grooming? No. GROOMING - SCORE: 7-IND BATHING: Abdomen Buttocks Chest Left arm Left lower leg and foot Left upper leg Perineal area Right arm Right lower leg and foot Right upper leg BATHING - STEP 1: Does the patient require the assistance of a person or device, or need extra time when bathing? Yes. BATHING - STEP 2: Does the patient require the assistance of a helper? No. The patient only requires an assistive devic e such as a bath chuy, OR the patient takes more than reasonable time to bathe, OR there is a concern for safety such as regulating water temperature as the patient bathes. BATHING - SCORE: 6-SILVANO DRESSING - UPPER BODY: T-shirt/pullover shirt (four steps) ARTICLES SCORE Total number of steps: 4 DRESSING - UPPER BODY - STEP 1: Does the patient require help from a person or device, or need extra time when dressing above the [address]? Yes. DRESSING - UPPER BODY - STEP 2: Does the patient require the assistance of a helper? No. Patient only requires an assistive device, s uch as a button hook, velcro, or computer lab aide. OR s/he takes more than reasonable time as s/he dresses the upper body. OR there is a concern for safety when s/he dresses the upper body DRESSING - UPPER BODY - SCORE: 6-SILVANO DRESSING - LOWER BODY: Elastic waist pants (three steps) Slip-on shoe - Left foot (one step) Slip-on shoe - Right foot (one step) Sock - Left foot (one step) Sock - Right foot (one step) Underwear (three steps) ARTICLES SCORE Total number of steps: 10 DRESSING - LOWER BODY - STEP 1: Does the patient require help from a person or device, or need extra time when dressing below the m[address] st? Yes. DRESSING - LOWER BODY - STEP 2: Does the patient require the assistance of a helper? No. Patient requires an assistive device such as a computer lab aide. OR s/he takes more than reasonable time as s/he dresses the lower body, OR there is a con cern for safety when s/he dresses the lower body DRESSING - LOWER BODY - SCORE: 6-SILVANO TOILETING: TOILETING - STEP 1: Does the patient require the assistance of a person or device, or need extra time with toileting? Yes . TOILETING - STEP 2: Does the patient require the assistance of a helper? No. TOILETING - SCORE: 6-SILVANO BLADDER MANAGEMENT: Activity did not occur on this shift BLADDER MANAGEMENT - SCORE: 7-IND BOWEL MANAGEMENT: Activity did not occur on this shift BOWEL MANAGEMENT - SCORE: 7-IND TRANSFERS: BED, CHAIR, WHEELCHAIR: Activity did not occur on this shift TRANSFERS: BED, CHAIR, WHEELCHAIR - SCORE: 0-UNK TRANSFERS: TOILET: Activity did not occur on this shift TRANSFERS: TOILET - SCORE: 0-UNK TRANSFERS: SHOWER: Activity did not occur on this shift TRANSFERS: SHOWER - SCORE: 0-UNK TRANSFERS: TUB: TRANSFERS: TUB - STEP 1: Does the patient require the assistance of a person or device, or need extra time with tub transfers? Yes. TRANSFERS: TUB - STEP 2: Does the patient require the assistance of a helper? No. Only requires the assistance of an assistive device, OR takes more than reasonable time, OR there is a concern for safety when s/he performs tub transfers TRANSFERS: TUB - SCORE: 6-SILVANO LOCOMOTION: WALK: Activity did not occur on this shift LOCOMOTION: WALK - SCORE: 0-UNK LOCOMOTION: WHEELCHAIR: Activity did not occur on this shift LOCOMOTION: WHEELCHAIR - SCORE: 0-UNK LOCOMOTION: STAIRS: Activity did not occur on this shift LOCOMOTION: STAIRS - SCORE: 0-UNK COMPREHENSION: COMPREHENSION: TYPE: Visual COMPREHENSION - STEP 1: Does the patient require help from a person or device, or need extra time to understand complex and a bstract ideas (such as current events, finances, discharge planning, medical issues, relationships, e tc)? No. COMPREHENSION - STEP 2: Does the patient need extra time, require an assistive device (such as glasses for visual comprehensi on or a hearing aid for auditory comprehension) or does s/he have mild difficulty understanding compl ex and abstract information? Yes. COMPREHENSION - SCORE: 6-SILVANO EXPRESSION EXPRESSION: TYPE: Non-Vocal EXPRESSION - STEP 1: Does the patient require help from a person or device, or need extra time expressing complex and abst ract ideas (such as current events, finances, discharge planning, medical issues, relationships, etc) ? No. EXPRESSION - STEP 2: Does the patient need extra time, require an assistive device (such as augmentive communication syste m or a communication board), OR does s/he have mild difficulty expressing complex and abstract ideas (including mild dysarthria or mild word-find problems)? No. EXPRESSION - SCORE: 7-IND SOCIAL INTERACTION: SOCIAL INTERACTION - STEP 1: Does the patient require a helper to interact with others in social and therapeutic situations? No. SOCIAL INTERACTION - STEP 2: Does the patient need extra time in social situations, OR does s/he interact with staff, other patien ts, and family members ONLY in structured environments, OR does s/he require medication for social in teraction? No. SOCIAL INTERACTION - SCORE: 7-IND PROBLEM SOLVING: PROBLEM SOLVING - STEP 1: Does the patient need help from a person or device, or need extra time to solve complex problems such as managing a checking account or confronting interpersonal problems? No. PROBLEM SOLVING - STEP 2: Does the patient require extra time to make decisions or solve problems, OR does s/he have slight dif ficulty reading, initiating, or self-correcting in unfamiliar situations? No. PROBLEM SOLVING - SCORE: 7-IND MEMORY: MEMORY - STEP 1: Does the patient need help from a person or device, or need extra time to remember frequently encount ered people, daily routines, and executing requests? No. MEMORY - STEP 2: Does the patient have slight difficulty recognizing frequently encountered people, daily routines, or executing requests without the need for repetition or using self-initiated or environmental cues to remember? No. MEMORY - SCORE: 7-IND SIGNATURE PANEL: The following modified sections: Eating - Score, Grooming - Score, Bathing - Score, Dressing - Upper Body - Score, Dressing - Lower Body - Score, Toileting - Score, Transfers: Bed, Chair, Wheelchair - S core, Transfers: Toilet - Score, Transfers: Shower - Score, Transfers: Tub - Score, Comprehension - S core, Expression - Score, Social Interaction - Score, Problem Solving - Score, Memory - Score were [e lectronically] signed by NAREN Camejo on MonMar 15 2019 15:18:05 [facility]-0500 ([facility] Time)
--- NOTE | 2019-03-15 15:57 | FAST ---
ENCOUNTER DATE AND TIME: 03/15/2019 08:00 (CDT) NAME ALEXUS KASPER DATE OF : 1955 DATE OF ADMISSION: 03/08/2019 17:45 (CDT) PHONE: AGE: 63 SSN# [id number] GENDER: Male ENCOUNTER PHYSICIAN: Dr. Reji Kraus M.D. 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 EATING: Activity did not occur on this shift EATING - SCORE: 0-UNK GROOMING: Activity did not occur on this shift GROOMING - SCORE: 0-UNK BATHING: Activity did not occur on this shift BATHING - SCORE: 0-UNK DRESSING - UPPER BODY: Activity did not occur on this shift Patient is not dressing in public clothing ARTICLES SCORE Total number of steps: 0 DRESSING - UPPER BODY - SCORE: 0-UNK DRESSING - LOWER BODY: Activity did not occur on this shift Patient is not dressing in public clothing ARTICLES SCORE Total number of steps: 0 DRESSING - LOWER BODY - SCORE: 0-UNK TOILETING: Activity did not occur on this shift TOILETING - SCORE: 0-UNK BLADDER MANAGEMENT: Activity did not occur on this shift BLADDER MANAGEMENT - SCORE: 7-IND BOWEL MANAGEMENT: Activity did not occur on this shift BOWEL MANAGEMENT - SCORE: 7-IND TRANSFERS: BED, CHAIR, WHEELCHAIR: TRANSFERS: BED, CHAIR, WHEELCHAIR - STEP 1: Does the patient require assistance of a person or device, or need extra time with bed, chair, or whe elchair transfers? No. TRANSFERS: BED, CHAIR, WHEELCHAIR - SCORE: 7-IND TRANSFERS: TOILET: Activity did not occur on this shift TRANSFERS: TOILET - SCORE: 0-UNK TRANSFERS: SHOWER: Activity did not occur on this shift TRANSFERS: SHOWER - SCORE: 0-UNK TRANSFERS: TUB: Activity did not occur on this shift TRANSFERS: TUB - SCORE: 0-UNK LOCOMOTION: WALK: LOCOMOTION: WALK - STEP 1: Does the patient need help from a person or device, or need extra time to walk 150 feet? No. LOCOMOTION: WALK - STEP 2: Does the patient need an assistive device (such as an orthosis, prosthesis, crutches, or walker) to g o 150 feet, OR does s/he take more than reasonable time, OR is there a concern for safety? Yes, the p atient needs an assistive device LOCOMOTION: WALK - SCORE: 6-SILVANO LOCOMOTION: WHEELCHAIR: Activity did not occur on this shift LOCOMOTION: WHEELCHAIR - SCORE: 0-UNK LOCOMOTION: STAIRS: LOCOMOTION: STAIRS - STEP 1: Does the patient need help to go up and down 12 to 14 stairs? No. LOCOMOTION: STAIRS - STEP 2: Does the patient require an assistive device - such as handrails or cane - to go up and down one flig ht of stairs, OR does s/he take more than reasonable time, OR is there a concern for safety? Yes, the patient requires an assistive device LOCOMOTION: STAIRS - SCORE: 6-SILVANO COMPREHENSION: COMPREHENSION - SCORE: 0-UNK EXPRESSION EXPRESSION - SCORE: 0-UNK SOCIAL INTERACTION: SOCIAL INTERACTION - SCORE: 0-UNK PROBLEM SOLVING: PROBLEM SOLVING - SCORE: 0-UNK MEMORY: MEMORY - SCORE: 0-UNK SIGNATURE PANEL: The following modified sections: Transfers: Bed, Chair, Wheelchair - Score, Transfers: Toilet - Score , Locomotion: Walk - Score, Locomotion: Wheelchair - Score, Locomotion: Stairs - Score were [electron ically] signed by Rodolfo Gonzalez PT on MonMar 15 2019 15:55:53 T-0500 (Central Daylight Time)
[2019-03-15] MEDS: ATORVASTATIN 10 MG TAB PO SCH (20:34)
[2019-03-15] MEDS: MELATONIN 5 MG TABLET PO SCH (20:35)
[2019-03-15] MEDS: TAMSULOSIN 0.4 MG SR CAP PO SCH (20:35)
[2019-03-16] MEDS: HEPARIN 5000 UNIT/ML 1 ML VIAL SQ SCH ×3 (00:16→21:00)
--- NOTE | 2019-03-16 02:13 | FAST ---
SHIFT START DATE/TIME: 03/15/2019 19:00 (CDT) SHIFT END DATE/TIME: 03/16/2019 07:00 (CDT) NAME ALEXUS KASPER DATE OF : 1955 DATE OF ADMISSION: 03/08/2019 17:45 (CDT) PHONE: AGE: 63 N# [id number] GENDER: Male ENCOUNTER PHYSICIAN: Dr. Reji Kraus M.D. 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 EATING: Activity did not occur on this shift EATING - SCORE: 0-UNK GROOMING: Oral care Wash, rinse, and dry face Wash, rinse, and dry hands GROOMING - STEP 1: Does the patient require the assistance of a person or device, or need extra time when grooming? Yes. GROOMING - STEP 2: Does the patient require the assistance of a helper? Yes. GROOMING - STEP 3: How much assistance does the patient require from the helper? Cuing, coaxing, instructions, or encour agement for completion of grooming GROOMING - SCORE: 5-SUP BATHING: Activity did not occur on this shift BATHING - SCORE: 0-UNK DRESSING - UPPER BODY: Patient is not dressing in public clothing ARTICLES SCORE Total number of steps: 0 DRESSING - UPPER BODY - SCORE: 0-UNK DRESSING - LOWER BODY: Patient is not dressing in public clothing ARTICLES SCORE Total number of steps: 0 DRESSING - LOWER BODY - SCORE: 0-UNK TOILETING: TOILETING - STEP 1: Does the patient require the assistance of a person or device, or need extra time with toileting? Yes . TOILETING - STEP 2: Does the patient require the assistance of a helper? Yes. TOILETING - STEP 3: How much assistance does the patient require from the helper? Only supervision TOILETING - SCORE: 5-SUP BLADDER MANAGEMENT: BLADDER MANAGEMENT - STEP 1: Does the patient control the bladder completely and intentionally without equipment or devices or med ications, and is always continent? No. BLADDER MANAGEMENT - STEP 2: Does the patient require the assistance of a helper? Yes. BLADDER MANAGEMENT - STEP 3: How much assistance does the patient require from the helper? Only supervision, stand-by, cuing, or c oaxing BLADDER MANAGEMENT - SCORE: 5-SUP BOWEL MANAGEMENT: Activity did not occur on this shift BOWEL MANAGEMENT - SCORE: 7-IND TRANSFERS: BED, CHAIR, WHEELCHAIR: TRANSFERS: BED, CHAIR, WHEELCHAIR - STEP 1: Does the patient require assistance of a person or device, or need extra time with bed, chair, or whe elchair transfers? Yes. TRANSFERS: BED, CHAIR, WHEELCHAIR - STEP 2: Does the patient require the assistance of a helper? Yes. TRANSFERS: BED, CHAIR, WHEELCHAIR - STEP 3: How much assistance does the patient require from the helper? Lifting of the legs TRANSFERS: BED, CHAIR, WHEELCHAIR - STEP 4: How many legs does the patient require the helper to lift? both legs TRANSFERS: BED, CHAIR, WHEELCHAIR - SCORE: 3-MOD TRANSFERS: TOILET: TRANSFERS: TOILET - STEP 1: Does the patient require the assistance of a person or device, or need extra time with toilet transfe rs? Yes. TRANSFERS: TOILET - STEP 2: Does the patient require the assistance of a helper? Yes. TRANSFERS: TOILET - STEP 3: How much assistance does the patient require from the helper? Only supervision, cuing, coaxing, OR he lp to set out transfer equipment or to lock brakes and/or lift foot rests TRANSFERS: TOILET - SCORE: 5-SUP TRANSFERS: SHOWER: Activity did not occur on this shift TRANSFERS: SHOWER - SCORE: 0-UNK TRANSFERS: TUB: Activity did not occur on this shift TRANSFERS: TUB - SCORE: 0-UNK LOCOMOTION: WALK: Activity did not occur on this shift LOCOMOTION: WALK - SCORE: 0-UNK LOCOMOTION: WHEELCHAIR: Activity did not occur on this shift LOCOMOTION: WHEELCHAIR - SCORE: 0-UNK COMPREHENSION: COMPREHENSION: TYPE: Both COMPREHENSION - STEP 1: Does the patient require help from a person or device, or need extra time to understand complex and a bstract ideas (such as current events, finances, discharge planning, medical issues, relationships, e tc)? No. COMPREHENSION - STEP 2: Does the patient need extra time, require an assistive device (such as glasses for visual comprehensi on or a hearing aid for auditory comprehension) or does s/he have mild difficulty understanding compl ex and abstract information? Yes. COMPREHENSION - SCORE: 6-SILVANO EXPRESSION EXPRESSION: TYPE: Both EXPRESSION - STEP 1: Does the patient require help from a person or device, or need extra time expressing complex and abst ract ideas (such as current events, finances, discharge planning, medical issues, relationships, etc) ? No. EXPRESSION - STEP 2: Does the patient need extra time, require an assistive device (such as augmentive communication syste m or a communication board), OR does s/he have mild difficulty expressing complex and abstract ideas (including mild dysarthria or mild word-find problems)? No. EXPRESSION - SCORE: 7-IND SOCIAL INTERACTION: SOCIAL INTERACTION - STEP 1: Does the patient require a helper to interact with others in social and therapeutic situations? No. SOCIAL INTERACTION - STEP 2: Does the patient need extra time in social situations, OR does s/he interact with staff, other patien ts, and family members ONLY in structured environments, OR does s/he require medication for social in teraction? No. SOCIAL INTERACTION - SCORE: 7-IND PROBLEM SOLVING: PROBLEM SOLVING - STEP 1: Does the patient need help from a person or device, or need extra time to solve complex problems such as managing a checking account or confronting interpersonal problems? No. PROBLEM SOLVING - STEP 2: Does the patient require extra time to make decisions or solve problems, OR does s/he have slight dif ficulty reading, initiating, or self-correcting in unfamiliar situations? No. PROBLEM SOLVING - SCORE: 7-IND MEMORY: MEMORY - STEP 1: Does the patient need help from a person or device, or need extra time to remember frequently encount ered people, daily routines, and executing requests? No. MEMORY - STEP 2: Does the patient have slight difficulty recognizing frequently encountered people, daily routines, or executing requests without the need for repetition or using self-initiated or environmental cues to remember? No. MEMORY - SCORE: 7-IND
[2019-03-16 05:31] VITALS: BMI 27.1
[2019-03-16] MEDS: GABAPENTIN 100 MG CAP PO SCH ×2 (07:29→19:42)
[2019-03-16] MEDS: HYDROCODONE/APAP 5/325 MG TAB PO PRN ×3 (07:29→20:40)
[2019-03-16] MEDS: ALLOPURINOL 300 MG TAB PO SCH (07:30)
[2019-03-16] MEDS: predniSONE 5 MG TAB PO SCH (07:30)
[2019-03-16] MEDS: LOSARTAN POTASSIUM 50 MG TABLET PO SCH (07:30)
[2019-03-16] MEDS: DOCUSATE NA/SENNA CONC 1 TAB PO SCH ×2 (07:30→19:41)
[2019-03-16] MEDS: TRAMADOL HCL 50 MG TAB PO PRN (12:06)
--- NOTE | 2019-03-16 14:47 | FAST ---
ENCOUNTER DATE AND TIME: 03/16/2019 08:00 (CDT) NAME ALEXUS KASPER DATE OF : 1955 DATE OF ADMISSION: 03/08/2019 17:45 (CDT) PHONE: AGE: 63 N# [id number] GENDER: Male ENCOUNTER PHYSICIAN: Dr. Reji Kraus M.D. 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 EATING: Activity did not occur on this shift EATING - SCORE: 0-UNK GROOMING: Activity did not occur on this shift GROOMING - SCORE: 0-UNK BATHING: Activity did not occur on this shift BATHING - SCORE: 0-UNK DRESSING - UPPER BODY: Button down shirt or blouse - NOT tucked in (four steps) ARTICLES SCORE Total number of steps: 4 DRESSING - UPPER BODY - STEP 1: Does the patient require help from a person or device, or need extra time when dressing above the mike [address]? Yes. DRESSING - UPPER BODY - STEP 2: Does the patient require the assistance of a helper? Yes. DRESSING - UPPER BODY - STEP 3: Does the helper touch the patient while dressing? Yes. DRESSING - UPPER BODY - STEP 4: How many of the total steps does the patient complete on his/her own? 3 DRESSING - UPPER BODY - SCORE: 4-MIN DRESSING - UPPER BODY - COMMENTS: TLSO donned as if were a button down shirt style DRESSING - LOWER BODY: Elastic waist pants (three steps) Slip-on shoe - Left foot (one step) Slip-on shoe - Right foot (one step) ARTICLES SCORE Total number of steps: 5 DRESSING - LOWER BODY - STEP 1: Does the patient require help from a person or device, or need extra time when dressing below the mike st? Yes. DRESSING - LOWER BODY - STEP 2: Does the patient require the assistance of a helper? No. Patient requires an assistive device such as a plasterer spot. OR s/he takes more than reasonable time as s/he dresses the lower body, OR there is a con cern for safety when s/he dresses the lower body DRESSING - LOWER BODY - SCORE: 6-SILVANO TOILETING: Activity did not occur on this shift TOILETING - SCORE: 0-UNK BLADDER MANAGEMENT: Activity did not occur on this shift BLADDER MANAGEMENT - SCORE: 7-IND BOWEL MANAGEMENT: Activity did not occur on this shift BOWEL MANAGEMENT - SCORE: 7-IND TRANSFERS: BED, CHAIR, WHEELCHAIR: Activity did not occur on this shift TRANSFERS: BED, CHAIR, WHEELCHAIR - SCORE: 0-UNK TRANSFERS: TOILET: Activity did not occur on this shift TRANSFERS: TOILET - SCORE: 0-UNK TRANSFERS: SHOWER: Activity did not occur on this shift TRANSFERS: SHOWER - SCORE: 0-UNK TRANSFERS: TUB: Activity did not occur on this shift TRANSFERS: TUB - SCORE: 0-UNK LOCOMOTION: WALK: Activity did not occur on this shift LOCOMOTION: WALK - SCORE: 0-UNK LOCOMOTION: WHEELCHAIR: Activity did not occur on this shift LOCOMOTION: WHEELCHAIR - SCORE: 0-UNK LOCOMOTION: STAIRS: Activity did not occur on this shift LOCOMOTION: STAIRS - SCORE: 0-UNK COMPREHENSION: COMPREHENSION: TYPE: Both COMPREHENSION - STEP 1: Does the patient require help from a person or device, or need extra time to understand complex and a bstract ideas (such as current events, finances, discharge planning, medical issues, relationships, e tc)? No. COMPREHENSION - STEP 2: Does the patient need extra time, require an assistive device (such as glasses for visual comprehensi on or a hearing aid for auditory comprehension) or does s/he have mild difficulty understanding compl ex and abstract information? Yes. COMPREHENSION - SCORE: 6-SILVANO EXPRESSION EXPRESSION: TYPE: Both EXPRESSION - STEP 1: Does the patient require help from a person or device, or need extra time expressing complex and abst ract ideas (such as current events, finances, discharge planning, medical issues, relationships, etc) ? No. EXPRESSION - STEP 2: Does the patient need extra time, require an assistive device (such as augmentive communication syste m or a communication board), OR does s/he have mild difficulty expressing complex and abstract ideas (including mild dysarthria or mild word-find problems)? No. EXPRESSION - SCORE: 7-IND SOCIAL INTERACTION: SOCIAL INTERACTION - STEP 1: Does the patient require a helper to interact with others in social and therapeutic situations? No. SOCIAL INTERACTION - STEP 2: Does the patient need extra time in social situations, OR does s/he interact with staff, other patien ts, and family members ONLY in structured environments, OR does s/he require medication for social in teraction? No. SOCIAL INTERACTION - SCORE: 7-IND PROBLEM SOLVING: PROBLEM SOLVING - STEP 1: Does the patient need help from a person or device, or need extra time to solve complex problems such as managing a checking account or confronting interpersonal problems? No. PROBLEM SOLVING - STEP 2: Does the patient require extra time to make decisions or solve problems, OR does s/he have slight dif ficulty reading, initiating, or self-correcting in unfamiliar situations? No. PROBLEM SOLVING - SCORE: 7-IND MEMORY: MEMORY - STEP 1: Does the patient need help from a person or device, or need extra time to remember frequently encount ered people, daily routines, and executing requests? No. MEMORY - STEP 2: Does the patient have slight difficulty recognizing frequently encountered people, daily routines, or executing requests without the need for repetition or using self-initiated or environmental cues to remember? No. MEMORY - SCORE: 7-IND SIGNATURE PANEL: The following modified sections: Eating - Score, Grooming - Score, Bathing - Score, Dressing - Upper Body - Score, Dressing - Upper Body - Comments:, Dressing - Lower Body - Score, Toileting - Score, Tr ansfers: Bed, Chair, Wheelchair - Score, Transfers: Toilet - Score, Transfers: Shower - Score, Transf ers: Tub - Score, Comprehension - Score, Expression - Score, Social Interaction - Score, Problem Solv ing - Score, Memory - Score were [electronically] signed by Saira Ahn OT on Sat Mar 16 2019 14: 46:16 T-0500 (Central Daylight Time)
--- NOTE | 2019-03-16 15:20 | FAST ---
SHIFT START DATE/TIME: 03/16/2019 07:00 (CDT) SHIFT END DATE/TIME: 03/16/2019 19:00 (CDT) NAME ALEXUS KASPER DATE OF : 1955 DATE OF ADMISSION: 03/08/2019 17:45 (CDT) PHONE: AGE: 63 N# [id number] GENDER: Male ENCOUNTER PHYSICIAN: Dr. Reji Kraus M.D. 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 EATING: EATING - STEP 1: Does the patient require the assistance of a person or device, or need extra time when eating? No. EATING - SCORE: 7-IND GROOMING: Comb/brush hair Oral care Patient shaved Wash, rinse, and dry face Wash, rinse, and dry hands GROOMING - STEP 1: Does the patient require the assistance of a person or device, or need extra time when grooming? Yes. GROOMING - STEP 2: Does the patient require the assistance of a helper? No. The patient only requires an assistive devic e, OR takes more than reasonable time to groom, OR there is a concern for safety as the patient groom s GROOMING - SCORE: 6-SILVANO BATHING: Activity did not occur on this shift BATHING - SCORE: 0-UNK DRESSING - UPPER BODY: T-shirt/pullover shirt (four steps) ARTICLES SCORE Total number of steps: 4 DRESSING - UPPER BODY - STEP 1: Does the patient require help from a person or device, or need extra time when dressing above the m[address]? No. DRESSING - UPPER BODY - SCORE: 7-IND DRESSING - LOWER BODY: Elastic waist pants (three steps) Slip-on shoe - Left foot (one step) Slip-on shoe - Right foot (one step) Underwear (three steps) ARTICLES SCORE Total number of steps: 8 DRESSING - LOWER BODY - STEP 1: Does the patient require help from a person or device, or need extra time when dressing below the mike st? Yes. DRESSING - LOWER BODY - STEP 2: Does the patient require the assistance of a helper? Yes. DRESSING - LOWER BODY - STEP 3: Does the helper touch the patient while dressing? No. DRESSING - LOWER BODY - SCORE: 5-SUP TOILETING: TOILETING - STEP 1: Does the patient require the assistance of a person or device, or need extra time with toileting? Yes . TOILETING - STEP 2: Does the patient require the assistance of a helper? Yes. TOILETING - STEP 3: How much assistance does the patient require from the helper? Only supervision TOILETING - SCORE: 5-SUP BLADDER MANAGEMENT: BLADDER MANAGEMENT - STEP 1: Does the patient control the bladder completely and intentionally without equipment or devices or med ications, and is always continent? No. BLADDER MANAGEMENT - STEP 2: Does the patient require the assistance of a helper? No, patient requires and independently uses an a ssistive device, such as a urinal, bedpan, bedside commode, catheter, absorbent pad, or collecting de vice BLADDER MANAGEMENT - SCORE: 6-SILVANO BLADDER MANAGEMENT - FREQUENCY OF ACCIDENTS: BLADDER MANAGEMENT(FA) - STEP 1: How many accidents has the patient had during the current shift? 0 BOWEL MANAGEMENT: Activity did not occur on this shift BOWEL MANAGEMENT - SCORE: 7-IND BOWEL MANAGEMENT - FREQUENCY OF ACCIDENTS: BOWEL MANAGEMENT(FA) - STEP 1: How many accidents has the patient had during the current shift? 0 TRANSFERS: BED, CHAIR, WHEELCHAIR: TRANSFERS: BED, CHAIR, WHEELCHAIR - STEP 1: Does the patient require assistance of a person or device, or need extra time with bed, chair, or whe elchair transfers? Yes. TRANSFERS: BED, CHAIR, WHEELCHAIR - STEP 2: Does the patient require the assistance of a helper? Yes. TRANSFERS: BED, CHAIR, WHEELCHAIR - STEP 3: How much assistance does the patient require from the helper? Only supervision TRANSFERS: BED, CHAIR, WHEELCHAIR - SCORE: 5-SUP TRANSFERS: TOILET: TRANSFERS: TOILET - STEP 1: Does the patient require the assistance of a person or device, or need extra time with toilet transfe rs? Yes. TRANSFERS: TOILET - STEP 2: Does the patient require the assistance of a helper? No. Patient only requires an assistive device cote ch as a grab bar or special seat, OR s/he takes more than reasonable time to perform toilet transfers , OR there is a safety concern when s/he performs toilet transfers. TRANSFERS: TOILET - SCORE: 6-SILVANO TRANSFERS: SHOWER: Activity did not occur on this shift TRANSFERS: SHOWER - SCORE: 0-UNK TRANSFERS: TUB: Activity did not occur on this shift TRANSFERS: TUB - SCORE: 0-UNK LOCOMOTION: WALK: Activity did not occur on this shift LOCOMOTION: WALK - SCORE: 0-UNK LOCOMOTION: WHEELCHAIR: Activity did not occur on this shift LOCOMOTION: WHEELCHAIR - SCORE: 0-UNK COMPREHENSION: COMPREHENSION: TYPE: Both COMPREHENSION - STEP 1: Does the patient require help from a person or device, or need extra time to understand complex and a bstract ideas (such as current events, finances, discharge planning, medical issues, relationships, e tc)? No. COMPREHENSION - STEP 2: Does the patient need extra time, require an assistive device (such as glasses for visual comprehensi on or a hearing aid for auditory comprehension) or does s/he have mild difficulty understanding compl ex and abstract information? No. COMPREHENSION - SCORE: 7-IND EXPRESSION EXPRESSION: TYPE: Both EXPRESSION - STEP 1: Does the patient require help from a person or device, or need extra time expressing complex and abst ract ideas (such as current events, finances, discharge planning, medical issues, relationships, etc) ? No. EXPRESSION - STEP 2: Does the patient need extra time, require an assistive device (such as augmentive communication syste m or a communication board), OR does s/he have mild difficulty expressing complex and abstract ideas (including mild dysarthria or mild word-find problems)? No. EXPRESSION - SCORE: 7-IND SOCIAL INTERACTION: SOCIAL INTERACTION - STEP 1: Does the patient require a helper to interact with others in social and therapeutic situations? No. SOCIAL INTERACTION - STEP 2: Does the patient need extra time in social situations, OR does s/he interact with staff, other patien ts, and family members ONLY in structured environments, OR does s/he require medication for social in teraction? Yes, patient needs extra time SOCIAL INTERACTION - SCORE: 6-SILVANO PROBLEM SOLVING: PROBLEM SOLVING - STEP 1: Does the patient need help from a person or device, or need extra time to solve complex problems such as managing a checking account or confronting interpersonal problems? No. PROBLEM SOLVING - STEP 2: Does the patient require extra time to make decisions or solve problems, OR does s/he have slight dif ficulty reading, initiating, or self-correcting in unfamiliar situations? No. PROBLEM SOLVING - SCORE: 7-IND MEMORY: MEMORY - STEP 1: Does the patient need help from a person or device, or need extra time to remember frequently encount ered people, daily routines, and executing requests? No. MEMORY - STEP 2: Does the patient have slight difficulty recognizing frequently encountered people, daily routines, or executing requests without the need for repetition or using self-initiated or environmental cues to remember? No. MEMORY - SCORE: 7-IND SIGNATURE PANEL: The following modified sections: Eating - Score, Grooming - Score, Bathing - Score, Dressing - Upper Body - Score, Dressing - Lower Body - Score, Toileting - Score, Bladder Management - Score, Bowel Man agement - Score, Transfers: Bed, Chair, Wheelchair - Score, Transfers: Toilet - Score, Transfers: Erlinda wer - Score, Transfers: Tub - Score, Locomotion: Walk - Score, Locomotion: Wheelchair - Score, Compre hension - Score, Expression - Score, Social Interaction - Score, Problem Solving - Score, Memory - Sc ore were [electronically] signed by Urmila Jefferson C.N.A. on Sat Mar 16 2019 15:19:34 T-0500 (Centra l Daylight Time)
--- NOTE | 2019-03-16 16:24 | PN ---
Date of Progress Note: 03/16/2019 Subjective: The patient was seen this morning for followup. No new complaints or problems reported by the patient. He was sitting in the dining room, eating his lunch. Denied any complaints. Has so me sensation in the back with certain movement and his back pain. All those problems are improving s lowly with time and well control with current medications. Objective: Vital Signs: Reviewed. HEENT Examination: Unremarkable. Lungs: Clear to auscultation. No rhonchi or rales. Heart: Sounds normal. No murmur. No gallop. Skin Examination: Shows dry skin involving both upper extremities. Impression: 1.Hypertension. 2.Hyperlipidemia. 3.Chronic kidney disease, stage 3. 4.Gout. 5.Dry skin. Plan: We did talk about using moisturizing skin lotion 2-3 times a day. Continue current medical ma nagement. Continue physical therapy under guidance of Dr. Kraus. The patient is scheduled to go home on Monday. SISI/MODL Voice ID: [id number] Report ID: [id number]
[2019-03-16] MEDS: ATORVASTATIN 10 MG TAB PO SCH (19:41)
[2019-03-16] MEDS: TAMSULOSIN 0.4 MG SR CAP PO SCH (19:41)
[2019-03-16] MEDS: MELATONIN 5 MG TABLET PO SCH (19:41)
[2019-03-17] MEDS: TRAMADOL HCL 50 MG TAB PO PRN ×4 (08:41→21:19)
[2019-03-17] MEDS: LOSARTAN POTASSIUM 50 MG TABLET PO SCH (08:42)
[2019-03-17] MEDS: ALLOPURINOL 300 MG TAB PO SCH (08:42)
[2019-03-17] MEDS: GABAPENTIN 100 MG CAP PO SCH ×2 (08:43→20:43)
[2019-03-17] MEDS: DOCUSATE NA/SENNA CONC 1 TAB PO SCH ×2 (08:44→20:43)
[2019-03-17] MEDS: HEPARIN 5000 UNIT/ML 1 ML VIAL SQ SCH ×2 (08:44→21:34)
--- NOTE | 2019-03-17 13:43 | PN ---
Date of Progress Note: 03/17/2019 Subjective: The patient was seen this morning for followup. No new complaints or problems reported by patient, lying in bed, not in any distress. Vital signs reviewed. His itching from the back due to contact dermatitis has resolved. Back pain is well controlled with current pain medications. Sle eps well with melatonin and denies any constipation problem. Objective: Vital Signs: Reviewed. HEENT: Examination unremarkable. Lungs: Clear to auscultation. Heart: Sounds normal. Abdomen: Soft. Bowel sounds normal. No guarding, rigidity, tenderness, or distention. Extremity Exam: No leg edema. Impression: 1.Burst fracture, T11, status post surgery. 2.Hypertension. 3.Hyperlipidemia. 4.Gout. 5.Chronic kidney disease stage 3. Plan: We will continue current medications. The patient is medically stable for discharge, which wi ll happen tomorrow and I will see him tomorrow morning for followup. His back examination was done t suzanne. Has a very well-healed midline surgical scar. No evidence of any gapping, swelling, redness, discharge, and the skin over entire back from contact dermatitis has appeared to have healed complete ly and there is no evidence of any abnormal skin appearance on the back as per exam today. SISI/MODL Voice ID: [id number] Report ID: [id number]
--- NOTE | 2019-03-17 14:52 | FAST ---
SHIFT START DATE/TIME: 03/17/2019 07:00 (CDT) SHIFT END DATE/TIME: 03/17/2019 19:00 (CDT) NAME ALEXUS KASPER DATE OF : 1955 DATE OF ADMISSION: 03/08/2019 17:45 (CDT) PHONE: AGE: 63 N# [id number] GENDER: Male ENCOUNTER PHYSICIAN: Dr. Reji Kraus M.D. 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 EATING: EATING - STEP 1: Does the patient require the assistance of a person or device, or need extra time when eating? No. EATING - SCORE: 7-IND GROOMING: Comb/brush hair Oral care Patient shaved Wash, rinse, and dry face Wash, rinse, and dry hands GROOMING - STEP 1: Does the patient require the assistance of a person or device, or need extra time when grooming? No. GROOMING - SCORE: 7-IND BATHING: Activity did not occur on this shift BATHING - SCORE: 0-UNK DRESSING - UPPER BODY: T-shirt/pullover shirt (four steps) ARTICLES SCORE Total number of steps: 4 DRESSING - UPPER BODY - STEP 1: Does the patient require help from a person or device, or need extra time when dressing above the m[address]? Yes. DRESSING - UPPER BODY - STEP 2: Does the patient require the assistance of a helper? No. Patient only requires an assistive device, s uch as a button hook, velcro, or solderer dipper. OR s/he takes more than reasonable time as s/he dresses the upper body. OR there is a concern for safety when s/he dresses the upper body DRESSING - UPPER BODY - SCORE: 6-SILVANO DRESSING - LOWER BODY: Elastic waist pants (three steps) Slip-on shoe - Left foot (one step) Slip-on shoe - Right foot (one step) Underwear (three steps) ARTICLES SCORE Total number of steps: 8 DRESSING - LOWER BODY - STEP 1: Does the patient require help from a person or device, or need extra time when dressing below the mike st? Yes. DRESSING - LOWER BODY - STEP 2: Does the patient require the assistance of a helper? No. Patient requires an assistive device such as a solderer dipper. OR s/he takes more than reasonable time as s/he dresses the lower body, OR there is a con cern for safety when s/he dresses the lower body DRESSING - LOWER BODY - SCORE: 6-SILVANO TOILETING: TOILETING - STEP 1: Does the patient require the assistance of a person or device, or need extra time with toileting? Yes . TOILETING - STEP 2: Does the patient require the assistance of a helper? No. TOILETING - SCORE: 6-SILVANO BLADDER MANAGEMENT: BLADDER MANAGEMENT - STEP 1: Does the patient control the bladder completely and intentionally without equipment or devices or med ications, and is always continent? Yes. BLADDER MANAGEMENT - SCORE: 7-IND BLADDER MANAGEMENT - FREQUENCY OF ACCIDENTS: BLADDER MANAGEMENT(FA) - STEP 1: How many accidents has the patient had during the current shift? 0 BOWEL MANAGEMENT: BOWEL MANAGEMENT - STEP 1: Does the patient control bowels completely and intentionally without equipment devices or medications AND is always continent? Yes. BOWEL MANAGEMENT - SCORE: 7-IND BOWEL MANAGEMENT - FREQUENCY OF ACCIDENTS: BOWEL MANAGEMENT(FA) - STEP 1: How many accidents has the patient had during the current shift? 0 TRANSFERS: BED, CHAIR, WHEELCHAIR: TRANSFERS: BED, CHAIR, WHEELCHAIR - STEP 1: Does the patient require assistance of a person or device, or need extra time with bed, chair, or whe elchair transfers? Yes. TRANSFERS: BED, CHAIR, WHEELCHAIR - STEP 2: Does the patient require the assistance of a helper? No. Patient only requires an assistive device fo r bed, chair, wheelchair transfers such as a sliding board, grab bar, or brace, OR s/he takes more th an reasonable time, OR there is a safety concern when s/he performs the transfers TRANSFERS: BED, CHAIR, WHEELCHAIR - SCORE: 6-SILVANO TRANSFERS: TOILET: TRANSFERS: TOILET - STEP 1: Does the patient require the assistance of a person or device, or need extra time with toilet transfe rs? Yes. TRANSFERS: TOILET - STEP 2: Does the patient require the assistance of a helper? No. Patient only requires an assistive device cote ch as a grab bar or special seat, OR s/he takes more than reasonable time to perform toilet transfers , OR there is a safety concern when s/he performs toilet transfers. TRANSFERS: TOILET - SCORE: 6-SILVANO TRANSFERS: SHOWER: Activity did not occur on this shift TRANSFERS: SHOWER - SCORE: 0-UNK TRANSFERS: TUB: Activity did not occur on this shift TRANSFERS: TUB - SCORE: 0-UNK LOCOMOTION: WALK: Activity did not occur on this shift LOCOMOTION: WALK - SCORE: 0-UNK LOCOMOTION: WHEELCHAIR: Activity did not occur on this shift LOCOMOTION: WHEELCHAIR - SCORE: 0-UNK COMPREHENSION: COMPREHENSION: TYPE: Both COMPREHENSION - STEP 1: Does the patient require help from a person or device, or need extra time to understand complex and a bstract ideas (such as current events, finances, discharge planning, medical issues, relationships, e tc)? No. COMPREHENSION - STEP 2: Does the patient need extra time, require an assistive device (such as glasses for visual comprehensi on or a hearing aid for auditory comprehension) or does s/he have mild difficulty understanding compl ex and abstract information? Yes. COMPREHENSION - SCORE: 6-SILVANO EXPRESSION EXPRESSION: TYPE: Both EXPRESSION - STEP 1: Does the patient require help from a person or device, or need extra time expressing complex and abst ract ideas (such as current events, finances, discharge planning, medical issues, relationships, etc) ? No. EXPRESSION - STEP 2: Does the patient need extra time, require an assistive device (such as augmentive communication syste m or a communication board), OR does s/he have mild difficulty expressing complex and abstract ideas (including mild dysarthria or mild word-find problems)? Yes. EXPRESSION - SCORE: 6-SILVANO SOCIAL INTERACTION: SOCIAL INTERACTION - STEP 1: Does the patient require a helper to interact with others in social and therapeutic situations? No. SOCIAL INTERACTION - STEP 2: Does the patient need extra time in social situations, OR does s/he interact with staff, other patien ts, and family members ONLY in structured environments, OR does s/he require medication for social in teraction? Yes, patient needs extra time SOCIAL INTERACTION - SCORE: 6-SILVANO PROBLEM SOLVING: PROBLEM SOLVING - STEP 1: Does the patient need help from a person or device, or need extra time to solve complex problems such as managing a checking account or confronting interpersonal problems? No. PROBLEM SOLVING - STEP 2: Does the patient require extra time to make decisions or solve problems, OR does s/he have slight dif ficulty reading, initiating, or self-correcting in unfamiliar situations? No. PROBLEM SOLVING - SCORE: 7-IND MEMORY: MEMORY - STEP 1: Does the patient need help from a person or device, or need extra time to remember frequently encount ered people, daily routines, and executing requests? No. MEMORY - STEP 2: Does the patient have slight difficulty recognizing frequently encountered people, daily routines, or executing requests without the need for repetition or using self-initiated or environmental cues to remember? No. MEMORY - SCORE: 7-IND SIGNATURE PANEL: The following modified sections: Eating - Score, Grooming - Score, Bathing - Score, Dressing - Upper Body - Score, Dressing - Lower Body - Score, Toileting - Score, Bladder Management - Score, Bowel Man agement - Score, Transfers: Bed, Chair, Wheelchair - Score, Transfers: Toilet - Score, Transfers: Erlinda wer - Score, Transfers: Tub - Score, Locomotion: Walk - Score, Locomotion: Wheelchair - Score, Compre hension - Score, Expression - Score, Social Interaction - Score, Problem Solving - Score, Memory - Sc ore were [electronically] signed by Urmila Jefferson C.N.A. on MonMar 17 2019 14:50:57 T-0500 (Centra [place] Daylight Time)
[2019-03-17] MEDS: TAMSULOSIN 0.4 MG SR CAP PO SCH (20:44)
[2019-03-17] MEDS: ATORVASTATIN 10 MG TAB PO SCH (20:44)
[2019-03-17] MEDS: MELATONIN 5 MG TABLET PO SCH (20:44)
[2019-03-18] MEDS ORDERED: GABAPENTIN 300 MG CAP PO SCH (08:00)
[2019-03-18] MEDS: TRAMADOL HCL 50 MG TAB PO PRN ×2 (08:31→12:38)
[2019-03-18] MEDS: LOSARTAN POTASSIUM 50 MG TABLET PO SCH (08:31)
[2019-03-18] MEDS: ALLOPURINOL 300 MG TAB PO SCH (08:31)
[2019-03-18] MEDS: DOCUSATE NA/SENNA CONC 1 TAB PO SCH (08:31)
[2019-03-18] MEDS: HEPARIN 5000 UNIT/ML 1 ML VIAL SQ SCH (08:45)
--- NOTE | 2019-03-18 13:33 | FAST ---
SHIFT START DATE/TIME: 03/18/2019 07:00 (CDT) SHIFT END DATE/TIME: 03/18/2019 19:00 (CDT) NAME ALEXUS KASPER DATE OF : 1955 DATE OF ADMISSION: 03/08/2019 17:45 (CDT) PHONE: AGE: 63 N# [id number] GENDER: Male ENCOUNTER PHYSICIAN: Dr. Reji Kraus M.D. 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 EATING: EATING - STEP 1: Does the patient require the assistance of a person or device, or need extra time when eating? No. EATING - SCORE: 7-IND GROOMING: Comb/brush hair Oral care Patient shaved Wash, rinse, and dry face Wash, rinse, and dry hands GROOMING - STEP 1: Does the patient require the assistance of a person or device, or need extra time when grooming? No. GROOMING - SCORE: 7-IND BATHING: Activity did not occur on this shift BATHING - SCORE: 0-UNK DRESSING - UPPER BODY: Activity did not occur on this shift ARTICLES SCORE Total number of steps: 0 DRESSING - UPPER BODY - SCORE: 0-UNK DRESSING - LOWER BODY: Activity did not occur on this shift ARTICLES SCORE Total number of steps: 0 DRESSING - LOWER BODY - SCORE: 0-UNK TOILETING: TOILETING - STEP 1: Does the patient require the assistance of a person or device, or need extra time with toileting? Yes . TOILETING - STEP 2: Does the patient require the assistance of a helper? Yes. TOILETING - STEP 3: How much assistance does the patient require from the helper? Only supervision TOILETING - SCORE: 5-SUP BLADDER MANAGEMENT: BLADDER MANAGEMENT - STEP 1: Does the patient control the bladder completely and intentionally without equipment or devices or med ications, and is always continent? No. BLADDER MANAGEMENT - STEP 2: Does the patient require the assistance of a helper? No, patient requires and independently uses an a ssistive device, such as a urinal, bedpan, bedside commode, catheter, absorbent pad, or collecting de vice BLADDER MANAGEMENT - SCORE: 6-SILVANO BLADDER MANAGEMENT - FREQUENCY OF ACCIDENTS: BLADDER MANAGEMENT(FA) - STEP 1: How many accidents has the patient had during the current shift? 0 BOWEL MANAGEMENT: Activity did not occur on this shift BOWEL MANAGEMENT - SCORE: 7-IND BOWEL MANAGEMENT - FREQUENCY OF ACCIDENTS: BOWEL MANAGEMENT(FA) - STEP 1: How many accidents has the patient had during the current shift? 0 TRANSFERS: BED, CHAIR, WHEELCHAIR: TRANSFERS: BED, CHAIR, WHEELCHAIR - STEP 1: Does the patient require assistance of a person or device, or need extra time with bed, chair, or whe elchair transfers? Yes. TRANSFERS: BED, CHAIR, WHEELCHAIR - STEP 2: Does the patient require the assistance of a helper? No. Patient only requires an assistive device fo r bed, chair, wheelchair transfers such as a sliding board, grab bar, or brace, OR s/he takes more th an reasonable time, OR there is a safety concern when s/he performs the transfers TRANSFERS: BED, CHAIR, WHEELCHAIR - SCORE: 6-SILVANO TRANSFERS: TOILET: TRANSFERS: TOILET - STEP 1: Does the patient require the assistance of a person or device, or need extra time with toilet transfe rs? Yes. TRANSFERS: TOILET - STEP 2: Does the patient require the assistance of a helper? No. Patient only requires an assistive device cote ch as a grab bar or special seat, OR s/he takes more than reasonable time to perform toilet transfers , OR there is a safety concern when s/he performs toilet transfers. TRANSFERS: TOILET - SCORE: 6-SILVANO TRANSFERS: SHOWER: Activity did not occur on this shift TRANSFERS: SHOWER - SCORE: 0-UNK TRANSFERS: TUB: Activity did not occur on this shift TRANSFERS: TUB - SCORE: 0-UNK LOCOMOTION: WALK: Activity did not occur on this shift LOCOMOTION: WALK - SCORE: 0-UNK LOCOMOTION: WHEELCHAIR: Activity did not occur on this shift LOCOMOTION: WHEELCHAIR - SCORE: 0-UNK COMPREHENSION: COMPREHENSION: TYPE: Both COMPREHENSION - STEP 1: Does the patient require help from a person or device, or need extra time to understand complex and a bstract ideas (such as current events, finances, discharge planning, medical issues, relationships, e tc)? No. COMPREHENSION - STEP 2: Does the patient need extra time, require an assistive device (such as glasses for visual comprehensi on or a hearing aid for auditory comprehension) or does s/he have mild difficulty understanding compl ex and abstract information? Yes. COMPREHENSION - SCORE: 6-SILVANO EXPRESSION EXPRESSION: TYPE: Both EXPRESSION - STEP 1: Does the patient require help from a person or device, or need extra time expressing complex and abst ract ideas (such as current events, finances, discharge planning, medical issues, relationships, etc) ? No. EXPRESSION - STEP 2: Does the patient need extra time, require an assistive device (such as augmentive communication syste m or a communication board), OR does s/he have mild difficulty expressing complex and abstract ideas (including mild dysarthria or mild word-find problems)? Yes. EXPRESSION - SCORE: 6-SILVANO SOCIAL INTERACTION: SOCIAL INTERACTION - STEP 1: Does the patient require a helper to interact with others in social and therapeutic situations? No. SOCIAL INTERACTION - STEP 2: Does the patient need extra time in social situations, OR does s/he interact with staff, other patien ts, and family members ONLY in structured environments, OR does s/he require medication for social in teraction? No. SOCIAL INTERACTION - SCORE: 7-IND PROBLEM SOLVING: PROBLEM SOLVING - STEP 1: Does the patient need help from a person or device, or need extra time to solve complex problems such as managing a checking account or confronting interpersonal problems? No. PROBLEM SOLVING - STEP 2: Does the patient require extra time to make decisions or solve problems, OR does s/he have slight dif ficulty reading, initiating, or self-correcting in unfamiliar situations? No. PROBLEM SOLVING - SCORE: 7-IND MEMORY: MEMORY - STEP 1: Does the patient need help from a person or device, or need extra time to remember frequently encount ered people, daily routines, and executing requests? No. MEMORY - STEP 2: Does the patient have slight difficulty recognizing frequently encountered people, daily routines, or executing requests without the need for repetition or using self-initiated or environmental cues to remember? Yes. MEMORY - SCORE: 6-SILVANO SIGNATURE PANEL: The following modified sections: Eating - Score, Grooming - Score, Bathing - Score, Dressing - Upper Body - Score, Dressing - Lower Body - Score, Toileting - Score, Bladder Management - Score, Bowel Man agement - Score, Transfers: Bed, Chair, Wheelchair - Score, Transfers: Toilet - Score, Transfers: Erlinda wer - Score, Transfers: Tub - Score, Locomotion: Walk - Score, Locomotion: Wheelchair - Score, Compre hension - Score, Expression - Score, Social Interaction - Score, Problem Solving - Score, Memory - Sc ore were [electronically] signed by Urmila Jefferson C.N.A. on MonMar 18 2019 13:33:04 T-0500 ([facility])
--- NOTE | 2019-03-18 13:51 | FAST ---
ENCOUNTER DATE AND TIME: 03/18/2019 08:00 (CDT) NAME ALEXUS KASPER DATE OF : 1955 DATE OF ADMISSION: 03/08/2019 17:45 (CDT) PHONE: AGE: 63 SSN# [id number] GENDER: Male ENCOUNTER PHYSICIAN: Dr. Reji Kraus M.D. 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 EATING: Activity did not occur on this shift EATING - SCORE: 0-UNK GROOMING: Comb/brush hair Patient shaved Wash, rinse, and dry face Wash, rinse, and dry hands GROOMING - STEP 1: Does the patient require the assistance of a person or device, or need extra time when grooming? No. GROOMING - SCORE: 7-IND BATHING: Abdomen Buttocks Chest Left arm Left lower leg and foot Left upper leg Perineal area Right arm Right lower leg and foot Right upper leg BATHING - STEP 1: Does the patient require the assistance of a person or device, or need extra time when bathing? Yes. BATHING - STEP 2: Does the patient require the assistance of a helper? No. The patient only requires an assistive devic e such as a bath chuy, OR the patient takes more than reasonable time to bathe, OR there is a concern for safety such as regulating water temperature as the patient bathes. BATHING - SCORE: 6-SILVANO DRESSING - UPPER BODY: T-shirt/pullover shirt (four steps) ARTICLES SCORE Total number of steps: 4 DRESSING - UPPER BODY - STEP 1: Does the patient require help from a person or device, or need extra time when dressing above the [address]? No. DRESSING - UPPER BODY - SCORE: 7-IND DRESSING - LOWER BODY: Elastic waist pants (three steps) Slip-on shoe - Left foot (one step) Slip-on shoe - Right foot (one step) Sock - Left foot (one step) Sock - Right foot (one step) Underwear (three steps) ARTICLES SCORE Total number of steps: 10 DRESSING - LOWER BODY - STEP 1: Does the patient require help from a person or device, or need extra time when dressing below the m[address]? Yes. DRESSING - LOWER BODY - STEP 2: Does the patient require the assistance of a helper? No. Patient requires an assistive device such as a turner splitter machine operator. OR s/he takes more than reasonable time as s/he dresses the lower body, OR there is a con cern for safety when s/he dresses the lower body DRESSING - LOWER BODY - SCORE: 6-SILVANO TOILETING: Activity did not occur on this shift TOILETING - SCORE: 0-UNK BLADDER MANAGEMENT: Activity did not occur on this shift BLADDER MANAGEMENT - SCORE: 7-IND BOWEL MANAGEMENT: Activity did not occur on this shift BOWEL MANAGEMENT - SCORE: 7-IND TRANSFERS: BED, CHAIR, WHEELCHAIR: Activity did not occur on this shift TRANSFERS: BED, CHAIR, WHEELCHAIR - SCORE: 0-UNK TRANSFERS: TOILET: Activity did not occur on this shift TRANSFERS: TOILET - SCORE: 0-UNK TRANSFERS: SHOWER: TRANSFERS: SHOWER - STEP 1: Does the patient require the assistance of a person or device, or need extra time with shower transfe rs? Yes. TRANSFERS: SHOWER - STEP 2: Does the patient require the assistance of a helper? No. The patient only uses an assistive device, t akes more than reasonable time, OR there is a concern for safety when s/he performs transfers. TRANSFERS: SHOWER - SCORE: 6-SILVANO TRANSFERS: TUB: Activity did not occur on this shift TRANSFERS: TUB - SCORE: 0-UNK LOCOMOTION: WALK: Activity did not occur on this shift LOCOMOTION: WALK - SCORE: 0-UNK LOCOMOTION: WHEELCHAIR: Activity did not occur on this shift LOCOMOTION: WHEELCHAIR - SCORE: 0-UNK LOCOMOTION: STAIRS: Activity did not occur on this shift LOCOMOTION: STAIRS - SCORE: 0-UNK COMPREHENSION: COMPREHENSION: TYPE: Visual COMPREHENSION - STEP 1: Does the patient require help from a person or device, or need extra time to understand complex and a bstract ideas (such as current events, finances, discharge planning, medical issues, relationships, e tc)? No. COMPREHENSION - STEP 2: Does the patient need extra time, require an assistive device (such as glasses for visual comprehensi on or a hearing aid for auditory comprehension) or does s/he have mild difficulty understanding compl ex and abstract information? Yes. COMPREHENSION - SCORE: 6-SILVANO EXPRESSION EXPRESSION: TYPE: Non-Vocal EXPRESSION - STEP 1: Does the patient require help from a person or device, or need extra time expressing complex and abst ract ideas (such as current events, finances, discharge planning, medical issues, relationships, etc) ? No. EXPRESSION - STEP 2: Does the patient need extra time, require an assistive device (such as augmentive communication syste m or a communication board), OR does s/he have mild difficulty expressing complex and abstract ideas (including mild dysarthria or mild word-find problems)? No. EXPRESSION - SCORE: 7-IND SOCIAL INTERACTION: SOCIAL INTERACTION - STEP 1: Does the patient require a helper to interact with others in social and therapeutic situations? No. SOCIAL INTERACTION - STEP 2: Does the patient need extra time in social situations, OR does s/he interact with staff, other patien ts, and family members ONLY in structured environments, OR does s/he require medication for social in teraction? No. SOCIAL INTERACTION - SCORE: 7-IND PROBLEM SOLVING: PROBLEM SOLVING - STEP 1: Does the patient need help from a person or device, or need extra time to solve complex problems such as managing a checking account or confronting interpersonal problems? No. PROBLEM SOLVING - STEP 2: Does the patient require extra time to make decisions or solve problems, OR does s/he have slight dif ficulty reading, initiating, or self-correcting in unfamiliar situations? No. PROBLEM SOLVING - SCORE: 7-IND MEMORY: MEMORY - STEP 1: Does the patient need help from a person or device, or need extra time to remember frequently encount ered people, daily routines, and executing requests? No. MEMORY - STEP 2: Does the patient have slight difficulty recognizing frequently encountered people, daily routines, or executing requests without the need for repetition or using self-initiated or environmental cues to remember? No. MEMORY - SCORE: 7-IND SIGNATURE PANEL: The following modified sections: Eating - Score, Grooming - Score, Bathing - Score, Dressing - Upper Body - Score, Dressing - Lower Body - Score, Toileting - Score, Transfers: Bed, Chair, Wheelchair - S core, Transfers: Toilet - Score, Transfers: Shower - Score, Transfers: Tub - Score, Comprehension - S core, Expression - Score, Social Interaction - Score, Problem Solving - Score, Memory - Score were [e lectronically] signed by NAREN Camejo on MonMar 18 2019 13:50:20 T-0500 ([facility])
--- NOTE | 2019-03-18 15:22 | R.PN ---
ENCOUNTER DATE AND TIME: 03/18/2019 15:17 (CDT) NAME URBANO KASPER DATE OF : 1955 DATE OF ADMISSION: 03/08/2019 17:45 (CDT) Closed Burst Fracture of T 11CHIEF COMPLAINT: T11 burst fracture SUBJECTIVE: Pt denied any depression. Pt denied any Shortness of Breath. He is at modified independence with activities of daily living. He ambulated 750 feet with modified i ndependence using a rolling walker. He walked up and down 30 steps with modified independence. He lillian l be discharged home today and continue outpatient physical therapy. 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 Splinting/Casting. - Dietary and Nutrition Adequate Nutrition. Nutritional Education. Nutritional Supplements. PHYSICAL EXAM - Gen Alert and awake Lying in bed No apparent distress Oriented to: person, time, and place - Skin No breakdown No numbness - Eyes No abnormalities - ENMT No abnormalities - Neck No abnormalities - CVS RRR - Chest Clear - Abd + bowel sounds - GI + bowel sound No abnormalities - No abnormalities - Ext No significant edema - MSK 5-/5 weakness in both lower extremities. - Neuro No focal deficits - Psych No abnormalities ASSESSMENT: Pt. is a 63 yo Right-handed white male.On 02/25/2019 he was admitted to [facility] with diagnosis Closed Burst Fracture of T 11.His impairment category is Spinal Cord Dysfunction 04 - Other Traumat ic Spinal Cord Dysfunction (04.230).Pre-morbidly, Pt. was independent/mod-I in Self-Care, Sphincter C ontrol, Transfers Control, Locomotion, Communication, and Social Cognition; and he had good Sphincter Control.Currently, he has deficits of Self-Care, Transfers Control, Locomotion, Endurance, Balance, and Safety Awareness.Pt. is now [facility] to [facility] for acute in-patient re habilitation in order to maximize patient's functional independence in activities of daily living, st rength, ROM, and mobility.- Rehab Goal Patient has realistic goal of being discharged at assistance level 6-Juan Manuel to reside at Home with Fam rene/Relatives. MDM/PLAN: - Physical Therapy Gait dysfunction - to improve, our physical therapists will perform initial evaluation of pt's statu s upon admission and devise an individualized program for Gait Training, and Wheel Chair mobility Inability to transfer - to improve, our physical therapists will perform initial evaluation of pt's status upon admission and devise an individualized program for Bed mobility Need for home safety evaluation - to improve, our physical therapists will perform initial evaluatio n of pt's status upon admission and devise an individualized program for Home Evaluation Need in caregiver upon discharge - to improve, our physical therapists will perform initial evaluati on of pt's status upon admission and devise an individualized program for Caregiver Training New precaution - to improve, our physical therapists will perform initial evaluation of pt's status upon admission and devise an individualized program for Patient precaution education Edema - to improve, our physical therapists will perform initial evaluation of pt's status upon admi ssion and devise an individualized program for Elevation Training, and Lymphedema Therapy Poor balance - to improve, our physical therapists will perform initial evaluation of pt's status up on admission and devise an individualized program for Balance Training Poor endurance - to improve, our physical therapists will perform initial evaluation of pt's status upon admission and devise an individualized program for Endurance Training Weakness - to improve, our physical therapists will perform initial evaluation of pt's status upon a dmission and devise an individualized program for Aquatic Therapy, Neuromuscular Reeducation, and Str engthening Achieving independence - to improve, our physical therapists will perform initial evaluation of pt's status upon admission and devise an individualized program for Community Reintegration Activities - Occupational Therapy ADL deficits - to improve, our occupation therapists will perform initial evaluation of pt's status upon admission and devise an individualized program for Bathing, Bed mobility, Community Reintegratio n, Cooking, Dressing, Eating, Fine Motor Skills, Grooming, Homemaking, Kitchen Mobility, Laundry, Pat ient Education, Safety Awareness, Splinting - Positioning, Transfers(Toilet, Tub, Shower), and Wheel Chair Management Need for primary health care nurse - to improve, our occupation therapists will perform initial evaluation of pt's status upon admission and devise an individualized program for Caregiver Training Weakness - to improve, our occupation therapists will perform initial evaluation of pt's status upon admission and devise an individualized program for Aquatic Therapy, Balance, Endurance, UE ROM, and UE strengthening - Other See attached MAR (Medication Administration Record) Urbano Kasper.pdf - Diet Type Continue Regular - Diet - Liquid Texture Continue Regular - Tube Feed Continue N/A - Bladder care per protocol - Skin care per protocol - Diet - Solid Texture Continue Regular - Shower allowing shower FUNCTIONAL STATUS: UPDATED AT WEEKLY TEAM CONFERENCE - Bladder Same accident frequency: 7-Ind - No accidents in the past 7 days - Bowel Same accident frequency: 7-Ind - No accidents in the past 7 days - Walking Same score based on distance walked: 3(>=150ft) - Wheelchair Same score based on distance traveled: 0(N/A) FUNCTIONAL STATUS: - Self-Care A. Eating sup B. Grooming sup C. Bathing ADNO D. Dressing - Upper maxA E. Dressing - Lower maxA F. Toileting maxA - Sphincter Control G: Bladder control Ind H: Bowel control Ind - Transfers Control I. Bed/Chair/Wheelchair Mckinley J. Toilet Mckinley K. Tub/Shower ADNO - Locomotion L. Walk/Wheelchair (C) Mckinley L. Walk/Wheelchair (W) Mckinley M. Stairs ADNO - Communication N. Comprehension (B) Ind O. Expression (B) Ind - Social Cognition P. Social Interaction Ind Q. Problem Solving Ind R. Memory Ind - Endurance Fair - Balance Fair - Safety Awareness Fair CURRENT FUNC. DEFICITS: Self-Care, Transfers Control, Locomotion, Endurance, Balance, and Safety Awareness SIGNATURE PANEL: (CDT)
--- NOTE | 2019-03-19 01:00 | DS ---
Date of Discharge: 03/18/2019 Disposition: Discharged to go home. Physical Examination: HEENT: Unremarkable. Lungs: Clear to auscultation. Heart: Sounds normal. Abdomen: Soft. Bowel sounds normal. No guarding, rigidity, tenderness, or distention. Extremities: No leg edema. Discharge Medications And Instructions: 1. Continue prior home medication except stop allopurinol 100 mg dose and start allopurinol 300 mg daily dose. 2. Follow up with your surgeon, Dr. Dickerson, at [facility] as per your scheduled appointment. 3. Follow up at my office during first or second week of April 2019. Call office for appointment. 4. Gabapentin 300 mg 2 times a day. 5. Take tramadol 50 mg 1 tablet every 4 hours as needed for pain. Hospital Course: A 63-year-old male patient admitted to the hospital to rehab floor from [place] getting physical therapy. Please see dictated H and P by Dr. Kraus and my consult report for more details. The patient had an injury at work and he fell down and was taken to [facility], where he was diagnosed as a burst fracture of T11 spine and he had surgery done. After the surgery, he was brought into our rehab floor. The patient has chronic kidney disease stage 3 and has history of gout, takes allopurinol 100 mg daily as a prophylactic treatment. While in the hospital, he had gout flare up and he was started on prednisone for further treatment of gout. His gout problem improved during this hospitalization. We were able to wean him off the prednisone. The patient had multiple jamaica on his surgical scar over back and on Monday of this week as per instructions from his surgeon, all the jamaica were removed. His surgical scar has healed very well. There is no evidence of discharge, bleeding, gapping, or swelling on the surgical scar area. He had some evidence of contact dermatitis on the skin over his back and he responded very well to triamcinolone cream. He participated well with physical therapy, which was provided under guidance of Dr. Kraus and his pain is under good control. He required some melatonin, which worked very well for his insomnia. He will continue to use melatonin upon discharge and he was advised that it is over-the- counter medication. His uric acid level was higher than normal done during this hospitalization, so I have recommended him to increase the dose of allopurinol from 100 mg to 300 mg. The patient was discharged to go home in stable condition with above-mentioned medications and instructions. The patient was given heparin 5000 units subcutaneous injection every 12 hours for DVT prophylaxis. Final Diagnoses: 1. Burst fracture, T11. 2. Hypertension. 3. Hyperlipidemia. 4. Chronic kidney disease, stage 3. 5. Gout. 6. Anemia due to chronic kidney disease. SISI/DAHLIAL Voice ID: [id number] Report ID: [id number] MTDD
[2019-03-20 14:46] VITALS: BP 127/77; TEMP 96.8
== END 2019-03-18 15:00 | disposition home or self-care (01) | DRG 560 ==
LOC: 5TH 03-08 14:00
PROVIDERS: ADMIT Psychiatry & Neurology Neurology with Special Qualifications in Child Neurology; ATTEND Psychiatry & Neurology Neurology with Special Qualifications in Child Neurology
DX: S22.081D Stable burst fracture of T11-T12 vertebra, subsequent encounter for fracture with routine healing (principal); N18.4 Chronic kidney disease, stage 4 (severe); I12.9 Hypertensive chronic kidney disease with stage 1 through stage 4 chronic kidney disease, or unspecified chronic kidney disease; E78.00 Pure hypercholesterolemia, unspecified; D63.1 Anemia in chronic kidney disease; M10.9 Gout, unspecified; K59.00 Constipation, unspecified; G47.00 Insomnia, unspecified; L25.9 Unspecified contact dermatitis, unspecified cause; E78.5 Hyperlipidemia, unspecified
CPT/HCPCS: 36415; 80048; 80053; 81001; 82040; 83735; 84134; 84550; 85025; 87086; 87088; 97110; 97116; 97163; 97165; 97530; 97542; G0103; J1644; J7512

== ENCOUNTER 2024-01-28 02:02 | Emergency (ER) | payer OTHER ==
[2024-01-28 02:36] LABS: Absolute Basophils 0.1 K/uL (0-0.5); Absolute Eosinophils 0.1 K/uL (0-0.5); Absolute Lymphocytes (CBC) 2.4 K/uL (0.7-4.9); Absolute Monocytes 0.6 K/uL (0.1-1.3); Eosinophils % 1.5 % (0-4.4); Hematocrit 41.3 % (39.6-49.0); Hemoglobin 13.5 g/dL (13.6-17.9); Lymphocytes % 29.3 % (15.3-44.8); MCH 30.4 pg (27.0-35.0); MCHC 32.7 g/dL (32.0-36.0); Monocytes % 6.8 % (3.3-12.3); Neutrophils % 61.4 % (41.7-73.7); Nucleated Red Blood Cells % 0.1 % (0-0); Platelets 179 thou/uL (152-406); RBC Red Blood Cell Count 4.44 M/uL (4.33-5.43); Red Cell Distribution Width 15.6 % (12.1-15.2)
[2024-01-28] MEDS ORDERED: ONDANSETRON 4 MG/2 ML VIAL ONE (02:42)
[2024-01-28] MEDS ORDERED: CYCLOBENZAPRINE 10 MG TAB ONE ×2 (02:43→04:51)
[2024-01-28] MEDS ORDERED: GABAPENTIN 300 MG CAP ONE (02:43)
[2024-01-28] MEDS ORDERED: dexAMETHasone 10 MG/ML VIAL ONE (02:43)
[2024-01-28] MEDS ORDERED: MORPHINE 4 MG/ML SYR ONE ×2 (02:44→04:13)
[2024-01-28 02:57] LABS: Albumin 3.6 g/dL (3.4-5.0); Albumin/Globulin Ratio 1.1 (1.1-1.8); Anion Gap 9.9 mEq/L (5.0-15.0); Bilirubin Total 0.4 mg/dL (0.2-1.0); Globulin 3.2 g/dL (2.3-3.5); Protein, Total 6.8 g/dL (6.4-8.2)
[2024-01-28 03:04] LABS: Potassium 4.9 mEq/L (3.5-5.1)
--- NOTE | 2024-01-28 04:29 | EDPHYS ---
Physician Documentation [facility] Name: Urbano Plaza Age: 68 yrs Sex: Male : 1955 Arrival Date: 01/28/2024 Time: 02:02 Bed 7 Private MD: ED Physician Nigel Montero HPI: 01/27 03:06 This 68 yrs old Male presents to ER via EMS with complaints of Back pain. rt 03:06 Patient presents to the ED with a left-sided back pain to the lower back, radiating to rt the hip. Patient does have a history of significant back injuries with surgery as well as CKD. He denies any new incontinence, numbness, tingling. Denies other acute complaints, symptoms are moderate in severity, no other aggravating or alleviating factors.. Historical: - Allergies: 02:20 No Known Allergies; ha1 - PMHx: 02:20 High Cholesterol; Hypertension; KIDNEY DISEASE STAGE 3; ha1 - PSHx: 02:20 back surgey (2019); ha1 - Immunization history:: Adult Immunizations not up to date, Adult Immunizations Client reports receiving the 2nd dose of the Covid vaccine, Searchles. - Infectious Disease History:: Denies. - Social history:: Smoking status: Patient denies any tobacco usage or history of. - Family history:: not pertinent. ROS: 03:06 Constitutional: Negative for fever, chills, and weight loss, Cardiovascular: Negative rt for chest pain, palpitations, and edema, Respiratory: Negative for shortness of breath, cough, wheezing, and pleuritic chest pain, Abdomen/GI: Negative for abdominal pain, nausea, vomiting, diarrhea, and constipation, Skin: Negative for injury, rash, and discoloration, Neuro: Negative for headache, weakness, numbness, tingling, and seizure, 03:06 Back: Positive for pain at rest, pain with movement, Exam: 03:06 Constitutional: This is a well developed, well nourished patient who is awake, alert, rt and in no acute distress. Head/Face: Normocephalic, atraumatic. Chest/axilla: Normal chest wall appearance and motion. Nontender with no deformity. No lesions are appreciated. Cardiovascular: Regular rate and rhythm with a normal S1 and S2. No gallops, murmurs, or rubs. Normal PMI, no JVD. No pulse deficits. Respiratory: Lungs have equal breath sounds bilaterally, clear to auscultation and percussion. No rales, rhonchi or wheezes noted. No increased work of breathing, no retractions or nasal flaring. Abdomen/GI: Soft, non-tender, with normal bowel sounds. No distension or tympany. No guarding or rebound. No evidence of tenderness throughout. Skin: Warm, dry with normal turgor. Normal color with no rashes, no lesions, and no evidence of cellulitis. 03:06 Back: Tenderness to the left lower paraspinal region, Vital Signs: 02:08 BP 151 / 96; Pulse 80; Resp 16 S; Temp 97.9; Pulse Ox 98% ; Weight 104.33 kg; Height 6 ha1 ft. 1 in. ; 03:00 BP 129 / 68; Pulse 71; Resp 15 S; Pulse Ox 97% on R/A; ha1 04:00 BP 128 / 73; Pulse 68; Resp 17 S; Pulse Ox 98% on R/A; ha1 04:35 BP 116 / 67; Pulse 65; Resp 16 S; Pulse Ox 97% on R/A; ha1 02:08 Body Mass Index 30.34 (104.33 kg, 185.42 cm) ha1 MDM: 02:08 Patient medically screened. rt 06:04 Differential Diagnosis Radicular pain, muscle spasm. Data reviewed: vital signs, nurses rt notes, lab test result(s), radiologic studies. I considered the following discharge prescriptions or medication management in the emergency department Medications were administered in the Emergency Department. See MAR. Independent interpretation of the following test(s) in the Emergency Department CT Scan: My interpretation is No malalignment seen on interpretation of CT scan images. Care significantly affected by the following chronic conditions: Chronic Kidney Disease. Counseling: I had a detailed discussion with the patient and/or guardian regarding the historical points, exam findings, and any diagnostic results supporting the discharge/admit diagnosis, lab results, radiology results, the need for outpatient follow up, to return to the emergency department if symptoms worsen or persist or if there are any questions or concerns that arise at home. Response to treatment: the patient's symptoms have markedly improved after treatment. 01/27 02:20 Order name: CBC with Diff; Complete Time: 03:02 rt 05/12 02:20 Order name: CMP; Complete Time: 03:05 rt 01/27 02:20 Order name: CT Chest Abdomen Pelvis W/O Contrast rt Administered Medications: 03:02 Drug: Ondansetron IVP 4 mg IVP once; over 2 minutes Route: IVP; Site: right antecubital;ha1 03:30 Follow up: Response: No adverse reaction ha1 03:04 Drug: morphine IVP or IV 4 mg IVP once over 4 mins Route: IVP; Infused Over: 4 mins; ha1 Site: right antecubital; 03:30 Follow up: Response: No adverse reaction; Marked relief of symptoms; Pain is decreased; ha1 RASS: Alert and Calm (0) 03:05 Drug: Decadron - Dexamethasone IVP 10 mg IVP once Route: IVP; Site: right antecubital; ha1 03:30 Follow up: Response: No adverse reaction ha1 03:08 Drug: Gabapentin PO 300 mg PO once Route: PO; ha1 03:30 Follow up: Response: No adverse reaction; Marked relief of symptoms ha1 03:08 Drug: Cyclobenzaprine PO 10 mg PO once Route: PO; ha1 03:30 Follow up: Response: No adverse reaction ha1 04:17 Drug: morphine IVP or IV 4 mg IVP once over 4 mins Route: IVP; Infused Over: 4 mins; ha1 Site: right antecubital; 04:36 Follow up: Response: No adverse reaction; Marked relief of symptoms; Pain is decreased; ha1 RASS: Alert and Calm (0) 04:53 Drug: Cyclobenzaprine PO 5 mg PO once Route: PO; ha1 04:53 Follow up: Response: No adverse reaction ha1 Disposition Summary: 01/28/24 04:29 Discharge Ordered Notes: Location: Home rt Problem: new rt Symptoms: have improved rt Condition: Stable rt Diagnosis - Low back pain rt - Muscle spasm of back rt Followup: rt - With: Private Physician - When: 2 - 3 days - Reason: Discharge Instructions: - Discharge Summary Sheet rt - Acute Back Pain, Adult rt - Muscle Cramps and Spasms rt Forms: - Medication Reconciliation Form rt - Antibiotic Education rt - Prescription Opioid Use rt - Patient Portal Instructions rt - Leadership Thank You Letter rt Prescriptions: - acetaminophen-codeine 300-30 mg Oral tablet - take 1 tablet ORAL route every 6 hours as needed for pain; 18 tablet; Refills: rt 0, Product Selection Permitted - Lidoderm 5 % Topical adhesive patch, medicated - apply 1 package TOPICAL route per package directions leave on most painful area rt for up to 12 hrs; 10 Each; Refills: 0, Product Selection Permitted - gabapentin 100 mg Oral capsule - take 1 capsule ORAL route every 8 hours; 30 capsule; Refills: 0, Product rt Selection Permitted - Cyclobenzaprine 10 mg Oral Tablet - take 1 tablet ORAL route every 8 hours As needed; 30 tablet; Refills: 0, rt Product Selection Permitted - Medrol (Cory) 4 mg Oral Tablets, Dose Pack - take 1 tablet ORAL route as directed - follow package instructions; 1 packet; rt Refills: 0, Product Selection Permitted Signatures: Dispatcher [employer] Joanne Larsen RN RN ha1 Nigel Montero MD MD rt Corrections: (The following items were deleted from the chart) 02:23 02:20 PSHx: back surgery (KIDNEY DISEASE STAGE 3); ha1 ha1
--- NOTE | 2024-01-28 04:29 | ER ---
Nurse's Notes [facility] Name: Urbano Plaza Age: 68 yrs Sex: Male : 1955 Arrival Date: 01/28/2024 Time: 02:02 Bed 7 Private MD: Diagnosis: Low back pain;Muscle spasm of back Presentation: 01/27 02:08 Chief complaint: EMS states: he was laying in bed for the past four hours and suddenly ha1 he felt a terrible pain on the left side of his back. 150 mg of Fentanyl IV were given. 02:08 Coronavirus screen: Vaccine status:. Ebola Screen: No symptoms or risks identified at [facility] this time. Initial Sepsis Screen: Does the patient meet any 2 criteria? No. Patient's initial sepsis screen is negative. Does the patient have a suspected source of infection? No. Patient's initial sepsis screen is negative. Risk Assessment: Do you want to hurt yourself or someone else? Patient reports no desire to harm self or others. Onset of symptoms was January 28, 2024. 02:08 Method Of Arrival: EMS: [facility] 02:08 Acuity: LOIS 3 ha1 Triage Assessment: 02:08 General: Appears uncomfortable, Behavior is cooperative. Pain: Complains of pain in ha1 left low back Pain does not radiate. Pain at worst was 10 out of 10 on a pain scale. Quality of pain is described as throbbing, Pain began suddenly, Aggravated by increased activity, repositioning. Neuro: Level of Consciousness is awake, alert, obeys commands, Oriented to person, place, time, situation. Cardiovascular: Capillary refill < 3 seconds Patient's skin is warm and dry. Respiratory: Airway is patent Respiratory effort is even, unlabored, Respiratory pattern is regular, symmetrical. GI: No signs and/or symptoms were reported involving the gastrointestinal system. :. Derm: Skin is pink, warm \T\ dry. Musculoskeletal: Circulation, motion, and sensation intact. Reports pain in back. Historical: - Allergies: 02:20 No Known Allergies; ha1 - PMHx: 02:20 High Cholesterol; Hypertension; KIDNEY DISEASE STAGE 3; ha1 - PSHx: 02:20 back surgey (2019); ha1 - Immunization history:: Adult Immunizations not up to date, Adult Immunizations Client reports receiving the 2nd dose of the Covid vaccine, Pfizer. - Infectious Disease History:: Denies. - Social history:: Smoking status: Patient denies any tobacco usage or history of. - Family history:: not pertinent. Screenin:23 Abuse screen: Denies threats or abuse. Denies injuries from another. Nutritional ha1 screening: No deficits noted. Tuberculosis screening: No symptoms or risk factors identified. 02:30 [facility] ED Fall Risk Assessment (Adult) History of falling in the last 3 months, ha1 including since admission No falls in past 3 months (0 pts) Confusion or Disorientation No (0 pts) Intoxicated or Sedated No (0 pts) Impaired Gait No (0 pts) Mobility Assist Device Used No (0 pt) Altered Elimination No (0 pt) Score/Fall Risk Level 0 - 2 = Low Risk Oriented to surroundings, Maintained a safe environment, Educated pt \T\ family on fall prevention, incl call for assistance when getting out of bed, Hourly rounding (assess needs \T\ fall precautionary measures) done. Assessment: 02:08 Reassessment: see triage assessment. ha1 02:40 Reassessment: going to CT. ha1 03:01 Reassessment: back from CT. ha1 03:01 Reassessment: Patient and/or family updated on plan of care and expected duration. Pain ha1 level reassessed. Patient is alert, oriented x 3, equal unlabored respirations, skin warm/dry/pink. 04:10 Reassessment: Patient and/or family updated on plan of care and expected duration. Pain ha1 level reassessed. Patient is alert, oriented x 3, equal unlabored respirations, skin warm/dry/pink. pain 6/10. 04:34 Reassessment: Patient and/or family updated on plan of care and expected duration. Pain ha1 level reassessed. Patient is alert, oriented x 3, equal unlabored respirations, skin warm/dry/pink. pain at 7 only when bending his back Patient states feeling better. Patient states symptoms have improved. Vital Signs: 02:08 BP 151 / 96; Pulse 80; Resp 16 S; Temp 97.9; Pulse Ox 98% ; Weight 104.33 kg; Height 6 ha1 ft. 1 in. ; 03:00 BP 129 / 68; Pulse 71; Resp 15 S; Pulse Ox 97% on R/A; ha1 04:00 BP 128 / 73; Pulse 68; Resp 17 S; Pulse Ox 98% on R/A; ha1 04:35 BP 116 / 67; Pulse 65; Resp 16 S; Pulse Ox 97% on R/A; ha1 02:08 Body Mass Index 30.34 (104.33 kg, 185.42 cm) ha1 ED Course: 02:08 Patient arrived in ED. ty 02:08 Nigel Montero MD is Attending Physician. rt 02:08 Arm band placed on right wrist. ha1 02:08 Patient has correct armband on for positive identification. Placed in gown. Bed in low ha1 position. Call light in reach. Side rails up X2. 02:08 Maintain EMS IV. Dressing intact. Good blood return noted. Site clean \T\ dry. Gauge \T\ woods 1 site: 20 gauge RAC. 02:20 Triage completed. ha1 02:59 CT Chest Abdomen Pelvis W/O Contrast In Process Unspecified. EDMS 04:39 Provided Education on: medication administration . ha1 04:39 No provider procedures requiring assistance completed. ha1 04:54 IV discontinued, intact, bleeding controlled, No redness/swelling at site. Pressure ha1 dressing applied. Administered Medications: 03:02 Drug: Ondansetron IVP 4 mg IVP once; over 2 minutes Route: IVP; Site: right antecubital;ha1 03:30 Follow up: Response: No adverse reaction ha1 03:04 Drug: morphine IVP or IV 4 mg IVP once over 4 mins Route: IVP; Infused Over: 4 mins; ha1 Site: right antecubital; 03:30 Follow up: Response: No adverse reaction; Marked relief of symptoms; Pain is decreased; ha1 RASS: Alert and Calm (0) 03:05 Drug: Decadron - Dexamethasone IVP 10 mg IVP once Route: IVP; Site: right antecubital; ha1 03:30 Follow up: Response: No adverse reaction ha1 03:08 Drug: Gabapentin PO 300 mg PO once Route: PO; ha1 03:30 Follow up: Response: No adverse reaction; Marked relief of symptoms ha1 03:08 Drug: Cyclobenzaprine PO 10 mg PO once Route: PO; ha1 03:30 Follow up: Response: No adverse reaction ha1 04:17 Drug: morphine IVP or IV 4 mg IVP once over 4 mins Route: IVP; Infused Over: 4 mins; ha1 Site: right antecubital; 04:36 Follow up: Response: No adverse reaction; Marked relief of symptoms; Pain is decreased; ha1 RASS: Alert and Calm (0) 04:53 Drug: Cyclobenzaprine PO 5 mg PO once Route: PO; ha1 04:53 Follow up: Response: No adverse reaction ha1 Medication: 04:39 VIS not applicable for this client. ha1 Outcome: 04:29 Discharge ordered by . rt 04:53 Discharged to home via wheelchair, ha1 04:53 Condition: stable 04:53 Discharge instructions given to patient, Instructed on discharge instructions, follow up and referral plans. medication usage, Demonstrated understanding of instructions, follow-up care, medications, Prescriptions given X 5 04:54 Patient left the ED. ha1 Signatures: Dispatcher [employer] EDJoanne Lopez RN RN ha1 Nigel Montero MD MD rt Alireza Peoples Corrections: (The following items were deleted from the chart) 02:23 02:20 PSHx: back surgery (KIDNEY DISEASE STAGE 3); ha1 ha1
[2024-01-28 05:00] VITALS: TEMP 97.9
[2024-01-28 05:23] VITALS: BP 116/67; O2SAT 97
--- NOTE | 2024-01-29 12:50 | RAD REPORT ---
EXAM DESCRIPTION: CT - Chest Abd Pelvis Wo Con - 01/28/2024 6:53 am CLINICAL HISTORY: Back, hip pain COMPARISON: 11/08/2018 TECHNIQUE: CT of the chest, abdomen and pelvis performed without IV contrast. Evaluation of the leandra d organs and vasculature is suboptimal due to lack of IV contrast. This exam was performed according to our departmental dose-optimization program, which includes automated exposure control, adjustment of the mA and/or kV according to patient size and/or use of iterative reconstruction technique. FINDINGS: Chest: Thyroid: No abnormalities of the visualized thyroid. Great Vessels: Great vessels have normal anatomic configuration. Thoracic Aorta: Atherosclerotic calcification of thoracic aorta. Pulmonary arteries: The main pulmonary artery is not dilated. Heart: Coronary artery atherosclerosis. No cardiomegaly. Lymph Nodes: No enlarged mediastinal lymph nodes identified. Esophagus: No abnormalities of the esophagus identified Other: No additional findings. Lungs: No airspace opacities identified. Tiny calcified granulomas the left lower lobe. Pleura: No pleural effusion or pneumothorax. Trachea/Airways: No abnormalities of the visualized trachea or airways. Abdomen: Liver: The liver has normal size and density. Gallbladder: No calcified gallstones. Spleen, Pancreas, and Adrenal Glands: The spleen, pancreas, and adrenal glands are unremarkable. Kidneys: Bilateral renal atrophy. No hydronephrosis. Vasculature: Aortoiliac atherosclerosis. IVC is unremarkable. Stomach: The stomach and duodenum have normal course. Other: No free intraperitoneal air. No free fluid or lymphadenopathy. Pelvis: Bladder: Urinary bladder is unremarkable. Bowel: No dilated loops of large or small bowel. Scattered diverticula of the colon. Appendix: Not definitely identified. Pelvis: Enlarged prostate. Small bilateral fat-containing inguinal hernias. Bones: Left gluteal generator. Screw fixation of the thoracolumbar spine at T9-L1. T11 remote nayely yojana fracture. Multilevel endplate spondylosis and facet arthropathy. Osteoarthritic change of the hi ps. IMPRESSION: 1. No acute inflammatory or obstructive process identified. 2. Diverticulosis without evidence of acute diverticulitis. 3. Enlarged prostate. 4. Coronary artery atherosclerosis. Electronically signed by: Bon Watkins DO 01/28/2024 03:41 AM CDT M Due to temporary technical issues with the PACS/Fluency reporting system, reports are being signed by the in house radiologist without review as a courtesy to ensure prompt reporting. The interpreting r adiologist is fully responsible for the content of the report.
== END 2024-01-28 04:54 | disposition home or self-care (01) ==
LOC: ER 02:02
DX: M62.830 Muscle spasm of back (principal); I12.9 Hypertensive chronic kidney disease with stage 1 through stage 4 chronic kidney disease, or unspecified chronic kidney disease; N18.30 Chronic kidney disease, stage 3 unspecified
CPT/HCPCS: 85025; 36415; 80053; 71250; 74176; 96375; 96374; 99284; J1100; J2405